=== PATIENT | female | born 1950 | race Caucasian/White ===

== ENCOUNTER 2016-11-03 18:53 | Emergency (ER) | payer BC ==
[2016-11-03 18:59] VITALS: BMI 35.2
--- NOTE | 2016-11-03 19:49 | PDOC ---
History of Present Illness - General History Source: Patient Exam Limitations: No Limitations - History of Present Illness Initial Comments: 11/03/16 19:58 The patient is a 66 year old female with significant past medical history of hypertension, hyperlipidemia, diabetes and kidney stones who presents to the ED for 3 days of worsening SOB and dry cough. Patient reports her SOB is worsen when walking and alleviated upon rest. Denies h/o of chf. Denies lightheadedness , diaphoresis, chest pain, jaw pain, shoulder pain, arm pain, leg swelling, nausea, or vomiting. States she was seen by her PMD yesterday where she was diagnosed with bronchitis and placed on z-pack, which she started yesterday. Patient reports her symptoms did not improve and decided to come into the ER. The patient denies fever, chills, abdominal pain, and diarrhea. The patient denies dysuria, hematuria, urgency, and frequency. Allergies: NKDA Social History: Former smoker (ppd for 50 years, quit 2 years ago). No alcohol or drug use reported. Past Surgical History: cholecystectomy, s/p lithotripsy and stent placement () PCP: Dr. Rivas Lund Urologist: Dr. Manning <Promise Barker - Last Filed: 11/03/16 19:59> - General History Source: Patient, Family <Rj Pascal - Last Filed: 11/03/16 22:31> - General Chief Complaint: Shortness of Breath Stated Complaint: PCP SENT/SHORTNESS OF BREATH Time Seen by Provider: 11/03/16 19:48 Past History <Promise Barker - Last Filed: 11/03/16 19:59> - Past Medical History Anemia: No Asthma: No COPD: No Diabetes: Yes (NIDDM) HTN: Yes Kidney Stones: Yes - Surgical History Cholecystectomy: Yes - Psycho/Social/Smoking Cessation Hx Anxiety: No Suicidal Ideation: No Smoking History: Former smoker Have you smoked in the past 12 months: No If you are a former smoker, when did you quit?: 2 years ago Information on smoking cessation initiated: No 'Breaking Loose' booklet given: 12/28/15 Hx Alcohol Use: No Drug/Substance Use Hx: No Substance Use Type: None Hx Substance Use Treatment: No <Rj Pascal - Last Filed: 11/03/16 22:31> - Past Medical History Allergies/Adverse Reactions: Allergies Allergy/AdvReac Type Severity Reaction Status Date / Time No Known Drug Allergies Allergy Verified 11/03/16 18:56 Home Medications: Ambulatory Orders Glimepiride [Amaryl -] 4 mg PO DAILY 11/25/15 Metformin HCl [Glucophage] 1,000 mg PO BID 11/25/15 Quinapril HCl [Accupril -] 10 mg PO DAILY 11/25/15 Simvastatin [Zocor -] 20 mg PO HS 11/25/15 Metoprolol Succinate [Toprol XL -] 50 mg PO BID 11/03/16 Review of Systems - Review of Systems Able to Perform ROS?: Yes Comments:: 11/03/16 19:58 CONSTITUTIONAL: Absent: fever, chills, diaphoresis, generalized weakness, malaise, loss of appetite HEENT: Absent: rhinorrhea, nasal congestion, throat pain, throat swelling, difficulty swallowing, ear pain, eye pain, visual Changes CARDIOVASCULAR: Absent: chest pain, syncope, palpitations, irregular heart rate, lightheadedness , peripheral edema RESPIRATORY: +cough, shortness of breath Absent: orthopnea, wheezing, stridor, hemoptysis GASTROINTESTINAL: Absent: abdominal pain, abdominal distension, nausea, vomiting, diarrhea, constipation, melena, hematochezia GENITOURINARY: Absent: dysuria, frequency, urgency, hesitancy, hematuria, flank pain, genital pain MUSCULOSKELETAL: Absent: myalgia, arthralgia, joint swelling SKIN: Absent: rash, itching, pallor NEUROLOGIC: Absent: headache, focal weakness or paresthesias, dizziness, unsteady gait, seizure, mental status changes, bladder or bowel incontinence <Promise Barker - Last Filed: 11/03/16 19:59> *Physical Exam - Vital Signs Last Vital Signs Temp Pulse Resp BP Pulse Ox 97.6 F 101 H 18 164/87 100 11/03/16 18:56 11/03/16 18:56 11/03/16 18:56 11/03/16 18:56 11/03/16 18:56 - Physical Exam Comments: 11/03/16 19:58 GENERAL: Well developed, well nourished. Awake and alert. No acute distress. HEENT: Normocephalic, atraumatic. PERRLA, EOMI. No conjunctival pallor. Sclera are non- icteric. Moist mucous membranes. Oropharynx is clear. NECK: Supple. Full ROM. No JVD. Carotid pulses 2+ and symmetric, without bruits. No thyromegaly. No lymphadenopathy. CARDIOVASCULAR: Regular rate and rhythm. No murmurs, rubs, or gallops. Distal pulses are 2+ and symmetric. PULMONARY: No evidence of respiratory distress. Decreased breath sounds bilaterally. No conversational dyspnea. No retractions. No wheezing, rales or rhonchi. ABDOMINAL: Soft. Non-tender. Non-distended. No rebound or guarding. No organomegaly. Normoactive bowel sounds. MUSCULOSKELETAL Normal range of motion at all joints. No bony deformities or tenderness. No CVA tenderness. EXTREMITIES: No cyanosis. No clubbing. No edema. No calf tenderness. SKIN: Warm and dry. Normal capillary refill. No rashes. No jaundice. NEUROLOGICAL: Alert, awake, appropriate. Cranial nerves 2-12 intact. Moving all extremities. No gross focal neurological deficits. <Promise Barker - Last Filed: 11/03/16 19:59> - Vital Signs Last Vital Signs Temp Pulse Resp BP Pulse Ox 97.6 F 101 H 18 164/87 100 11/03/16 18:56 11/03/16 18:56 11/03/16 18:56 11/03/16 18:56 11/03/16 18:56 <Rj Pascal - Last Filed: 11/03/16 22:31> Medical Decision Making - Medical Decision Making 11/03/16 22:29 Dr. Pascal: The scribe's documentation has been prepared under my direction and personally reviewed by me in its entirery. I confirm that the note above accurately reflects all work, treatment, procedures, and medical decision making performed by me. Pt chest xray is negative for infiltrate as read by radiology. Pt will be discharged and advised to complete the antibiotic she has been started on. <Rj Pascal - Last Filed: 11/03/16 22:31> *DC/Admit/Observation/Transfer - Attestations Scribe Attestion: 11/03/16 19:58 Documentation prepared by Promise Barker, acting as medical office clerk for Rj Pascal MD <Promise Barker - Last Filed: 11/03/16 19:59> - Discharge Dispostion Admit: No <Rj Pascal - Last Filed: 11/03/16 22:31> Diagnosis at time of Disposition: Cough - Discharge Dispostion Disposition: HOME Condition at time of disposition: Stable - Referrals Referrals: Rivas Lund MD [Primary Care Provider] - - Patient Instructions Printed Discharge Instructions: DI for Cough -- Adult Additional Instructions: coninue with all your medications. Follow up with your primary care doctor after completion of antibiotic. Return if any problems.
[2016-11-03] MEDS ORDERED: ALBUTEROL SO4 2.5/IPRATROPIUM 0.5 INH SOL 3 ML VIAL.NEB. NEB STA ×3 (19:54→22:22)
[2016-11-03] MEDS ORDERED: ALBUTEROL SO4 2.5/IPRATROPIUM 0.5 INH SOL 3 ML VIAL.NEB. NEB ONE (20:04)
[2016-11-03 22:35] VITALS: BP 147/68; PULSE 92; TEMP 98.1
== END 2016-11-03 22:42 | disposition home or self-care (01) ==
LOC: JERFT 18:53 → JER 18:53
PROC: 3E0F7GC Introduction of Other Therapeutic Substance into Respiratory Tract, Via Natural or Artificial Opening (ICD-10-PCS; principal; 2016-11-03)
PROC: 3E0F7GC Introduction of Other Therapeutic Substance into Respiratory Tract, Via Natural or Artificial Opening (ICD-10-PCS; 2016-11-03)
DX: R05 Cough (principal); I10 Essential (primary) hypertension; E78.00 Pure hypercholesterolemia, unspecified; E11.9 Type 2 diabetes mellitus without complications; Z79.84 Long term (current) use of oral hypoglycemic drugs; Z87.442 Personal history of urinary calculi; Z87.891 Personal history of nicotine dependence
CPT/HCPCS: 71020-TC; 99282-25

== ENCOUNTER 2016-11-07 06:46 | Inpatient (IN) | payer BC, OTHER ==
[2016-11-07] MEDS ORDERED: morphine CARPU-JECT 4 MG/1 ML DISP.SYRIN IVPUSH ONE (07:21)
--- NOTE | 2016-11-07 07:26 | PDOC ---
History of Present Illness - General Chief Complaint: Pain, Acute Stated Complaint: SHORTNESS OF BREATH Time Seen by Provider: 11/07/16 07:05 History Source: Patient Exam Limitations: No Limitations - History of Present Illness Travel History: No Initial Comments: 66 yo F with h/o HTN, HLD, kidney stone s/p lithotripsy and stent, septic shock 2/2 UTI presented to the ED with LLQ pain since 1am. The pain is located in LLQ , non-radiating, 10/10 at worst, sharp quality, constant, no aggravating or alleviating factors. She was admitted to the ICU a year ago due to septic shock 2/2 UTI, kidney stone and respiratory failure 2/2 fluid overload. Denies fever, chills, chest pain, sob, n/v, diarrhea. Past History - Past Medical History Allergies/Adverse Reactions: Allergies Allergy/AdvReac Type Severity Reaction Status Date / Time No Known Drug Allergies Allergy Verified 11/07/16 07:08 Home Medications: Ambulatory Orders Glimepiride [Amaryl -] 4 mg PO DAILY 11/25/15 Metformin HCl [Glucophage] 1,000 mg PO BID 11/25/15 Quinapril HCl [Accupril -] 10 mg PO DAILY 11/25/15 Simvastatin [Zocor -] 20 mg PO HS 11/25/15 Metoprolol Succinate [Toprol XL -] 50 mg PO BID 11/03/16 Sitagliptin Phosphate [Januvia] 100 mg PO DAILY 11/07/16 Anemia: No Asthma: No COPD: No Diabetes: Yes (NIDDM) HTN: Yes Kidney Stones: Yes - Surgical History Cholecystectomy: Yes - Psycho/Social/Smoking Cessation Hx Anxiety: No Suicidal Ideation: No Smoking History: Unknown if ever smoked Have you smoked in the past 12 months: No If you are a former smoker, when did you quit?: 2 years ago 'Breaking Loose' booklet given: 12/28/15 Hx Alcohol Use: No Drug/Substance Use Hx: No Substance Use Type: None Hx Substance Use Treatment: No Review of Systems - Review of Systems Able to Perform ROS?: Yes Is the patient limited Khmer proficient: No Constitutional: No: Chills, Fever Respiratory: Yes: Cough, Shortness of Breath Cardiac (ROS): No: Chest Pain ABD/GI: No: Nausea, Vomiting : No: Burning, Discharge, Frequency, Hematuria Musculoskeletal: No: Back Pain Neurological: No: Headache *Physical Exam - Vital Signs Last Vital Signs Temp Pulse Resp BP Pulse Ox 98.1 F 90 22 169/82 93 L 11/07/16 07:09 11/07/16 07:09 11/07/16 07:09 11/07/16 07:09 11/07/16 07:09 - Physical Exam General Appearance: No: Apparent Distress Neck: positive: Trachea midline, Supple Respiratory/Chest: positive: Wheezing Cardiovascular: positive: Regular Rhythm, Regular Rate, S1, S2. negative: Murmur Gastrointestinal/Abdominal: positive: Normal Bowel Sounds, Tenderness (LLQ) Musculoskeletal: negative: CVA Tenderness Extremity: negative: Swelling, Calf Tenderness Neurologic: positive: Fully Oriented, Alert ED Treatment Course - LABORATORY CBC & Chemistry Diagram: 11/07/16 07:15 11/07/16 07:15 - RADIOLOGY Radiology Studies Ordered: Category Date Time Status SPIRAL- RENAL-STONE CT [CT] Stat CT Scan 11/07/16 07:22 Ordered Medical Decision Making - Medical Decision Making 11/07/16 07:41 66 yo F in the ED for LLQ pain. DDx: kidney stone vs. UTI vs. diverticulitis. Will obtain spiral CT, full sets of labs. 11/07/16 10:27 CT is positive for 4mm L UVJ stone. Labs is remarkable for chronically elevated BNP. Dr. Egan discussed the case with Dr. Denson. Stent placement planned for this afternoon. Dr. Egan also discussed the case with Dr. Neal, will admit the patient under him. 11/07/16 10:42 Dr. Egan discussed the case with Dr. Cast. *DC/Admit/Observation/Transfer Diagnosis at time of Disposition: Nephrolithiasis UTI (urinary tract infection) Qualifiers: Urinary tract infection type: acute cystitis Hematuria presence: without hematuria Qualified Code(s): N30.00 - Acute cystitis without hematuria Hydronephrosis Qualifiers: Hydronephrosis type: with renal calculous obstruction Qualified Code(s): N13.2 - Hydronephrosis with renal and ureteral calculous obstruction CHF (congestive heart failure) Qualifiers: Congestive heart failure type: systolic Congestive heart failure chronicity: chronic Qualified Code(s): I50.22 - Chronic systolic (congestive) heart failure - Discharge Dispostion Condition at time of disposition: Stable Admit: Yes - Referrals Referrals: Clarke Lund MD [Primary Care Provider] -
[2016-11-07] MEDS ORDERED: morphine CARPU-JECT 4 MG/1 ML DISP.SYRIN ONE (07:27)
[2016-11-07] MEDS ORDERED: ONDANSETRON 4 MG/2 ML VIAL ONE (07:33)
[2016-11-07] MEDS ORDERED: ONDANSETRON *ODT* 4 MG TABLET SL ONE (07:33)
--- NOTE | 2016-11-07 07:48 | PDOC ---
Attending Attestation - Resident Resident Name: Jcarlos Zimmerman - ED Attending Attestation I have performed the following: I have examined & evaluated the patient, The case was reviewed & discussed with the resident, I agree w/resident's findings & plan, Exceptions are as noted - HPI HPI: 11/07/16 07:44 66 yo F c/ hx of DM, COPD, HTN, CHF, renal colic s/p ureteral stents (now removed), UTI, prior hx of sepsis/intubation/ICU admission last year p/w LLQ pain since this morning. Woke up this morning with pain with what she thinks is her kidney stones. denies fevers, chills, hematuria, dysuria. Denies diarrhea but does report nausea. As of note, pt was here several days ago for what may possibly be bronchitis. She completed her azithromycin yesterday. Not coughing anymore but feels slightly short of breath. Denies chest pain or radiation. Noted to have a strong smoking history and mild expiratory wheezing bilaterally. - Physicial Exam PE: 11/07/16 08:06 GENERAL: Awake, alert, and fully oriented, in no acute distress. HEAD: No signs of trauma EYES: PERRLA, EOMI, sclera anicteric, conjunctiva clear ENT: Auricles normal inspection, hearing grossly normal, nares patent, oropharynx clear without exudates. NECK: Normal ROM, supple, no lymphadenopathy, JVD, or masses LUNGS: Slight expiratory wheezing bilaterally. HEART: Regular rate and rhythm, normal S1 and S2, no murmurs, rubs or gallops ABDOMEN: TTQ LLQ. Soft, No guarding, no rebound. No masses EXTREMITIES: Normal range of motion, no edema. No clubbing or cyanosis. No cords, erythema, or tenderness NEUROLOGICAL: Cranial nerves II through XII grossly intact. Normal speech, normal gait SKIN: Warm, Dry, normal turgor, no rashes or lesions noted. - Medical Decision Making 11/07/16 08:06 Patient reports that this feels like her kidney stone. We'll need to rule out renal colic. However, we'll need to rule out obstructed kidney stone as well as pyelonephritis, colitis, diverticulitis. We'll obtain labs and a CAT scan. Treat symptoms and reassess. 11/07/16 10:17 4 mm left UVJ with resultant hydronephrosis. CBC, BMP 11/07/16 07:15 11/07/16 07:15 CMP Sodium 139 mmol/L (136-145) 11/07/16 07:15 Potassium 4.8 mmol/L (3.5-5.1) 11/07/16 07:15 Chloride 100 mmol/L (98-107) 11/07/16 07:15 Carbon Dioxide 27 mmol/L (21-32) 11/07/16 07:15 Anion Gap 12 (8-16) 11/07/16 07:15 BUN 16 mg/dL (7-18) 11/07/16 07:15 Creatinine 0.9 mg/dL (0.55-1.02) D 11/07/16 07:15 Creat Clearance w eGFR > 60 (>60) 11/07/16 07:15 Random Glucose 385 mg/dL (74-106) H* D 11/07/16 07:15 Calcium 9.3 mg/dL (8.5-10.1) 11/07/16 07:15 Total Bilirubin 0.4 mg/dL (0.2-1.0) D 11/07/16 07:15 AST 49 U/L (15-37) H 11/07/16 07:15 ALT 65 U/L (12-78) 11/07/16 07:15 Alkaline Phosphatase 81 U/L (45-117) 11/07/16 07:15 Creatine Kinase 51 IU/L (26-192) 11/07/16 07:15 Troponin I < 0.02 ng/ml (0.00-0.05) 11/07/16 07:15 B-Natriuretic Peptide 2123.67 pg/ml (5-125) H 11/07/16 07:15 Total Protein 7.1 g/dl (6.4-8.2) 11/07/16 07:15 Albumin 3.2 g/dl (3.4-5.0) L 11/07/16 07:15 Lipase 134 U/L (73-393) 11/07/16 07:15 Urine Test Results Urine Color Ltyellow 11/07/16 08:48 Urine Appearance Slcloudy 11/07/16 08:48 Urine pH 5.0 (5.0-8.0) 11/07/16 08:48 Ur Specific [place] 1.023 (1.001-1.035) 11/07/16 08:48 Urine Protein 2+ (NEGATIVE) H 11/07/16 08:48 Urine Glucose (UA) 3+ (NEGATIVE) H D 11/07/16 08:48 Urine Ketones Trace (NEGATIVE) H 11/07/16 08:48 Urine Blood 3+ (NEGATIVE) H 11/07/16 08:48 Urine Nitrite Negative (NEGATIVE) 11/07/16 08:48 Urine Bilirubin Negative (NEGATIVE) 11/07/16 08:48 Ur Leukocyte Esterase 1+ (NEGATIVE) H 11/07/16 08:48 Urine RBC 73 /hpf (0-3) 11/07/16 08:48 Urine WBC 23 /hpf (3-5) 11/07/16 08:48 Ur Epithelial Cells Rare /hpf (FEW) 11/07/16 08:48 Urine Bacteria Rare /hpf (NONE SEEN) 11/07/16 08:48 Urine Mucus Few 11/07/16 08:48 11/07/16 10:34 Will need to treat as obstructed infected kidney stone. Blood cultures ordered. Zosyn to be ordered. Given these circumstances, case discussed with Dr. joel Denson. Will likely need ureteral stent today. Pt made NPO. Also with chest xray clear, though BNP elevated to 2000. Dr. Rosen paged and awaiting call back for management. Case discussed with Dr. Neal. He accpets the patient to his service. <Jesus Egan - Last Filed: 11/07/16 10:34> - Medical Decision Making 11/07/16 10:42 The case was discussed with Dr. Cast at 10:40am and he agrees to see the patient. <Rj Mendes - Last Filed: 11/07/16 10:42> Heart Score/ECG Review - History History: Slightly suspicious - Electrocardiogram EKG: Non specific repolarization disturbance - Age Age: >/= 65 - Risk Factors Risk Factors Heart Score: Yes Hx Hypertension, Yes Hx Diabetes, Yes Smoking History Based on the list above the patient has:: >/=3 risk factors or Hx atherosclerotic disease #1 ECG reviewed & interpreted by me at: 07:35 11/07/16 07:49 NSR 100, Q wave V1-V2, no std/dav, QTC 441 msec <Jesus Egan - Last Filed: 11/07/16 10:34>
[2016-11-07 08:18] VITALS: BMI 37.0
[2016-11-07 08:21] LABS: BASOPHIL 0.8 % (0-2.0); EOSINOPHIL 0.2 % (0-4.5); MCH 24.1 pg (25.7-33.7); MCHC 31.2 g/dl (32.0-36.0); MEAN CELL VOLUME 77.2 fl (80-96); MEAN PLT VOLUME 9.2 fl (7.5-11.1); NEUTROPHILS 82.4 % (42.8-82.8); PLATELET COUNT 257 K/MM3 (134-434); WHITE BLOOD COUNT 10.3 K/mm3 (4.0-10.0)
[2016-11-07 08:47] LABS: ALBUMIN 3.2 g/dl (3.4-5.0); ANION GAP 12 (8-16); BILIRUBIN,TOTAL 0.4 mg/dL (0.2-1.0); CALCIUM 9.3 mg/dL (8.5-10.1); CO2 27 mmol/L (21-32); COCKROFT - GAULT 83.6485; CREATININE 0.9 mg/dL (0.55-1.02); SGOT/AST 49 U/L (15-37); SGPT/ALT 65 U/L (12-78); TOT PROT 7.1 g/dl (6.4-8.2)
[2016-11-07 08:48] LABS: ALK PHOS 81 U/L (45-117); TROPONIN I < 0.02 ng/ml (0.00-0.05)
[2016-11-07 08:59] LABS: GLUCOSE,RANDOM 385 mg/dL (74-106)
[2016-11-07 09:11] LABS: URINE APPEARANCE SLCLOUDY; URINE BILIRUBIN NEGATIVE (NEGATIVE); URINE COLOR LTYELLOW; URINE GLUCOSE (UA) 3+ (NEGATIVE); URINE KETONE TRACE (NEGATIVE); URINE NITRITE NEGATIVE (NEGATIVE); URINE UROBILINOGEN NEGATIVE E.U./dl (0.2-1.0)
[2016-11-07 09:36] LABS: URINE BLOOD 3+ (NEGATIVE); URINE LEUK ESTERASE 1+ (NEGATIVE); URINE PROTEIN 2+ (NEGATIVE)
[2016-11-07] MEDS ORDERED: KETOROLAC TROMETHAMINE 30 MG/1 ML VIAL IVPUSH ONE (09:42)
[2016-11-07] MEDS ORDERED: INSULIN REGULAR HUMAN 100 UNITS/ML *VIAL SQ ONE (09:44)
[2016-11-07 09:50] LABS: URINE BACTERIA RARE /hpf (NONE SEEN); URINE MUCUS FEW; URINE RBC 73 /hpf (0-3); URINE WBC 23 /hpf (3-5)
[2016-11-07] MEDS ORDERED: PIPERACILLIN/TAZOB 3.375 GM 3.375 GM in DEXTROSE 5%-WATER - 50 ML IVPB ONE (10:09)
[2016-11-07] MEDS ORDERED: KETOROLAC TROMETHAMINE 30 MG/1 ML VIAL ONE (10:15)
--- NOTE | 2016-11-07 10:15 | EKG ---
Test Reason : Blood Pressure : / mmHG Vent. Rate : 100 BPM Atrial Rate : 100 BPM P-R Int : 190 ms QRS Dur : 082 ms QT Int : 342 ms P-R-T Axes : 067 011 018 degrees QTc Int : 441 ms NORMAL SINUS RHYTHM SEPTAL INFARCT , AGE UNDETERMINED ABNORMAL ECG WHEN COMPARED WITH ECG OF 15-JAN-2016 15:34, NON-SPECIFIC CHANGE IN ST SEGMENT IN ANTERIOR LEADS NONSPECIFIC T WAVE ABNORMALITY NO LONGER EVIDENT IN LATERAL LEADS Confirmed by JULIO ZAYAS MD ([id number]) on 11/07/2016 10:14:46 AM Referred By: Confirmed By:JULIO ZAYAS MD
[2016-11-07] MEDS ORDERED: PIPERACILLIN/TAZOB 3.375 GM 50 ML IVPB ONE (10:16)
[2016-11-07] MEDS ORDERED: INSULIN REGULAR HUMAN 100 UNITS/ML *VIAL ONE (10:17)
[2016-11-07 11:18] LABS: INR 1.13 (0.82-1.09); PROTHROMBIN TIME (PATIENT) 12.5 SEC (9.98-11.88)
[2016-11-07 11:20] LABS: ACTIVATED PTT 35.6 SECONDS (26.9-34.4)
[2016-11-07] MEDS ORDERED: oxyCODONE HCL 5 MG TABLET PO PRN (11:27)
[2016-11-07] MEDS ORDERED: ONDANSETRON 4 MG/2 ML VIAL IVPB PRN (11:27)
[2016-11-07] MEDS ORDERED: morphine CARPU-JECT 2 MG/1 ML DISP.SYRIN IVPUSH PRN (11:27)
[2016-11-07] MEDS ORDERED: ACETAMINOPHEN 325 MG TABLET (FP) PO PRN (11:27)
--- NOTE | 2016-11-07 11:32 | HP ---
Admitting History and Physical - Primary Care Physician PCP: Rivas Lund - Admission Chief Complaint: Im having back pain History of Present Illness: Ms Acosta is a very pleasant 66 year old female who comes in with left sided back pain. She says she was in her normal state of health and doing well, however early this morning developed L sided back pain. She says it was very severe and 10/10. It did not radiate. She had nausea associated with this but no vomiting. She denies fevers, chills, lightheadedness, dizziness, chest pain or pressure, shortness of breath, constipation, diarrhea, difficulty or pain on urination, or swelling. Currently the pain is controlled. 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's Cardiovascular: Yes: AFIB, HTN, Hyperlipdemia Renal/: Yes: Renal Calculi, UTI, Other (POD#1: s/p Cysto/Litho) Endocrine: Yes: Diabetes Mellitus - Past Surgical History Additional Past Surgical History: Lithotripsy - Smoking History Smoking history: Unknown if ever smoked Have you smoked in the past 12 months: No If you are a former smoker, when did you quit?: 2 years ago - Alcohol/Substance Use Hx Alcohol Use: No History of Substance Use: reports: None - Social History ADL: Independent History of Recent Travel: No Home Medications - Allergies Allergies/Adverse Reactions: Allergies Allergy/AdvReac Type Severity Reaction Status Date / Time No Known Drug Allergies Allergy Verified 11/07/16 07:08 - Home Medications Home Medications: Ambulatory Orders Glimepiride [Amaryl -] 4 mg PO DAILY 11/25/15 Metformin HCl [Glucophage] 1,000 mg PO BID 11/25/15 Quinapril HCl [Accupril -] 10 mg PO DAILY 11/25/15 Simvastatin [Zocor -] 20 mg PO HS 11/25/15 Metoprolol Succinate [Toprol XL -] 50 mg PO BID 11/03/16 Sitagliptin Phosphate [Januvia] 100 mg PO DAILY 11/07/16 Family Disease History - Family Disease History Family Disease History: Diabetes: Sister Review of Systems Findings/Remarks: Full review of systems obtained, as per HPI and otherwise negative. Physical Examination Vital Signs: Vital Signs Temperature 98.1 F 11/07/16 07:09 Pulse Rate 90 11/07/16 07:09 Respiratory Rate 22 11/07/16 07:09 Blood Pressure 169/82 11/07/16 07:09 O2 Sat by Pulse Oximetry (%) 93 L 11/07/16 07:09 Constitutional: Yes: Well Nourished, No Distress, Calm Eyes: Yes: Conjunctiva Clear, EOM Intact, PERRL HENT: Yes: Atraumatic, Normocephalic Cardiovascular: Yes: Regular Rate and Rhythm. No: Gallop, Murmur, Rub Respiratory: Yes: Regular, CTA Bilaterally. No: Rales, Rhonchi, Wheezes Gastrointestinal: Yes: Normal Bowel Sounds, Soft. No: Distention, Tenderness Renal/: Yes: CVA Tenderness - Left Extremities: Yes: WNL Edema: No Labs: Laboratory Results - last 24 hr 11/07/16 11/07/16 11/07/16 07:15 07:15 07:15 WBC 10.3 H RBC 4.84 Hgb 11.6 D Hct 37.4 MCV 77.2 L MCHC 31.2 L RDW 17.0 H Plt Count 257 D MPV 9.2 Neutrophils % 82.4 D Lymphocytes % 10.1 D Monocytes % 6.5 Eosinophils % 0.2 D Basophils % 0.8 INR PTT (Actin FS) Sodium 139 Potassium 4.8 Chloride 100 Carbon Dioxide 27 Anion Gap 12 BUN 16 Creatinine 0.9 D Creat Clearance w eGFR > 60 Random Glucose 385 H* D Calcium 9.3 Total Bilirubin 0.4 D AST 49 H ALT 65 Alkaline Phosphatase 81 Creatine Kinase 51 Troponin I < 0.02 B-Natriuretic Peptide Total Protein 7.1 Albumin 3.2 L Lipase 134 Cancelled Urine Color Urine Appearance Urine pH Ur Specific [place] Urine Protein Urine Glucose (UA) Urine Ketones Urine Blood Urine Nitrite Urine Bilirubin Urine Urobilinogen Ur Leukocyte Esterase Urine RBC Urine WBC Ur Epithelial Cells Urine Bacteria Urine Mucus Blood Type Antibody Screen 11/07/16 11/07/16 11/07/16 07:15 08:48 10:50 WBC RBC Hgb Hct MCV MCHC RDW Plt Count MPV Neutrophils % Lymphocytes % Monocytes % Eosinophils % Basophils % INR 1.13 PTT (Actin FS) 35.6 H Sodium Potassium Chloride Carbon Dioxide Anion Gap BUN Creatinine Creat Clearance w eGFR Random Glucose Calcium Total Bilirubin AST ALT Alkaline Phosphatase Creatine Kinase Troponin I B-Natriuretic Peptide 2123.67 H Total Protein Albumin Lipase Urine Color Ltyellow Urine Appearance Slcloudy Urine pH 5.0 Ur Specific [place] 1.023 Urine Protein 2+ H Urine Glucose (UA) 3+ H D Urine Ketones Trace H Urine Blood 3+ H Urine Nitrite Negative Urine Bilirubin Negative Urine Urobilinogen Negative Ur Leukocyte Esterase 1+ H Urine RBC 73 Urine WBC 23 Ur Epithelial Cells Rare Urine Bacteria Rare Urine Mucus Few Blood Type Antibody Screen 11/07/16 10:50 WBC RBC Hgb Hct MCV MCHC RDW Plt Count MPV Neutrophils % Lymphocytes % Monocytes % Eosinophils % Basophils % INR PTT (Actin FS) Sodium Potassium Chloride Carbon Dioxide Anion Gap BUN Creatinine Creat Clearance w eGFR Random Glucose Calcium Total Bilirubin AST ALT Alkaline Phosphatase Creatine Kinase Troponin I B-Natriuretic Peptide Total Protein Albumin Lipase Urine Color Urine Appearance Urine pH Ur Specific [place] Urine Protein Urine Glucose (UA) Urine Ketones Urine Blood Urine Nitrite Urine Bilirubin Urine Urobilinogen Ur Leukocyte Esterase Urine RBC Urine WBC Ur Epithelial Cells Urine Bacteria Urine Mucus Blood Type B POSITIVE Antibody Screen Negative Imaging - Results Chest X-ray: Report Reviewed, Image Reviewed Cat Scan: Report Reviewed Problem List - Problems (1) 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 Assessment/Plan: -patient found to have obstructing stone -urology consulted and will see -evaluate for intervention Code(s): N20.1 - CALCULUS OF URETER (2) Hydronephrosis Assessment/Plan: -secondary to ureterolithiasis -urology to evaluate Code(s): N13.30 - UNSPECIFIED HYDRONEPHROSIS Qualifiers: Hydronephrosis type: with renal calculous obstruction Qualified Code(s) : N13.2 - Hydronephrosis with renal and ureteral calculous obstruction (3) UTI (urinary tract infection) Assessment/Plan: -has history of ESBL e coli UTI -given zosyn in the ED -consult ID for antibiotics -urine culture sent Code(s): N39.0 - URINARY TRACT INFECTION, SITE NOT SPECIFIED Qualifiers: Urinary tract infection type: acute cystitis Hematuria presence: without hematuria Qualified Code(s): N30.00 - Acute cystitis without hematuria (4) CHF (congestive heart failure) Assessment/Plan: -cardiology consulted -will see in consultation and decide need for ECHO and diuresis Code(s): I50.9 - HEART FAILURE, UNSPECIFIED Qualifiers: Congestive heart failure type: diastolic Congestive heart failure chronicity: acute on chronic Qualified Code(s): I50.33 - Acute on chronic diastolic (congestive) heart failure (5) Hyperlipidemia Assessment/Plan: -continue lipitor Code(s): E78.5 - HYPERLIPIDEMIA, UNSPECIFIED (6) Hypertension Assessment/Plan: -continue toprol xl and quinapril Code(s): I10 - ESSENTIAL (PRIMARY) HYPERTENSION (7) Type 2 diabetes mellitus Assessment/Plan: -continue home regimen -diabetic diet -SSI -endocrinology consult, poorly controlled Code(s): E11.9 - TYPE 2 DIABETES MELLITUS WITHOUT COMPLICATIONS Qualifiers: Diabetes mellitus complication status: with hyperglycemia Diabetes mellitus terminal clerk insulin use: without terminal clerk use Qualified Code(s): E11.65 - Type 2 diabetes mellitus with hyperglycemia (8) Paroxysmal atrial fibrillation Assessment/Plan: -currently in sinus rhythm -not on anticoagulation, patient refused in past -asymptomatic -continue toprol -cardiology to evaluate Code(s): I48.0 - PAROXYSMAL ATRIAL FIBRILLATION
[2016-11-07] MEDS: ALBUTEROL SO4 2.5/IPRATROPIUM 0.5 INH SOL 3 ML VIAL.NEB. NEB SCH ×3 (11:41→12:53)
--- NOTE | 2016-11-07 11:52 | CON.CARD ---
Consult Consult Specialty:: cardio Referred by:: samir Reason for Consultation:: hi bnp, r/o chf - History of Present Illness Chief Complaint: abd pain History of Present Illness: 66 yo female here with acute abdominal pain. lower quadrant pain felt like prior renal colic sx's to her. has h/o stones, renal stents, prior UTI/urosepsis recently in ER with sob, ? bronchitis or postnasal drip at that time. has had orthopnea for about 1 week, though mild sx's only. sob on activity but pt and dtr state stable for long time. feet and ankles swell after stands a lot--also stable long time, no change does not monitor wt at home. has gained a lot of wt since quit smoking. does not think wt has trended up; says at last PMD visit was down 2 lbs recently no cp/heaviness/pressure denies palpitations or recurrent AF since 2016 discharge says she declined AC since--on ASA only (last dose yest) declined cardio f/u as well PMH: paroxysmal afib HTN HPL ? copd + cigs hx - Past Medical History DIRECTOR ELECTRONICS: Yes: Alzheimer's Cardio/Vascular: Yes: AFIB, HTN, Hyperlipdemia Renal/: Yes: Renal Calculi, UTI, Other (POD#1: s/p Cysto/Litho) Endocrine: Yes: Diabetes Mellitus - Alcohol/Substance Use Hx Alcohol Use: No History of Substance Use: reports: None - Smoking History Smoking history: Unknown if ever smoked Have you smoked in the past 12 months: No If you are a former smoker, when did you quit?: 2 years ago - Social History ADL: Independent History of Recent Travel: No Home Medications - Allergies Allergies/Adverse Reactions: Allergies Allergy/AdvReac Type Severity Reaction Status Date / Time No Known Drug Allergies Allergy Verified 11/07/16 07:08 - Home Medications Home Medications: Ambulatory Orders Glimepiride [Amaryl -] 4 mg PO DAILY 11/25/15 Metformin HCl [Glucophage] 1,000 mg PO BID 11/25/15 Quinapril HCl [Accupril -] 10 mg PO DAILY 11/25/15 Simvastatin [Zocor -] 20 mg PO HS 11/25/15 Metoprolol Succinate [Toprol XL -] 50 mg PO BID 11/03/16 Sitagliptin Phosphate [Januvia] 100 mg PO DAILY 11/07/16 Family Disease History - Family Disease History Family Disease History: Diabetes: Sister Review of Systems - Review of Systems Constitutional: denies: Chills, Fever Eyes: denies: Eye Pain HENT: denies: Nasal Congestion Neck: denies: Stiffness Cardiovascular: denies: Palpitations Respiratory: reports: Orthopnea. denies: PND, Wheezing Gastrointestinal: denies: Diarrhea, Rectal Bleeding Genitourinary: denies: Burning, Hematuria Musculoskeletal: denies: Muscle Pain Integumentary: denies: Rash Neurological: denies: Numbness, Seizure, Syncope Endocrine: denies: Excessive Sweating Hematology/Lymphatic: denies: Excessive Bleeding Vital Signs: Vital Signs Temperature 98.1 F 11/07/16 07:09 Pulse Rate 90 11/07/16 07:09 Respiratory Rate 22 11/07/16 07:09 Blood Pressure 169/82 11/07/16 07:09 O2 Sat by Pulse Oximetry (%) 93 L 11/07/16 07:09 Constitutional: Yes: Well Nourished, No Distress Eyes: No: Sclera Icterus HENT: No: Nasal Congestion Neck: No: Decreased ROM Respiratory: Yes: CTA Bilaterally. No: Accessory Muscle Use, Rales, Wheezes Gastrointestinal: Yes: Normal Bowel Sounds. No: Distention, Hepatomegaly, Palpable Mass, Tenderness Cardiovascular: Yes: Regular Rate and Rhythm JVD: No Carotid Bruit: No PMI: Non-Displaced Heart Sounds: Yes: S1, S2. No: Gallop Murmur: No: Systolic Murmur, Diastolic Murmur Musculoskeletal: Yes: Other (No kyphosis) Extremities: No: Cold, Cyanosis Edema: Yes (mild nonpitting ankles) Peripheral Pulses: 2+ Left Carotid, 2+ Right Carotid, 2+ Left Doralis Pedis, 2+ Right Dorsalis Pedis Integumentary: No: Jaundice Neurological: Yes: Alert, Oriented (x3) Psychiatric: No: Agitated - Other Data Labs, Other Data: INR, PTT INR 1.13 (0.82-1.09) 11/07/16 10:50 Laboratory Tests 01/15/16 01/16/16 11/07/16 21:15 16:30 07:15 WBC 10.3 H Hgb 11.6 D Plt Count 257 D Sodium Potassium Carbon Dioxide BUN Creatinine AST ALT Creatine Kinase Troponin I B-Natriuretic Peptide 8793.07 H 3092.38 H 11/07/16 11/07/16 07:15 07:15 WBC Hgb Plt Count Sodium 139 Potassium 4.8 Carbon Dioxide 27 BUN 16 Creatinine 0.9 D AST 49 H ALT 65 Creatine Kinase 51 Troponin I < 0.02 B-Natriuretic Peptide 2123.67 H ekg 11/07: sinus tach; nl axis/intervals; no path q's (PRWP); no ST-T abn Imaging - Results Chest X-ray: Report Reviewed, Image Reviewed Assessment/Plan echo 11/2015: mild dec lvef, global hk, nl rv, mild mr paroxysmal AF -had afib in hosp 2016 in setting of uti/sepsis, rapid HRs--diltiazem gtt-- converted to sinus -episodes of very rapid PAF at times, treated with metoprolol 75 bid -chadsvasc is 5 (no cva/tia)--rx'd xarelto but she declined; on ASA 81 only-- cont same -will f/u with us after discharge -in sinus here, cont bb home dose ? acute diast chf -post cysto 01/2016 had suspected acute HFpEF req intubation--extubated quickly after diuresed -echo with mild decr LVEF, no valve pathology -no cardio f/u since then -currently with stable HOLCOMB and pedal edema, but new (mild) orthopnea x 1 week-- ? copd/bronchospasm sx vs chf -BNP 2K here; was 8K at time of acute chf 2016, down to 3K after treated -CXR clear with no vascular redistribution pattern -no JVD -cannot exclude she is hiding mild volume-up with incr LV filling pressures -given prior h/o acute pulm edema and intubation s/p ureteral stent, will empirically give lasix 40 ivp now, and probably continue x 48 hrs postop -on BB and GERRY (prevent syst chf)--cont same -rpt echo -pt now agrees to f/u with me after hosp stay preop eval: -may need cysto/ureteral stent +/- lithotripsy -RCRI 1; -low risk procedure -she may be in very mild chf -will diurese empirically (lasix as disc'd above) -if she has no signif sob, can proceed with procedure today or tomorrow at intermed risk of periop cv complications -lasix postop with close cv f/u -(note: TOOK ASA YESTERDAY--will hold preop, timing of surgery per ) htn: -bp mildly elevated on presentation--observe trend -cont home meds for now hld: -cont home statin
[2016-11-07] MEDS ORDERED: FUROSEMIDE 40 MG/4 ML INJECTABLE VIAL IVPUSH ONE (12:20)
[2016-11-07] MEDS ORDERED: ALBUTEROL SO4 2.5/IPRATROPIUM 0.5 INH SOL 3 ML VIAL.NEB. NEB ONE (12:49)
[2016-11-07] MEDS ORDERED: METOPROLOL SUCCINATE 50 MG TAB.SR.24H (FP) ONE (16:39)
[2016-11-07] MEDS ORDERED: METOPROLOL SUCCINATE 50 MG TAB.SR.24H (FP) PO ONE (17:00)
[2016-11-07] MEDS: metFORMIN HCL 500 MG TABLET (FP) PO SCH (17:39)
[2016-11-07] MEDS: INSULIN SLIDING SCALE (NOVOLOG) 1 VIAL SQ SCH ×2 (17:39→22:06)
--- NOTE | 2016-11-07 18:00 | CONSULT ---
Consult Consult Specialty:: infectious diseases Reason for Consultation:: pain left flank - History of Present Illness Chief Complaint: pain left flank History of Present Illness: 66 year old female who comes in with left sided back pain. She says she was in her normal state of health and doing well, however early this morning developed L sided back pain. She says it was very severe and 10/10. 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 Cardio/Vascular: Yes: AFIB, HTN, Hyperlipdemia Renal/: Yes: Renal Calculi, UTI, Other (POD#1: s/p Cysto/Litho) Endocrine: Yes: Diabetes Mellitus - Alcohol/Substance Use Hx Alcohol Use: No History of Substance Use: reports: None - Smoking History Smoking history: Unknown if ever smoked Have you smoked in the past 12 months: No If you are a former smoker, when did you quit?: 2 years ago - Social History ADL: Independent History of Recent Travel: No Home Medications - Allergies Allergies/Adverse Reactions: Allergies Allergy/AdvReac Type Severity Reaction Status Date / Time No Known Drug Allergies Allergy Verified 11/07/16 07:08 - Home Medications Home Medications: Ambulatory Orders Glimepiride [Amaryl -] 4 mg PO DAILY 11/25/15 Metformin HCl [Glucophage] 1,000 mg PO BID 11/25/15 Quinapril HCl [Accupril -] 10 mg PO DAILY 11/25/15 Simvastatin [Zocor -] 20 mg PO HS 11/25/15 Metoprolol Succinate [Toprol XL -] 50 mg PO BID 11/03/16 Sitagliptin Phosphate [Januvia] 100 mg PO DAILY 11/07/16 Family Disease History - Family Disease History Family Disease History: Diabetes: Sister Review of Systems - Review of Systems Constitutional: reports: No Symptoms Eyes: reports: No Symptoms HENT: reports: No Symptoms Neck: reports: No Symptoms Cardiovascular: reports: No Symptoms Respiratory: reports: No Symptoms Gastrointestinal: reports: No Symptoms Genitourinary: reports: Burning, Other (left flank pain) Musculoskeletal: reports: No Symptoms Integumentary: reports: No Symptoms Endocrine: reports: No Symptoms Hematology/Lymphatic: reports: No Symptoms Psychiatric: reports: No Symptoms Physical Exam Vital Signs: Vital Signs Temperature 98.2 F 11/07/16 17:09 Pulse Rate 87 11/07/16 17:09 Respiratory Rate 20 11/07/16 17:09 Blood Pressure 114/55 11/07/16 17:09 O2 Sat by Pulse Oximetry (%) 96 11/07/16 17:09 Constitutional: Yes: Well Nourished, Calm, Mild Distress Eyes: Yes: Conjunctiva Clear HENT: Yes: Atraumatic Neck: Yes: Supple, Trachea Midline Cardiovascular: Yes: Regular Rate and Rhythm Respiratory: Yes: Regular, CTA Bilaterally Gastrointestinal: Yes: Normal Bowel Sounds, Soft Musculoskeletal: Yes: WNL Extremities: Yes: WNL Neurological: Yes: Alert, Oriented Psychiatric: Yes: Alert, Oriented Imaging - Results Cat Scan: Report Reviewed, Image Reviewed Assessment/Plan Problem List - Problems (1) 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 Code(s): N20.1 - CALCULUS OF URETER (2) Hydronephrosis Code(s): N13.30 - UNSPECIFIED HYDRONEPHROSIS Qualifiers: Hydronephrosis type: with renal calculous obstruction Qualified Code(s) : N13.2 - Hydronephrosis with renal and ureteral calculous obstruction (3) UTI (urinary tract infection) Code(s): N39.0 - URINARY TRACT INFECTION, SITE NOT SPECIFIED Qualifiers: Urinary tract infection type: acute cystitis Hematuria presence: without hematuria Qualified Code(s): N30.00 - Acute cystitis without hematuria (4) CHF (congestive heart failure) Code(s): I50.9 - HEART FAILURE, UNSPECIFIED Qualifiers: Congestive heart failure type: diastolic Congestive heart failure chronicity: acute on chronic Qualified Code(s): I50.33 - Acute on chronic diastolic (congestive) heart failure (5) Hyperlipidemia Code(s): E78.5 - HYPERLIPIDEMIA, UNSPECIFIED (6) Hypertension Code(s): I10 - ESSENTIAL (PRIMARY) HYPERTENSION (7) Type 2 diabetes mellitus Code(s): E11.9 - TYPE 2 DIABETES MELLITUS WITHOUT COMPLICATIONS Qualifiers: Diabetes mellitus complication status: with hyperglycemia Diabetes mellitus long term acute care registered nurse insulin use: without long term acute care registered nurse use Qualified Code(s): E11.65 - Type 2 diabetes mellitus with hyperglycemia (8) Paroxysmal atrial fibrillation Code(s): I48.0 - PAROXYSMAL ATRIAL FIBRILLATION plan agree with starting of abx urology to evaluate hydration rest as per primary team
[2016-11-07] MEDS ORDERED: TAMSULOSIN HCL 0.4 MG CAP.ER.24H (FP) PO ONE (21:16)
[2016-11-07] MEDS ORDERED: INSULIN (NOVOLOG) ASPART 100 UNITS/ML 10ML VIAL ONE (21:54)
[2016-11-07] MEDS: DOCUSATE SODIUM 100 MG CAPSULE (FP) PO SCH (22:18)
[2016-11-07] MEDS: ATORVASTATIN CA 10 MG TABLET (FP) PO SCH (22:18)
[2016-11-07] MEDS: METOPROLOL SUCCINATE 50 MG TAB.SR.24H (FP) PO SCH (22:18)
--- NOTE | 2016-11-07 23:23 | CONS ---
DATE OF CONSULTATION: DATE OF DICTATION: 11/07/2016 HISTORY OF PRESENT ILLNESS: Patient is a 66-year-old female admitted via the emergency room with acute onset of left flank pain. Patient claims that this morning she developed a left flank pain that has increased in severity. She also had some nausea but no vomiting. She denies any fever or chills. She does have some dysuria. Patient does have history of Alzheimer disease. She also has history of high blood pressure, dyslipidemia, and atrial fibrillation. Has had kidney stones in the past. She also has recurrent history of nephrolithiasis. She is status post a cystoscopy and a laser lithotripsy in the past. Patient is a diabetic. She denies ethanol or tobacco use. She denies any allergies. She is on multiple medications including Glucophage, Amaryl, Accupril, Zocor, Toprol, and Januvia. PHYSICAL EXAMINATION: Vital signs: In the emergency room, her temperature was 98.1, blood pressure 169/82, respirations 22, pulse is 90. General: The patient appears to be well nourished but in mild distress. Chest: Her chest is clear. Abdomen: Her abdomen is soft. There is left CVA tenderness. There is also left lower quadrant tenderness. No hepatosplenomegaly is palpated. Bowel sounds are normoactive. Extremities: Extremities reveal full range of motion with no cyanosis, clubbing, or edema. Pelvic: The pelvic is deferred. LABORATORY: A CBC revealed a white count of 10,300. Her hemoglobin and hematocrit was 10.6/37.4. Her platelet count was 257. Patient's BUN and creatinine were also within normal limits. Her UA is positive for red blood cells. A CAT scan performed in the emergency room revealed left-sided hydroureteronephrosis. There was also hepatic steatorrhea. There also appeared to be mild left-sided colonic diverticulosis without diverticulitis. There was a small sac containing umbilical hernia. There was also a stone seen in the left ureterovesical junction. There was also a nonobstructing left renal stone. The patient's microbiology is pending. Her temperature has been afebrile. IMPRESSION: At present is left hydronephrosis, a history of nephrolithiasis presently with left ureteral stone and left renal colic and microscopic hematuria. Will recommend straining urine, increase the p.o. fluids, repeating renal sonogram in a.m. If no change in the stone position, will recommend a cystourethroscopy with laser lithotripsy. Will monitor for spontaneous passage of stone. Patient will need the stone workup as an outpatient. Laurie [id number]
[2016-11-08] MEDS: metFORMIN HCL 500 MG TABLET (FP) PO SCH (06:24)
[2016-11-08] MEDS: INSULIN SLIDING SCALE (NOVOLOG) 1 VIAL SQ SCH ×4 (06:24→21:28)
[2016-11-08] MEDS: sitaGLIPtin PHOSPHATE 100 MG TABLET (FP) PO SCH (06:24)
[2016-11-08] MEDS ORDERED: GLIMEPIRIDE 4 MG TABLET (FP) PO SCH (07:00)
[2016-11-08 07:27] LABS: BASOPHIL 0.3 % (0-2.0); EOSINOPHIL 3.5 % (0-4.5); MCH 23.8 pg (25.7-33.7); MCHC 30.7 g/dl (32.0-36.0); MEAN CELL VOLUME 77.6 fl (80-96); NEUTROPHILS 58.9 % (42.8-82.8); PLATELET COUNT 206 K/MM3 (134-434); RDW 17.3 % (11.6-15.6); WHITE BLOOD COUNT 6.8 K/mm3 (4.0-10.0)
[2016-11-08 07:51] LABS: CALCIUM 8.2 mg/dL (8.5-10.1); MAGNESIUM 1.7 mg/dL (1.8-2.4)
[2016-11-08 07:54] LABS: COCKROFT - GAULT 59.432; CREATININE 1.2 mg/dL (0.55-1.02); PHOSPHOROUS 5.4 mg/dL (2.5-4.9)
--- NOTE | 2016-11-08 09:13 | CONSULT ---
Consult Consult Specialty:: Endocrinology Referred by:: Dr Neal Reason for Consultation:: Hyperglycemia - History of Present Illness History of Present Illness: This is a 66 yo F with h/o DM for 30 years, COPD, HTN, CHF, renal colic s/p ureteral stents (now removed), UTI, prior hx of sepsis/intubation/ICU admission last year is admitted for LLQ pain. Woke up in the morning with pain with what she thought is her kidney stones. Pt referred for management of DM. Pt says she has not been checking her blood sugar at home and was referred by her PCP to an Division Director which she hasn't done yet. Doesn't know her A1C. Has polyuria, polydipsia and nocturia at home. Last ophthalmology exam >2years ago. Has paresthesia of feet for about a year. 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 Cardio/Vascular: Yes: AFIB, HTN, Hyperlipdemia Renal/: Yes: Renal Calculi, UTI, Other (POD#1: s/p Cysto/Litho) Endocrine: Yes: Diabetes Mellitus - Alcohol/Substance Use Hx Alcohol Use: No History of Substance Use: reports: None - Smoking History Smoking history: Unknown if ever smoked Have you smoked in the past 12 months: No If you are a former smoker, when did you quit?: 2 years ago - Social History ADL: Independent History of Recent Travel: No Home Medications - Allergies Allergies/Adverse Reactions: Allergies Allergy/AdvReac Type Severity Reaction Status Date / Time No Known Drug Allergies Allergy Verified 11/07/16 07:08 - Home Medications Home Medications: Ambulatory Orders Glimepiride [Amaryl -] 4 mg PO DAILY 11/25/15 Metformin HCl [Glucophage] 1,000 mg PO BID 11/25/15 Quinapril HCl [Accupril -] 10 mg PO DAILY 11/25/15 Simvastatin [Zocor -] 20 mg PO HS 11/25/15 Metoprolol Succinate [Toprol XL -] 50 mg PO BID 11/03/16 Sitagliptin Phosphate [Januvia] 100 mg PO DAILY 11/07/16 Family Disease History - Family Disease History Family Disease History: Diabetes: Mother, Sister Review of Systems - Review of Systems Constitutional: reports: Malaise Eyes: reports: No Symptoms HENT: reports: No Symptoms Neck: reports: No Symptoms Cardiovascular: reports: No Symptoms Respiratory: reports: No Symptoms Gastrointestinal: reports: Other (left lower quadrant pain) Musculoskeletal: reports: No Symptoms Endocrine: reports: Other (Polyuria, polydipsia, nocturia) Physical Exam Vital Signs: Vital Signs Temperature 98.3 F 11/08/16 06:00 Pulse Rate 83 11/08/16 06:00 Respiratory Rate 20 11/08/16 06:00 Blood Pressure 132/66 11/08/16 06:00 O2 Sat by Pulse Oximetry (%) 96 11/07/16 20:13 Constitutional: Yes: No Distress, Calm Eyes: Yes: Conjunctiva Clear, EOM Intact HENT: Yes: Atraumatic, Normocephalic Neck: Yes: Supple, Trachea Midline Cardiovascular: Yes: Regular Rate and Rhythm Respiratory: Yes: Rhonchi, Other (Basal creps) Gastrointestinal: Yes: Normal Bowel Sounds, Soft Musculoskeletal: Yes: WNL Extremities: Yes: WNL Edema: No Neurological: Yes: Alert, Oriented Labs: CBC, BMP 11/08/16 05:35 11/08/16 05:35 Imaging - Results Cat Scan: Report Reviewed (left renal/ureteric calculi, hepatic steatosis) Assessment/Plan DM: uncontrolled Check A1c Hold Metformin for now Januvia D/C Glimepiride 4 mg QD. Will need to monitor BGM closely if pt is NPO for any reason. Will d/c for now as pt is NPO starting tomorrow morning Novolog SS coverage Nutrition consult CHF ABd pain/Renal stones
[2016-11-08] MEDS ORDERED: PT OWN MED DRAWER 7, Y5N ONE (09:27)
--- NOTE | 2016-11-08 09:32 | PN ---
Progress Note, Physician History of Present Illness: pain much better in the flank patient doing well - Current Medication List Current Medications: Active Medications Acetaminophen (Tylenol -) 650 mg PO Q4H PRN PRN Reason: FEVER OR PAIN Atorvastatin Calcium (Lipitor -) 10 mg PO HS [facility] Last Admin: 11/07/16 22:18 Dose: 10 mg Docusate Sodium (Colace -) 100 mg PO BID [facility] Last Admin: 11/07/16 22:18 Dose: 100 mg Glimepiride (Amaryl -) 4 mg PO DAILY@0700 [facility] Last Admin: 11/08/16 06:24 Dose: 4 mg Ceftriaxone Sodium 1 gm/ (Dextrose) 50 mls @ 100 mls/hr IVPB DAILY [facility] Insulin Aspart (Novolog Vial Sliding Scale -) 1 vial SQ ACHS [facility] PRN Reason: Protocol Last Admin: 11/08/16 06:24 Dose: 2 units Metformin HCl (Glucophage -) 1,000 mg PO BIDI [facility] Last Admin: 11/08/16 06:24 Dose: 1,000 mg Metoprolol Succinate (Toprol Xl -) 50 mg PO BID [facility] Last Admin: 11/07/16 22:18 Dose: 50 mg Morphine Sulfate (Morphine Injection -) 2 mg IVPUSH Q4H PRN PRN Reason: PAIN Ondansetron HCl (Zofran Injection) 4 mg IVPB Q6H PRN PRN Reason: NAUSEA Oxycodone HCl (Roxicodone -) 5 mg PO Q4H PRN PRN Reason: PAIN Polyethylene Glycol (Miralax (For Daily Use) -) 17 gm PO DAILY [facility] Quinapril HCl (Accupril -) 10 mg PO DAILY [facility] Sitagliptin Phosphate (Januvia -) 100 mg PO DAILY@0700 [facility] Last Admin: 11/08/16 06:24 Dose: 100 mg - Objective Vital Signs: Vital Signs Temperature 98.3 F 11/08/16 06:00 Pulse Rate 83 11/08/16 06:00 Respiratory Rate 20 11/08/16 06:00 Blood Pressure 132/66 11/08/16 06:00 O2 Sat by Pulse Oximetry (%) 96 11/07/16 20:13 Constitutional: Yes: No Distress, Calm Neck: Yes: Supple Cardiovascular: Yes: S1, S2 Respiratory: Yes: Regular, CTA Bilaterally Gastrointestinal: Yes: Normal Bowel Sounds, Soft Musculoskeletal: Yes: WNL Extremities: Yes: WNL Neurological: Yes: Alert, Oriented Psychiatric: Yes: Alert, Oriented Labs: CBC, BMP 11/08/16 05:35 11/08/16 05:35 INR, PTT INR 1.13 (0.82-1.09) 11/07/16 10:50 Assessment/Plan Problem List - Problems (1) 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 Code(s): N20.1 - CALCULUS OF URETER (2) Hydronephrosis Code(s): N13.30 - UNSPECIFIED HYDRONEPHROSIS Qualifiers: Hydronephrosis type: with renal calculous obstruction Qualified Code(s) : N13.2 - Hydronephrosis with renal and ureteral calculous obstruction (3) UTI (urinary tract infection) Code(s): N39.0 - URINARY TRACT INFECTION, SITE NOT SPECIFIED Qualifiers: Urinary tract infection type: acute cystitis Hematuria presence: without hematuria Qualified Code(s): N30.00 - Acute cystitis without hematuria (4) CHF (congestive heart failure) Code(s): I50.9 - HEART FAILURE, UNSPECIFIED Qualifiers: Congestive heart failure type: diastolic Congestive heart failure chronicity: acute on chronic Qualified Code(s): I50.33 - Acute on chronic diastolic (congestive) heart failure (5) Hyperlipidemia Code(s): E78.5 - HYPERLIPIDEMIA, UNSPECIFIED (6) Hypertension Code(s): I10 - ESSENTIAL (PRIMARY) HYPERTENSION (7) Type 2 diabetes mellitus Code(s): E11.9 - TYPE 2 DIABETES MELLITUS WITHOUT COMPLICATIONS Qualifiers: Diabetes mellitus complication status: with hyperglycemia 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
[2016-11-08] MEDS: DOCUSATE SODIUM 100 MG CAPSULE (FP) PO SCH ×2 (09:35→21:28)
[2016-11-08] MEDS: METOPROLOL SUCCINATE 50 MG TAB.SR.24H (FP) PO SCH ×2 (09:35→21:28)
[2016-11-08] MEDS: POLYETHYLENE GLYCOL 3350 119 GM BTL PO SCH (09:37)
[2016-11-08] MEDS: CEFTRIAXONE 50 ML IVPB SCH (10:46)
[2016-11-08] MEDS: QUINAPRIL HCL 10 MG TABLET (FP) PO SCH (10:46)
--- NOTE | 2016-11-08 11:43 | PN ---
Progress Note (short form) - Note Progress Note: CC: hi bnp, r/o chf S: still with mild sob, no cp, palps, dizziness. Current Medications Acetaminophen (Tylenol -) 650 mg PO Q4H PRN PRN Reason: FEVER OR PAIN Atorvastatin Calcium (Lipitor -) 10 mg PO HS [facility] Last Admin: 11/07/16 22:18 Dose: 10 mg Docusate Sodium (Colace -) 100 mg PO BID [facility] Last Admin: 11/08/16 09:35 Dose: 100 mg Glimepiride (Amaryl -) 4 mg PO DAILY@0700 [facility] Last Admin: 11/08/16 06:24 Dose: 4 mg Ceftriaxone Sodium (Rocephin 1gm Ivpb (Pre-Docked)) 50 mls @ 100 mls/hr IVPB DAILY [facility] Last Admin: 11/08/16 10:46 Dose: 100 mls/hr Insulin Aspart (Novolog Vial Sliding Scale -) 1 vial SQ ACHS [facility] PRN Reason: Protocol Last Admin: 11/08/16 06:24 Dose: 2 units Metformin HCl (Glucophage -) 1,000 mg PO BIDI [facility] Last Admin: 11/08/16 06:24 Dose: 1,000 mg Metoprolol Succinate (Toprol Xl -) 50 mg PO BID [facility] Last Admin: 11/08/16 09:35 Dose: 50 mg Morphine Sulfate (Morphine Injection -) 2 mg IVPUSH Q4H PRN PRN Reason: PAIN Ondansetron HCl (Zofran Injection) 4 mg IVPB Q6H PRN PRN Reason: NAUSEA Oxycodone HCl (Roxicodone -) 5 mg PO Q4H PRN PRN Reason: PAIN Polyethylene Glycol (Miralax (For Daily Use) -) 17 gm PO DAILY [facility] Last Admin: 11/08/16 09:37 Dose: 17 grams Quinapril HCl (Accupril -) 10 mg PO DAILY [facility] Last Admin: 11/08/16 10:46 Dose: 10 mg Sitagliptin Phosphate (Januvia -) 100 mg PO DAILY@0700 [facility] Last Admin: 11/08/16 06:24 Dose: 100 mg Vital Signs - 24 hr 11/07/16 11/07/16 11/07/16 15:00 17:09 19:00 Temperature 98.2 F Pulse Rate 87 129 H Pulse Rate [ 108 H Apical] Respiratory 20 20 Rate Blood Pressure 114/55 Blood Pressure 158/88 [Arm] O2 Sat by Pulse 96 96 Oximetry (%) 11/07/16 11/07/16 11/08/16 20:13 23:00 02:36 Temperature 98.2 F 98.1 F Pulse Rate 101 H 82 Pulse Rate [ Apical] Respiratory 20 18 20 Rate Blood Pressure 106/48 121/49 Blood Pressure [Arm] O2 Sat by Pulse 96 Oximetry (%) 11/08/16 06:00 Temperature 98.3 F Pulse Rate 83 Pulse Rate [ Apical] Respiratory 20 Rate Blood Pressure 132/66 Blood Pressure [Arm] O2 Sat by Pulse Oximetry (%) Intake & Output 11/06/16 11/07/16 11/08/16 11/09/16 07:59 07:59 07:59 07:59 Intake Total 240 Balance 240 Weight 190 lb standing 180 lb Selected Entries 01/20/16 06:00 Weight 167 lb 12.8 oz Weight Standing Scale Measurement Method Constitutional: Yes: Well Nourished, No Distress Eyes: No: Sclera Icterus HENT: No: Nasal Congestion Neck: No: Decreased ROM Respiratory: Yes: trace wheezes. No: Accessory Muscle Use, Rales, Wheezes Gastrointestinal: Yes: Normal Bowel Sounds. No: Distention, Hepatomegaly, Palpable Mass, Tenderness Cardiovascular: Yes: Regular Rate and Rhythm JVD: No Carotid Bruit: No PMI: Non-Displaced Heart Sounds: Yes: S1, S2. No: Gallop Murmur: No: Systolic Murmur, Diastolic Murmur Musculoskeletal: Yes: Other (No kyphosis) Extremities: No: Cold, Cyanosis Edema: Yes (mild nonpitting ankles) Peripheral Pulses: 2+ Left Carotid, 2+ Right Carotid, 2+ Left Doralis Pedis, 2+ Right Dorsalis Pedis Integumentary: No: Jaundice Neurological: Yes: Alert, Oriented (x3) Psychiatric: No: Agitated - Other Data Labs, Other Data: CBC, BMP 11/08/16 05:35 11/08/16 05:35 Laboratory Tests 01/15/16 01/16/16 11/07/16 21:15 16:30 07:15 BUN 16 Creatinine 0.9 D Magnesium Total Bilirubin 0.4 D AST 49 H ALT 65 Alkaline Phosphatase 81 Creatine Kinase 51 Troponin I < 0.02 B-Natriuretic Peptide 8793.07 H 3092.38 H Albumin 3.2 L 11/07/16 11/08/16 07:15 05:35 BUN Creatinine Magnesium 1.7 L D Total Bilirubin AST ALT Alkaline Phosphatase Creatine Kinase Troponin I B-Natriuretic Peptide 2123.67 H Albumin ekg 11/07: sinus tach; nl axis/intervals; no path q's (PRWP); no ST-T abn tele: afib --> conversion to sr Imaging - Results Chest X-ray: Report Reviewed, Image Reviewed Assessment/Plan echo 11/2015: mild dec lvef, global hk, nl rv, mild mr echo 11/2016: mild dec lvef, global hk, nl rv, mild- mod mr, mild lae. small effusion < 1cm paroxysmal AF -had afib in hosp 2015 in setting of uti/sepsis, rapid HRs--diltiazem gtt-- converted to sinus -episodes of very rapid PAF at times, treated with metoprolol 75 bid -chadsvasc is 5 (no cva/tia)--rx'd xarelto but she declined; on ASA 81 only-- cont same -will f/u with us after discharge -in sinus here, cont bb home dose ? acute diast chf -post cysto 01/2016 had suspected acute HFpEF req intubation--extubated quickly after diuresed -echo with mild decr LVEF, no valve pathology, no cardio f/u since then -currently with stable HOLCOMB and pedal edema, but new (mild) orthopnea x 1 week-- ? copd/bronchospasm sx vs chf -BNP 2K here; was 8K at time of acute chf 2015, down to 3K after treated. wt has been 181-184 since 04/24 in office. -CXR clear with no vascular redistribution pattern, no JVD -11/07 cannot exclude she is hiding mild volume-up with incr LV filling pressures. given prior h/o acute pulm edema and intubation s/p ureteral stent, will empirically give lasix 40 ivp now, - 11/08: cr bump after IV lasix. standing weight up from 01/2016, but stable recent office weights. Review of lung parenchyma on abdominal Ct without pulmonary edema or effusions. Will not diurese further for now. Will likely need diuresis zenia-operatively in setting of IVF. -on BB and GERRY (prevent syst chf)--cont same -rpt echo unchanged -pt now agrees to f/u with Dr. Cast after hosp stay preop eval: -may need cysto/ureteral stent +/- lithotripsy -RCRI 1; -low risk procedure -she may be in very mild chf will diurese empirically (lasix as disc'd above) - can proceed with procedure today or tomorrow at intermed risk of periop cv complications -lasix postop with close cv f/u -(note: TOOK ASA YESTERDAY--will hold preop, timing of surgery per ) htn: -bp mildly elevated on presentation--observe trend. now running on low end. con't to monitor. no change in meds. hld: -cont home statin
[2016-11-08] MEDS ORDERED: MAGNESIUM SULF 50% (8.12 MEQ/2 ML-1 GM VIAL) IVPB ONE (12:15)
--- NOTE | 2016-11-08 14:12 | PN ---
Progress Note, Physician Chief Complaint: Ms Acosta says she is feeling better. No cp, sob, n/v. Passed a small stone this morning. - Current Medication List Current Medications: Active Medications Acetaminophen (Tylenol -) 650 mg PO Q4H PRN PRN Reason: FEVER OR PAIN Atorvastatin Calcium (Lipitor -) 10 mg PO HS [facility] Last Admin: 11/07/16 22:18 Dose: 10 mg Docusate Sodium (Colace -) 100 mg PO BID [facility] Last Admin: 11/08/16 09:35 Dose: 100 mg Glimepiride (Amaryl -) 4 mg PO DAILY@0700 [facility] Last Admin: 11/08/16 06:24 Dose: 4 mg Ceftriaxone Sodium (Rocephin 1gm Ivpb (Pre-Docked)) 50 mls @ 100 mls/hr IVPB DAILY [facility] Last Admin: 11/08/16 10:46 Dose: 100 mls/hr Insulin Aspart (Novolog Vial Sliding Scale -) 1 vial SQ ACHS [facility] PRN Reason: Protocol Last Admin: 11/08/16 06:24 Dose: 2 units Metformin HCl (Glucophage -) 1,000 mg PO BIDI [facility] Last Admin: 11/08/16 06:24 Dose: 1,000 mg Metoprolol Succinate (Toprol Xl -) 50 mg PO BID [facility] Last Admin: 11/08/16 09:35 Dose: 50 mg Morphine Sulfate (Morphine Injection -) 2 mg IVPUSH Q4H PRN PRN Reason: PAIN Ondansetron HCl (Zofran Injection) 4 mg IVPB Q6H PRN PRN Reason: NAUSEA Oxycodone HCl (Roxicodone -) 5 mg PO Q4H PRN PRN Reason: PAIN Polyethylene Glycol (Miralax (For Daily Use) -) 17 gm PO DAILY [facility] Last Admin: 11/08/16 09:37 Dose: 17 grams Quinapril HCl (Accupril -) 10 mg PO DAILY [facility] Last Admin: 11/08/16 10:46 Dose: 10 mg Sitagliptin Phosphate (Januvia -) 100 mg PO DAILY@0700 [facility] Last Admin: 11/08/16 06:24 Dose: 100 mg - Objective Vital Signs: Vital Signs Temperature 97.4 F L 11/08/16 10:00 Pulse Rate 83 11/08/16 10:00 Respiratory Rate 20 11/08/16 10:00 Blood Pressure 121/62 11/08/16 10:00 O2 Sat by Pulse Oximetry (%) 96 11/08/16 09:00 Constitutional: Yes: Well Nourished, No Distress, Calm Cardiovascular: Yes: Regular Rate and Rhythm. No: Gallop, Murmur Respiratory: Yes: Regular, CTA Bilaterally. No: Rales, Rhonchi, Wheezes Gastrointestinal: Yes: Normal Bowel Sounds, Soft. No: Distention, Tenderness Extremities: Yes: WNL Edema: No Labs: CBC, BMP 11/08/16 05:35 11/08/16 05:35 INR, PTT INR 1.13 (0.82-1.09) 11/07/16 10:50 Problem List - Problems (1) 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 Code(s): N20.1 - CALCULUS OF URETER (2) Hydronephrosis Code(s): N13.30 - UNSPECIFIED HYDRONEPHROSIS Qualifiers: Hydronephrosis type: with renal calculous obstruction Qualified Code(s) : N13.2 - Hydronephrosis with renal and ureteral calculous obstruction (3) UTI (urinary tract infection) Code(s): N39.0 - URINARY TRACT INFECTION, SITE NOT SPECIFIED Qualifiers: Urinary tract infection type: acute cystitis Hematuria presence: without hematuria Qualified Code(s): N30.00 - Acute cystitis without hematuria (4) CHF (congestive heart failure) Code(s): I50.9 - HEART FAILURE, UNSPECIFIED Qualifiers: Congestive heart failure type: diastolic Congestive heart failure chronicity: acute on chronic Qualified Code(s): I50.33 - Acute on chronic diastolic (congestive) heart failure (5) Hyperlipidemia Code(s): E78.5 - HYPERLIPIDEMIA, UNSPECIFIED (6) Hypertension Code(s): I10 - ESSENTIAL (PRIMARY) HYPERTENSION (7) Type 2 diabetes mellitus Code(s): E11.9 - TYPE 2 DIABETES MELLITUS WITHOUT COMPLICATIONS Qualifiers: Diabetes mellitus complication status: with hyperglycemia Diabetes mellitus custodial insulin use: without terminal clerk use Qualified Code(s): E11.65 - Type 2 diabetes mellitus with hyperglycemia; Z79.4 - terminal clerk (current ) use of insulin (8) Paroxysmal atrial fibrillation Code(s): I48.0 - PAROXYSMAL ATRIAL FIBRILLATION Assessment/Plan (1) 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 Assessment/Plan: -patient found to have obstructing stone -passed a small stone, but ultrasound showing an 8mm stone -plan for intervention tomorrow Code(s): N20.1 - CALCULUS OF URETER (2) Hydronephrosis Assessment/Plan: -as above Code(s): N13.30 - UNSPECIFIED HYDRONEPHROSIS Qualifiers: Hydronephrosis type: with renal calculous obstruction Qualified Code(s) : N13.2 - Hydronephrosis with renal and ureteral calculous obstruction (3) UTI (urinary tract infection) Assessment/Plan: -appreciate ID assistance -continue rocephin -urine cultures showing contaminant Code(s): N39.0 - URINARY TRACT INFECTION, SITE NOT SPECIFIED Qualifiers: Urinary tract infection type: acute cystitis Hematuria presence: without hematuria Qualified Code(s): N30.00 - Acute cystitis without hematuria (4) CHF (congestive heart failure) Assessment/Plan: -cardiology following -currently holding lasix Code(s): I50.9 - HEART FAILURE, UNSPECIFIED Qualifiers: Congestive heart failure type: diastolic Congestive heart failure chronicity: acute on chronic Qualified Code(s): I50.33 - Acute on chronic diastolic (congestive) heart failure (5) Hyperlipidemia Assessment/Plan: -continue lipitor Code(s): E78.5 - HYPERLIPIDEMIA, UNSPECIFIED (6) Hypertension Assessment/Plan: -continue toprol xl and quinapril Code(s): I10 - ESSENTIAL (PRIMARY) HYPERTENSION (7) Type 2 diabetes mellitus Assessment/Plan: appreciate endocrinology assistance -holding metformin -continue januvia and SSI Code(s): E11.9 - TYPE 2 DIABETES MELLITUS WITHOUT COMPLICATIONS Qualifiers: Diabetes mellitus complication status: with hyperglycemia Diabetes mellitus terminal clerk insulin use: without terminal clerk use Qualified Code(s): E11.65 - Type 2 diabetes mellitus with hyperglycemia (8) Paroxysmal atrial fibrillation Assessment/Plan: -currently in sinus rhythm -not on anticoagulation, patient refused in past -asymptomatic -continue toprol -cardiology following Code(s): I48.0 - PAROXYSMAL ATRIAL FIBRILLATION
[2016-11-08] MEDS ORDERED: MAGNESIUM OXIDE 400 MG TABLET (FP) PO ONE (16:03)
[2016-11-08] MEDS ORDERED: METOPROLOL SUCCINATE 50 MG TAB.SR.24H (FP) PO ONE (18:15)
[2016-11-08] MEDS: ATORVASTATIN CA 10 MG TABLET (FP) PO SCH ×2 (21:28→21:33)
[2016-11-09] MEDS: INSULIN SLIDING SCALE (NOVOLOG) 1 VIAL SQ SCH ×3 (06:41→18:16)
[2016-11-09] MEDS: sitaGLIPtin PHOSPHATE 100 MG TABLET (FP) PO SCH (06:42)
[2016-11-09 08:33] LABS: CALCIUM 8.5 mg/dL (8.5-10.1); COCKROFT - GAULT 71.3235; MAGNESIUM 2.2 mg/dL (1.8-2.4); PHOSPHOROUS 4.1 mg/dL (2.5-4.9)
[2016-11-09 08:34] LABS: BASOPHIL 0.5 % (0-2.0); EOSINOPHIL 3.6 % (0-4.5); MCH 24.4 pg (25.7-33.7); MCHC 31.5 g/dl (32.0-36.0); MEAN CELL VOLUME 77.6 fl (80-96); NEUTROPHILS 62.2 % (42.8-82.8); PLATELET COUNT 252 K/MM3 (134-434); RDW 16.7 % (11.6-15.6); WHITE BLOOD COUNT 7.8 K/mm3 (4.0-10.0)
--- NOTE | 2016-11-09 09:08 | PN ---
Progress Note (short form) - Note Progress Note: C/O HOLCOMB and cough today Passed stone yesterday Vital Signs Period Temp Pulse Resp BP Sys/Pitts Pulse Ox Last 24 Hr 97.4 F-99.1 F 82-96 18-20 119-137/54-74 96 PE: AOx3 Neck: Supple, No JVD HEENT: PERRL, EOMI Lungs: Basal crackes, No rhonchi CVs: S1S2 Abd: Benign Ext: Trace edema Neuro: No focal deficit CBC,CMP WBC 7.8 K/mm3 (4.0-10.0) 11/09/16 05:50 RBC 4.53 M/mm3 (3.60-5.2) 11/09/16 05:50 Hgb 11.1 GM/dL (10.7-15.3) 11/09/16 05:50 Hct 35.1 % (32.4-45.2) 11/09/16 05:50 MCV 77.6 fl (80-96) L 11/09/16 05:50 MCHC 31.5 g/dl (32.0-36.0) L 11/09/16 05:50 RDW 16.7 % (11.6-15.6) H 11/09/16 05:50 Plt Count 252 K/MM3 (134-434) D 11/09/16 05:50 MPV 9.0 fl (7.5-11.1) 11/09/16 05:50 Neutrophils % 62.2 % (42.8-82.8) 11/09/16 05:50 Lymphocytes % 24.0 % (8-40) 11/09/16 05:50 Monocytes % 9.7 % (3.8-10.2) 11/09/16 05:50 Eosinophils % 3.6 % (0-4.5) 11/09/16 05:50 Basophils % 0.5 % (0-2.0) 11/09/16 05:50 Sodium 139 mmol/L (136-145) 11/09/16 05:50 Potassium 4.8 mmol/L (3.5-5.1) 11/09/16 05:50 Chloride 100 mmol/L (98-107) 11/09/16 05:50 Carbon Dioxide 31 mmol/L (21-32) 11/09/16 05:50 Anion Gap 8 (8-16) 11/09/16 05:50 BUN 30 mg/dL (7-18) H 11/09/16 05:50 Creatinine 1.0 mg/dL (0.55-1.02) 11/09/16 05:50 Creat Clearance w eGFR > 60 (>60) 11/07/16 07:15 POC Glucometer 225 UNITS (()) 11/09/16 05:52 Random Glucose 242 mg/dL (74-106) H D 11/09/16 05:50 Hemoglobin A1c % 10.9 % (4.8-6.0) H 11/09/16 05:50 Calcium 8.5 mg/dL (8.5-10.1) 11/09/16 05:50 Phosphorus 4.1 mg/dL (2.5-4.9) D 11/09/16 05:50 Magnesium 2.2 mg/dL (1.8-2.4) D 11/09/16 05:50 Total Bilirubin 0.4 mg/dL (0.2-1.0) D 11/07/16 07:15 AST 49 U/L (15-37) H 11/07/16 07:15 ALT 65 U/L (12-78) 11/07/16 07:15 Alkaline Phosphatase 81 U/L (45-117) 11/07/16 07:15 Creatine Kinase 51 IU/L (26-192) 11/07/16 07:15 Troponin I < 0.02 ng/ml (0.00-0.05) 11/07/16 07:15 B-Natriuretic Peptide 2123.67 pg/ml (5-125) H 11/07/16 07:15 Total Protein 7.1 g/dl (6.4-8.2) 11/07/16 07:15 Albumin 3.2 g/dl (3.4-5.0) L 11/07/16 07:15 Lipase 134 U/L (73-393) 11/07/16 07:15 Current Medications Generic Name Dose Route Start Last Admin Trade Name Freq PRN Reason Stop Dose Admin Acetaminophen 650 mg 11/07/16 11:27 Tylenol - PO Q4H PRN FEVER OR PAIN Atorvastatin Calcium 10 mg 11/07/16 22:00 11/08/16 21:33 Lipitor - PO Not Given HS LEONEL Docusate Sodium 100 mg 11/07/16 22:00 11/08/16 21:28 Colace - PO 100 mg BID [facility] Administration Ceftriaxone Sodium 50 mls @ 100 mls/hr 11/08/16 10:00 11/08/16 10:46 Rocephin 1gm Ivpb (Pre-Docked) IVPB 100 mls/hr DAILY [facility] Administration Insulin Aspart 1 vial 11/07/16 16:30 11/09/16 06:41 Novolog Vial Sliding Scale - SQ 2 units ACHS [facility] Administration Protocol Metoprolol Succinate 50 mg 11/07/16 22:00 11/08/16 21:28 Toprol Xl - PO 50 mg BID [facility] Administration Morphine Sulfate 2 mg 11/07/16 11:27 Morphine Injection - IVPUSH Q4H PRN PAIN Ondansetron HCl 4 mg 11/07/16 11:27 Zofran Injection IVPB Q6H PRN NAUSEA Oxycodone HCl 5 mg 11/07/16 11:27 Roxicodone - PO Q4H PRN PAIN Polyethylene Glycol 17 gm 11/08/16 10:00 11/08/16 09:37 Miralax (For Daily Use) - PO 17 grams DAILY [facility] Administration Quinapril HCl 10 mg 11/08/16 10:00 11/08/16 10:46 Accupril - PO 10 mg DAILY [facility] Administration Sitagliptin Phosphate 100 mg 11/08/16 07:00 11/09/16 06:42 Januvia - PO 100 mg DAILY@0700 [facility] Administration AP: DM: uncontrolled A1c 10.9 Hold Metformin for now Januvia Off Glimepiride as pt is NPO after breakfast today Will treat with Insulin and Januvia for now Novolog SS coverage Nutrition consult CHF ABd pain/Renal stones: Passed stone yesterday. ? For procedure today.
[2016-11-09] MEDS ORDERED: PT OWN MED DRAWER 7, Y5N ONE ×2 (09:56→21:51)
[2016-11-09] MEDS: DOCUSATE SODIUM 100 MG CAPSULE (FP) PO SCH ×2 (10:02→22:00)
[2016-11-09] MEDS: QUINAPRIL HCL 10 MG TABLET (FP) PO SCH (10:02)
[2016-11-09] MEDS: METOPROLOL SUCCINATE 50 MG TAB.SR.24H (FP) PO SCH ×2 (10:02→22:00)
[2016-11-09] MEDS: CEFTRIAXONE 50 ML IVPB SCH (10:02)
[2016-11-09] MEDS: POLYETHYLENE GLYCOL 3350 119 GM BTL PO SCH (10:11)
--- NOTE | 2016-11-09 11:33 | PN ---
Progress Note (short form) - Note Progress Note: S: still with mild sob, no cp, palps, dizziness. Current Medications Generic Name Dose Route Start Last Admin Trade Name Freq PRN Reason Stop Dose Admin Acetaminophen 650 mg 11/07/16 11:27 Tylenol - PO Q4H PRN FEVER OR PAIN Atorvastatin Calcium 10 mg 11/07/16 22:00 11/08/16 21:33 Lipitor - PO Not Given HS [facility] Docusate Sodium 100 mg 11/07/16 22:00 11/09/16 10:02 Colace - PO 100 mg BID [facility] Administration Ceftriaxone Sodium 50 mls @ 100 mls/hr 11/08/16 10:00 11/09/16 10:02 Rocephin 1gm Ivpb (Pre-Docked) IVPB 100 mls/hr DAILY [facility] Administration Insulin Aspart 0 vial 11/09/16 11:00 Novolog Vial Sliding Scale - SQ TIDAC [facility]ONEL Protocol Insulin Aspart 0 units 11/09/16 22:00 Novolog SQ HS [facility] Protocol Metoprolol Succinate 50 mg 11/07/16 22:00 11/09/16 10:02 Toprol Xl - PO 50 mg BID [facility] Administration Morphine Sulfate 2 mg 11/07/16 11:27 Morphine Injection - IVPUSH Q4H PRN PAIN Ondansetron HCl 4 mg 11/07/16 11:27 Zofran Injection IVPB Q6H PRN NAUSEA Oxycodone HCl 5 mg 11/07/16 11:27 Roxicodone - PO Q4H PRN PAIN Polyethylene Glycol 17 gm 11/08/16 10:00 11/09/16 10:11 Miralax (For Daily Use) - PO Not Given DAILY [facility] Quinapril HCl 10 mg 11/08/16 10:00 11/09/16 10:02 Accupril - PO 10 mg DAILY [facility] Administration Sitagliptin Phosphate 100 mg 11/08/16 07:00 11/09/16 06:42 Januvia - PO 100 mg DAILY@0700 [facility] Administration Vital Signs Period Temp Pulse Resp BP Sys/Pitts Pulse Ox Last 24 Hr 97.8 F-99.1 F 82-96 18-20 119-137/54-74 96 Constitutional: Yes: Well Nourished, No Distress Eyes: No: Sclera Icterus Respiratory: cta bl nl eff Gastrointestinal: Yes: Normal Bowel Sounds. No: Distention, Hepatomegaly, Palpable Mass, Tenderness Cardiovascular: Yes: Regular Rate and Rhythm JVD: No Heart Sounds: Yes: S1, S2. No: Gallop Murmur: No: Systolic Murmur, Diastolic Murmur Extremities: No: Cold, Cyanosis Edema: no le e/c/c Integumentary: No: Jaundice diaphoresis Neurological: Yes: Alert, Oriented (x3) Psychiatric: No: Agitated - Other Data Labs, Other Data: Laboratory Last Values WBC 7.8 K/mm3 (4.0-10.0) 11/09/16 05:50 RBC 4.53 M/mm3 (3.60-5.2) 11/09/16 05:50 Hgb 11.1 GM/dL (10.7-15.3) 11/09/16 05:50 Hct 35.1 % (32.4-45.2) 11/09/16 05:50 MCV 77.6 fl (80-96) L 11/09/16 05:50 MCHC 31.5 g/dl (32.0-36.0) L 11/09/16 05:50 RDW 16.7 % (11.6-15.6) H 11/09/16 05:50 Plt Count 252 K/MM3 (134-434) D 11/09/16 05:50 MPV 9.0 fl (7.5-11.1) 11/09/16 05:50 Neutrophils % 62.2 % (42.8-82.8) 11/09/16 05:50 Lymphocytes % 24.0 % (8-40) 11/09/16 05:50 Monocytes % 9.7 % (3.8-10.2) 11/09/16 05:50 Eosinophils % 3.6 % (0-4.5) 11/09/16 05:50 Basophils % 0.5 % (0-2.0) 11/09/16 05:50 INR 1.13 (0.82-1.09) 11/07/16 10:50 PTT (Actin FS) 35.6 SECONDS (26.9-34.4) H 11/07/16 10:50 Sodium 139 mmol/L (136-145) 11/09/16 05:50 Potassium 4.8 mmol/L (3.5-5.1) 11/09/16 05:50 Chloride 100 mmol/L (98-107) 11/09/16 05:50 Carbon Dioxide 31 mmol/L (21-32) 11/09/16 05:50 Anion Gap 8 (8-16) 11/09/16 05:50 BUN 30 mg/dL (7-18) H 11/09/16 05:50 Creatinine 1.0 mg/dL (0.55-1.02) 11/09/16 05:50 Creat Clearance w eGFR > 60 (>60) 11/07/16 07:15 POC Glucometer 225 UNITS (()) 11/09/16 05:52 Random Glucose 242 mg/dL (74-106) H D 11/09/16 05:50 Hemoglobin A1c % 10.9 % (4.8-6.0) H 11/09/16 05:50 Calcium 8.5 mg/dL (8.5-10.1) 11/09/16 05:50 Phosphorus 4.1 mg/dL (2.5-4.9) D 11/09/16 05:50 Magnesium 2.2 mg/dL (1.8-2.4) D 11/09/16 05:50 Total Bilirubin 0.4 mg/dL (0.2-1.0) D 11/07/16 07:15 AST 49 U/L (15-37) H 11/07/16 07:15 ALT 65 U/L (12-78) 11/07/16 07:15 Alkaline Phosphatase 81 U/L (45-117) 11/07/16 07:15 Creatine Kinase 51 IU/L (26-192) 11/07/16 07:15 Troponin I < 0.02 ng/ml (0.00-0.05) 11/07/16 07:15 B-Natriuretic Peptide 2123.67 pg/ml (5-125) H 11/07/16 07:15 Total Protein 7.1 g/dl (6.4-8.2) 11/07/16 07:15 Albumin 3.2 g/dl (3.4-5.0) L 11/07/16 07:15 Lipase 134 U/L (73-393) 11/07/16 07:15 Urine Color Ltyellow 11/07/16 08:48 Urine Appearance Slcloudy 11/07/16 08:48 Urine pH 5.0 (5.0-8.0) 11/07/16 08:48 Ur Specific [place] 1.023 (1.001-1.035) 11/07/16 08:48 Urine Protein 2+ (NEGATIVE) H 11/07/16 08:48 Urine Glucose (UA) 3+ (NEGATIVE) H D 11/07/16 08:48 Urine Ketones Trace (NEGATIVE) H 11/07/16 08:48 Urine Blood 3+ (NEGATIVE) H 11/07/16 08:48 Urine Nitrite Negative (NEGATIVE) 11/07/16 08:48 Urine Bilirubin Negative (NEGATIVE) 11/07/16 08:48 Urine Urobilinogen Negative E.U./dl (0.2-1.0) 11/07/16 08:48 Ur Leukocyte Esterase 1+ (NEGATIVE) H 11/07/16 08:48 Urine RBC 73 /hpf (0-3) 11/07/16 08:48 Urine WBC 23 /hpf (3-5) 11/07/16 08:48 Ur Epithelial Cells Rare /hpf (FEW) 11/07/16 08:48 Urine Bacteria Rare /hpf (NONE SEEN) 11/07/16 08:48 Urine Mucus Few 11/07/16 08:48 Blood Type B POSITIVE 11/07/16 10:50 Antibody Screen Negative 11/07/16 10:50 ekg 11/07: sinus tach; nl axis/intervals; no path q's (PRWP); no ST-T abn tele: sr cxr: clear lungs echo 11/2015: mild dec lvef, global hk, nl rv, mild mr echo 11/2016: mild dec lvef, global hk, nl rv, mild- mod mr, mild lae. small effusion < 1cm a/p: paroxysmal AF -had afib in hosp 2016 in setting of uti/sepsis, rapid HRs--diltiazem gtt-- converted to sinus -episodes of very rapid PAF at times, treated with metoprolol 75 bid -chadsvasc is 5 (no cva/tia)--rx'd xarelto but she declined; on ASA 81 only-- cont same when procedures done -in sinus here, cont bb home dose possible acute diast chf: -post cysto 01/2016 had suspected acute HFpEF req intubation--extubated quickly after diuresed -echo with mild decr LVEF, no valve pathology, no cardio f/u since then -currently with stable HOLCOMB and pedal edema, but new (mild) orthopnea x 1 week-- ? copd/bronchospasm sx vs chf -BNP 2K here; was 8K at time of acute chf 2016, down to 3K after treated. wt has been 181-184 since 04/24 in office. -CXR clear with no vascular redistribution pattern, no JVD, lungs clear on exam. After getting iv lasix here cr alyssa so stopped. Will not diurese further for now. Will likely need diuresis zenia-operatively in setting of IVF. -on BB and GERRY (prevent syst chf)--cont same -rpt echo w/o sig change preop eval: -may need cysto/ureteral stent +/- lithotripsy -RCRI 1; -low risk procedure -can proceed with procedure at intermed risk of periop cv complications -lasix postop with close cv f/u htn: -cont current meds hld: -cont home statin
--- NOTE | 2016-11-09 14:21 | PN ---
Progress Note (short form) - Note Progress Note: pt. with a 8mm stone in lt. lower pole of lt. kidney, still with lt. colic, hematuria and lt. renal pelvic dilation, will go for cysto lt. retro lt. ureteroscopic laser lithotripsy with placement of a JJ stent. Problem List - Problems (1) CHF (congestive heart failure) Code(s): I50.9 - HEART FAILURE, UNSPECIFIED Qualifiers: Congestive heart failure type: diastolic Congestive heart failure chronicity: acute on chronic Qualified Code(s): I50.33 - Acute on chronic diastolic (congestive) heart failure (2) Gram negative sepsis Code(s): A41.50 - GRAM-NEGATIVE SEPSIS, UNSPECIFIED (3) Gram-negative bacteremia Code(s): R78.81 - BACTEREMIA (4) Hydronephrosis Code(s): N13.30 - UNSPECIFIED HYDRONEPHROSIS Qualifiers: Hydronephrosis type: with renal calculous obstruction Qualified Code(s) : N13.2 - Hydronephrosis with renal and ureteral calculous obstruction (5) Lactic acidosis Code(s): E87.2 - ACIDOSIS (6) Nephrolithiasis Code(s): N20.0 - CALCULUS OF KIDNEY (7) Obesity (BMI 30.0-34.9) Code(s): E66.9 - OBESITY, UNSPECIFIED (8) Paroxysmal atrial fibrillation Code(s): I48.0 - PAROXYSMAL ATRIAL FIBRILLATION (9) UTI (urinary tract infection) Code(s): N39.0 - URINARY TRACT INFECTION, SITE NOT SPECIFIED Qualifiers: Urinary tract infection type: acute cystitis Hematuria presence: without hematuria Qualified Code(s): N30.00 - Acute cystitis without hematuria (10) Hyperlipidemia Code(s): E78.5 - HYPERLIPIDEMIA, UNSPECIFIED (11) Hypertension Code(s): I10 - ESSENTIAL (PRIMARY) HYPERTENSION (12) Obesity (BMI 30-39.9) Code(s): E66.9 - OBESITY, UNSPECIFIED (13) Type 2 diabetes mellitus Code(s): E11.9 - TYPE 2 DIABETES MELLITUS WITHOUT COMPLICATIONS Qualifiers: Diabetes mellitus complication status: with hyperglycemia Diabetes mellitus jail insulin use: without watermaster use Qualified Code(s): E11.65 - Type 2 diabetes mellitus with hyperglycemia; Z79.4 - care home (current ) use of insulin (14) Atrial fibrillation with rapid ventricular response Code(s): I48.91 - UNSPECIFIED ATRIAL FIBRILLATION (15) Cough Code(s): R05 - COUGH (16) 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 Code(s): N20.1 - CALCULUS OF URETER (17) Sepsis Code(s): A41.9 - SEPSIS, UNSPECIFIED ORGANISM Qualifiers: Sepsis type: sepsis due to unspecified organism Qualified Code(s): A41.9 - Sepsis, unspecified organism (18) UTI (urinary tract infection), uncomplicated Code(s): N39.0 - URINARY TRACT INFECTION, SITE NOT SPECIFIED Xital Signs Vital Signs: Vital Signs - 24 hr 11/08/16 11/08/16 11/08/16 15:00 17:00 20:45 Temperature 98.3 F 99.1 F Pulse Rate 82 86 Respiratory 18 20 20 Rate Blood Pressure 119/58 121/54 O2 Sat by Pulse 96 Oximetry (%) 11/09/16 11/09/16 11/09/16 02:43 06:00 10:00 Temperature 98.0 F 97.8 F 98.1 F Pulse Rate 85 96 H 87 Respiratory 18 18 22 Rate Blood Pressure 137/74 137/73 136/73 O2 Sat by Pulse Oximetry (%) Imaging - Results Cat Scan: Image Reviewed (lt hydo w lt renal stone) Ultrasound: Image Reviewed (lt hydo w lt renal stone)
--- NOTE | 2016-11-09 14:25 | SPA.POSTOP ---
- POST-OP NOTE POD #0 s/p No acute events since surgical procedure per RN notes. Patient resting comfortably. Pain management via prn meds. Denies n/v/f/c, CP or SOB. Last Vital Signs Temp Pulse Resp BP Pulse Ox 98.1 F 87 22 136/73 96 11/09/16 10:00 11/09/16 10:00 11/09/16 10:00 11/09/16 10:00 11/08/16 20:45 Physical Exam General: No acute distress. Pulm: Clear to auscultation bilat anteriorly Cor: Regular rhythm Abd: Soft. Non-tender. No distention LE: Soft, non-tender bilat. SCD's bilat. pt. aware of procedure and expects risk.
--- NOTE | 2016-11-09 14:48 | PN ---
Progress Note, Physician Chief Complaint: Ms Acosta says she is feeling better. No cp, sob, n/v. - Current Medication List Current Medications: Active Medications Acetaminophen (Tylenol -) 650 mg PO Q4H PRN PRN Reason: FEVER OR PAIN Atorvastatin Calcium (Lipitor -) 10 mg PO HS [facility] Last Admin: 11/08/16 21:33 Dose: Not Given Docusate Sodium (Colace -) 100 mg PO BID [facility] Last Admin: 11/09/16 10:02 Dose: 100 mg Ceftriaxone Sodium (Rocephin 1gm Ivpb (Pre-Docked)) 50 mls @ 100 mls/hr IVPB DAILY [facility] Last Admin: 11/09/16 10:02 Dose: 100 mls/hr Insulin Aspart (Novolog Vial Sliding Scale -) 0 vial SQ TIDAC [facility] PRN Reason: Protocol Last Admin: 11/09/16 12:56 Dose: Not Given Insulin Aspart (Novolog) 0 units SQ HS [facility] PRN Reason: Protocol Metoprolol Succinate (Toprol Xl -) 50 mg PO BID [facility] Last Admin: 11/09/16 10:02 Dose: 50 mg Morphine Sulfate (Morphine Injection -) 2 mg IVPUSH Q4H PRN PRN Reason: PAIN Ondansetron HCl (Zofran Injection) 4 mg IVPB Q6H PRN PRN Reason: NAUSEA Oxycodone HCl (Roxicodone -) 5 mg PO Q4H PRN PRN Reason: PAIN Polyethylene Glycol (Miralax (For Daily Use) -) 17 gm PO DAILY [facility] Last Admin: 11/09/16 10:11 Dose: Not Given Quinapril HCl (Accupril -) 10 mg PO DAILY [facility] Last Admin: 11/09/16 10:02 Dose: 10 mg Sitagliptin Phosphate (Januvia -) 100 mg PO DAILY@0700 [facility] Last Admin: 11/09/16 06:42 Dose: 100 mg - Objective Vital Signs: Vital Signs Temperature 98.1 F 11/09/16 10:00 Pulse Rate 87 11/09/16 10:00 Respiratory Rate 22 11/09/16 10:00 Blood Pressure 136/73 11/09/16 10:00 O2 Sat by Pulse Oximetry (%) 96 11/08/16 20:45 Constitutional: Yes: Well Nourished, No Distress, Calm Cardiovascular: Yes: Regular Rate and Rhythm. No: Gallop, Murmur, Rub Respiratory: Yes: Regular, CTA Bilaterally. No: Rales, Rhonchi, Wheezes Gastrointestinal: Yes: Normal Bowel Sounds, Soft. No: Distention, Tenderness Extremities: Yes: WNL Edema: No Labs: CBC, BMP 11/09/16 05:50 11/09/16 05:50 INR, PTT INR 1.13 (0.82-1.09) 11/07/16 10:50 Problem List - Problems (1) 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 Code(s): N20.1 - CALCULUS OF URETER (2) Hydronephrosis Code(s): N13.30 - UNSPECIFIED HYDRONEPHROSIS Qualifiers: Qualified Code(s): N13.2 - Hydronephrosis with renal and ureteral calculous obstruction (3) UTI (urinary tract infection) Code(s): N39.0 - URINARY TRACT INFECTION, SITE NOT SPECIFIED Qualifiers: Qualified Code(s): N30.00 - Acute cystitis without hematuria (4) CHF (congestive heart failure) Code(s): I50.9 - HEART FAILURE, UNSPECIFIED Qualifiers: Qualified Code(s): I50.33 - Acute on chronic diastolic (congestive) heart failure (5) Hyperlipidemia Code(s): E78.5 - HYPERLIPIDEMIA, UNSPECIFIED (6) Hypertension Code(s): I10 - ESSENTIAL (PRIMARY) HYPERTENSION (7) Type 2 diabetes mellitus Code(s): E11.9 - TYPE 2 DIABETES MELLITUS WITHOUT COMPLICATIONS Qualifiers: Qualified Code(s): E11.65 - Type 2 diabetes mellitus with hyperglycemia ; Z79.4 - terminal computer operator (current) use of insulin (8) Paroxysmal atrial fibrillation Code(s): I48.0 - PAROXYSMAL ATRIAL FIBRILLATION Assessment/Plan (1) 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 Assessment/Plan: -patient passed small stone yesterday -case d/w Dr Parr, no need for intervention at this time -monitor, plan for discharge tomorrow with outpatient follow up Code(s): N20.1 - CALCULUS OF URETER (2) Hydronephrosis Assessment/Plan: -as above Code(s): N13.30 - UNSPECIFIED HYDRONEPHROSIS Qualifiers: Hydronephrosis type: with renal calculous obstruction Qualified Code(s) : N13.2 - Hydronephrosis with renal and ureteral calculous obstruction (3) UTI (urinary tract infection) Assessment/Plan: -appreciate ID assistance -continue rocephin -urine cultures showing contaminant Code(s): N39.0 - URINARY TRACT INFECTION, SITE NOT SPECIFIED Qualifiers: Urinary tract infection type: acute cystitis Hematuria presence: without hematuria Qualified Code(s): N30.00 - Acute cystitis without hematuria (4) CHF (congestive heart failure) Assessment/Plan: -cardiology following -currently holding lasix Code(s): I50.9 - HEART FAILURE, UNSPECIFIED Qualifiers: Congestive heart failure type: diastolic Congestive heart failure chronicity: acute on chronic Qualified Code(s): I50.33 - Acute on chronic diastolic (congestive) heart failure (5) Hyperlipidemia Assessment/Plan: -continue lipitor Code(s): E78.5 - HYPERLIPIDEMIA, UNSPECIFIED (6) Hypertension Assessment/Plan: -continue toprol xl and quinapril Code(s): I10 - ESSENTIAL (PRIMARY) HYPERTENSION (7) Type 2 diabetes mellitus Assessment/Plan: -appreciate endocrinology assistance -holding metformin -continue januvia and SSI -further treatment per endocrinology Code(s): E11.9 - TYPE 2 DIABETES MELLITUS WITHOUT COMPLICATIONS Qualifiers: Diabetes mellitus complication status: with hyperglycemia Diabetes mellitus superintendent container terminal insulin use: without superintendent container terminal use Qualified Code(s): E11.65 - Type 2 diabetes mellitus with hyperglycemia (8) Paroxysmal atrial fibrillation Assessment/Plan: -currently in sinus rhythm -not on anticoagulation, patient refused in past -asymptomatic -continue toprol -cardiology following Code(s): I48.0 - PAROXYSMAL ATRIAL FIBRILLATION
--- NOTE | 2016-11-09 15:29 | PN ---
Progress Note, Physician History of Present Illness: doing well no complaints pain minimal - Current Medication List Current Medications: Active Medications Acetaminophen (Tylenol -) 650 mg PO Q4H PRN PRN Reason: FEVER OR PAIN Atorvastatin Calcium (Lipitor -) 10 mg PO HS [facility] Last Admin: 11/08/16 21:33 Dose: Not Given Docusate Sodium (Colace -) 100 mg PO BID [facility] Last Admin: 11/09/16 10:02 Dose: 100 mg Ceftriaxone Sodium (Rocephin 1gm Ivpb (Pre-Docked)) 50 mls @ 100 mls/hr IVPB DAILY [facility] Last Admin: 11/09/16 10:02 Dose: 100 mls/hr Insulin Aspart (Novolog Vial Sliding Scale -) 0 vial SQ TIDAC [facility] PRN Reason: Protocol Last Admin: 11/09/16 12:56 Dose: Not Given Insulin Aspart (Novolog) 0 units SQ HS [facility] PRN Reason: Protocol Metoprolol Succinate (Toprol Xl -) 50 mg PO BID [facility] Last Admin: 11/09/16 10:02 Dose: 50 mg Morphine Sulfate (Morphine Injection -) 2 mg IVPUSH Q4H PRN PRN Reason: PAIN Ondansetron HCl (Zofran Injection) 4 mg IVPB Q6H PRN PRN Reason: NAUSEA Oxycodone HCl (Roxicodone -) 5 mg PO Q4H PRN PRN Reason: PAIN Polyethylene Glycol (Miralax (For Daily Use) -) 17 gm PO DAILY [facility] Last Admin: 11/09/16 10:11 Dose: Not Given Quinapril HCl (Accupril -) 10 mg PO DAILY [facility] Last Admin: 11/09/16 10:02 Dose: 10 mg Sitagliptin Phosphate (Januvia -) 100 mg PO DAILY@0700 [facility] Last Admin: 11/09/16 06:42 Dose: 100 mg - Objective Vital Signs: Vital Signs Temperature 97.5 F L 11/09/16 14:00 Pulse Rate 75 11/09/16 14:00 Respiratory Rate 18 11/09/16 14:00 Blood Pressure 119/57 11/09/16 14:00 O2 Sat by Pulse Oximetry (%) 96 11/08/16 20:45 Constitutional: Yes: No Distress, Calm Cardiovascular: Yes: S1, S2. No: Murmur Respiratory: Yes: Regular, CTA Bilaterally Gastrointestinal: Yes: Normal Bowel Sounds, Soft Musculoskeletal: Yes: WNL Extremities: Yes: WNL Neurological: Yes: Alert, Oriented Psychiatric: Yes: Alert, Oriented Labs: CBC, BMP 11/09/16 05:50 11/09/16 05:50 INR, PTT INR 1.13 (0.82-1.09) 11/07/16 10:50 Assessment/Plan Problem List - Problems (1) 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 Code(s): N20.1 - CALCULUS OF URETER (2) Hydronephrosis Code(s): N13.30 - UNSPECIFIED HYDRONEPHROSIS Qualifiers: Hydronephrosis type: with renal calculous obstruction Qualified Code(s) : N13.2 - Hydronephrosis with renal and ureteral calculous obstruction (3) UTI (urinary tract infection) Code(s): N39.0 - URINARY TRACT INFECTION, SITE NOT SPECIFIED Qualifiers: Urinary tract infection type: acute cystitis Hematuria presence: without hematuria Qualified Code(s): N30.00 - Acute cystitis without hematuria (4) CHF (congestive heart failure) Code(s): I50.9 - HEART FAILURE, UNSPECIFIED Qualifiers: Congestive heart failure type: diastolic Congestive heart failure chronicity: acute on chronic Qualified Code(s): I50.33 - Acute on chronic diastolic (congestive) heart failure (5) Hyperlipidemia Code(s): E78.5 - HYPERLIPIDEMIA, UNSPECIFIED (6) Hypertension Code(s): I10 - ESSENTIAL (PRIMARY) HYPERTENSION (7) Type 2 diabetes mellitus Code(s): E11.9 - TYPE 2 DIABETES MELLITUS WITHOUT COMPLICATIONS Qualifiers: Diabetes mellitus complication status: with hyperglycemia Diabetes mellitus m[facility] insulin use: without intermission coordinator use Qualified Code(s): E11.65 - Type 2 diabetes mellitus with hyperglycemia (8) Paroxysmal atrial fibrillation Code(s): I48.0 - PAROXYSMAL ATRIAL FIBRILLATION plan continue current mgmt urology plan noted hydration rest as per primary
--- NOTE | 2016-11-09 16:28 | PN ---
Progress Note (short form) - Note Progress Note: Urology Pt. passed a calculus yesterday and has been asymptomatic since Monday. Ct Scan reviewed. 4mm calc seen in the lowerpole of left kidney. Pt probably will benefit from ESWL. Discussed with Dr. Gonzalez. Will discharge the pt. tomorrow and follow up in the office.
[2016-11-09] MEDS ORDERED: INSULIN (NOVOLOG) ASPART 100 UNITS/ML 10ML VIAL ONE (18:15)
[2016-11-09] MEDS: ATORVASTATIN CA 10 MG TABLET (FP) PO SCH (22:00)
[2016-11-09] MEDS: Insulin (LOG) Aspart 100 UNITS/ML VIAL SQ SCH (22:00)
[2016-11-10] MEDS: INSULIN SLIDING SCALE (NOVOLOG) 1 VIAL SQ SCH ×3 (06:04→18:13)
[2016-11-10] MEDS: sitaGLIPtin PHOSPHATE 100 MG TABLET (FP) PO SCH (06:04)
[2016-11-10 08:06] LABS: BASOPHIL 0.8 % (0-2.0); EOSINOPHIL 2.6 % (0-4.5); MCH 24.5 pg (25.7-33.7); MCHC 31.9 g/dl (32.0-36.0); MEAN CELL VOLUME 76.8 fl (80-96); NEUTROPHILS 63.8 % (42.8-82.8); PLATELET COUNT 277 K/MM3 (134-434); RDW 16.8 % (11.6-15.6); WHITE BLOOD COUNT 7.4 K/mm3 (4.0-10.0)
[2016-11-10 08:30] LABS: COCKROFT - GAULT 77.928; CREATININE 0.9 mg/dL (0.55-1.02); MAGNESIUM 1.9 mg/dL (1.8-2.4); PHOSPHOROUS 3.6 mg/dL (2.5-4.9)
[2016-11-10] MEDS ORDERED: PT OWN MED DRAWER 7, Y5N ONE (09:11)
[2016-11-10] MEDS: METOPROLOL SUCCINATE 50 MG TAB.SR.24H (FP) PO SCH ×2 (09:13→21:22)
[2016-11-10] MEDS: CEFTRIAXONE 50 ML IVPB SCH (09:14)
[2016-11-10] MEDS: QUINAPRIL HCL 10 MG TABLET (FP) PO SCH (09:14)
[2016-11-10] MEDS: DOCUSATE SODIUM 100 MG CAPSULE (FP) PO SCH ×2 (09:14→21:22)
--- NOTE | 2016-11-10 09:20 | PN ---
Progress Note (short form) - Note Progress Note: Events noted No procedure yesterday as she had passed stone Still with HOLCOMB Vital Signs Period Temp Pulse Resp BP Sys/Pitts Pulse Ox Last 24 Hr 97.5 F-98.1 F 60-87 18-22 119-152/57-94 97 PE: AOx3 Neck: Supple, No JVD HEENT: PERRL, EOMI Lungs: Basal crackes, few rhonchi CVs: S1S2 Abd: Benign Ext: Trace edema Neuro: No focal deficit CBC,CMP WBC 7.4 K/mm3 (4.0-10.0) 11/10/16 05:40 RBC 4.78 M/mm3 (3.60-5.2) 11/10/16 05:40 Hgb 11.7 GM/dL (10.7-15.3) 11/10/16 05:40 Hct 36.7 % (32.4-45.2) 11/10/16 05:40 MCV 76.8 fl (80-96) L 11/10/16 05:40 MCHC 31.9 g/dl (32.0-36.0) L 11/10/16 05:40 RDW 16.8 % (11.6-15.6) H 11/10/16 05:40 Plt Count 277 K/MM3 (134-434) 11/10/16 05:40 MPV 9.0 fl (7.5-11.1) 11/10/16 05:40 Neutrophils % 63.8 % (42.8-82.8) 11/10/16 05:40 Lymphocytes % 23.7 % (8-40) 11/10/16 05:40 Monocytes % 9.1 % (3.8-10.2) 11/10/16 05:40 Eosinophils % 2.6 % (0-4.5) 11/10/16 05:40 Basophils % 0.8 % (0-2.0) 11/10/16 05:40 Sodium 141 mmol/L (136-145) 11/10/16 05:40 Potassium 4.6 mmol/L (3.5-5.1) 11/10/16 05:40 Chloride 100 mmol/L (98-107) 11/10/16 05:40 Carbon Dioxide 31 mmol/L (21-32) 11/10/16 05:40 Anion Gap 10 (8-16) 11/10/16 05:40 BUN 25 mg/dL (7-18) H 11/10/16 05:40 Creatinine 0.9 mg/dL (0.55-1.02) 11/10/16 05:40 Creat Clearance w eGFR > 60 (>60) 11/07/16 07:15 POC Glucometer 282 UNITS (()) 11/10/16 06:01 Random Glucose 264 mg/dL (74-106) H 11/10/16 05:40 Hemoglobin A1c % 10.9 % (4.8-6.0) H 11/09/16 05:50 Calcium 9.0 mg/dL (8.5-10.1) 11/10/16 05:40 Phosphorus 3.6 mg/dL (2.5-4.9) 11/10/16 05:40 Magnesium 1.9 mg/dL (1.8-2.4) 11/10/16 05:40 Total Bilirubin 0.4 mg/dL (0.2-1.0) D 11/07/16 07:15 AST 49 U/L (15-37) H 11/07/16 07:15 ALT 65 U/L (12-78) 11/07/16 07:15 Alkaline Phosphatase 81 U/L (45-117) 11/07/16 07:15 Creatine Kinase 51 IU/L (26-192) 11/07/16 07:15 Troponin I < 0.02 ng/ml (0.00-0.05) 11/07/16 07:15 B-Natriuretic Peptide 2123.67 pg/ml (5-125) H 11/07/16 07:15 Total Protein 7.1 g/dl (6.4-8.2) 11/07/16 07:15 Albumin 3.2 g/dl (3.4-5.0) L 11/07/16 07:15 Lipase 134 U/L (73-393) 11/07/16 07:15 Current Medications Generic Name Dose Route Start Last Admin Trade Name Freq PRN Reason Stop Dose Admin Acetaminophen 650 mg 11/07/16 11:27 Tylenol - PO Q4H PRN FEVER OR PAIN Atorvastatin Calcium 10 mg 11/07/16 22:00 11/09/16 22:00 Lipitor - PO 10 mg HS [facility] Administration Docusate Sodium 100 mg 11/07/16 22:00 11/09/16 22:00 Colace - PO 100 mg BID [facility] Administration Ceftriaxone Sodium 50 mls @ 100 mls/hr 11/08/16 10:00 11/09/16 10:02 Rocephin 1gm Ivpb (Pre-Docked) IVPB 100 mls/hr DAILY [facility] Administration Insulin Aspart 0 vial 11/09/16 11:00 11/10/16 06:04 Novolog Vial Sliding Scale - SQ 6 units TIDAC [facility] Administration Protocol Insulin Aspart 0 units 11/09/16 22:00 11/09/16 22:00 Novolog SQ 4 units HS [facility] Administration Protocol Metoprolol Succinate 50 mg 11/07/16 22:00 11/09/16 22:00 Toprol Xl - PO 50 mg BID [facility] Administration Morphine Sulfate 2 mg 11/07/16 11:27 Morphine Injection - IVPUSH Q4H PRN PAIN Ondansetron HCl 4 mg 11/07/16 11:27 Zofran Injection IVPB Q6H PRN NAUSEA Oxycodone HCl 5 mg 11/07/16 11:27 Roxicodone - PO Q4H PRN PAIN Polyethylene Glycol 17 gm 11/08/16 10:00 11/09/16 10:11 Miralax (For Daily Use) - PO Not Given DAILY [facility] Quinapril HCl 10 mg 11/08/16 10:00 11/09/16 10:02 Accupril - PO 10 mg DAILY [facility] Administration Sitagliptin Phosphate 100 mg 11/08/16 07:00 11/10/16 06:04 Januvia - PO 100 mg DAILY@0700 [facility] Administration AP: DM: uncontrolled A1c 10.9 Start Metformin 500mg BID Add Glipizide 5 mg BID premeals instead of glimepiride as shorter acting sulfonylureas has less potential for hypoglycemia. Januvia 100 mg QD Increase Novolog SS coverage Paroxysmal A FIB CHF Renal stones: Passed stone yesterday.
[2016-11-10] MEDS: POLYETHYLENE GLYCOL 3350 119 GM BTL PO SCH (09:21)
[2016-11-10] MEDS ORDERED: FUROSEMIDE 40 MG/4 ML INJECTABLE VIAL IVPUSH ONE (10:30)
--- NOTE | 2016-11-10 13:14 | PN ---
Progress Note (short form) - Note Progress Note: S: still with mild sob with exertion and orthopnea, no cp, palps, dizziness. Current Medications Generic Name Dose Route Start Last Admin Trade Name Freq PRN Reason Stop Dose Admin Acetaminophen 650 mg 11/07/16 11:27 Tylenol - PO Q4H PRN FEVER OR PAIN Atorvastatin Calcium 10 mg 11/07/16 22:00 11/09/16 22:00 Lipitor - PO 10 mg HS [facility] Administration Docusate Sodium 100 mg 11/07/16 22:00 11/10/16 09:14 Colace - PO 100 mg BID [facility] Administration Glipizide 5 mg 11/10/16 16:30 Glucotrol - PO BID@0700,1630 [facility] Ceftriaxone Sodium 50 mls @ 100 mls/hr 11/08/16 10:00 11/10/16 09:14 Rocephin 1gm Ivpb (Pre-Docked) IVPB 100 mls/hr DAILY [facility] Administration Insulin Aspart 0 vial 11/09/16 11:00 11/10/16 11:48 Novolog Vial Sliding Scale - SQ 8 units TIDAC [facility] Administration Protocol Insulin Aspart 0 units 11/09/16 22:00 11/09/16 22:00 Novolog SQ 4 units HS [facility] Administration Protocol Metformin HCl 500 mg 11/10/16 16:30 Glucophage - PO BID@0700,1630 [facility] Metoprolol Succinate 50 mg 11/07/16 22:00 11/10/16 09:13 Toprol Xl - PO 50 mg BID [facility] Administration Morphine Sulfate 2 mg 11/07/16 11:27 Morphine Injection - IVPUSH Q4H PRN PAIN Ondansetron HCl 4 mg 11/07/16 11:27 Zofran Injection IVPB Q6H PRN NAUSEA Oxycodone HCl 5 mg 11/07/16 11:27 Roxicodone - PO Q4H PRN PAIN Polyethylene Glycol 17 gm 11/08/16 10:00 11/10/16 09:21 Miralax (For Daily Use) - PO Not Given DAILY [facility] Quinapril HCl 10 mg 11/08/16 10:00 11/10/16 09:14 Accupril - PO 10 mg DAILY [facility] Administration Sitagliptin Phosphate 100 mg 11/08/16 07:00 11/10/16 06:04 Januvia - PO 100 mg DAILY@0700 [facility] Administration Vital Signs Period Temp Pulse Resp BP Sys/Pitts Pulse Ox Last 24 Hr 97.5 F-98.7 F 60-85 18-22 119-152/57-94 97-97 Constitutional: Yes: Well Nourished, No Distress Eyes: No: Sclera Icterus Respiratory: cta bl nl eff Gastrointestinal: Yes: Normal Bowel Sounds. No: Distention, Hepatomegaly, Palpable Mass, Tenderness Cardiovascular: Yes: Regular Rate and Rhythm JVD: No Heart Sounds: Yes: S1, S2. No: Gallop Murmur: No: Systolic Murmur, Diastolic Murmur Extremities: No: Cold, Cyanosis Edema: no le e/c/c Integumentary: No: Jaundice diaphoresis Neurological: Yes: Alert, Oriented (x3) Psychiatric: No: Agitated - Other Data Labs, Other Data: Laboratory Last Values WBC 7.4 K/mm3 (4.0-10.0) 11/10/16 05:40 RBC 4.78 M/mm3 (3.60-5.2) 11/10/16 05:40 Hgb 11.7 GM/dL (10.7-15.3) 11/10/16 05:40 Hct 36.7 % (32.4-45.2) 11/10/16 05:40 MCV 76.8 fl (80-96) L 11/10/16 05:40 MCHC 31.9 g/dl (32.0-36.0) L 11/10/16 05:40 RDW 16.8 % (11.6-15.6) H 11/10/16 05:40 Plt Count 277 K/MM3 (134-434) 11/10/16 05:40 MPV 9.0 fl (7.5-11.1) 11/10/16 05:40 Neutrophils % 63.8 % (42.8-82.8) 11/10/16 05:40 Lymphocytes % 23.7 % (8-40) 11/10/16 05:40 Monocytes % 9.1 % (3.8-10.2) 11/10/16 05:40 Eosinophils % 2.6 % (0-4.5) 11/10/16 05:40 Basophils % 0.8 % (0-2.0) 11/10/16 05:40 INR 1.13 (0.82-1.09) 11/07/16 10:50 PTT (Actin FS) 35.6 SECONDS (26.9-34.4) H 11/07/16 10:50 Sodium 141 mmol/L (136-145) 11/10/16 05:40 Potassium 4.6 mmol/L (3.5-5.1) 11/10/16 05:40 Chloride 100 mmol/L (98-107) 11/10/16 05:40 Carbon Dioxide 31 mmol/L (21-32) 11/10/16 05:40 Anion Gap 10 (8-16) 11/10/16 05:40 BUN 25 mg/dL (7-18) H 11/10/16 05:40 Creatinine 0.9 mg/dL (0.55-1.02) 11/10/16 05:40 Creat Clearance w eGFR > 60 (>60) 11/07/16 07:15 POC Glucometer 327 UNITS (()) 11/10/16 11:47 Random Glucose 264 mg/dL (74-106) H 11/10/16 05:40 Hemoglobin A1c % 10.9 % (4.8-6.0) H 11/09/16 05:50 Calcium 9.0 mg/dL (8.5-10.1) 11/10/16 05:40 Phosphorus 3.6 mg/dL (2.5-4.9) 11/10/16 05:40 Magnesium 1.9 mg/dL (1.8-2.4) 11/10/16 05:40 Total Bilirubin 0.4 mg/dL (0.2-1.0) D 11/07/16 07:15 AST 49 U/L (15-37) H 11/07/16 07:15 ALT 65 U/L (12-78) 11/07/16 07:15 Alkaline Phosphatase 81 U/L (45-117) 11/07/16 07:15 Creatine Kinase 51 IU/L (26-192) 11/07/16 07:15 Troponin I < 0.02 ng/ml (0.00-0.05) 11/07/16 07:15 B-Natriuretic Peptide 2123.67 pg/ml (5-125) H 11/07/16 07:15 Total Protein 7.1 g/dl (6.4-8.2) 11/07/16 07:15 Albumin 3.2 g/dl (3.4-5.0) L 11/07/16 07:15 Lipase 134 U/L (73-393) 11/07/16 07:15 Urine Color Ltyellow 11/07/16 08:48 Urine Appearance Slcloudy 11/07/16 08:48 Urine pH 5.0 (5.0-8.0) 11/07/16 08:48 Ur Specific Baird 1.023 (1.001-1.035) 11/07/16 08:48 Urine Protein 2+ (NEGATIVE) H 11/07/16 08:48 Urine Glucose (UA) 3+ (NEGATIVE) H D 11/07/16 08:48 Urine Ketones Trace (NEGATIVE) H 11/07/16 08:48 Urine Blood 3+ (NEGATIVE) H 11/07/16 08:48 Urine Nitrite Negative (NEGATIVE) 11/07/16 08:48 Urine Bilirubin Negative (NEGATIVE) 11/07/16 08:48 Urine Urobilinogen Negative E.U./dl (0.2-1.0) 11/07/16 08:48 Ur Leukocyte Esterase 1+ (NEGATIVE) H 11/07/16 08:48 Urine RBC 73 /hpf (0-3) 11/07/16 08:48 Urine WBC 23 /hpf (3-5) 11/07/16 08:48 Ur Epithelial Cells Rare /hpf (FEW) 11/07/16 08:48 Urine Bacteria Rare /hpf (NONE SEEN) 11/07/16 08:48 Urine Mucus Few 11/07/16 08:48 Blood Type B POSITIVE 11/07/16 10:50 Antibody Screen Negative 11/07/16 10:50 ekg 11/07: sinus tach; nl axis/intervals; no path q's (PRWP); no ST-T abn tele: sr cxr: clear lungs echo 11/2015: mild dec lvef, global hk, nl rv, mild mr echo 11/2016: mild dec lvef, global hk, nl rv, mild- mod mr, mild lae. small effusion < 1cm a/p: paroxysmal AF -had afib in hosp 2016 in setting of uti/sepsis, rapid HRs--diltiazem gtt-- converted to sinus -episodes of very rapid PAF at times, treated with metoprolol 75 bid -chadsvasc is 5 (no cva/tia)--rx'd xarelto but she declined; on ASA 81 only-- cont same when procedures done -in sinus here, cont bb home dose possible acute diast chf: -post cysto 01/2016 had suspected acute HFpEF req intubation--extubated quickly after diuresed -echo with mild decr LVEF, no valve pathology, no cardio f/u since then -currently with stable QUIÑONES and pedal edema, but new (mild) orthopnea x 1 week-- ? copd/bronchospasm sx vs chf -BNP 2K here; was 8K at time of acute chf 2015, down to 3K after treated. wt has been 181-184 since 04/24 in office. -CXR clear with no vascular redistribution pattern, no JVD, lungs clear on exam and after getting iv lasix here a few days ago cr alyssa so it was stopped. However she has persistent orthopnea and quiñones so will give another trial of iv lasix with 80 iv today to see if any improvement in symptoms. -on BB and GERRY (prevent syst chf)--cont same -rpt echo w/o sig change preop eval: -may need cysto/ureteral stent +/- lithotripsy -RCRI 1; -low risk procedure -can proceed with procedure at intermed risk of periop cv complications htn: -cont current meds hld: -cont home statin
--- NOTE | 2016-11-10 13:26 | PN ---
Progress Note, Physician Chief Complaint: Ms Acosta says she is feeling better. No cp or n/v. However has some shortness of breath when lying down. - Current Medication List Current Medications: Active Medications Acetaminophen (Tylenol -) 650 mg PO Q4H PRN PRN Reason: FEVER OR PAIN Atorvastatin Calcium (Lipitor -) 10 mg PO HS [facility] Last Admin: 11/09/16 22:00 Dose: 10 mg Docusate Sodium (Colace -) 100 mg PO BID [facility] Last Admin: 11/10/16 09:14 Dose: 100 mg Glipizide (Glucotrol -) 5 mg PO BID@0700,1630 [facility] Ceftriaxone Sodium (Rocephin 1gm Ivpb (Pre-Docked)) 50 mls @ 100 mls/hr IVPB DAILY [facility] Last Admin: 11/10/16 09:14 Dose: 100 mls/hr Insulin Aspart (Novolog Vial Sliding Scale -) 0 vial SQ TIDAC [facility] PRN Reason: Protocol Last Admin: 11/10/16 11:48 Dose: 8 units Insulin Aspart (Novolog) 0 units SQ [facility] PRN Reason: Protocol Last Admin: 11/09/16 22:00 Dose: 4 units Metformin HCl (Glucophage -) 500 mg PO BID@0700,1630 [facility] Metoprolol Succinate (Toprol Xl -) 50 mg PO BID [facility] Last Admin: 11/10/16 09:13 Dose: 50 mg Morphine Sulfate (Morphine Injection -) 2 mg IVPUSH Q4H PRN PRN Reason: PAIN Ondansetron HCl (Zofran Injection) 4 mg IVPB Q6H PRN PRN Reason: NAUSEA Oxycodone HCl (Roxicodone -) 5 mg PO Q4H PRN PRN Reason: PAIN Polyethylene Glycol (Miralax (For Daily Use) -) 17 gm PO DAILY [facility] Last Admin: 11/10/16 09:21 Dose: Not Given Quinapril HCl (Accupril -) 10 mg PO DAILY [facility] Last Admin: 11/10/16 09:14 Dose: 10 mg Sitagliptin Phosphate (Januvia -) 100 mg PO DAILY@0700 [facility] Last Admin: 11/10/16 06:04 Dose: 100 mg - Objective Vital Signs: Vital Signs Temperature 98.7 F 11/10/16 09:00 Pulse Rate 76 11/10/16 09:00 Respiratory Rate 22 05/04/17 09:00 Blood Pressure 139/82 11/10/16 09:00 O2 Sat by Pulse Oximetry (%) 97 11/10/16 09:00 Constitutional: Yes: No Distress, Calm, Obese Cardiovascular: Yes: Regular Rate and Rhythm. No: Gallop, Murmur, Rub Respiratory: Yes: Regular, CTA Bilaterally. No: Rales, Rhonchi, Wheezes Gastrointestinal: Yes: Normal Bowel Sounds, Soft. No: Distention, Tenderness Extremities: Yes: WNL Edema: No Labs: CBC, BMP 11/10/16 05:40 11/10/16 05:40 INR, PTT INR 1.13 (0.82-1.09) 11/07/16 10:50 Problem List - Problems (1) 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 Code(s): N20.1 - CALCULUS OF URETER (2) Hydronephrosis Code(s): N13.30 - UNSPECIFIED HYDRONEPHROSIS Qualifiers: Hydronephrosis type: with renal calculous obstruction Qualified Code(s) : N13.2 - Hydronephrosis with renal and ureteral calculous obstruction (3) UTI (urinary tract infection) Code(s): N39.0 - URINARY TRACT INFECTION, SITE NOT SPECIFIED Qualifiers: Urinary tract infection type: acute cystitis Hematuria presence: without hematuria Qualified Code(s): N30.00 - Acute cystitis without hematuria (4) CHF (congestive heart failure) Code(s): I50.9 - HEART FAILURE, UNSPECIFIED Qualifiers: Congestive heart failure type: diastolic Congestive heart failure chronicity: acute on chronic Qualified Code(s): I50.33 - Acute on chronic diastolic (congestive) heart failure (5) Hyperlipidemia Code(s): E78.5 - HYPERLIPIDEMIA, UNSPECIFIED (6) Hypertension Code(s): I10 - ESSENTIAL (PRIMARY) HYPERTENSION (7) Type 2 diabetes mellitus Code(s): E11.9 - TYPE 2 DIABETES MELLITUS WITHOUT COMPLICATIONS Qualifiers: Diabetes mellitus complication status: with hyperglycemia Diabetes mellitus long term care social worker insulin use: without long term care social worker use Qualified Code(s): E11.65 - Type 2 diabetes mellitus with hyperglycemia; Z79.4 - long term care social worker (current ) use of insulin (8) Paroxysmal atrial fibrillation Code(s): I48.0 - PAROXYSMAL ATRIAL FIBRILLATION Assessment/Plan (1) 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 Assessment/Plan: -patient passed small stone yesterday -case d/w Dr Parr, no need for intervention at this time -stable for discharge and outpatient follow up Code(s): N20.1 - CALCULUS OF URETER (2) Hydronephrosis Assessment/Plan: -as above Code(s): N13.30 - UNSPECIFIED HYDRONEPHROSIS Qualifiers: Hydronephrosis type: with renal calculous obstruction Qualified Code(s) : N13.2 - Hydronephrosis with renal and ureteral calculous obstruction (3) UTI (urinary tract infection) Assessment/Plan: -appreciate ID assistance -continue rocephin -urine cultures showing contaminant Code(s): N39.0 - URINARY TRACT INFECTION, SITE NOT SPECIFIED Qualifiers: Urinary tract infection type: acute cystitis Hematuria presence: without hematuria Qualified Code(s): N30.00 - Acute cystitis without hematuria (4) CHF (congestive heart failure) Assessment/Plan: -cardiology following -symptomatic with orthopnea -received IV lasix today Code(s): I50.9 - HEART FAILURE, UNSPECIFIED Qualifiers: Congestive heart failure type: diastolic Congestive heart failure chronicity: acute on chronic Qualified Code(s): I50.33 - Acute on chronic diastolic (congestive) heart failure (5) Hyperlipidemia Assessment/Plan: -continue lipitor Code(s): E78.5 - HYPERLIPIDEMIA, UNSPECIFIED (6) Hypertension Assessment/Plan: -continue toprol xl and quinapril Code(s): I10 - ESSENTIAL (PRIMARY) HYPERTENSION (7) Type 2 diabetes mellitus Assessment/Plan: -appreciate endocrinology assistance -metformin restarted -continue januvia -glipizide added Code(s): E11.9 - TYPE 2 DIABETES MELLITUS WITHOUT COMPLICATIONS Qualifiers: Diabetes mellitus complication status: with hyperglycemia Diabetes mellitus long term care social worker insulin use: without long term care social worker use Qualified Code(s): E11.65 - Type 2 diabetes mellitus with hyperglycemia (8) Paroxysmal atrial fibrillation Assessment/Plan: -currently in sinus rhythm -not on anticoagulation, patient refused in past -asymptomatic -continue toprol -cardiology following Code(s): I48.0 - PAROXYSMAL ATRIAL FIBRILLATION
--- NOTE | 2016-11-10 16:28 | PN ---
Progress Note, Physician History of Present Illness: stable no new issues urology plan noted - Current Medication List Current Medications: Active Medications Acetaminophen (Tylenol -) 650 mg PO Q4H PRN PRN Reason: FEVER OR PAIN Atorvastatin Calcium (Lipitor -) 10 mg PO HS [facility] Last Admin: 11/09/16 22:00 Dose: 10 mg Docusate Sodium (Colace -) 100 mg PO BID [facility] Last Admin: 11/10/16 09:14 Dose: 100 mg Glipizide (Glucotrol -) 5 mg PO BID@0700,1630 [facility] Ceftriaxone Sodium (Rocephin 1gm Ivpb (Pre-Docked)) 50 mls @ 100 mls/hr IVPB DAILY [facility] Last Admin: 11/10/16 09:14 Dose: 100 mls/hr Insulin Aspart (Novolog Vial Sliding Scale -) 0 vial SQ TIDAC [facility] PRN Reason: Protocol Last Admin: 11/10/16 11:48 Dose: 8 units Insulin Aspart (Novolog) 0 units SQ HS [facility] PRN Reason: Protocol Last Admin: 11/09/16 22:00 Dose: 4 units Metformin HCl (Glucophage -) 500 mg PO BID@0700,1630 [facility] Metoprolol Succinate (Toprol Xl -) 50 mg PO BID [facility] Last Admin: 11/10/16 09:13 Dose: 50 mg Morphine Sulfate (Morphine Injection -) 2 mg IVPUSH Q4H PRN PRN Reason: PAIN Ondansetron HCl (Zofran Injection) 4 mg IVPB Q6H PRN PRN Reason: NAUSEA Oxycodone HCl (Roxicodone -) 5 mg PO Q4H PRN PRN Reason: PAIN Polyethylene Glycol (Miralax (For Daily Use) -) 17 gm PO DAILY [facility] Last Admin: 11/10/16 09:21 Dose: Not Given Quinapril HCl (Accupril -) 10 mg PO DAILY [facility] Last Admin: 11/10/16 09:14 Dose: 10 mg Sitagliptin Phosphate (Januvia -) 100 mg PO DAILY@0700 [facility] Last Admin: 11/10/16 06:04 Dose: 100 mg - Objective Vital Signs: Vital Signs Temperature 98.5 F 11/10/16 15:51 Pulse Rate 72 11/10/16 15:51 Respiratory Rate 18 11/10/16 15:51 Blood Pressure 135/76 11/10/16 15:51 O2 Sat by Pulse Oximetry (%) 97 11/10/16 09:00 Constitutional: Yes: No Distress, Calm Cardiovascular: Yes: S1, S2 Respiratory: Yes: Regular, CTA Bilaterally Gastrointestinal: Yes: Normal Bowel Sounds, Soft Musculoskeletal: Yes: WNL Extremities: Yes: WNL Neurological: Yes: Alert, Oriented Psychiatric: Yes: Alert, Oriented Labs: CBC, BMP 11/10/16 05:40 11/10/16 05:40 INR, PTT INR 1.13 (0.82-1.09) 11/07/16 10:50 Assessment/Plan Problem List - Problems (1) 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 Code(s): N20.1 - CALCULUS OF URETER (2) Hydronephrosis Code(s): N13.30 - UNSPECIFIED HYDRONEPHROSIS Qualifiers: Hydronephrosis type: with renal calculous obstruction Qualified Code(s) : N13.2 - Hydronephrosis with renal and ureteral calculous obstruction (3) UTI (urinary tract infection) Code(s): N39.0 - URINARY TRACT INFECTION, SITE NOT SPECIFIED Qualifiers: Urinary tract infection type: acute cystitis Hematuria presence: without hematuria Qualified Code(s): N30.00 - Acute cystitis without hematuria (4) CHF (congestive heart failure) Code(s): I50.9 - HEART FAILURE, UNSPECIFIED Qualifiers: Congestive heart failure type: diastolic Congestive heart failure chronicity: acute on chronic Qualified Code(s): I50.33 - Acute on chronic diastolic (congestive) heart failure (5) Hyperlipidemia Code(s): E78.5 - HYPERLIPIDEMIA, UNSPECIFIED (6) Hypertension Code(s): I10 - ESSENTIAL (PRIMARY) HYPERTENSION (7) Type 2 diabetes mellitus Code(s): E11.9 - TYPE 2 DIABETES MELLITUS WITHOUT COMPLICATIONS Qualifiers: Diabetes mellitus complication status: with hyperglycemia Diabetes mellitus retirement insulin use: without retirement use Qualified Code(s): E11.65 - Type 2 diabetes mellitus with hyperglycemia (8) Paroxysmal atrial fibrillation Code(s): I48.0 - PAROXYSMAL ATRIAL FIBRILLATION plan continue current mgmt will needs definitive treatment from urology hydration rest as per primary
[2016-11-10] MEDS: glipiZIDE 5 MG TABLET (FP) PO SCH (18:12)
[2016-11-10] MEDS: metFORMIN HCL 500 MG TABLET (FP) PO SCH (18:12)
[2016-11-10] MEDS: Insulin (LOG) Aspart 100 UNITS/ML VIAL SQ SCH (21:21)
[2016-11-10] MEDS: ATORVASTATIN CA 10 MG TABLET (FP) PO SCH ×2 (21:22→21:34)
[2016-11-11] MEDS: INSULIN SLIDING SCALE (NOVOLOG) 1 VIAL SQ SCH ×3 (06:30→12:47)
[2016-11-11] MEDS: sitaGLIPtin PHOSPHATE 100 MG TABLET (FP) PO SCH (06:30)
[2016-11-11] MEDS: metFORMIN HCL 500 MG TABLET (FP) PO SCH (06:31)
[2016-11-11] MEDS: glipiZIDE 5 MG TABLET (FP) PO SCH (06:31)
[2016-11-11 07:49] LABS: BASOPHIL 0.6 % (0-2.0); EOSINOPHIL 2.8 % (0-4.5); MCH 24.5 pg (25.7-33.7); MCHC 31.6 g/dl (32.0-36.0); MEAN CELL VOLUME 77.4 fl (80-96); MEAN PLT VOLUME 9.2 fl (7.5-11.1); NEUTROPHILS 60.2 % (42.8-82.8); PLATELET COUNT 259 K/MM3 (134-434)
[2016-11-11 08:01] LABS: CALCIUM 8.6 mg/dL (8.5-10.1); MAGNESIUM 1.7 mg/dL (1.8-2.4)
[2016-11-11 08:02] LABS: COCKROFT - GAULT 77.5455; CREATININE 0.9 mg/dL (0.55-1.02); PHOSPHOROUS 4.7 mg/dL (2.5-4.9)
--- NOTE | 2016-11-11 09:07 | PN ---
Progress Note (short form) - Note Progress Note: Feels good NO SOB Blood sugar 200s Vital Signs Period Temp Pulse Resp BP Sys/Pitts Pulse Ox Last 24 Hr 97.6 F-98.5 F 72-125 18-20 113-141/59-76 97 PE: AOx3 Neck: Supple, No JVD HEENT: PERRL, EOMI Lungs: CTA CVs: S1S2 Abd: Benign Ext: No edema Neuro: No focal deficit CBC,CMP WBC 8.0 K/mm3 (4.0-10.0) 11/11/16 05:35 RBC 4.77 M/mm3 (3.60-5.2) 11/11/16 05:35 Hgb 11.7 GM/dL (10.7-15.3) 11/11/16 05:35 Hct 36.9 % (32.4-45.2) 11/11/16 05:35 MCV 77.4 fl (80-96) L 11/11/16 05:35 MCHC 31.6 g/dl (32.0-36.0) L 11/11/16 05:35 RDW 17.0 % (11.6-15.6) H 11/11/16 05:35 Plt Count 259 K/MM3 (134-434) 11/11/16 05:35 MPV 9.2 fl (7.5-11.1) 11/11/16 05:35 Neutrophils % 60.2 % (42.8-82.8) 11/11/16 05:35 Lymphocytes % 25.5 % (8-40) 11/11/16 05:35 Monocytes % 10.9 % (3.8-10.2) H 11/11/16 05:35 Eosinophils % 2.8 % (0-4.5) 11/11/16 05:35 Basophils % 0.6 % (0-2.0) 11/11/16 05:35 Sodium 141 mmol/L (136-145) 11/11/16 05:35 Potassium 3.9 mmol/L (3.5-5.1) 11/11/16 05:35 Chloride 98 mmol/L (98-107) 11/11/16 05:35 Carbon Dioxide 31 mmol/L (21-32) 11/11/16 05:35 Anion Gap 12 (8-16) 11/11/16 05:35 BUN 30 mg/dL (7-18) H 11/11/16 05:35 Creatinine 0.9 mg/dL (0.55-1.02) 11/11/16 05:35 Creat Clearance w eGFR > 60 (>60) 11/07/16 07:15 POC Glucometer 242 UNITS (()) 11/11/16 06:25 Random Glucose 203 mg/dL (74-106) H D 11/11/16 05:35 Hemoglobin A1c % 10.9 % (4.8-6.0) H 11/09/16 05:50 Calcium 8.6 mg/dL (8.5-10.1) 11/11/16 05:35 Phosphorus 4.7 mg/dL (2.5-4.9) D 11/11/16 05:35 Magnesium 1.7 mg/dL (1.8-2.4) L 11/11/16 05:35 Total Bilirubin 0.4 mg/dL (0.2-1.0) D 11/07/16 07:15 AST 49 U/L (15-37) H 11/07/16 07:15 ALT 65 U/L (12-78) 11/07/16 07:15 Alkaline Phosphatase 81 U/L (45-117) 11/07/16 07:15 Creatine Kinase 51 IU/L (26-192) 11/07/16 07:15 Troponin I < 0.02 ng/ml (0.00-0.05) 11/07/16 07:15 B-Natriuretic Peptide 2123.67 pg/ml (5-125) H 11/07/16 07:15 Total Protein 7.1 g/dl (6.4-8.2) 11/07/16 07:15 Albumin 3.2 g/dl (3.4-5.0) L 11/07/16 07:15 Lipase 134 U/L (73-393) 11/07/16 07:15 Current Medications Generic Name Dose Route Start Last Admin Trade Name Freq PRN Reason Stop Dose Admin Acetaminophen 650 mg 11/07/16 11:27 Tylenol - PO Q4H PRN FEVER OR PAIN Atorvastatin Calcium 10 mg 11/07/16 22:00 11/10/16 21:34 Lipitor - PO Not Given HS [facility] Docusate Sodium 100 mg 11/07/16 22:00 11/10/16 21:22 Colace - PO 100 mg BID [facility] Administration Glipizide 5 mg 11/10/16 16:30 11/11/16 06:31 Glucotrol - PO 5 mg BID@0700,1630 [facility] Administration Ceftriaxone Sodium 50 mls @ 100 mls/hr 11/08/16 10:00 11/10/16 09:14 Rocephin 1gm Ivpb (Pre-Docked) IVPB 100 mls/hr DAILY [facility] Administration Insulin Aspart 0 units 11/09/16 22:00 11/10/16 21:21 Novolog SQ 8 units HS [facility] Administration Protocol Insulin Aspart 1 vial 11/10/16 17:14 11/11/16 06:30 Novolog Vial Sliding Scale - SQ 6 units TIDAC [facility] Administration Protocol Metformin HCl 500 mg 11/10/16 16:30 11/11/16 06:31 Glucophage - PO 500 mg BID@0700,1630 [facility] Administration Metoprolol Succinate 50 mg 11/07/16 22:00 11/10/16 21:22 Toprol Xl - PO 50 mg BID [facility] Administration Morphine Sulfate 2 mg 11/07/16 11:27 Morphine Injection - IVPUSH Q4H PRN PAIN Ondansetron HCl 4 mg 11/07/16 11:27 Zofran Injection IVPB Q6H PRN NAUSEA Oxycodone HCl 5 mg 11/07/16 11:27 Roxicodone - PO Q4H PRN PAIN Polyethylene Glycol 17 gm 11/08/16 10:00 11/10/16 09:21 Miralax (For Daily Use) - PO Not Given DAILY [facility] Quinapril HCl 10 mg 11/08/16 10:00 11/10/16 09:14 Accupril - PO 10 mg DAILY [facility] Administration Sitagliptin Phosphate 100 mg 11/08/16 07:00 11/11/16 06:30 Januvia - PO 100 mg DAILY@0700 [facility] Administration AP: DM: uncontrolled A1c 10.9 Metformin 500mg BID Glipizide 5 mg BID premeals instead of glimepiride as shorter acting sulfonylureas has less potential for hypoglycemia. Januvia 100 mg QD Novolog SS coverage Option of adding SGLT, GLP1 or Insulin discussed with pt. Pt to f/u in office next week. Will discuss the options further then. Encouraged pt to do BGM at home. Paroxysmal A FIB CHF Renal stones: Passed stone
[2016-11-11] MEDS: QUINAPRIL HCL 10 MG TABLET (FP) PO SCH (10:35)
[2016-11-11] MEDS: METOPROLOL SUCCINATE 50 MG TAB.SR.24H (FP) PO SCH (10:35)
[2016-11-11] MEDS: POLYETHYLENE GLYCOL 3350 119 GM BTL PO SCH (10:35)
[2016-11-11] MEDS: DOCUSATE SODIUM 100 MG CAPSULE (FP) PO SCH (10:35)
[2016-11-11] MEDS: CEFTRIAXONE 50 ML IVPB SCH (10:36)
--- NOTE | 2016-11-11 11:34 | DS ---
Physical Examination Vital Signs: Vital Signs Temperature 97.6 F 11/11/16 05:51 Pulse Rate 76 11/11/16 05:51 Respiratory Rate 20 11/11/16 05:51 Blood Pressure 141/67 11/11/16 05:51 O2 Sat by Pulse Oximetry (%) 97 11/10/16 21:00 Constitutional: Yes: Well Nourished, No Distress, Calm Cardiovascular: Yes: Regular Rate and Rhythm. No: Gallop, Murmur, Rub Respiratory: Yes: Regular, CTA Bilaterally. No: Rales, Rhonchi, Wheezes Gastrointestinal: Yes: Normal Bowel Sounds, Soft. No: Distention, Tenderness Extremities: Yes: WNL Edema: No Labs: CBC, BMP 11/11/16 05:35 11/11/16 05:35 Discharge Summary Reason For Visit: UTI,HYDRONEPHROSIS,CHF Current Active Problems CHF (congestive heart failure) (Acute) Gram negative sepsis (Acute) Gram-negative bacteremia (Acute) Hydronephrosis (Acute) Lactic acidosis (Acute) Nephrolithiasis (Acute) Obesity (BMI 30.0-34.9) (Acute) Paroxysmal atrial fibrillation (Acute) UTI (urinary tract infection) (Acute) Hyperlipidemia (Chronic) Hypertension (Chronic) Obesity (BMI 30-39.9) (Chronic) Type 2 diabetes mellitus (Chronic) Hospital Course: (1) 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 Code(s): N20.1 - CALCULUS OF URETER (2) Hydronephrosis Code(s): N13.30 - UNSPECIFIED HYDRONEPHROSIS Qualifiers: Hydronephrosis type: with renal calculous obstruction Qualified Code(s) : N13.2 - Hydronephrosis with renal and ureteral calculous obstruction (3) UTI (urinary tract infection) Code(s): N39.0 - URINARY TRACT INFECTION, SITE NOT SPECIFIED Qualifiers: Urinary tract infection type: acute cystitis Hematuria presence: without hematuria Qualified Code(s): N30.00 - Acute cystitis without hematuria (4) CHF (congestive heart failure) Code(s): I50.9 - HEART FAILURE, UNSPECIFIED Qualifiers: Congestive heart failure type: diastolic Congestive heart failure chronicity: acute on chronic Qualified Code(s): I50.33 - Acute on chronic diastolic (congestive) heart failure (5) Hyperlipidemia Code(s): E78.5 - HYPERLIPIDEMIA, UNSPECIFIED (6) Hypertension Code(s): I10 - ESSENTIAL (PRIMARY) HYPERTENSION (7) Type 2 diabetes mellitus Code(s): E11.9 - TYPE 2 DIABETES MELLITUS WITHOUT COMPLICATIONS Qualifiers: Diabetes mellitus complication status: with hyperglycemia Diabetes mellitus retirement insulin use: without retirement use Qualified Code(s): E11.65 - Type 2 diabetes mellitus with hyperglycemia; Z79.4 - longterm (current ) use of insulin (8) Paroxysmal atrial fibrillation Code(s): I48.0 - PAROXYSMAL ATRIAL FIBRILLATION Ms Acosta is a very pleasant 66 year old female who came in with UTI and nephrolithiasis with hydronephrosis. She was admitted to the hospital and started on IV antibiotics. She was seen by ID since she has a history of ESBL UTI. She was seen by urology and planned for cystoscopy. However she passed the stone without problem. Urology felt no procedure was indicated after this. She finished a full course of antibiotics. She was seen by cardiology and diuresed. Currently she is safe for discharge home. 32 minutes spent in preparation of this discharge Condition: Good - Instructions Diet, Activity, Other Instructions: low salt, diabetic diet. Continue previous activity Referrals: Rivas Lund MD [Staff Physician] - Pete Denson MD [Staff Physician] - Matt Cast MD [Staff Physician] - Alfredo Miller MD [Staff Physician] - Disposition: HOME - Home Medications Comprehensive Discharge Medication List: Ambulatory Orders Quinapril HCl [Accupril -] 10 mg PO DAILY 11/25/15 Simvastatin [Zocor -] 20 mg PO HS 11/25/15 Metoprolol Succinate [Toprol XL -] 50 mg PO BID 11/03/16 Sitagliptin Phosphate [Januvia] 100 mg PO DAILY 11/07/16 Furosemide [Lasix] 40 mg PO DAILY #30 tablet 11/11/16 Glipizide [Glucotrol -] 5 mg PO BID@0700,1630 #60 tablet 11/11/16 Metformin HCl [Glucophage -] 500 mg PO BID@0700,1630 #60 tablet 11/11/16
--- NOTE | 2016-11-11 11:45 | PN ---
Progress Note (short form) - Note Progress Note: S: feels better after iv lasix yesterday, back to normal, wants to go home, no sob cp, palps, dizziness. Current Medications Generic Name Dose Route Start Last Admin Trade Name Freq PRN Reason Stop Dose Admin Acetaminophen 650 mg 11/07/16 11:27 Tylenol - PO Q4H PRN FEVER OR PAIN Atorvastatin Calcium 10 mg 11/07/16 22:00 11/10/16 21:34 Lipitor - PO Not Given HS [facility] Docusate Sodium 100 mg 11/07/16 22:00 11/11/16 10:35 Colace - PO 100 mg BID [facility] Administration Glipizide 5 mg 11/10/16 16:30 11/11/16 06:31 Glucotrol - PO 5 mg BID@0700,1630 [facility] Administration Ceftriaxone Sodium 50 mls @ 100 mls/hr 11/08/16 10:00 11/11/16 10:36 Rocephin 1gm Ivpb (Pre-Docked) IVPB 100 mls/hr DAILY [facility] Administration Insulin Aspart 0 units 11/09/16 22:00 11/10/16 21:21 Novolog SQ 8 units HS [facility] Administration Protocol Insulin Aspart 1 vial 11/10/16 17:14 11/11/16 06:30 Novolog Vial Sliding Scale - SQ 6 units TIDAC [facility] Administration Protocol Metformin HCl 500 mg 11/10/16 16:30 11/11/16 06:31 Glucophage - PO 500 mg BID@0700,1630 [facility] Administration Metoprolol Succinate 50 mg 11/07/16 22:00 11/11/16 10:35 Toprol Xl - PO 50 mg BID [facility] Administration Morphine Sulfate 2 mg 11/07/16 11:27 Morphine Injection - IVPUSH Q4H PRN PAIN Ondansetron HCl 4 mg 11/07/16 11:27 Zofran Injection IVPB Q6H PRN NAUSEA Oxycodone HCl 5 mg 11/07/16 11:27 Roxicodone - PO Q4H PRN PAIN Polyethylene Glycol 17 gm 11/08/16 10:00 11/11/16 10:35 Miralax (For Daily Use) - PO Not Given DAILY [facility] Quinapril HCl 10 mg 11/08/16 10:00 11/11/16 10:35 Accupril - PO 10 mg DAILY [facility] Administration Sitagliptin Phosphate 100 mg 11/08/16 07:00 11/11/16 06:30 Januvia - PO 100 mg DAILY@0700 [facility] Administration Vital Signs Period Temp Pulse Resp BP Sys/Pitts Pulse Ox Last 24 Hr 97.6 F-98.5 F 72-125 18-20 113-141/59-76 97 Constitutional: Yes: Well Nourished, No Distress Eyes: No: Sclera Icterus Respiratory: cta bl nl eff Gastrointestinal: Yes: Normal Bowel Sounds. No: Distention, Hepatomegaly, Palpable Mass, Tenderness Cardiovascular: Yes: Regular Rate and Rhythm JVD: No Heart Sounds: Yes: S1, S2. No: Gallop Murmur: No: Systolic Murmur, Diastolic Murmur Extremities: No: Cold, Cyanosis Edema: no le e/c/c Integumentary: No: Jaundice diaphoresis Neurological: Yes: Alert, Oriented (x3) Psychiatric: No: Agitated - Other Data Labs, Other Data: CBC, BMP 11/11/16 05:35 11/11/16 05:35 ekg 11/07: sinus tach; nl axis/intervals; no path q's (PRWP); no ST-T abn tele: pafib, rate controlled, now in SR cxr: clear lungs echo 11/2015: mild dec lvef, global hk, nl rv, mild mr echo 11/2016: mild dec lvef, global hk, nl rv, mild- mod mr, mild lae. small effusion < 1cm a/p: paroxysmal AF -had afib in hosp 2015 in setting of uti/sepsis, rapid HRs--diltiazem gtt-- converted to sinus -episodes of very rapid PAF at times, treated with metoprolol 75 bid -chadsvasc is 5 (no cva/tia)--rx'd xarelto but she declined; on ASA 81 only-- cont same when procedures done -in sinus now, cont bb home dose acute diast chf: -post cysto 01/2016 had suspected acute HFpEF req intubation--extubated quickly after diuresed -echo with mild decr LVEF, no valve pathology, no cardio f/u since then -currently with stable QUIÑONES and pedal edema, but new (mild) orthopnea x 1 week-- ? copd/bronchospasm sx vs chf -BNP 2K here; was 8K at time of acute chf 2016, down to 3K after treated. wt has been 181-184 since 04/24 in office. -CXR clear with no vascular redistribution pattern, no JVD, lungs clear on exam and after getting iv lasix here a few days ago cr alyssa so it was stopped. However she had persistent orthopnea and quiñones so was given another trial of iv lasix with 80 iv 5/ and today reports feeling better, no sob/orthopnea. -she was not on diuretic at home and reports she had similar sob/orthopnea at home so will start lasix 40 qd -on BB and GERRY (prevent syst chf)--cont same -rpt echo w/o sig change htn: -cont current meds hld: -cont home statin cardiac valladares stable for dc, lasix 40 qd added, should have cardio f/u 1-2 weeks
[2016-11-11 12:12] VITALS: BP 125/69; PULSE 74; TEMP 98
--- NOTE | 2016-11-11 16:51 | PN ---
Progress Note, Physician History of Present Illness: doing well no complaints patient to see urology for further mgmt - Objective Vital Signs: Vital Signs Temperature 98 F 11/11/16 09:00 Pulse Rate 74 11/11/16 09:00 Respiratory Rate 20 11/11/16 09:00 Blood Pressure 125/69 11/11/16 09:00 O2 Sat by Pulse Oximetry (%) 97 11/11/16 09:00 Constitutional: Yes: No Distress, Calm Neck: Yes: Supple Cardiovascular: Yes: Regular Rate and Rhythm Respiratory: Yes: Regular, CTA Bilaterally Gastrointestinal: Yes: Normal Bowel Sounds, Soft Musculoskeletal: Yes: WNL Extremities: Yes: WNL Neurological: Yes: Alert, Oriented Psychiatric: Yes: Alert, Oriented Labs: CBC, BMP 11/11/16 05:35 11/11/16 05:35 INR, PTT INR 1.13 (0.82-1.09) 11/07/16 10:50 Assessment/Plan Problem List - Problems (1) 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 Code(s): N20.1 - CALCULUS OF URETER (2) Hydronephrosis Code(s): N13.30 - UNSPECIFIED HYDRONEPHROSIS Qualifiers: Hydronephrosis type: with renal calculous obstruction Qualified Code(s) : N13.2 - Hydronephrosis with renal and ureteral calculous obstruction (3) UTI (urinary tract infection) Code(s): N39.0 - URINARY TRACT INFECTION, SITE NOT SPECIFIED Qualifiers: Urinary tract infection type: acute cystitis Hematuria presence: without hematuria Qualified Code(s): N30.00 - Acute cystitis without hematuria (4) CHF (congestive heart failure) Code(s): I50.9 - HEART FAILURE, UNSPECIFIED Qualifiers: Congestive heart failure type: diastolic Congestive heart failure chronicity: acute on chronic Qualified Code(s): I50.33 - Acute on chronic diastolic (congestive) heart failure (5) Hyperlipidemia Code(s): E78.5 - HYPERLIPIDEMIA, UNSPECIFIED (6) Hypertension Code(s): I10 - ESSENTIAL (PRIMARY) HYPERTENSION (7) Type 2 diabetes mellitus Code(s): E11.9 - TYPE 2 DIABETES MELLITUS WITHOUT COMPLICATIONS Qualifiers: Diabetes mellitus complication status: with hyperglycemia Diabetes mellitus adjunct faculty for medical terminology insulin use: without senior care use Qualified Code(s): E11.65 - Type 2 diabetes mellitus with hyperglycemia (8) Paroxysmal atrial fibrillation Code(s): I48.0 - PAROXYSMAL ATRIAL FIBRILLATION plan no more abx urology for further mgmt of th stone rest as per primary rest as per primary team
--- NOTE | 2016-11-12 09:50 | PN ---
Progress Note (short form) - Note Progress Note: 66 y/0 female with h/o lt. uvj stone wich passed sponuesly, pt. feels better no cva pain or tenderness..ct. stone in lt. lower pole with no hydro. she will need a stne w/u and poss. [facility] as an outpt. Problem List - Problems (1) CHF (congestive heart failure) Code(s): I50.9 - HEART FAILURE, UNSPECIFIED Qualifiers: Congestive heart failure type: diastolic Congestive heart failure chronicity: acute on chronic Qualified Code(s): I50.33 - Acute on chronic diastolic (congestive) heart failure (2) Gram negative sepsis Code(s): A41.50 - GRAM-NEGATIVE SEPSIS, UNSPECIFIED (3) Gram-negative bacteremia Code(s): R78.81 - BACTEREMIA (4) Hydronephrosis Code(s): N13.30 - UNSPECIFIED HYDRONEPHROSIS Qualifiers: Hydronephrosis type: with renal calculous obstruction Qualified Code(s) : N13.2 - Hydronephrosis with renal and ureteral calculous obstruction (5) Lactic acidosis Code(s): E87.2 - ACIDOSIS (6) Nephrolithiasis Code(s): N20.0 - CALCULUS OF KIDNEY (7) Obesity (BMI 30.0-34.9) Code(s): E66.9 - OBESITY, UNSPECIFIED (8) Paroxysmal atrial fibrillation Code(s): I48.0 - PAROXYSMAL ATRIAL FIBRILLATION (9) UTI (urinary tract infection) Code(s): N39.0 - URINARY TRACT INFECTION, SITE NOT SPECIFIED Qualifiers: Urinary tract infection type: acute cystitis Hematuria presence: without hematuria Qualified Code(s): N30.00 - Acute cystitis without hematuria (10) Hyperlipidemia Code(s): E78.5 - HYPERLIPIDEMIA, UNSPECIFIED (11) Hypertension Code(s): I10 - ESSENTIAL (PRIMARY) HYPERTENSION (12) Obesity (BMI 30-39.9) Code(s): E66.9 - OBESITY, UNSPECIFIED (13) Type 2 diabetes mellitus Code(s): E11.9 - TYPE 2 DIABETES MELLITUS WITHOUT COMPLICATIONS Qualifiers: Diabetes mellitus complication status: with hyperglycemia Diabetes mellitus nursing home insulin use: without nursing home use Qualified Code(s): E11.65 - Type 2 diabetes mellitus with hyperglycemia; 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
== END 2016-11-11 13:06 | disposition home or self-care (01) | DRG 693 ==
LOC: JER 06:46 → JERBED 10:37 → J4W 16:21
PROVIDERS: ADMIT Internal Medicine; ATTEND Internal Medicine
DX: N13.2 Hydronephrosis with renal and ureteral calculous obstruction (principal); I50.33 Acute on chronic diastolic (congestive) heart failure; E87.2 Acidosis; G30.9 Alzheimer's disease, unspecified; F02.80 Dementia in other diseases classified elsewhere, unspecified severity, without behavioral disturbance, psychotic disturbance, mood disturbance, and anxiety; I48.91 Unspecified atrial fibrillation; E78.5 Hyperlipidemia, unspecified; N39.0 Urinary tract infection, site not specified; I48.0 Paroxysmal atrial fibrillation; E11.65 Type 2 diabetes mellitus with hyperglycemia; I11.0 Hypertensive heart disease with heart failure; E66.9 Obesity, unspecified; Z68.34 Body mass index [BMI] 34.0-34.9, adult; Z71.3 Dietary counseling and surveillance; Z87.891 Personal history of nicotine dependence
CPT/HCPCS: 36415; 71010-TC; 74000-TC; 74176; 76775-TC; 76856-TC; 80048; 80053; 81003; 81015; 82550; 83036; 83690; 83735; 83880; 84100; 84484; 85025; 85610; 85730; 86850; 86900; 86901; 87040; 87086; 93005; 93010; 93306-TC; 99283-25

== ENCOUNTER 2016-12-16 20:58 | Inpatient (IN) | payer BC, OTHER ==
[2016-12-16 21:20] VITALS: BMI 35.2
[2016-12-16] MEDS ORDERED: morphine CARPU-JECT 2 MG/1 ML DISP.SYRIN IVPUSH ONE (22:28)
[2016-12-16] MEDS ORDERED: KETOROLAC TROMETHAMINE 30 MG/1 ML VIAL IVPUSH ONE (22:28)
[2016-12-16] MEDS ORDERED: SODIUM CHLORIDE 0.9% 500 ML INFUS.BAG IV ONE (22:28)
--- NOTE | 2016-12-16 22:29 | PDOC ---
History of Present Illness - General History Source: Patient Exam Limitations: No Limitations - History of Present Illness Initial Comments: 12/16/16 22:30 The patient is a 66 year old female with a significant past medical history of DM, COPD, HTN, CHF, renal colic s/p ureteral stents (no removed), UTI, prior hx of sepsis/intubation/ICU admission last year who presents to the ED with complaints of kidney stone pain since earlier today. The patient reports she has a kidney stone. Patient reports sharp left kidney stone pain radiating downward. She also reports slight lower extremity edema. Patient states she took a water pill at 5 pm earlier today and reports frequency since. Patient reports she admitted to the hospital last month for similar symptoms. Denies fevers or chills. Denies dysuria. Denies nausea, vomiting, or diarrhea. Denies chest pain or shortness of breath. Denies any other symptoms. <Abbi Dupree - Last Filed: 12/16/16 22:30> <Valentine Garner - Last Filed: 12/17/16 20:57> - General Chief Complaint: Pain Stated Complaint: PAIN Time Seen by Provider: 12/16/16 22:07 Past History <Abbi Dupree - Last Filed: 12/16/16 22:30> - Past Medical History Anemia: No Asthma: No Cancer: Yes (skin cancer) Cardiac Disorders: (paf, sob,) COPD: No CHF: Yes Diabetes: Yes (NIDDM) HTN: Yes Kidney Stones: Yes - Surgical History Abdominal Surgery: No Appendectomy: No Cardiac Surgery: No Cholecystectomy: Yes Lung Surgery: No Neurologic Surgery: No - Psycho/Social/Smoking Cessation Hx Anxiety: No Suicidal Ideation: No Smoking History: Former smoker Have you smoked in the past 12 months: No If you are a former smoker, when did you quit?: 2013 Information on smoking cessation initiated: No 'Breaking Loose' booklet given: 12/28/15 Hx Alcohol Use: No Drug/Substance Use Hx: No Substance Use Type: None Hx Substance Use Treatment: No <Valentine Garner - Last Filed: 12/17/16 20:57> - Past Medical History Allergies/Adverse Reactions: Allergies Allergy/AdvReac Type Severity Reaction Status Date / Time No Known Drug Allergies Allergy Verified 11/07/16 07:08 Home Medications: Ambulatory Orders Quinapril HCl [Accupril -] 10 mg PO DAILY 11/25/15 Simvastatin [Zocor -] 20 mg PO HS 11/25/15 Sitagliptin Phosphate [Januvia] 100 mg PO DAILY 11/07/16 Furosemide [Lasix] 40 mg PO DAILY 12/17/16 Glimepiride [Amaryl] 4 mg PO BIDAC 12/17/16 Metformin HCl [Glucophage -] 1,000 mg PO BIDAC 12/17/16 Metoprolol Succinate [Toprol Xl] 50 mg PO DAILY 12/17/16 Review of Systems - Review of Systems Able to Perform ROS?: Yes Comments:: 12/16/16 22:30 CONSTITUTIONAL: Absent: fever, chills, diaphoresis, generalized weakness, malaise, loss of appetite HEENT: Absent: rhinorrhea, nasal congestion, throat pain, throat swelling, difficulty swallowing, mouth swelling, ear pain, eye pain, visual Changes CARDIOVASCULAR: Absent: chest pain, syncope, palpitations, irregular heart rate, lightheadedness , peripheral edema RESPIRATORY: Absent: cough, shortness of breath, dyspnea with exertion, orthopnea, wheezing, stridor, hemoptysis GASTROINTESTINAL: Absent: abdominal pain, abdominal distension, nausea, vomiting, diarrhea, constipation, melena, hematochezia GENITOURINARY: + kidney pain, frequency Absent: dysuria,urgency, hesitancy, hematuria, genital pain MUSCULOSKELETAL: + lower extremity edema Absent: myalgia, arthralgia SKIN: Absent: rash, itching, pallor HEMATOLOGIC/IMMUNOLOGIC: Absent: easy bleeding, easy bruising, lymphadenopathy, frequent infections ENDOCRINE: Absent: unexplained weight gain, unexplained weight loss, heat intolerance, cold intolerance NEUROLOGIC: Absent: headache, focal weakness or paresthesias, dizziness, unsteady gait, seizure, mental status changes, bladder or bowel incontinence PSYCHIATRIC: Absent: anxiety, depression, suicidal or homicidal ideation, hallucinations. All Other Systems: Reviewed and Negative <Abbi Dupree - Last Filed: 12/16/16 22:30> *Physical Exam - Vital Signs Last Vital Signs Temp Pulse Resp BP Pulse Ox 98.1 F 93 H 21 169/74 95 12/16/16 21:15 12/16/16 21:15 12/16/16 21:15 12/16/16 21:15 12/16/16 21:15 - Physical Exam Comments: 12/16/16 22:30 GENERAL: Well developed, well nourished. Awake and alert. No acute distress. HEENT: Normocephalic, atraumatic. PERRLA, EOMI. No conjunctival pallor. Sclera are non- icteric. Moist mucous membranes. Oropharynx is clear. NECK: Supple. Full ROM. No JVD. Carotid pulses 2+ and symmetric, without bruits. No thyromegaly. NCo lymphadenopathy. CARDIOVASCULAR: Regular rate and rhythm. No murmurs, rubs, or gallops. Distal pulses are 2+ and symmetric. PULMONARY: No evidence of respiratory distress. Lungs clear to auscultation bilaterally. No wheezing, rales or rhonchi. ABDOMINAL: Soft. Non-tender. Non-distended. No rebound or guarding. No organomegaly. Normoactive bowel sounds. MUSCULOSKELETAL Normal range of motion at all joints. No bony deformities or tenderness. No CVA tenderness. EXTREMITIES: + 1+ pitting edema on lower extremities bilaterally. No cyanosis. No clubbing.. No calf tenderness. SKIN: Warm and dry. Normal capillary refill. No rashes. No jaundice. NEUROLOGICAL: Alert, awake, appropriate. Cranial nerves 2-12 intact. No deficits to light touch and temperature in face, upper extremities and lower extremities. No motor deficits in the in face, upper extremities and lower extremities. Normoreflexic in the upper and lower extremities. Normal speech. Toes are down- going bilaterally. Gait is normal without ataxia. PSYCHIATRIC: Cooperative. Good eye contact. Appropriate mood and affect. <Abbi Dupree - Last Filed: 12/16/16 22:30> - Vital Signs Last Vital Signs Temp Pulse Resp BP Pulse Ox 98.1 F 93 H 21 169/74 95 12/16/16 21:15 12/16/16 21:15 12/16/16 21:15 12/16/16 21:15 12/16/16 21:15 <Valentine Garner - Last Filed: 12/17/16 20:57> ED Treatment Course - LABORATORY CBC & Chemistry Diagram: 12/16/16 22:39 12/17/16 01:00 <Valentine Garner - Last Filed: 12/17/16 20:57> Medical Decision Making - Medical Decision Making 12/17/16 00:32 Patient Name: Aurora Acosta THIS IS A PRELIMINARYREPORT FROM [facility] EXAM: CT abdomen and pelvis without contrast IMAGES: [id number] INDICATION: Flank pain DATE OF SERVICE: 2016-12-16 23:57:59.0 COMPARISON: none FINDINGS: Lung bases are clear other than mild lingular atelectasis. The visualized cardiac chambers are normal size and configuration. The liver is cirrhotic and enlarged. Spleen is of normal size. There is mild to moderate left hydronephrosis and perinephric inflammation secondary to a 5 mm distal left ureteral stone. Multiple additional left renal stones are noted. Status post cholecystectomy without biliary duct dilation.. Normal unenhanced pancreas, spleen, adrenal glands and right kidney. The stomach and abdominal small and large bowel are normal. There is no aortic aneurysm. There is mild to moderate portacaval and periportal adenopathy and mild para-aortic adenopathy, possibly related to the patient's liver disease. The pelvic small and large bowel are normal. There is no evidence of appendicitis, although the appendix is not clearly visualized. Multiple calcified fibroids are noted. No suspicious adnexal masses. Urinary bladder is unremarkable. There is no pelvic free fluid. No discrete pelvic lymphadenopathy is identified. IMPRESSION: Mild to moderate left hydronephrosis and perinephric inflammation secondary to a 5 mm distal left ureteral stone. Multiple additional left renal stones. Cirrhosis. Periportal and portacaval adenopathy may be related to the patient's liver disease. Fibroid uterus. THIS DOCUMENT HAS BEEN ELECTRONICALLY SIGNED 12/17/16 20:55 Pt has a hx of kidney stones and comes with repeat LLQ pain. She has an obstructing stone in the distal left ureter seen on CT scan. Pt will be admitted for IV fluids and nephrology consult. SHe has hydronephrosis and perinephric inflammation. <Valentine Garner - Last Filed: 12/17/16 20:57> *DC/Admit/Observation/Transfer - Attestations Scribe Attestion: 12/16/16 22:30 Documentation prepared by Abbi Dupree, acting as biomedical electronics technician for Valentine Garner MD <Abbi Dupree - Last Filed: 12/16/16 22:30> - Discharge Dispostion Admit: Yes <Valentine Garner - Last Filed: 12/17/16 20:57> Diagnosis at time of Disposition: 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, Hydronephrosis - Discharge Dispostion Condition at time of disposition: Guarded - Referrals
[2016-12-16] MEDS ORDERED: morphine CARPU-JECT 2 MG/1 ML DISP.SYRIN ONE (22:48)
[2016-12-16] MEDS ORDERED: KETOROLAC TROMETHAMINE 30 MG/1 ML VIAL ONE (22:48)
[2016-12-16 22:56] LABS: URINE APPEARANCE CLEAR; URINE BILIRUBIN NEGATIVE (NEGATIVE); URINE COLOR COLORLESS; URINE GLUCOSE (UA) 3+ (NEGATIVE); URINE KETONE NEGATIVE (NEGATIVE); URINE NITRITE NEGATIVE (NEGATIVE); URINE UROBILINOGEN NEGATIVE E.U./dl (0.2-1.0)
[2016-12-16 23:08] LABS: BASOPHIL 0.7 % (0-2.0); EOSINOPHIL 2.5 % (0-4.5); MCH 23.9 pg (25.7-33.7); MCHC 31.2 g/dl (32.0-36.0); MEAN CELL VOLUME 76.5 fl (80-96); MEAN PLT VOLUME 8.9 fl (7.5-11.1); NEUTROPHILS 69.3 % (42.8-82.8); PLATELET COUNT 290 K/MM3 (134-434); RDW 16.4 % (11.6-15.6); WHITE BLOOD COUNT 10.4 K/mm3 (4.0-10.0)
[2016-12-16 23:09] LABS: URINE BLOOD 2+ (NEGATIVE); URINE LEUK ESTERASE TRACE (NEGATIVE); URINE PROTEIN 1+ (NEGATIVE)
[2016-12-16 23:12] LABS: URINE RBC 43 /hpf (0-3); URINE WBC 10 /hpf (3-5)
[2016-12-17 01:27] LABS: CALCIUM 8.7 mg/dL (8.5-10.1); COCKROFT - GAULT 71.3235
[2016-12-17] MEDS ORDERED: INSULIN REGULAR HUMAN 100 UNITS/ML *VIAL SQ ONE (01:31)
[2016-12-17] MEDS ORDERED: INSULIN REGULAR HUMAN 100 UNITS/ML *VIAL ONE (02:00)
[2016-12-17] MEDS ORDERED: morphine CARPU-JECT 2 MG/1 ML DISP.SYRIN IVPUSH PRN (03:42)
[2016-12-17] MEDS ORDERED: SODIUM CHLORIDE 0.45% 1,000 ML IV SCH (03:45)
[2016-12-17] MEDS: GLIMEPIRIDE 4 MG TABLET (FP) PO SCH ×2 (06:35→17:13)
[2016-12-17] MEDS: metFORMIN HCL 500 MG TABLET (FP) PO SCH ×2 (06:35→17:13)
[2016-12-17] MEDS: sitaGLIPtin PHOSPHATE 100 MG TABLET (FP) PO SCH (06:35)
[2016-12-17] MEDS: INSULIN SLIDING SCALE (NOVOLOG) 1 VIAL SQ SCH ×4 (06:37→21:22)
[2016-12-17] MEDS: METOPROLOL SUCCINATE 50 MG TAB.SR.24H (FP) PO SCH (09:21)
[2016-12-17] MEDS: FUROSEMIDE 40 MG TABLET (FP) PO SCH (09:21)
[2016-12-17] MEDS: QUINAPRIL HCL 10 MG TABLET (FP) PO SCH (09:22)
--- NOTE | 2016-12-17 10:14 | HP ---
Admitting History and Physical - Admission Chief Complaint: Left back/ flank pain History of Present Illness: 66 yo female, h/o renal stones, hospitalized last month related to kidney stones , presneted last night to ED with increased left flank pain. She had seen urologist a few weeks ago with some pain that stopped, but found to have some left sided kidney stones at that time. Urologist had discussed that she may need procedure done, so was planning to follow-up with him again next month (Dr Rosy Denson's office). Last night, however, the pain started again and was severe , so came to hospital. given Morphin ein ED and pain subsided and has not returned, currently pain free. CT in ED did show left hydronephrosis with a 5mm left ureteral stone. History Source: Patient, Medical Record Limitations to Obtaining History: No Limitations - Past Medical History WEIGHT CALLER: Yes: Alzheimer's Cardiovascular: Yes: AFIB, HTN, Hyperlipdemia Renal/: Yes: Renal Calculi, UTI, Other (POD#1: s/p Cysto/Litho) ...: No Endocrine: Yes: Diabetes Mellitus - Smoking History Smoking history: Former smoker Have you smoked in the past 12 months: No Aproximately how many cigarettes per day: 20 If you are a former smoker, when did you quit?: 2013 - Alcohol/Substance Use Hx Alcohol Use: No History of Substance Use: reports: None - Social History ADL: Independent 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 History of Recent Travel: No Home Medications - Allergies Allergies/Adverse Reactions: Allergies Allergy/AdvReac Type Severity Reaction Status Date / Time No Known Drug Allergies Allergy Verified 11/07/16 07:08 - Home Medications Home Medications: Ambulatory Orders Quinapril HCl [Accupril -] 10 mg PO DAILY 11/25/15 Simvastatin [Zocor -] 20 mg PO HS 11/25/15 Sitagliptin Phosphate [Januvia] 100 mg PO DAILY 11/07/16 Furosemide [Lasix] 40 mg PO DAILY 12/17/16 Glimepiride [Amaryl] 4 mg PO BIDAC 12/17/16 Metformin HCl [Glucophage -] 1,000 mg PO BIDAC 12/17/16 Metoprolol Succinate [Toprol Xl] 50 mg PO DAILY 12/17/16 Family Disease History - Family Disease History Family Disease History: Diabetes: Mother, Sister Review of Systems - Review of Systems Constitutional: denies: Chills, Loss of Appetite Eyes: reports: No Symptoms HENT: denies: Difficult Swallowing, Epistaxis Neck: denies: Decreased ROM, Stiffness Cardiovascular: denies: Chest Pain, Palpitations Respiratory: denies: Cough, SOB, Wheezing Gastrointestinal: denies: Diarrhea, Vomiting Genitourinary: reports: Burning (this morning) Musculoskeletal: reports: Back Pain (left side) Neurological: denies: Change in LOC, Dizziness, Headache Physical Examination Vital Signs: Vital Signs Temperature 98.6 F 12/17/16 09:58 Pulse Rate 80 12/17/16 09:58 Respiratory Rate 20 12/17/16 09:58 Blood Pressure 139/74 12/17/16 09:58 O2 Sat by Pulse Oximetry (%) 94 L 12/17/16 02:30 Constitutional: Yes: Well Nourished, No Distress, Calm HENT: Yes: Atraumatic, Normocephalic Neck: Yes: Supple, Trachea Midline Cardiovascular: Yes: Regular Rate and Rhythm, S1, S2. No: Murmur Respiratory: Yes: Regular, CTA Bilaterally. No: Rales, Rhonchi, Wheezes Gastrointestinal: Yes: Normal Bowel Sounds, Soft. No: Distention, Tenderness Edema: Yes Edema: LLE: Trace, RLE: Trace Neurological: Yes: Alert, Oriented Labs: CBC, BMP 12/17/16 01:00 Imaging - Results Cat Scan: Other (prelim CT reading in ED = 5mm Left ureteral stone with left hydronephrosis) Problem List - Problems (1) 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 Assessment/Plan: -was on IVF, but now pain free and history of CHF, so will stop IVF (passed stone? -no longer having pain) -urology to consult Code(s): N20.1 - CALCULUS OF URETER (2) Nephrolithiasis Assessment/Plan: -had multiple stones on CT scan, so may still require urological procedure Code(s): N20.0 - CALCULUS OF KIDNEY (3) Type 2 diabetes mellitus Assessment/Plan: -cont anti-diabetic meds for now, sliding scale while in hospital Code(s): E11.9 - TYPE 2 DIABETES MELLITUS WITHOUT COMPLICATIONS Qualifiers: Diabetes mellitus complication status: with hyperglycemia Diabetes mellitus terminal operations supervisor insulin use: without terminal operations supervisor use Qualified Code(s): E11.65 - Type 2 diabetes mellitus with hyperglycemia; Z79.4 - long-term (current ) use of insulin (4) CHF (congestive heart failure) Assessment/Plan: -will stop IVF -asymptomatic currently -cont Bblocker, Acde-inh, lasix (refused lasix this morning) Code(s): I50.9 - HEART FAILURE, UNSPECIFIED Qualifiers: Congestive heart failure type: diastolic Congestive heart failure chronicity: acute on chronic Qualified Code(s): I50.33 - Acute on chronic diastolic (congestive) heart failure (5) UTI (urinary tract infection) Assessment/Plan: -start levaquin Code(s): N39.0 - URINARY TRACT INFECTION, SITE NOT SPECIFIED Qualifiers: Urinary tract infection type: acute cystitis Hematuria presence: without hematuria Qualified Code(s): N30.00 - Acute cystitis without hematuria
[2016-12-17] MEDS: LEVOFLOXACIN 500 MG IVPB 100 ML IVPB SCH (11:44)
[2016-12-17] MEDS: ACETAMINOPHEN 325 MG TABLET (FP) PO PRN (14:05)
[2016-12-17] MEDS ORDERED: ACETAMINOPHEN 325 MG TABLET (FP) ONE (14:07)
--- NOTE | 2016-12-17 15:29 | EKG ---
Test Reason : Blood Pressure : / mmHG Vent. Rate : 086 BPM Atrial Rate : 086 BPM P-R Int : 186 ms QRS Dur : 082 ms QT Int : 408 ms P-R-T Axes : 062 001 016 degrees QTc Int : 488 ms NORMAL SINUS RHYTHM SEPTAL INFARCT (CITED ON OR BEFORE 07-NOV-2016) ABNORMAL ECG WHEN COMPARED WITH ECG OF 07-NOV-2016 07:33, NO SIGNIFICANT CHANGE WAS FOUND Confirmed by [place], ALEXSANDER ([id number]) on 12/17/2016 3:29:48 PM Referred By: Confirmed By:ALEXSANDER SHAFFER MD
[2016-12-17] MEDS: ATORVASTATIN CA 10 MG TABLET (FP) PO SCH (21:22)
[2016-12-18] MEDS: INSULIN SLIDING SCALE (NOVOLOG) 1 VIAL SQ SCH ×4 (06:19→21:46)
[2016-12-18 07:30] LABS: BASOPHIL 0.5 % (0-2.0); EOSINOPHIL 1.2 % (0-4.5); MCH 24.5 pg (25.7-33.7); MCHC 32.2 g/dl (32.0-36.0); MEAN CELL VOLUME 76.1 fl (80-96); MEAN PLT VOLUME 8.3 fl (7.5-11.1); NEUTROPHILS 70.9 % (42.8-82.8); PLATELET COUNT 227 K/MM3 (134-434); RDW 16.5 % (11.6-15.6); WHITE BLOOD COUNT 9.3 K/mm3 (4.0-10.0)
[2016-12-18 08:43] LABS: ALBUMIN 2.7 g/dl (3.4-5.0); ALK PHOS 67 U/L (45-117); ANION GAP 9 (8-16); BILIRUBIN,TOTAL 0.4 mg/dL (0.2-1.0); CALCIUM 8.6 mg/dL (8.5-10.1); CO2 28 mmol/L (21-32); COCKROFT - GAULT 101.8895; CREATININE 0.7 mg/dL (0.55-1.02); GLUCOSE,RANDOM 175 mg/dL (74-106); SGOT/AST 25 U/L (15-37); SGPT/ALT 36 U/L (12-78); TOT PROT 6.4 g/dl (6.4-8.2)
[2016-12-18] MEDS: metFORMIN HCL 500 MG TABLET (FP) PO SCH ×2 (09:04→17:37)
[2016-12-18] MEDS: METOPROLOL SUCCINATE 50 MG TAB.SR.24H (FP) PO SCH (09:04)
[2016-12-18] MEDS: sitaGLIPtin PHOSPHATE 100 MG TABLET (FP) PO SCH (09:04)
[2016-12-18] MEDS: QUINAPRIL HCL 10 MG TABLET (FP) PO SCH (09:04)
[2016-12-18] MEDS: GLIMEPIRIDE 4 MG TABLET (FP) PO SCH ×2 (09:04→17:37)
--- NOTE | 2016-12-18 10:11 | PN ---
Progress Note, Physician History of Present Illness: No further flank or back pain. Was straining urine yesterday and passed 2 parts of a kidney stone. No further fevers since yesterday. - Current Medication List Current Medications: Active Medications Acetaminophen (Tylenol -) 650 mg PO Q4H PRN PRN Reason: FEVER OR PAIN Last Admin: 12/17/16 14:05 Dose: 650 mg Atorvastatin Calcium (Lipitor -) 10 mg PO HS [facility] Last Admin: 12/17/16 21:22 Dose: 10 mg Furosemide (Lasix -) 40 mg PO DAILY [facility] Last Admin: 12/17/16 09:21 Dose: Not Given Glimepiride (Amaryl -) 4 mg PO BIDAC [facility] Last Admin: 12/18/16 09:04 Dose: 4 mg Levofloxacin (Levaquin 500 Mg Premixed Ivpb -) 100 mls @ 100 mls/hr IVPB DAILY [facility] Last Admin: 12/17/16 11:44 Dose: 100 mls/hr Insulin Aspart (Novolog Vial Sliding Scale -) 1 vial SQ ACHS [facility] PRN Reason: Protocol Last Admin: 12/18/16 06:19 Dose: Not Given Metformin HCl (Glucophage -) 1,000 mg PO BIDAC [facility] Last Admin: 12/18/16 09:04 Dose: 1,000 mg Metoprolol Succinate (Toprol Xl -) 50 mg PO DAILY [facility] Last Admin: 12/18/16 09:04 Dose: 50 mg Morphine Sulfate (Morphine Injection -) 2 mg IVPUSH Q4H PRN PRN Reason: PAIN Quinapril HCl (Accupril -) 10 mg PO DAILY [facility] Last Admin: 12/18/16 09:04 Dose: 10 mg Sitagliptin Phosphate (Januvia -) 100 mg PO AM [facility] Last Admin: 12/18/16 09:04 Dose: 100 mg - Objective Vital Signs: Vital Signs Temperature 99 F 12/18/16 09:00 Pulse Rate 86 12/18/16 09:00 Respiratory Rate 18 12/18/16 09:00 Blood Pressure 150/68 12/18/16 09:00 O2 Sat by Pulse Oximetry (%) 92 L 12/17/16 20:08 Constitutional: Yes: No Distress, Calm HENT: Yes: Atraumatic, Normocephalic Neck: Yes: Supple, Trachea Midline Cardiovascular: Yes: Regular Rate and Rhythm, S1, S2. No: Murmur Respiratory: Yes: Regular, CTA Bilaterally. No: Rales, Rhonchi, Wheezes Gastrointestinal: Yes: Normal Bowel Sounds, Soft. 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 use: without local intermodal truck driver use Qualified Code(s): E11.65 - Type 2 diabetes mellitus with hyperglycemia; Z79.4 - jail (current ) use of insulin (4) CHF (congestive heart failure) Code(s): I50.9 - HEART FAILURE, UNSPECIFIED Qualifiers: Congestive heart failure type: diastolic Congestive heart failure chronicity: acute on chronic Qualified Code(s): I50.33 - Acute on chronic diastolic (congestive) heart failure (5) UTI (urinary tract infection) Code(s): N39.0 - URINARY TRACT INFECTION, SITE NOT SPECIFIED Qualifiers: Urinary tract infection type: acute cystitis Hematuria presence: without hematuria Qualified Code(s): N30.00 - Acute cystitis without hematuria Assessment/Plan Current Active Problems Renal colic/ nephrolithiasis Hydronephrosis (Acute) 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 (Acute) Hyperlipidemia (Chronic) Hypertension (Chronic) Type 2 diabetes mellitus (Chronic) -urology to consult for further input on renal stones/ colic -on Levaquin currently for UTI
[2016-12-18] MEDS: LEVOFLOXACIN 500 MG IVPB 100 ML IVPB SCH (10:14)
[2016-12-18] MEDS: FUROSEMIDE 40 MG TABLET (FP) PO SCH ×2 (11:36)
[2016-12-18] MEDS ORDERED: PT OWN MED DRAWER 7, Y5N ONE (19:38)
[2016-12-18] MEDS: ATORVASTATIN CA 10 MG TABLET (FP) PO SCH ×2 (21:45→21:47)
[2016-12-19] MEDS: INSULIN SLIDING SCALE (NOVOLOG) 1 VIAL SQ SCH ×4 (06:26→21:18)
[2016-12-19] MEDS: sitaGLIPtin PHOSPHATE 100 MG TABLET (FP) PO SCH ×2 (06:26→08:18)
[2016-12-19 07:27] LABS: ALBUMIN 2.7 g/dl (3.4-5.0); ANION GAP 12 (8-16); BASOPHIL 0.3 % (0-2.0); CALCIUM 8.7 mg/dL (8.5-10.1); CO2 29 mmol/L (21-32); EOSINOPHIL 1.1 % (0-4.5); GLUCOSE,RANDOM 140 mg/dL (74-106); MCH 24.6 pg (25.7-33.7); MCHC 32.2 g/dl (32.0-36.0); MEAN CELL VOLUME 76.4 fl (80-96); MEAN PLT VOLUME 8.4 fl (7.5-11.1); NEUTROPHILS 74.3 % (42.8-82.8); PLATELET COUNT 209 K/MM3 (134-434); RDW 16.5 % (11.6-15.6); WHITE BLOOD COUNT 5.8 K/mm3 (4.0-10.0)
[2016-12-19 07:30] LABS: ALK PHOS 68 U/L (45-117); BILIRUBIN,TOTAL 0.5 mg/dL (0.2-1.0); COCKROFT - GAULT 118.8725; CREATININE 0.6 mg/dL (0.55-1.02); SGOT/AST 34 U/L (15-37); SGPT/ALT 35 U/L (12-78); TOT PROT 6.4 g/dl (6.4-8.2)
[2016-12-19] MEDS: GLIMEPIRIDE 4 MG TABLET (FP) PO SCH ×2 (08:18→17:53)
[2016-12-19] MEDS: ACETAMINOPHEN 325 MG TABLET (FP) PO PRN ×2 (08:18→20:31)
[2016-12-19] MEDS: metFORMIN HCL 500 MG TABLET (FP) PO SCH ×2 (08:18→17:53)
[2016-12-19] MEDS: QUINAPRIL HCL 10 MG TABLET (FP) PO SCH (09:22)
[2016-12-19] MEDS: LEVOFLOXACIN 500 MG IVPB 100 ML IVPB SCH (09:22)
[2016-12-19] MEDS: METOPROLOL SUCCINATE 50 MG TAB.SR.24H (FP) PO SCH (09:22)
--- NOTE | 2016-12-19 15:08 | CON.GU ---
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 Cardio/Vascular: Yes: AFIB, HTN, Hyperlipdemia Renal/: Yes: Renal Calculi, UTI, Other (POD#1: s/p Cysto/Litho) ...: No Endocrine: Yes: Diabetes Mellitus - Alcohol/Substance Use Hx Alcohol Use: No History of Substance Use: reports: None - Smoking History Smoking history: Former smoker Have you smoked in the past 12 months: No Aproximately how many cigarettes per day: 20 If you are a former smoker, when did you quit?: 2013 - Social History ADL: Independent 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 [employer] History of Recent Travel: No Home Medications - Allergies Allergies/Adverse Reactions: Allergies Allergy/AdvReac Type Severity Reaction Status Date / Time No Known Drug Allergies Allergy Verified 11/07/16 07:08 - Home Medications Home Medications: Ambulatory Orders Quinapril HCl [Accupril -] 10 mg PO DAILY 11/25/15 Simvastatin [Zocor -] 20 mg PO HS 11/25/15 Sitagliptin Phosphate [Januvia] 100 mg PO DAILY 11/07/16 Furosemide [Lasix] 40 mg PO DAILY 12/17/16 Glimepiride [Amaryl] 4 mg PO BIDAC 12/17/16 Metformin HCl [Glucophage -] 1,000 mg PO BIDAC 12/17/16 Metoprolol Succinate [Toprol Xl] 50 mg PO DAILY 12/17/16 Family Disease History - Family Disease History Family Disease History: Diabetes: Mother, Sister Physical Exam- Vital Signs: Vital Signs Temperature 100 F H 12/19/16 09:27 Pulse Rate 98 H 12/19/16 09:27 Respiratory Rate 17 12/19/16 09:27 Blood Pressure 125/46 12/19/16 09:27 O2 Sat by Pulse Oximetry (%) 94 L 12/19/16 09:25 Labs: CBC, BMP 12/19/16 06:20 12/19/16 06:20 Assessment/Plan Pt is well known to me, seen last week with renal colic. She was admitted with pain. Ct Scan showed 4 mm calc left UV jn. Subsequently she passed multiple calculi. She was feeling fine. Suddenly she felt severe pain again last evening. UV jn. calc most likely had passed. She seems to be comfortable today. Just as a precaution will do repeat ct scan. If it is negative she can be discharged. If it shows left hydro again, will do cysto and ureteroscopy. Thank you
--- NOTE | 2016-12-19 15:22 | PN ---
Progress Note, Physician Chief Complaint: Ms Acosta says she passed two stones. Having some abdominal pain today but much improved. No cp, sob, n/v. - Current Medication List Current Medications: Active Medications Acetaminophen (Tylenol -) 650 mg PO Q4H PRN PRN Reason: FEVER OR PAIN Last Admin: 12/19/16 08:18 Dose: 650 mg Atorvastatin Calcium (Lipitor -) 10 mg PO HS [facility] Last Admin: 12/18/16 21:47 Dose: Not Given Furosemide (Lasix -) 40 mg PO Q2D@1000 [facility] Last Admin: 12/18/16 11:36 Dose: 40 mg Glimepiride (Amaryl -) 4 mg PO BIDAC [facility] Last Admin: 12/19/16 08:18 Dose: 4 mg Levofloxacin (Levaquin 500 Mg Premixed Ivpb -) 100 mls @ 100 mls/hr IVPB DAILY [facility] Last Admin: 12/19/16 09:22 Dose: 100 mls/hr Insulin Aspart (Novolog Vial Sliding Scale -) 1 vial SQ ACHS [facility] PRN Reason: Protocol Last Admin: 12/19/16 12:12 Dose: Not Given Metformin HCl (Glucophage -) 1,000 mg PO BIDAC [facility] Last Admin: 12/19/16 08:18 Dose: 1,000 mg Metoprolol Succinate (Toprol Xl -) 50 mg PO DAILY [facility] Last Admin: 12/19/16 09:22 Dose: 50 mg Morphine Sulfate (Morphine Injection -) 2 mg IVPUSH Q4H PRN PRN Reason: PAIN Quinapril HCl (Accupril -) 10 mg PO DAILY [facility] Last Admin: 12/19/16 09:22 Dose: 10 mg Sitagliptin Phosphate (Januvia -) 100 mg PO AM [facility] Last Admin: 12/19/16 08:18 Dose: 100 mg - Objective Vital Signs: Vital Signs Temperature 100 F H 12/19/16 09:27 Pulse Rate 98 H 12/19/16 09:27 Respiratory Rate 17 12/19/16 09:27 Blood Pressure 125/46 12/19/16 09:27 O2 Sat by Pulse Oximetry (%) 94 L 12/19/16 09:25 Constitutional: Yes: No Distress, Calm, Obese Cardiovascular: Yes: Regular Rate and Rhythm. No: Gallop, Murmur, Rub Respiratory: Yes: Regular, CTA Bilaterally. No: Rales, Rhonchi, Wheezes Gastrointestinal: Yes: Normal Bowel Sounds, Soft. No: Distention, Tenderness Extremities: Yes: WNL Edema: No Labs: CBC, BMP 12/19/16 06:20 12/19/16 06:20 Problem List - Problems (1) UTI (urinary tract infection) Assessment/Plan: -growing gram negative rods -continue levaquin -follow up urine cultures Code(s): N39.0 - URINARY TRACT INFECTION, SITE NOT SPECIFIED Qualifiers: Urinary tract infection type: acute cystitis Hematuria presence: without hematuria Qualified Code(s): N30.00 - Acute cystitis without hematuria (2) Hydronephrosis Assessment/Plan: -case d/w urology -stones spontaneously passed -repeat CT scan Code(s): N13.30 - UNSPECIFIED HYDRONEPHROSIS (3) 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 Assessment/Plan: -stones spontaneously passed -repeat CT scan as above Code(s): N20.1 - CALCULUS OF URETER (4) Hyperlipidemia Assessment/Plan: -continue lipitor Code(s): E78.5 - HYPERLIPIDEMIA, UNSPECIFIED (5) Hypertension Assessment/Plan: -controlled -continue current regimen Code(s): I10 - ESSENTIAL (PRIMARY) HYPERTENSION (6) Obesity (BMI 30-39.9) Assessment/Plan: -per outpatient PCP Code(s): E66.9 - OBESITY, UNSPECIFIED (7) Type 2 diabetes mellitus Assessment/Plan: -continue metformin, januvia, and amaryl Code(s): E11.9 - TYPE 2 DIABETES MELLITUS WITHOUT COMPLICATIONS Qualifiers: Diabetes mellitus complication status: with hyperglycemia Diabetes mellitus shelter insulin use: without petroleum terminal plant operator use Qualified Code(s): E11.65 - Type 2 diabetes mellitus with hyperglycemia; Z79.4 - intermediate school teacher (current ) use of insulin (8) CHF (congestive heart failure) Assessment/Plan: -continue lasix Code(s): I50.9 - HEART FAILURE, UNSPECIFIED Qualifiers: Congestive heart failure type: diastolic Congestive heart failure chronicity: acute on chronic Qualified Code(s): I50.33 - Acute on chronic diastolic (congestive) heart failure (9) Paroxysmal atrial fibrillation Assessment/Plan: -continue toprol xl Code(s): I48.0 - PAROXYSMAL ATRIAL FIBRILLATION
[2016-12-19] MEDS ORDERED: PT OWN MED DRAWER 7, Y5N ONE (19:59)
[2016-12-19] MEDS: ATORVASTATIN CA 10 MG TABLET (FP) PO SCH (21:18)
[2016-12-20] MEDS: INSULIN SLIDING SCALE (NOVOLOG) 1 VIAL SQ SCH ×4 (06:03→21:00)
[2016-12-20 06:51] LABS: MCHC 32.8 g/dl (32.0-36.0); MEAN CELL VOLUME 76.4 fl (80-96); MEAN PLT VOLUME 8.3 fl (7.5-11.1); PLATELET COUNT 209 K/MM3 (134-434); RDW 16.7 % (11.6-15.6); WHITE BLOOD COUNT 5.2 K/mm3 (4.0-10.0)
[2016-12-20 07:23] LABS: CALCIUM 8.8 mg/dL (8.5-10.1); COCKROFT - GAULT 142.647; CREATININE 0.5 mg/dL (0.55-1.02); MAGNESIUM 1.5 mg/dL (1.8-2.4); PHOSPHOROUS 4.4 mg/dL (2.5-4.9)
--- NOTE | 2016-12-20 08:29 | PATH ---
Surgical Pathology Report Patient Name: CELSA OJEDA [facility]. Rec. #: [id number] /Age/Gender: 1950 (Age: 66) / F Account: [id number] Location: [facility] Taken: 12/19/2016 Received: 12/19/2016 Reported: 12/20/2016 Physicians: Froilan Bai Specimen(s) Received CALCULI Clinical History None given Final Diagnosis CALCULI, SITE NOT SPECIFIED, EXTRACTION: CALCULI SUBMITTED FOR CHEMICAL ANALYSIS (gross only). Electronically Signed Jesus Jade M.D. Gross Description Received fresh labeled "stone for analysis," are 3 villareal, irregular calculi ranging from 0.3-0.7 cm in greatest dimension. The specimens are sent for chemical analysis. DL/12/19/2016 saudi/12/19/2016
[2016-12-20 09:32] LABS: PLATELET ESTIMATE ADEQUATE (NORMAL)
[2016-12-20] MEDS: LEVOFLOXACIN 500 MG IVPB 100 ML IVPB SCH (09:43)
[2016-12-20] MEDS: metFORMIN HCL 500 MG TABLET (FP) PO SCH ×2 (09:44→17:25)
[2016-12-20] MEDS: QUINAPRIL HCL 10 MG TABLET (FP) PO SCH (09:44)
[2016-12-20] MEDS: GLIMEPIRIDE 4 MG TABLET (FP) PO SCH ×2 (09:44→17:25)
[2016-12-20] MEDS: sitaGLIPtin PHOSPHATE 100 MG TABLET (FP) PO SCH (09:44)
[2016-12-20] MEDS: FUROSEMIDE 40 MG TABLET (FP) PO SCH (09:44)
[2016-12-20] MEDS: METOPROLOL SUCCINATE 50 MG TAB.SR.24H (FP) PO SCH (09:44)
[2016-12-20] MEDS ORDERED: INSULIN (NOVOLOG) ASPART 100 UNITS/ML 10ML VIAL ONE (12:02)
--- NOTE | 2016-12-20 13:40 | PN ---
Progress Note, Physician Chief Complaint: Ms Acosta says she is feeling feverish and fatigued. No cp, sob, n/v. - Current Medication List Current Medications: Active Medications Acetaminophen (Tylenol -) 650 mg PO Q4H PRN PRN Reason: FEVER OR PAIN Last Admin: 12/19/16 20:31 Dose: 650 mg Atorvastatin Calcium (Lipitor -) 10 mg PO HS [facility] Last Admin: 12/19/16 21:18 Dose: Not Given Furosemide (Lasix -) 40 mg PO Q2D@1000 [facility] Last Admin: 12/20/16 09:44 Dose: 40 mg Glimepiride (Amaryl -) 4 mg PO BIDAC [facility] Last Admin: 12/20/16 09:44 Dose: 4 mg Levofloxacin (Levaquin 500 Mg Premixed Ivpb -) 100 mls @ 100 mls/hr IVPB DAILY [facility] Last Admin: 12/20/16 09:43 Dose: 100 mls/hr Insulin Aspart (Novolog Vial Sliding Scale -) 1 vial SQ ACHS [facility] PRN Reason: Protocol Last Admin: 12/20/16 11:55 Dose: 2 units Metformin HCl (Glucophage -) 1,000 mg PO BIDAC [facility] Last Admin: 12/20/16 09:44 Dose: 1,000 mg Metoprolol Succinate (Toprol Xl -) 50 mg PO DAILY [facility] Last Admin: 12/20/16 09:44 Dose: 50 mg Morphine Sulfate (Morphine Injection -) 2 mg IVPUSH Q4H PRN PRN Reason: PAIN Quinapril HCl (Accupril -) 10 mg PO DAILY [facility] Last Admin: 12/20/16 09:44 Dose: 10 mg Sitagliptin Phosphate (Januvia -) 100 mg PO AM [facility] Last Admin: 12/20/16 09:44 Dose: 100 mg - Objective Vital Signs: Vital Signs Temperature 99.0 F 12/20/16 10:00 Pulse Rate 102 H 12/20/16 10:00 Respiratory Rate 18 12/20/16 10:00 Blood Pressure 143/76 12/20/16 10:00 O2 Sat by Pulse Oximetry (%) 95 12/20/16 10:00 Constitutional: Yes: No Distress, Calm, Obese Cardiovascular: Yes: Regular Rate and Rhythm. No: Gallop, Murmur, Rub Respiratory: Yes: Regular, CTA Bilaterally. No: Rales, Rhonchi, Wheezes Gastrointestinal: Yes: Normal Bowel Sounds, Soft. No: Distention, Tenderness Extremities: Yes: WNL Edema: No Labs: CBC, BMP 12/20/16 05:35 12/20/16 05:35 Problem List - Problems (1) UTI (urinary tract infection) Code(s): N39.0 - URINARY TRACT INFECTION, SITE NOT SPECIFIED Qualifiers: Urinary tract infection type: acute cystitis Hematuria presence: without hematuria Qualified Code(s): N30.00 - Acute cystitis without hematuria (2) Hydronephrosis Code(s): N13.30 - UNSPECIFIED HYDRONEPHROSIS (3) 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 Code(s): N20.1 - CALCULUS OF URETER (4) Hyperlipidemia Code(s): E78.5 - HYPERLIPIDEMIA, UNSPECIFIED (5) Hypertension Code(s): I10 - ESSENTIAL (PRIMARY) HYPERTENSION (6) Obesity (BMI 30-39.9) Code(s): E66.9 - OBESITY, UNSPECIFIED (7) Type 2 diabetes mellitus Code(s): E11.9 - TYPE 2 DIABETES MELLITUS WITHOUT COMPLICATIONS Qualifiers: Diabetes mellitus complication status: with hyperglycemia Diabetes mellitus training and development project leader insulin use: without training and development project leader use Qualified Code(s): E11.65 - Type 2 diabetes mellitus with hyperglycemia; Z79.4 - care home (current ) use of insulin (8) CHF (congestive heart failure) Code(s): I50.9 - HEART FAILURE, UNSPECIFIED Qualifiers: Congestive heart failure type: diastolic Congestive heart failure chronicity: acute on chronic Qualified Code(s): I50.33 - Acute on chronic diastolic (congestive) heart failure (9) Paroxysmal atrial fibrillation Code(s): I48.0 - PAROXYSMAL ATRIAL FIBRILLATION Assessment/Plan (1) UTI (urinary tract infection) Assessment/Plan: -growing gram negative rods -continue levaquin -awaiting sensitivities of cultures before discharge Code(s): N39.0 - URINARY TRACT INFECTION, SITE NOT SPECIFIED Qualifiers: Urinary tract infection type: acute cystitis Hematuria presence: without hematuria Qualified Code(s): N30.00 - Acute cystitis without hematuria (2) Hydronephrosis Assessment/Plan: -stones spontaneously passed -repeat CT scan reviewed Code(s): N13.30 - UNSPECIFIED HYDRONEPHROSIS (3) 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 Assessment/Plan: -resolved Code(s): N20.1 - CALCULUS OF URETER (4) Hyperlipidemia Assessment/Plan: -continue lipitor Code(s): E78.5 - HYPERLIPIDEMIA, UNSPECIFIED (5) Hypertension Assessment/Plan: -controlled -continue current regimen Code(s): I10 - ESSENTIAL (PRIMARY) HYPERTENSION (6) Obesity (BMI 30-39.9) Assessment/Plan: -per outpatient PCP Code(s): E66.9 - OBESITY, UNSPECIFIED (7) Type 2 diabetes mellitus Assessment/Plan: -continue metformin, januvia, and amaryl Code(s): E11.9 - TYPE 2 DIABETES MELLITUS WITHOUT COMPLICATIONS Qualifiers: Diabetes mellitus complication status: with hyperglycemia Diabetes mellitus prison insulin use: without training and development project leader use Qualified Code(s): E11.65 - Type 2 diabetes mellitus with hyperglycemia; Z79.4 - care home (current ) use of insulin (8) CHF (congestive heart failure) Assessment/Plan: -continue lasix Code(s): I50.9 - HEART FAILURE, UNSPECIFIED Qualifiers: Congestive heart failure type: diastolic Congestive heart failure chronicity: acute on chronic Qualified Code(s): I50.33 - Acute on chronic diastolic (congestive) heart failure (9) Paroxysmal atrial fibrillation Assessment/Plan: -continue toprol xl Code(s): I48.0 - PAROXYSMAL ATRIAL FIBRILLATION
[2016-12-20] MEDS: ACETAMINOPHEN 325 MG TABLET (FP) PO PRN (17:24)
[2016-12-20] MEDS: ATORVASTATIN CA 10 MG TABLET (FP) PO SCH ×2 (20:59→21:13)
[2016-12-20] MEDS: MAGNESIUM OXIDE 400 MG TABLET (FP) PO SCH (21:00)
[2016-12-21] MEDS: INSULIN SLIDING SCALE (NOVOLOG) 1 VIAL SQ SCH ×4 (06:20→21:45)
[2016-12-21 06:42] LABS: BASOPHIL 0.6 % (0-2.0); EOSINOPHIL 1.9 % (0-4.5); MCH 24.5 pg (25.7-33.7); MCHC 32.2 g/dl (32.0-36.0); MEAN CELL VOLUME 76.3 fl (80-96); MEAN PLT VOLUME 8.3 fl (7.5-11.1); NEUTROPHILS 55.8 % (42.8-82.8); PLATELET COUNT 264 K/MM3 (134-434); RDW 16.9 % (11.6-15.6); WHITE BLOOD COUNT 5.6 K/mm3 (4.0-10.0)
[2016-12-21 07:07] LABS: CALCIUM 8.8 mg/dL (8.5-10.1); COCKROFT - GAULT 89.1565; CREATININE 0.8 mg/dL (0.55-1.02); MAGNESIUM 1.7 mg/dL (1.8-2.4); PHOSPHOROUS 4.1 mg/dL (2.5-4.9)
[2016-12-21] MEDS: QUINAPRIL HCL 10 MG TABLET (FP) PO SCH (10:02)
[2016-12-21] MEDS: metFORMIN HCL 500 MG TABLET (FP) PO SCH ×2 (10:07→17:22)
[2016-12-21] MEDS: GLIMEPIRIDE 4 MG TABLET (FP) PO SCH ×2 (10:07→17:22)
[2016-12-21] MEDS: METOPROLOL SUCCINATE 50 MG TAB.SR.24H (FP) PO SCH (10:07)
[2016-12-21] MEDS: MAGNESIUM OXIDE 400 MG TABLET (FP) PO SCH ×2 (10:07→21:45)
[2016-12-21] MEDS: sitaGLIPtin PHOSPHATE 100 MG TABLET (FP) PO SCH (10:08)
--- NOTE | 2016-12-21 14:14 | PN ---
Progress Note, Physician Chief Complaint: Ms Acosta says she is feeling well. No cp, sob, n/v. Says she is ready to go home. - Current Medication List Current Medications: Active Medications Acetaminophen (Tylenol -) 650 mg PO Q4H PRN PRN Reason: FEVER OR PAIN Last Admin: 12/20/16 17:24 Dose: 650 mg Atorvastatin Calcium (Lipitor -) 10 mg PO HS [facility] Last Admin: 12/20/16 21:13 Dose: Not Given Furosemide (Lasix -) 40 mg PO Q2D@1000 [facility] Last Admin: 12/20/16 09:44 Dose: 40 mg Glimepiride (Amaryl -) 4 mg PO BIDAC [facility] Last Admin: 12/21/16 10:07 Dose: 4 mg Insulin Aspart (Novolog Vial Sliding Scale -) 1 vial SQ ACHS [facility] PRN Reason: Protocol Last Admin: 12/21/16 12:20 Dose: 2 units Magnesium Oxide (Mag-Ox -) 400 mg PO BID [facility] Last Admin: 12/21/16 10:07 Dose: 400 mg Metformin HCl (Glucophage -) 1,000 mg PO BIDAC [facility] Last Admin: 12/21/16 10:07 Dose: 1,000 mg Metoprolol Succinate (Toprol Xl -) 50 mg PO DAILY [facility] Last Admin: 12/21/16 10:07 Dose: 50 mg Quinapril HCl (Accupril -) 10 mg PO DAILY [facility] Last Admin: 12/21/16 10:02 Dose: 10 mg Sitagliptin Phosphate (Januvia -) 100 mg PO AM [facility] Last Admin: 12/21/16 10:08 Dose: 100 mg - Objective Vital Signs: Vital Signs Temperature 98.4 F 12/21/16 12:00 Pulse Rate 95 H 12/21/16 12:00 Respiratory Rate 20 12/21/16 12:00 Blood Pressure 132/67 12/21/16 12:00 O2 Sat by Pulse Oximetry (%) 96 12/20/16 21:00 Constitutional: Yes: No Distress, Calm, Obese Cardiovascular: Yes: Regular Rate and Rhythm. No: Gallop, Murmur, Rub Respiratory: Yes: Regular, CTA Bilaterally. No: Rales, Rhonchi, Wheezes Gastrointestinal: Yes: Normal Bowel Sounds, Soft. 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 Code(s): N20.1 - CALCULUS OF URETER (4) Hyperlipidemia Code(s): E78.5 - HYPERLIPIDEMIA, UNSPECIFIED (5) Hypertension Code(s): I10 - ESSENTIAL (PRIMARY) HYPERTENSION (6) Obesity (BMI 30-39.9) Code(s): E66.9 - OBESITY, UNSPECIFIED (7) Type 2 diabetes mellitus Code(s): E11.9 - TYPE 2 DIABETES MELLITUS WITHOUT COMPLICATIONS Qualifiers: Diabetes mellitus complication status: with hyperglycemia Diabetes mellitus rat exterminator insulin use: without shelter use Qualified Code(s): E11.65 - Type 2 diabetes mellitus with hyperglycemia; Z79.4 - longterm (current ) use of insulin (8) CHF (congestive heart failure) Code(s): I50.9 - HEART FAILURE, UNSPECIFIED Qualifiers: Congestive heart failure type: diastolic Congestive heart failure chronicity: acute on chronic Qualified Code(s): I50.33 - Acute on chronic diastolic (congestive) heart failure (9) Paroxysmal atrial fibrillation Code(s): I48.0 - PAROXYSMAL ATRIAL FIBRILLATION Assessment/Plan (1) UTI (urinary tract infection) Assessment/Plan -cultures positive for ESBL e. coli -concerning as kidney stones are still present -ID consulted, will follow up recommendations Code(s): N39.0 - URINARY TRACT INFECTION, SITE NOT SPECIFIED Qualifiers: Urinary tract infection type: acute cystitis Hematuria presence: without hematuria Qualified Code(s): N30.00 - Acute cystitis without hematuria (2) Hydronephrosis Assessment/Plan: -stones spontaneously passed -repeat CT scan reviewed Code(s): N13.30 - UNSPECIFIED HYDRONEPHROSIS (3) 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 Assessment/Plan: -resolved Code(s): N20.1 - CALCULUS OF URETER (4) Hyperlipidemia Assessment/Plan: -continue lipitor Code(s): E78.5 - HYPERLIPIDEMIA, UNSPECIFIED (5) Hypertension Assessment/Plan: -controlled -continue current regimen Code(s): I10 - ESSENTIAL (PRIMARY) HYPERTENSION (6) Obesity (BMI 30-39.9) Assessment/Plan: -per outpatient PCP Code(s): E66.9 - OBESITY, UNSPECIFIED (7) Type 2 diabetes mellitus Assessment/Plan: -continue metformin, januvia, and amaryl Code(s): E11.9 - TYPE 2 DIABETES MELLITUS WITHOUT COMPLICATIONS Qualifiers: Diabetes mellitus complication status: with hyperglycemia Diabetes mellitus rat exterminator insulin use: without shelter use Qualified Code(s): E11.65 - Type 2 diabetes mellitus with hyperglycemia; Z79.4 - adjunct faculty for medical terminology (current ) use of insulin (8) CHF (congestive heart failure) Assessment/Plan: -continue lasix Code(s): I50.9 - HEART FAILURE, UNSPECIFIED Qualifiers: Congestive heart failure type: diastolic Congestive heart failure chronicity: acute on chronic Qualified Code(s): I50.33 - Acute on chronic diastolic (congestive) heart failure (9) Paroxysmal atrial fibrillation Assessment/Plan: -continue toprol xl Code(s): I48.0 - PAROXYSMAL ATRIAL FIBRILLATION
--- NOTE | 2016-12-21 15:35 | CONSULT ---
Consult Consult Specialty:: infectious diseases Reason for Consultation:: uti - History of Present Illness Chief Complaint: left renal colic History of Present Illness: 66 yo female, h/o renal stones, hospitalized last month related to kidney stones , got admitted for flank pain patient had passed according to her 2 stones plan by urology to have procedure done probably after january 10 patient was admitted to the hospital and was started on levaquin patient continued to ave pain and the cx were send currently patient does not have any pain but her cx have come back positive for esbl - History Source History Provided By: Patient Limitations to Obtaining History: No Limitations - Past Medical History ART INSTRUCTOR: Yes: Alzheimer's Cardio/Vascular: Yes: AFIB, HTN, Hyperlipdemia Renal/: Yes: Renal Calculi, UTI, Other (POD#1: s/p Cysto/Litho) ...: No Endocrine: Yes: Diabetes Mellitus - Alcohol/Substance Use Hx Alcohol Use: No History of Substance Use: reports: None - Smoking History Smoking history: Former smoker Have you smoked in the past 12 months: No Aproximately how many cigarettes per day: 20 If you are a former smoker, when did you quit?: 2013 - Social History ADL: Independent 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 History of Recent Travel: No Home Medications - Allergies Allergies/Adverse Reactions: Allergies Allergy/AdvReac Type Severity Reaction Status Date / Time No Known Drug Allergies Allergy Verified 11/07/16 07:08 - Home Medications Home Medications: Ambulatory Orders Quinapril HCl [Accupril -] 10 mg PO DAILY 11/25/15 Simvastatin [Zocor -] 20 mg PO HS 11/25/15 Sitagliptin Phosphate [Januvia] 100 mg PO DAILY 11/07/16 Furosemide [Lasix] 40 mg PO DAILY 12/17/16 Glimepiride [Amaryl] 4 mg PO BIDAC 12/17/16 Metformin HCl [Glucophage -] 1,000 mg PO BIDAC 12/17/16 Metoprolol Succinate [Toprol Xl] 50 mg PO DAILY 12/17/16 Family Disease History - Family Disease History Family Disease History: Diabetes: Mother, Sister Review of Systems - Review of Systems Constitutional: reports: No Symptoms Eyes: reports: No Symptoms HENT: reports: No Symptoms Neck: reports: No Symptoms Cardiovascular: reports: No Symptoms Respiratory: reports: No Symptoms Gastrointestinal: reports: No Symptoms Genitourinary: reports: Flank Pain Neurological: reports: No Symptoms Endocrine: reports: No Symptoms Hematology/Lymphatic: reports: No Symptoms Psychiatric: reports: No Symptoms Physical Exam Vital Signs: Vital Signs Temperature 98.5 F 12/21/16 15:00 Pulse Rate 88 12/21/16 15:00 Respiratory Rate 16 12/21/16 15:00 Blood Pressure 130/62 12/21/16 15:00 O2 Sat by Pulse Oximetry (%) 93 L 12/21/16 09:00 Constitutional: Yes: Well Nourished, No Distress Cardiovascular: Yes: Regular Rate and Rhythm Respiratory: Yes: Regular, CTA Bilaterally Gastrointestinal: Yes: Normal Bowel Sounds, Soft Musculoskeletal: Yes: WNL Extremities: Yes: WNL Neurological: Yes: Alert, Oriented Psychiatric: Yes: Alert, Oriented Labs: CBC, BMP 12/21/16 05:48 12/21/16 05:48 Imaging - Results Cat Scan: Report Reviewed, Image Reviewed Assessment/Plan Problem List - Problems (1) UTI (urinary tract infection) Code(s): N39.0 - URINARY TRACT INFECTION, SITE NOT SPECIFIED Qualifiers: Urinary tract infection type: acute cystitis Hematuria presence: without hematuria Qualified Code(s): N30.00 - Acute cystitis without hematuria (2) Hydronephrosis Code(s): N13.30 - UNSPECIFIED HYDRONEPHROSIS (3) 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 Code(s): N20.1 - CALCULUS OF URETER (4) Hyperlipidemia Code(s): E78.5 - HYPERLIPIDEMIA, UNSPECIFIED (5) Hypertension Code(s): I10 - ESSENTIAL (PRIMARY) HYPERTENSION (6) Obesity (BMI 30-39.9) Code(s): E66.9 - OBESITY, UNSPECIFIED (7) Type 2 diabetes mellitus Code(s): E11.9 - TYPE 2 DIABETES MELLITUS WITHOUT COMPLICATIONS Qualifiers: Diabetes mellitus complication status: with hyperglycemia Diabetes mellitus care home insulin use: without staff field engineer use Qualified Code(s): E11.65 - Type 2 diabetes mellitus with hyperglycemia; Z79.4 - snf (current ) use of insulin (8) CHF (congestive heart failure) Code(s): I50.9 - HEART FAILURE, UNSPECIFIED Qualifiers: Congestive heart failure type: diastolic Congestive heart failure chronicity: acute on chronic Qualified Code(s): I50.33 - Acute on chronic diastolic (congestive) heart failure (9) Paroxysmal atrial fibrillation Code(s): I48.0 - PAROXYSMAL ATRIAL FIBRILLATION i had a long discussion wiht the patient plan patient will need ertapenam for 14 days 1st dose today
[2016-12-21] MEDS: ERTAPENEM SODIUM 1 GM in SODIUM CHLORIDE 50 ML IVPB SCH (19:03)
[2016-12-21] MEDS ORDERED: INSULIN (NOVOLOG) ASPART 100 UNITS/ML 10ML VIAL ONE (21:39)
[2016-12-21] MEDS: ATORVASTATIN CA 10 MG TABLET (FP) PO SCH (21:53)
[2016-12-22] MEDS: GLIMEPIRIDE 4 MG TABLET (FP) PO SCH ×2 (06:40→09:56)
[2016-12-22] MEDS: INSULIN SLIDING SCALE (NOVOLOG) 1 VIAL SQ SCH ×2 (06:40→11:47)
[2016-12-22] MEDS: sitaGLIPtin PHOSPHATE 100 MG TABLET (FP) PO SCH ×2 (06:40→09:58)
[2016-12-22] MEDS: metFORMIN HCL 500 MG TABLET (FP) PO SCH ×2 (06:40→09:58)
[2016-12-22 07:13] LABS: BASOPHIL 0.5 % (0-2.0); EOSINOPHIL 2.8 % (0-4.5); MCH 24.4 pg (25.7-33.7); MCHC 31.9 g/dl (32.0-36.0); MEAN CELL VOLUME 76.6 fl (80-96); MEAN PLT VOLUME 8.2 fl (7.5-11.1); PLATELET COUNT 227 K/MM3 (134-434); RDW 16.4 % (11.6-15.6); WHITE BLOOD COUNT 6.4 K/mm3 (4.0-10.0)
[2016-12-22 07:44] LABS: CALCIUM 8.5 mg/dL (8.5-10.1); COCKROFT - GAULT 96.9425; CREATININE 0.7 mg/dL (0.55-1.02); MAGNESIUM 2.1 mg/dL (1.8-2.4); PHOSPHOROUS 2.9 mg/dL (2.5-4.9)
[2016-12-22 09:03] VITALS: BP 144/64; PULSE 96; TEMP 98.8
[2016-12-22] MEDS ORDERED: PT OWN MED DRAWER 7, Y5N ONE ×2 (09:44→09:51)
[2016-12-22] MEDS: ERTAPENEM SODIUM 1 GM in SODIUM CHLORIDE 50 ML IVPB SCH (09:54)
[2016-12-22] MEDS: QUINAPRIL HCL 10 MG TABLET (FP) PO SCH (09:54)
[2016-12-22] MEDS: FUROSEMIDE 40 MG TABLET (FP) PO SCH (09:55)
[2016-12-22] MEDS: METOPROLOL SUCCINATE 50 MG TAB.SR.24H (FP) PO SCH (09:56)
[2016-12-22] MEDS: MAGNESIUM OXIDE 400 MG TABLET (FP) PO SCH (09:56)
[2016-12-22] MEDS ORDERED: INSULIN (NOVOLOG) ASPART 100 UNITS/ML 10ML VIAL ONE (11:53)
--- NOTE | 2016-12-22 12:20 | DS ---
Physical Examination Vital Signs: Vital Signs Temperature 98.8 F 12/22/16 09:02 Pulse Rate 96 H 12/22/16 09:02 Respiratory Rate 18 12/22/16 09:02 Blood Pressure 144/64 12/22/16 09:02 O2 Sat by Pulse Oximetry (%) 94 L 12/21/16 22:00 Constitutional: Yes: No Distress, Calm, Obese Cardiovascular: Yes: Regular Rate and Rhythm. No: Gallop, Murmur, Rub Respiratory: Yes: Regular, CTA Bilaterally. No: Rales, Rhonchi, Wheezes Gastrointestinal: Yes: Normal Bowel Sounds, Soft. No: Distention, Tenderness Extremities: Yes: WNL Edema: No Labs: CBC, BMP 12/22/16 05:35 12/22/16 05:35 Discharge Summary Reason For Visit: OBSTRUCTION OF LEFT URETEROPELVIC JUNCTION (UPJ) Current Active Problems Gram negative sepsis (Acute) Gram-negative bacteremia (Acute) Hydronephrosis (Acute) Lactic acidosis (Acute) Obesity (BMI 30.0-34.9) (Acute) 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 (Acute) Hyperlipidemia (Chronic) Hypertension (Chronic) Obesity (BMI 30-39.9) (Chronic) Type 2 diabetes mellitus (Chronic) Hospital Course: (1) UTI (urinary tract infection) Code(s): N39.0 - URINARY TRACT INFECTION, SITE NOT SPECIFIED Qualifiers: Urinary tract infection type: acute cystitis Hematuria presence: without hematuria Qualified Code(s): N30.00 - Acute cystitis without hematuria (2) Hydronephrosis Code(s): N13.30 - UNSPECIFIED HYDRONEPHROSIS (3) 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 Code(s): N20.1 - CALCULUS OF URETER (4) Hyperlipidemia Code(s): E78.5 - HYPERLIPIDEMIA, UNSPECIFIED (5) Hypertension Code(s): I10 - ESSENTIAL (PRIMARY) HYPERTENSION (6) Obesity (BMI 30-39.9) Code(s): E66.9 - OBESITY, UNSPECIFIED (7) Type 2 diabetes mellitus Code(s): E11.9 - TYPE 2 DIABETES MELLITUS WITHOUT COMPLICATIONS Qualifiers: Diabetes mellitus complication status: with hyperglycemia Diabetes mellitus terminal worker insulin use: without long-term use Qualified Code(s): E11.65 - Type 2 diabetes mellitus with hyperglycemia; Z79.4 - assisted (current ) use of insulin (8) CHF (congestive heart failure) Code(s): I50.9 - HEART FAILURE, UNSPECIFIED Qualifiers: Congestive heart failure type: diastolic Congestive heart failure chronicity: acute on chronic Qualified Code(s): I50.33 - Acute on chronic diastolic (congestive) heart failure (9) Paroxysmal atrial fibrillation Code(s): I48.0 - PAROXYSMAL ATRIAL FIBRILLATION Ms Acosta is a very pleasant 66 year old female who comes in with hydronephrosis secondary to nephrolithiasis and UTI. She was admitted to the hospital. She passed the stone spontaneously. She was seen by urology and cleared. She was given levaquin. However she has history of ESBL e. coli and so was maintained to follow up cultures to make sure UTI was treated by levaquin. Urine cultures grew ESBL e. coli, resistant to levaquin. Because of this levaquin was stopped and ID was consulted. She was started on ertapenem and will need a 14 day course. She was set up for outpatient IV antibiotics. She is safe for discharge home. 32 minutes spent in preparation of this discharge Condition: Good - Instructions Diet, Activity, Other Instructions: Follow up with in the office next monday for Lithotripsy. Resume previous diet and activity Referrals: Riavs Lund MD [Primary Care Provider] - Disposition: HOME - Home Medications Comprehensive Discharge Medication List: Ambulatory Orders Quinapril HCl [Accupril -] 10 mg PO DAILY 11/25/15 Simvastatin [Zocor -] 20 mg PO HS 11/25/15 Sitagliptin Phosphate [Januvia] 100 mg PO DAILY 11/07/16 Glimepiride [Amaryl] 4 mg PO BIDAC 12/17/16 Metformin HCl [Glucophage -] 1,000 mg PO BIDAC 12/17/16 Metoprolol Succinate [Toprol Xl] 50 mg PO DAILY 12/17/16 Ertapenem Sodium [Invanz -] 1 gm IVPB DAILY 12 Days 12/22/16 Furosemide [Lasix -] 40 mg PO Q2D@1000 #30 tablet 12/22/16
[2016-12-22] MEDS ORDERED: FLUCONAZOLE 100 MG TABLET (UD) PO ONE ×2 (12:45→15:30)
--- NOTE | 2016-12-22 14:18 | PN ---
Progress Note, Physician History of Present Illness: stable no new issues - Current Medication List Current Medications: Active Medications Acetaminophen (Tylenol -) 650 mg PO Q4H PRN PRN Reason: FEVER OR PAIN Last Admin: 12/20/16 17:24 Dose: 650 mg Atorvastatin Calcium (Lipitor -) 10 mg PO HS [facility] Last Admin: 12/21/16 21:53 Dose: Not Given Furosemide (Lasix -) 40 mg PO Q2D@1000 [facility] Last Admin: 12/22/16 09:55 Dose: 40 mg Glimepiride (Amaryl -) 4 mg PO BIDAC [facility] Last Admin: 12/22/16 09:56 Dose: 4 mg Ertapenem 1 gm/ Sodium (Chloride) 50 mls @ 50 mls/hr IVPB DAILY [facility] PRN Reason: Protocol Last Admin: 12/22/16 09:54 Dose: 50 mls/hr Insulin Aspart (Novolog Vial Sliding Scale -) 1 vial SQ ACHS [facility] PRN Reason: Protocol Last Admin: 12/22/16 11:47 Dose: 2 units Magnesium Oxide (Mag-Ox -) 400 mg PO BID [facility] Last Admin: 12/22/16 09:56 Dose: 400 mg Metformin HCl (Glucophage -) 1,000 mg PO BIDAC [facility] Last Admin: 12/22/16 09:58 Dose: 1,000 mg Metoprolol Succinate (Toprol Xl -) 50 mg PO DAILY [facility] Last Admin: 12/22/16 09:56 Dose: 50 mg Quinapril HCl (Accupril -) 10 mg PO DAILY [facility] Last Admin: 12/22/16 09:54 Dose: 10 mg Sitagliptin Phosphate (Januvia -) 100 mg PO AM [facility] Last Admin: 12/22/16 09:58 Dose: 100 mg - Objective Vital Signs: Vital Signs Temperature 98.8 F 12/22/16 09:02 Pulse Rate 96 H 12/22/16 09:02 Respiratory Rate 18 12/22/16 09:02 Blood Pressure 144/64 12/22/16 09:02 O2 Sat by Pulse Oximetry (%) 96 12/22/16 09:00 Constitutional: Yes: No Distress, Calm Cardiovascular: Yes: Regular Rate and Rhythm Respiratory: Yes: Regular, CTA Bilaterally Gastrointestinal: Yes: Normal Bowel Sounds, Soft Musculoskeletal: Yes: WNL Extremities: Yes: WNL Neurological: Yes: Alert, Oriented Psychiatric: Yes: Alert Labs: CBC, BMP 12/22/16 05:35 12/22/16 05:35 Assessment/Plan Problem List - Problems (1) UTI (urinary tract infection) Code(s): N39.0 - URINARY TRACT INFECTION, SITE NOT SPECIFIED Qualifiers: Urinary tract infection type: acute cystitis Hematuria presence: without hematuria Qualified Code(s): N30.00 - Acute cystitis without hematuria (2) Hydronephrosis Code(s): N13.30 - UNSPECIFIED HYDRONEPHROSIS (3) 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 Code(s): N20.1 - CALCULUS OF URETER (4) Hyperlipidemia Code(s): E78.5 - HYPERLIPIDEMIA, UNSPECIFIED (5) Hypertension Code(s): I10 - ESSENTIAL (PRIMARY) HYPERTENSION (6) Obesity (BMI 30-39.9) Code(s): E66.9 - OBESITY, UNSPECIFIED (7) Type 2 diabetes mellitus Code(s): E11.9 - TYPE 2 DIABETES MELLITUS WITHOUT COMPLICATIONS Qualifiers: Diabetes mellitus complication status: with hyperglycemia Diabetes mellitus terminal makeup operator insulin use: without terminal makeup operator use Qualified Code(s): E11.65 - Type 2 diabetes mellitus with hyperglycemia; 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
== END 2016-12-22 15:44 | disposition home or self-care (01) | DRG 693 ==
LOC: SUPCPDRO 20:58 → JER 20:58 → JERBED 12-17 00:44 → J4S 12-17 02:38
PROVIDERS: ADMIT Specialist; ATTEND Specialist
DX: N13.2 Hydronephrosis with renal and ureteral calculous obstruction (principal); I50.33 Acute on chronic diastolic (congestive) heart failure; N39.0 Urinary tract infection, site not specified; E78.5 Hyperlipidemia, unspecified; E11.9 Type 2 diabetes mellitus without complications; E66.9 Obesity, unspecified; Z68.35 Body mass index [BMI] 35.0-35.9, adult; I48.0 Paroxysmal atrial fibrillation; I11.0 Hypertensive heart disease with heart failure; Z16.19 Resistance to other specified beta lactam antibiotics; Z16.12 Extended spectrum beta lactamase (ESBL) resistance; B96.20 Unspecified Escherichia coli [E. coli] as the cause of diseases classified elsewhere; Z87.891 Personal history of nicotine dependence
CPT/HCPCS: 36415; 74176; 74176-TC; 80048; 80053; 81003; 81015; 82360; 83735; 83880; 84100; 85025; 87040; 87086; 87186; 88300-TC; 93005; 93010; 99282-25

== ENCOUNTER 2016-12-23 09:52 | Day surgery (SDC) | payer BC, OTHER ==
[2016-12-23] MEDS ORDERED: ERTAPENEM SODIUM 1 GM in SODIUM CHLORIDE 50 ML IVPB ONE (10:30)
[2016-12-23 11:16] VITALS: BP 108/68; PULSE 86; TEMP 98
== END 2016-12-23 11:18 | disposition home or self-care (01) ==
LOC: JINFUSION 09:52
PROVIDERS: ATTEND Internal Medicine Infectious Disease
DX: N39.0 Urinary tract infection, site not specified (principal)
CPT/HCPCS: 96365

== ENCOUNTER 2016-12-24 09:25 | Day surgery (SDC) | payer BC, OTHER ==
[2016-12-24 10:10] VITALS: TEMP 98
[2016-12-24] MEDS ORDERED: ERTAPENEM SODIUM 1 GM in SODIUM CHLORIDE 50 ML IVPB ONE (10:45)
[2016-12-24 12:35] VITALS: BP 117/65; PULSE 78
== END 2016-12-24 11:30 | disposition home or self-care (01) ==
LOC: JINFUSION 09:25 → J7W 09:27 → JINFUSION 11:30
PROVIDERS: ATTEND Specialist
DX: N39.0 Urinary tract infection, site not specified (principal)
CPT/HCPCS: 96365

== ENCOUNTER 2016-12-25 09:40 | Day surgery (SDC) | payer BC, OTHER ==
[2016-12-25] MEDS ORDERED: ERTAPENEM SODIUM 1 GM in SODIUM CHLORIDE 50 ML IVPB ONE (10:45)
[2016-12-25 11:20] VITALS: TEMP 99
[2016-12-25 13:56] VITALS: BP 126/66; PULSE 82
== END 2016-12-25 12:05 | disposition home or self-care (01) ==
LOC: JINFUSION 09:40 → J7W 09:41 → JINFUSION 12:05
PROVIDERS: ATTEND Specialist
DX: N39.0 Urinary tract infection, site not specified (principal)
CPT/HCPCS: 96365

== ENCOUNTER 2016-12-26 09:38 | Day surgery (SDC) | payer BC, OTHER ==
[2016-12-26] MEDS ORDERED: ERTAPENEM SODIUM 1 GM in SODIUM CHLORIDE 50 ML IVPB ONE (10:30)
[2016-12-26 11:15] VITALS: BP 125/64; PULSE 82; TEMP 98.7
== END 2016-12-26 11:05 | disposition home or self-care (01) ==
LOC: JASU-ENDO 09:38
PROVIDERS: ATTEND Specialist
DX: N39.0 Urinary tract infection, site not specified (principal)
CPT/HCPCS: 96365

== ENCOUNTER 2016-12-27 09:05 | Day surgery (SDC) | payer BC, OTHER ==
[2016-12-27] MEDS ORDERED: ERTAPENEM SODIUM 1 GM in SODIUM CHLORIDE 50 ML IVPB ONE (10:00)
[2016-12-27 13:51] VITALS: BP 126/68; PULSE 79; TEMP 97.9
== END 2016-12-27 10:25 | disposition home or self-care (01) ==
LOC: JINFUSION 09:05
PROVIDERS: ATTEND Internal Medicine Infectious Disease
DX: N39.0 Urinary tract infection, site not specified (principal)
CPT/HCPCS: 96365

== ENCOUNTER → 2016-12-28 | Day surgery (SDC) | payer BC, OTHER ==
[~2016-12-28] MED LIST: ERTAPENEM SODIUM 1 GM in SODIUM CHLORIDE 50 ML IVPB ONE
[2016-12-28 10:27] VITALS: BP 132/56; PULSE 77; TEMP 98
== END | disposition home or self-care (01) ==
LOC: JINFUSION 08:50 → JASU-ENDO 08:50
PROVIDERS: ATTEND Internal Medicine Infectious Disease
DX: N39.0 Urinary tract infection, site not specified (principal)
CPT/HCPCS: 96365

== ENCOUNTER 2016-12-29 08:56 | Day surgery (SDC) | payer BC, OTHER ==
[2016-12-29 09:21] LABS: MCH 24.4 pg (25.7-33.7); MCHC 31.6 g/dl (32.0-36.0); MEAN CELL VOLUME 77.3 fl (80-96); MEAN PLT VOLUME 7.7 fl (7.5-11.1); PLATELET COUNT 311 K/MM3 (134-434); RDW 16.7 % (11.6-15.6); WHITE BLOOD COUNT 8.6 K/mm3 (4.0-10.0)
[2016-12-29 09:29] VITALS: TEMP 97.9
[2016-12-29 09:48] LABS: ANION GAP 10 (8-16); CALCIUM 9.4 mg/dL (8.5-10.1); CO2 28 mmol/L (21-32); CREATININE 0.8 mg/dL (0.55-1.02); GLUCOSE,RANDOM 195 mg/dL (74-106)
[2016-12-29 10:42] VITALS: BP 125/69; PULSE 75
== END 2016-12-29 10:42 | disposition home or self-care (01) ==
LOC: JINFUSION 08:56
PROVIDERS: ATTEND Internal Medicine Infectious Disease
DX: N39.0 Urinary tract infection, site not specified (principal)
CPT/HCPCS: 36415; 80048; 85027; 96365

== ENCOUNTER 2016-12-30 08:08 | Day surgery (SDC) | payer BC, OTHER ==
[2016-12-30 08:45] VITALS: TEMP 98.6
[2016-12-30] MEDS ORDERED: ERTAPENEM SODIUM 1 GM/50 ML PRE-DOCKED IVPB ONE (09:00)
[2016-12-30 10:09] VITALS: BP 139/70; PULSE 80
== END 2016-12-30 09:20 | disposition home or self-care (01) ==
LOC: JINFUSION 08:08
PROVIDERS: ATTEND Internal Medicine Infectious Disease
DX: N39.0 Urinary tract infection, site not specified (principal)
CPT/HCPCS: 96365

== ENCOUNTER 2016-12-31 08:51 | Day surgery (SDC) | payer BC, OTHER ==
[2016-12-31] MEDS ORDERED: ERTAPENEM SODIUM 1 GM in SODIUM CHLORIDE 50 ML IVPB ONE (10:00)
[2016-12-31 10:05] VITALS: BP 126/59; PULSE 77; TEMP 98.8
== END 2016-12-31 11:00 | disposition home or self-care (01) ==
LOC: JINFUSION 08:51 → J7W 08:52 → JINFUSION 11:00
PROVIDERS: ATTEND Internal Medicine Infectious Disease
DX: N39.0 Urinary tract infection, site not specified (principal)
CPT/HCPCS: 96365

== ENCOUNTER 2017-01-01 08:27 | Day surgery (SDC) | payer BC, OTHER ==
[2017-01-01] MEDS ORDERED: ERTAPENEM SODIUM 1 GM in SODIUM CHLORIDE 50 ML IVPB ONE (09:00)
[2017-01-01 09:05] VITALS: TEMP 98.4
[2017-01-01 10:36] VITALS: BP 129/57; PULSE 70
== END 2017-01-01 10:38 | disposition home or self-care (01) ==
LOC: JINFUSION 08:27 → J7W 08:28 → JINFUSION 10:38
PROVIDERS: ATTEND Internal Medicine Infectious Disease
DX: N39.0 Urinary tract infection, site not specified (principal)
CPT/HCPCS: 96365

== ENCOUNTER 2017-01-02 08:58 | Day surgery (SDC) | payer BC, OTHER ==
[2017-01-02] MEDS ORDERED: ERTAPENEM SODIUM 1 GM VIAL ONE (09:14)
[2017-01-02 09:46] VITALS: TEMP 98.8
[2017-01-02 10:19] VITALS: BP 125/68; PULSE 78
== END 2017-01-02 10:19 | disposition home or self-care (01) ==
LOC: JINFUSION 08:58
PROVIDERS: ATTEND Internal Medicine Infectious Disease
DX: N39.0 Urinary tract infection, site not specified (principal)
CPT/HCPCS: 96365; 96367

== ENCOUNTER 2017-01-03 09:30 | Day surgery (SDC) | payer BC, OTHER ==
[2017-01-03] MEDS ORDERED: ERTAPENEM SODIUM 1 GM VIAL ONE (09:39)
[2017-01-03 11:36] VITALS: BP 136/71; PULSE 81; TEMP 99.2
== END 2017-01-03 11:00 | disposition home or self-care (01) ==
LOC: JINFUSION 09:30
PROVIDERS: ATTEND Internal Medicine Infectious Disease
DX: N39.0 Urinary tract infection, site not specified (principal)
CPT/HCPCS: 96365

== ENCOUNTER 2017-03-09 17:31 | Inpatient (IN) | payer BC, OTHER ==
[2017-03-09 17:42] VITALS: BMI 34.0
[2017-03-09] MEDS ORDERED: methylPREDNISolone NA SUCC 125 MG/2 ML VIAL IVPB ONE (19:38)
[2017-03-09] MEDS ORDERED: ALBUTEROL SO4 2.5/IPRATROPIUM 0.5 INH SOL 3 ML VIAL.NEB. NEB ONE ×2 (19:38→19:44)
[2017-03-09] MEDS ORDERED: FUROSEMIDE 40 MG/4 ML INJECTABLE VIAL IVPUSH ONE (19:38)
[2017-03-09] MEDS ORDERED: methylPREDNISolone NA SUCC 125 MG/2 ML VIAL ONE (19:44)
[2017-03-09] MEDS ORDERED: FUROSEMIDE 40 MG/4 ML INJECTABLE VIAL ONE (19:44)
[2017-03-09 20:04] LABS: BASOPHIL 0.5 % (0-2.0); EOSINOPHIL 1.3 % (0-4.5); MCHC 32.1 g/dl (32.0-36.0); MEAN CELL VOLUME 77.6 fl (80-96); MEAN PLT VOLUME 8.6 fl (7.5-11.1); NEUTROPHILS 64.6 % (42.8-82.8); PLATELET COUNT 246 K/MM3 (134-434); RDW 16.3 % (11.6-15.6)
--- NOTE | 2017-03-09 20:39 | PDOC ---
History of Present Illness - General Chief Complaint: Shortness of Breath Stated Complaint: SHORTNESS OF BREATH Time Seen by Provider: 03/09/17 19:22 History Source: Patient Exam Limitations: No Limitations - History of Present Illness Initial Comments: 03/09/17 20:20 66yo Female patient w/ PmHx: Kidney Stones, CHF, NIDDM, HTN, HLD presents to ED c/o SOB which began last night. Patient states having trouble sleeping and had to sleep in a chair. She reports symptoms continued this morning but she had a meeting to attend. Patient took her dose of Lasix 40mg po, vomited x 1 shortly after, but continued to her appointment. Patient now presents with moderate to severity symptoms. PCP- Dr. Bolaños Timing/Duration: reports: yesterday Severity: reports: moderate Episode Description: See HPI Possible Cause: Yes: occasional episodes Associated Symptoms: denies: denies symptoms, chest pain/soreness, cough, dizziness, earache, facial pain, fever/chills, headache, lightheadedness, muscle aches, nasal congestion, nasal drainage, shortness of breath, sinus infection, sore throat, wheezing, other Aspirin Received prior to arrival: No: no aspirin today, unknown, 81 mg x 1, 81 mg x 2, 81 mg x 3, 81 mg x 4, 325 mg x 1, provided at home, provided by EMS, provided by ED ASA Contraindications(Core Measure): No: Allergy, Other, Active Blding w/i 24 hrs., Plavix, Receiving Warfarin Beta Khadijah Contraindications(Core Measure): No: Not Prescribed, Allergy, Bradycardia (HR <60bpm), Advanced Heart Block, Pacemaker, Other Past History - Travel Traveled outside of the country in the last 30 days: No Close contact w/someone who was outside of country & ill: No - Past Medical History Allergies/Adverse Reactions: Allergies Allergy/AdvReac Type Severity Reaction Status Date / Time No Known Drug Allergies Allergy Verified 03/09/17 17:41 Home Medications: Ambulatory Orders Quinapril HCl [Accupril -] 10 mg PO DAILY 11/25/15 Simvastatin [Zocor -] 20 mg PO HS 11/25/15 Sitagliptin Phosphate [Januvia] 100 mg PO DAILY 11/07/16 Glimepiride [Amaryl] 4 mg PO BIDAC 12/17/16 Metformin HCl [Glucophage -] 1,000 mg PO BIDAC 12/17/16 Metoprolol Succinate [Toprol Xl] 50 mg PO DAILY 12/17/16 Ertapenem Sodium [Invanz -] 1 gm IVPB DAILY 12 Days 12/22/16 Furosemide [Lasix -] 40 mg PO Q2D@1000 #30 tablet 12/22/16 Anemia: No Asthma: No Cancer: Yes (skin cancer) Cardiac Disorders: (paf, sob,) CVA: No COPD: No CHF: Yes Dementia: No Diabetes: Yes (NIDDM) GI Disorders: No Disorders: Yes (uti, kidney stones) HTN: Yes Hypercholesterolemia: Yes Kidney Stones: Yes Liver Disease: Yes (fatty liver) Seizures: No Thyroid Disease: No - Surgical History Abdominal Surgery: No Appendectomy: No Cardiac Surgery: No Cholecystectomy: Yes Lung Surgery: No Neurologic Surgery: No - Psycho/Social/Smoking Cessation Hx Anxiety: No Suicidal Ideation: No Smoking History: Former smoker Have you smoked in the past 12 months: No Number of Cigarettes Smoked Daily: 20 If you are a former smoker, when did you quit?: 2014 Information on smoking cessation initiated: No 'Breaking Loose' booklet given: 12/28/15 Hx Alcohol Use: No Drug/Substance Use Hx: No Substance Use Type: None Hx Substance Use Treatment: No Respiratory Specific PMHX - Complaint Specific PMHX Angina: No Bronchitis: No Pneumonia: No Pulmonary Embolus: No TB (Tuberculosis): No Review of Systems - Review of Systems Able to Perform ROS?: Yes Is the patient limited Yakut proficient: No Constitutional: No: Chills, Fever Respiratory: Yes: Orthopnea, Shortness of Breath, SOB with Exertion, SOB at Rest Cardiac (ROS): No: Chest Pain, Lightheadedness, Palpitations, Syncope, Chest Tightness ABD/GI: No: Constipated, Diarrhea, Nausea, Poor Appetite, Poor Fluid Intake, Vomiting, Abdominal cramping : No: Burning, Dysuria, Flank Pain, Hematuria, Pain Musculoskeletal: No: Back Pain, Muscle Pain All Other Systems: Reviewed and Negative *Physical Exam - Vital Signs Last Vital Signs Temp Pulse Resp BP Pulse Ox 99 F 89 18 158/99 98 03/09/17 17:39 03/09/17 17:39 03/09/17 17:39 03/09/17 17:39 03/09/17 17:39 - Physical Exam General Appearance: Yes: Nourished, Appropriately Dressed, Mild Distress. No: Apparent Distress, Moderate Distress, Severe Distress Neck: positive: Trachea midline, Supple. negative: Decreased range of motion, Stridor, Lymphadenopathy (R), Lymphadenopathy (L), Tender lateral, Tender midline Respiratory/Chest: positive: Crackles Cardiovascular: positive: Regular Rhythm, Regular Rate Gastrointestinal/Abdominal: positive: Normal Bowel Sounds, Soft. negative: Distended, Guarding, Rebound, Tenderness Musculoskeletal: positive: Normal Inspection. negative: CVA Tenderness Extremity: positive: Normal Capillary Refill, Normal Inspection, Normal Range of Motion. negative: Pedal Edema, Swelling, Calf Tenderness, Erythema, Inflammation Integumentary: positive: Normal Color, Dry, Warm Neurologic: positive: keg washer II-XII NML intact, Fully Oriented, Alert, Normal Mood/ Affect, Normal Response, Motor Strength 5/5 Heart Score/ECG Review - History History: Slightly suspicious - Electrocardiogram EKG: Normal - Age Age: >/= 65 - Risk Factors Risk Factors Heart Score: Yes Hx Hypercholesterolemia, Yes Hx Hypertension, Yes Hx Diabetes, Yes Positive family hx of cardiac disease Based on the list above the patient has:: >/=3 risk factors or Hx atherosclerotic disease - Troponin Troponin: </= normal limit - Score Heart Score - Total: 4 - ECG Impressions Normal ECG: Yes Non-specific ST Elevation: No Ischemic Changes: No Bradycardia: No Torsades alberto Pointes: No WPW: No ED Treatment Course - LABORATORY CBC & Chemistry Diagram: 03/09/17 19:45 03/09/17 19:45 - ADDITIONAL ORDERS Additional order review: 03/09/17 19:45 RBC 4.38 MCV 77.6 L MCHC 32.1 RDW 16.3 H MPV 8.6 D Neutrophils % 64.6 Lymphocytes % 25.5 Monocytes % 8.1 Eosinophils % 1.3 Basophils % 0.5 - RADIOLOGY Radiology Studies Ordered: Category Date Time Status CHEST CT WITH CONTRAST [CT] Stat CT Scan 03/09/17 19:38 Ordered - Medications Given in the ED: ED Medications Discontinued Medications Generic Name Dose Route Start Last Admin Trade Name Freq PRN Reason Stop Dose Admin Albuterol/Ipratropium 1 amp 03/09/17 19:38 03/09/17 19:55 Duoneb - NEB 03/09/17 19:39 1 amp ONCE ONE Administration Furosemide 40 mg 03/09/17 19:38 03/09/17 20:02 Lasix Injection - IVPUSH 03/09/17 19:39 40 mg ONCE ONE Administration Methylprednisolone Sodium Succinate 125 mg 03/09/17 19:38 03/09/17 20:02 Solu-Medrol - IVPB 03/09/17 19:39 125 mg ONCE ONE Administration *DC/Admit/Observation/Transfer Diagnosis at time of Disposition: CHF (congestive heart failure) Qualifiers: Congestive heart failure type: unspecified congestive heart failure type Congestive heart failure chronicity: acute on chronic Qualified Code(s): I50.9 - Heart failure, unspecified - Discharge Dispostion Condition at time of disposition: Fair Admit: Yes
[2017-03-09 20:46] LABS: ALBUMIN 3.4 g/dl (3.4-5.0); ANION GAP 7 (8-16); BILIRUBIN,TOTAL 0.5 mg/dL (0.2-1.0); CALCIUM 8.6 mg/dL (8.5-10.1); CO2 34 mmol/L (21-32); CREATININE 0.7 mg/dL (0.55-1.02); GLUCOSE,RANDOM 196 mg/dL (74-106); SGOT/AST 48 U/L (15-37); SGPT/ALT 55 U/L (12-78); TOT PROT 7.6 g/dl (6.4-8.2)
[2017-03-09 20:49] LABS: ALK PHOS 65 U/L (45-117); CPK 60 IU/L (26-192); TROPONIN I 0.02 ng/ml (0.00-0.05)
--- NOTE | 2017-03-09 21:02 | PDOC ---
*Physical Exam - Vital Signs Last Vital Signs Temp Pulse Resp BP Pulse Ox 99 F 89 18 158/99 98 03/09/17 17:39 03/09/17 17:39 03/09/17 17:39 03/09/17 17:39 03/09/17 17:39 ED Treatment Course - LABORATORY CBC & Chemistry Diagram: 03/14/17 05:35 03/14/17 05:35 - ADDITIONAL ORDERS Additional order review: Laboratory Results 03/09/17 03/09/17 19:45 19:45 Sodium 140 Potassium 4.1 Chloride 99 Carbon Dioxide 34 H D Anion Gap 7 L BUN 13 D Creatinine 0.7 Creat Clearance w eGFR > 60 Random Glucose 196 H Calcium 8.6 Total Bilirubin 0.5 AST 48 H D ALT 55 D Alkaline Phosphatase 65 Creatine Kinase 60 Troponin I 0.02 B-Natriuretic Peptide 2658.00 H Total Protein 7.6 Albumin 3.4 D 03/09/17 19:45 RBC 4.38 MCV 77.6 L MCHC 32.1 RDW 16.3 H MPV 8.6 D Neutrophils % 64.6 Lymphocytes % 25.5 Monocytes % 8.1 Eosinophils % 1.3 Basophils % 0.5 - Medications Given in the ED: ED Medications Discontinued Medications Generic Name Dose Route Start Last Admin Trade Name Freq PRN Reason Stop Dose Admin Albuterol/Ipratropium 1 amp 03/09/17 19:38 03/09/17 19:55 Duoneb - NEB 03/09/17 19:39 1 amp ONCE ONE Administration Furosemide 40 mg 03/09/17 19:38 03/09/17 20:02 Lasix Injection - IVPUSH 03/09/17 19:39 40 mg ONCE ONE Administration Methylprednisolone Sodium Succinate 125 mg 03/09/17 19:38 03/09/17 20:02 Solu-Medrol - IVPB 03/09/17 19:39 125 mg ONCE ONE Administration Medical Decision Making - Medical Decision Making 03/09/17 21:02 agree with care from KRISTINA Malik *DC/Admit/Observation/Transfer Diagnosis at time of Disposition: CHF (congestive heart failure) - Discharge Dispostion Condition at time of disposition: Fair
[2017-03-09 21:42] LABS: URINE APPEARANCE CLEAR; URINE BILIRUBIN NEGATIVE (NEGATIVE); URINE BLOOD 2+ (NEGATIVE); URINE COLOR STRAW; URINE GLUCOSE (UA) NEGATIVE (NEGATIVE); URINE KETONE NEGATIVE (NEGATIVE); URINE LEUK ESTERASE NEGATIVE (NEGATIVE); URINE NITRITE NEGATIVE (NEGATIVE); URINE UROBILINOGEN NEGATIVE mg/dL (0.2-1.0)
[2017-03-09 21:59] LABS: URINE PROTEIN 2+ (NEGATIVE)
[2017-03-09 22:04] LABS: URINE MUCUS RARE; URINE RBC 28 /hpf (0-3); URINE WBC 3 /hpf (3-5)
[2017-03-09] MEDS ORDERED: LEVOFLOXACIN 500 MG IVPB 100 ML IVPB ONE (22:39)
[2017-03-10] MEDS ORDERED: dilTIAZem HCL 50 MG/10 ML - 10 ML VIAL IVPUSH ONE ×2 (00:59→01:43)
[2017-03-10] MEDS ORDERED: LEVOFLOXACIN 500 MG IVPB 100 ML IVPB ONE ×2 (01:02→10:37)
[2017-03-10] MEDS ORDERED: dilTIAZem HCL 125 MG/25 ML - 25 ML VIAL ONE (01:03)
[2017-03-10] MEDS ORDERED: ENOXAPARIN NA (PORCINE) 80 MG/0.8 ML DISP.SYRIN SQ ONE ×2 (01:23→01:47)
[2017-03-10] MEDS ORDERED: dilTIAZem HCL 30 MG TABLET (FP) PO ONE (01:43)
[2017-03-10] MEDS ORDERED: dilTIAZem HCL 30 MG TABLET (FP) ONE ×2 (01:47→06:32)
--- NOTE | 2017-03-10 01:48 | HP ---
CHIEF COMPLAINT: SOBE, orthopnea PCP: Kevon HISTORY OF PRESENT ILLNESS: This is a 66 year old female with a past medical history significant for CHF, HTN, NIDDM who presented to the ED with SOB since Monday night. She was having difficulty sleeping in bed and had to sleep sitting up in her recliner. She was still SOB this morning but carried out her usual activities. She took her lasix this morning. She had one episode of vomiting today. She denies chest pain, palpitations. She does report feeling sluggish. ER course was notable for: (1) CTA neg for PE, possible lingular infiltrate (2) WBC 8.0 (3) BNP 2658 Recent Travel: pt denies PAST MEDICAL HISTORY: DM2 nephrolithiasis CHF HTN HLD PAST SURGICAL HISTORY: x 3 cholecystectomy skin cancer removed upper lip Social History: Smoking: pt denies Alcohol:pt denies Drugs: pt denies Family History: mother age 91, old age father age62, heart problems sister alive with irreg heart beat and heart problems 3 children alive and well Allergies No Known Drug Allergies Allergy (Verified 03/09/17 17:41) HOME MEDICATIONS: 3 Medication Instructions Recorded Quinapril HCl [Accupril -] 10 mg PO DAILY 11/25/15 Simvastatin [Zocor -] 20 mg PO HS 11/25/15 Sitagliptin Phosphate [Januvia] 100 mg PO DAILY 11/07/16 Glimepiride [Amaryl] 4 mg PO BIDAC 12/17/16 Metformin HCl [Glucophage -] 1,000 mg PO BIDAC 12/17/16 Metoprolol Succinate [Toprol Xl] 50 mg PO DAILY 12/17/16 Furosemide [Lasix -] 40 mg PO Q2D@1000 #30 tablet 12/22/16 REVIEW OF SYSTEMS CONSTITUTIONAL: Absent: fever, chills, diaphoresis, generalized weakness, malaise, loss of appetite, weight change HEENT: Absent: rhinorrhea, nasal congestion, throat pain, throat swelling, difficulty swallowing, mouth swelling, ear pain, eye pain, visual changes CARDIOVASCULAR: Absent: chest pain, syncope, palpitations, irregular heart rate, lightheadedness , peripheral edema RESPIRATORY: Present: shortness of breath, dyspnea with exertion, orthopnea Absent: cough, wheezing, stridor, hemoptysis GASTROINTESTINAL: Absent: abdominal pain, abdominal distension, nausea, vomiting, diarrhea, constipation, melena, hematochezia GENITOURINARY: Absent: dysuria, frequency, urgency, hesitancy, hematuria, flank pain, genital pain MUSCULOSKELETAL: Absent: myalgia, arthralgia, joint swelling, back pain, neck pain SKIN: Absent: rash, itching, pallor HEMATOLOGIC/IMMUNOLOGIC: Absent: easy bleeding, easy bruising, lymphadenopathy, frequent infections ENDOCRINE: Absent: unexplained weight gain, unexplained weight loss, heat intolerance, cold intolerance NEUROLOGIC: Absent: headache, focal weakness or paresthesias, dizziness, unsteady gait, seizure, mental status changes, bladder or bowel incontinence PSYCHIATRIC: Absent: anxiety, depression, suicidal or homicidal ideation, hallucinations. PHYSICAL EXAMINATION Vital Signs - 24 hr 3 03/09/17 03/10/17 17:39 01:44 Temperature 99 F 97.7 F Pulse Rate 89 Pulse Rate [ 124 H Right Apical] Respiratory 18 19 Rate Blood Pressure 158/99 Blood Pressure 145/62 [Left Arm] O2 Sat by Pulse 98 98 Oximetry (%) GENERAL: Awake, alert, and fully oriented, in no acute distress. HEAD: Normal with no signs of trauma. EYES: Pupils equal, round and reactive to light, extraocular movements intact, sclera anicteric, conjunctiva clear. No lid lag. EARS, NOSE, THROAT: Ears normal, nares patent, oropharynx clear without exudates. Moist mucous membranes. NECK: Normal range of motion, supple without lymphadenopathy, JVD, or masses. LUNGS: Breath sounds equal, clear to auscultation bilaterally. No wheezes, and no crackles. No accessory muscle use. Diminished bilat bases HEART: Irregular rate and rhythm, normal S1 and S2 without murmur, rub or gallop. ABDOMEN: Soft, nontender, not distended, normoactive bowel sounds, no guarding, no rebound, no masses. No hepatomegaly or splenomegaly. MUSCULOSKELETAL: Normal range of motion at all joints. No bony deformities or tenderness. No CVA tenderness. UPPER EXTREMITIES: 2+ pulses, warm, well-perfused. No cyanosis. No clubbing. No peripheral edema. LOWER EXTREMITIES: 2+ pulses, warm, well-perfused. No calf tenderness. 1+ peripheral edema B/L. NEUROLOGICAL: Cranial nerves II-XII intact. Normal speech. Normal gait. PSYCHIATRIC: Cooperative. Good eye contact. Appropriate mood and affect. SKIN: Warm, dry, normal turgor, no rashes or lesions noted, normal capillary refill. Laboratory Results - last 24 hr 3 03/09/17 03/09/17 03/09/17 19:45 19:45 19:45 WBC 8.0 RBC 4.38 Hgb 10.9 Hct 34.0 MCV 77.6 L MCH 25.0 L MCHC 32.1 RDW 16.3 H Plt Count 246 D MPV 8.6 D Neutrophils % 64.6 Lymphocytes % 25.5 Monocytes % 8.1 Eosinophils % 1.3 Basophils % 0.5 Sodium 140 Potassium 4.1 Chloride 99 Carbon Dioxide 34 H D Anion Gap 7 L BUN 13 D Creatinine 0.7 Creat Clearance w eGFR > 60 Random Glucose 196 H Calcium 8.6 Total Bilirubin 0.5 AST 48 H D ALT 55 D Alkaline Phosphatase 65 Creatine Kinase 60 Troponin I 0.02 B-Natriuretic Peptide 2658.00 H Total Protein 7.6 Albumin 3.4 D Urine Color Straw Urine Appearance Clear Urine pH 6.0 Urine Protein 2+ H Urine Glucose (UA) Negative Urine Ketones Negative Urine Blood 2+ H Urine Nitrite Negative Urine Bilirubin Negative Urine Urobilinogen Negative Ur Leukocyte Esterase Negative Urine RBC 28 Urine WBC 3 Ur Epithelial Cells Rare Urine Mucus Rare ECG 03/09/17 20:57 Normal sinus rhythm vent rate 100, QTC 500 septal infarct, age undetermined No acute ST/T wave changes 03/10/17 00:41 Atrial flutter vent rate 133 QTC [address]/T changes Radiology Reports CT chest with contrast Impression: Dilation of the pulmonary trunk is noted strongly suggestive of pulmonary hypertension. A small wedge-shped opacity is seen withing the lingula inferiorly probably representing atelectasis, less likely a combination of atelectasis and infiltrate. Correlate clinically. Probable mild cardiomegaly. Findings are seen within the partially imaged upper abdomen as discussed above. ASSESSMENT/PLAN: 66yF with PMH DM2, Nephrolithiasis, CHF, HTN, HLD presented to the ED with SOB x 24 hours. She was found to have possible infiltrate on CT. Upon exam HR noted irreg, ECG repeated revealing afib/flutter. Pt is being admitted for further evaluation and treatment. Pneumonia - will treat for CAP given SOB - cont levaquin 500mg QD New onset atrial fibrillation - given 5mg cardizem IVP in ED with minimal HR reduction to 120s - additional 5mg IVP given and 30mg po with HR reduction to 100s. - cont cardizem 30mg po Q6h - cardiology consult - lovenox 80mg given x 1. will need half-way anticoagulation given [id number]- VASc score of 5, will defer type to cardiology - trend trop x 3, neg x1 CHF - start lasix 40mg IV daily given edema and elevated BNP - echo done 11/2016 revealed mildly reduce LV systolic function and mild hypokinesis - cont GERRY, betablocker HLD - home simvastatin converted to formulary lipitor DM - metformin held due to IV contrast - BGM AC/HS with Novolog SS DVT PPX - given full dose lovenox FEN - defer IVF given CHF - BMP in am - diabetic/low sodium diet Dispo: Pt currently requires inpatient monitoring for management of her emergent condition. Visit type - Emergency Visit Emergency Visit: Yes ED Registration Date: 03/09/17 Care time: The patient presented to the Emergency Department on the above date and was hospitalized for further evaluation of their emergent condition. - New Patient This patient is new to me today: Yes Date on this admission: 03/10/17 - Critical Care Critical Care patient: No
[2017-03-10 05:21] LABS: TROPONIN I 0.02 ng/ml (0.00-0.05)
[2017-03-10] MEDS ORDERED: dilTIAZem HCL 30 MG TABLET (FP) PO SCH (06:00)
[2017-03-10] MEDS: sitaGLIPtin PHOSPHATE 100 MG TABLET (FP) PO SCH (07:59)
[2017-03-10] MEDS ORDERED: sitaGLIPtin PHOSPHATE 50 MG TABLET ONE (08:03)
[2017-03-10] MEDS ORDERED: INSULIN (NOVOLOG) ASPART 100 UNITS/ML 10ML VIAL ONE ×2 (08:04→11:42)
[2017-03-10] MEDS: INSULIN SLIDING SCALE (NOVOLOG) 1 VIAL SQ SCH ×4 (08:08→22:12)
[2017-03-10] MEDS ORDERED: LEVOFLOXACIN 500 MG IVPB 100 ML IVPB SCH (10:00)
--- NOTE | 2017-03-10 10:27 | PN ---
Progress Note, Physician Chief Complaint: Ms Acosta says she is feeling better today. Says she is no longer short of breath and is able to lie flat comfortably. No cp or n/v. - Current Medication List Current Medications: Active Medications Apixaban (Eliquis -) 5 mg PO BID [facility] Atorvastatin Calcium (Lipitor -) 10 mg PO HS [facility] Diltiazem HCl (Cardizem -) 30 mg PO Q6HPO [facility] Last Admin: 03/10/17 06:36 Dose: 30 mg Levofloxacin (Levaquin 500 Mg Premixed Ivpb -) 100 mls @ 100 mls/hr IVPB DAILY [facility] Insulin Aspart (Novolog Vial Sliding Scale -) 1 vial SQ TIDAC [facility] PRN Reason: Protocol Last Admin: 03/10/17 08:08 Dose: 5 units Insulin Aspart (Novolog Vial Sliding Scale -) 1 vial SQ HS [facility] PRN Reason: Protocol Metoprolol Succinate (Toprol Xl -) 50 mg PO DAILY [facility] [place] Quinapril HCl (Accupril -) 10 mg PO DAILY [facility] Sitagliptin Phosphate (Januvia -) 100 mg PO AM [facility] Last Admin: 03/10/17 07:59 Dose: 100 mg - Objective Vital Signs: Vital Signs Temperature 36.5 C 03/10/17 01:44 Pulse Rate 116 H 03/10/17 06:37 Respiratory Rate 18 03/10/17 06:37 Blood Pressure 131/64 03/10/17 06:37 O2 Sat by Pulse Oximetry (%) 98 03/10/17 06:37 Constitutional: Yes: Well Nourished, No Distress, Calm Cardiovascular: Yes: Regular Rate and Rhythm. No: Gallop, Murmur, Rub Respiratory: Yes: Regular, CTA Bilaterally. No: Rales, Rhonchi, Wheezes Gastrointestinal: Yes: Normal Bowel Sounds, Soft. No: Distention, Tenderness Extremities: Yes: WNL Edema: No Problem List - Problems (1) CHF (congestive heart failure) Assessment/Plan: -patient comes in with shortness of breath and orthopnea -suspect patient was having rvr which caused exacerbation -s/p IV lasix, patient feeling much improved -will restart oral lasix today, make 40mg daily instead of q48h -cardiology consulted and will see Code(s): I50.9 - HEART FAILURE, UNSPECIFIED Qualifiers: Congestive heart failure type: systolic Congestive heart failure chronicity: acute on chronic Qualified Code(s): I50.23 - Acute on chronic systolic (congestive) heart failure (2) Paroxysmal atrial fibrillation Assessment/Plan: -with rvr on admission -? if pneumonia caused afib -now in sinus rhythm -will continue toprol xl, stop diltiazem -will order eliquis considering CHADS-Vasc 2 score, however patient has refused anticoagulation in the past -cardiology to see Code(s): I48.0 - PAROXYSMAL ATRIAL FIBRILLATION (3) Pneumonia Assessment/Plan: -patient says she was having fevers, malaise, and cough as an outpatient -afebrile here with normal WBC count -CT scan showing atelectasis vs infiltrate -since symptoms are consistent with infection, will continue levaquin -can change to oral -monitor -lactobacillus Code(s): J18.9 - PNEUMONIA, UNSPECIFIED ORGANISM (4) Hyperlipidemia Assessment/Plan: -continue statin Code(s): E78.5 - HYPERLIPIDEMIA, UNSPECIFIED (5) Hypertension Assessment/Plan: -continue quinapril and toprol -also on lasix Code(s): I10 - ESSENTIAL (PRIMARY) HYPERTENSION (6) Type 2 diabetes mellitus Assessment/Plan: -holding metformin secondary to contrast -continue januvia -diabetic diet and SSI Code(s): E11.9 - TYPE 2 DIABETES MELLITUS WITHOUT COMPLICATIONS Qualifiers: Diabetes mellitus complication status: with hyperglycemia Diabetes mellitus rat exterminator insulin use: without rat exterminator use Qualified Code(s): E11.65 - Type 2 diabetes mellitus with hyperglycemia; Z79.4 - 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
[2017-03-10] MEDS ORDERED: FUROSEMIDE 40 MG TABLET (FP) PO SCH (10:30)
[2017-03-10] MEDS: METOPROLOL SUCCINATE 50 MG TAB.SR.24H (FP) PO SCH (10:40)
[2017-03-10] MEDS: QUINAPRIL HCL 10 MG TABLET (FP) PO SCH (10:40)
[2017-03-10] MEDS: LEVOFLOXACIN 500 MG TABLET (FP) PO SCH (10:52)
--- NOTE | 2017-03-10 11:34 | CON.CARD ---
Cardiology Consult (text) - Consultation Consultation Note: Chief Complaint: sob History of Present Illness: 66 yo female hx pafib, htn, hld here with sob. Feeling well until 2 days ago when began to feel tired, fever, chills, sob. Sxs worsened so came to ER. No cp, palps, dizzy, loc, pnd, le edema. In ER found to be in afib with rvr and also with pna and some pulm congestion. Given abx, lasix, and rate controlled and afterwards feeling better. Currently in SR. PMH: paroxysmal afib HTN HPL ? copd + cigs hx - Past Medical History Cardio/Vascular: Yes: AFIB, HTN, Hyperlipdemia Renal/: Yes: Renal Calculi, UTI, Other (POD#1: s/p Cysto/Litho) Endocrine: Yes: Diabetes Mellitus - Alcohol/Substance Use Hx Alcohol Use: No History of Substance Use: reports: None - Smoking History Smoking history: Unknown if ever smoked Have you smoked in the past 12 months: No If you are a former smoker, when did you quit?: 2 years ago - Social History ADL: Independent History of Recent Travel: No Home Medications - Allergies Allergies/Adverse Reactions: Allergies Allergy/AdvReac Type Severity Reaction Status Date / Time No Known Drug Allergies Allergy Verified 03/09/17 17:41 - Home Medications Home Medications Medication Instructions Recorded Quinapril HCl [Accupril -] 10 mg PO DAILY 11/25/15 Simvastatin [Zocor -] 20 mg PO HS 11/25/15 Sitagliptin Phosphate [Januvia] 100 mg PO DAILY 11/07/16 Glimepiride [Amaryl] 4 mg PO BIDAC 12/17/16 Metformin HCl [Glucophage -] 1,000 mg PO BIDAC 12/17/16 Metoprolol Succinate [Toprol Xl] 50 mg PO DAILY 12/17/16 Ertapenem Sodium [Invanz -] 1 gm IVPB DAILY 12 Days 12/22/16 Furosemide [Lasix -] 40 mg PO Q2D@1000 #30 tablet 12/22/16 Family Disease History - Family Disease History Family Disease History: Diabetes: Sister Review of Systems - Review of Systems Eyes: denies: Eye Pain HENT: denies: Nasal Congestion Neck: denies: Stiffness Cardiovascular: denies: Palpitations Respiratory: reports: Orthopnea. denies: PND, Wheezing Gastrointestinal: denies: Diarrhea, Rectal Bleeding Genitourinary: denies: Burning, Hematuria Musculoskeletal: denies: Muscle Pain Integumentary: denies: Rash Neurological: denies: Numbness, Seizure, Syncope Endocrine: denies: Excessive Sweating Hematology/Lymphatic: denies: Excessive Bleeding Vital Signs: Vital Signs Period Temp Pulse Resp BP Sys/Pitts Pulse Ox Last 24 Hr 97.7 F-99 F 84-124 18-19 123-158/56-99 98-98 Constitutional: Yes: Well Nourished, No Distress Eyes: No: Sclera Icterus HENT: No: Nasal Congestion Neck: No: Decreased ROM Respiratory: Yes: CTA Bilaterally. No: Accessory Muscle Use, Rales, Wheezes Gastrointestinal: Yes: Normal Bowel Sounds. No: Distention, Hepatomegaly, Palpable Mass, Tenderness Cardiovascular: Yes: Regular Rate and Rhythm JVD: No Carotid Bruit: No Heart Sounds: Yes: S1, S2. No: Gallop Murmur: No: Systolic Murmur, Diastolic Murmur Extremities: No: Cold, Cyanosis Edema: Yes (mild nonpitting ankles) Peripheral Pulses: 2+ Left Carotid, 2+ Right Carotid, 2+ Left Doralis Pedis, 2+ Right Dorsalis Pedis Integumentary: No: Jaundice diaphoresis Neurological: Yes: Alert, Oriented (x3) Psychiatric: No: Agitated - Other Data Labs, Other Data: Laboratory Last Values WBC 8.0 K/mm3 (4.0-10.0) 03/09/17 19:45 RBC 4.38 M/mm3 (3.60-5.2) 03/09/17 19:45 Hgb 10.9 GM/dL (10.7-15.3) 03/09/17 19:45 Hct 34.0 % (32.4-45.2) 03/09/17 19:45 MCV 77.6 fl (80-96) L 03/09/17 19:45 MCH 25.0 pg (25.7-33.7) L 03/09/17 19:45 MCHC 32.1 g/dl (32.0-36.0) 03/09/17 19:45 RDW 16.3 % (11.6-15.6) H 03/09/17 19:45 Plt Count 246 K/MM3 (134-434) D 03/09/17 19:45 MPV 8.6 fl (7.5-11.1) D 03/09/17 19:45 Neutrophils % 64.6 % (42.8-82.8) 03/09/17 19:45 Lymphocytes % 25.5 % (8-40) 03/09/17 19:45 Monocytes % 8.1 % (3.8-10.2) 03/09/17 19:45 Eosinophils % 1.3 % (0-4.5) 03/09/17 19:45 Basophils % 0.5 % (0-2.0) 03/09/17 19:45 Sodium 140 mmol/L (136-145) 03/09/17 19:45 Potassium 4.1 mmol/L (3.5-5.1) 03/09/17 19:45 Chloride 99 mmol/L (98-107) 03/09/17 19:45 Carbon Dioxide 34 mmol/L (21-32) H D 03/09/17 19:45 Anion Gap 7 (8-16) L 03/09/17 19:45 BUN 13 mg/dL (7-18) D 03/09/17 19:45 Creatinine 0.7 mg/dL (0.55-1.02) 03/09/17 19:45 Creat Clearance w eGFR > 60 (>60) 03/09/17 19:45 POC Glucometer 349.27851 UNITS (()) 03/10/17 08:00 Random Glucose 196 mg/dL (74-106) H 03/09/17 19:45 Calcium 8.6 mg/dL (8.5-10.1) 03/09/17 19:45 Total Bilirubin 0.5 mg/dL (0.2-1.0) 03/09/17 19:45 AST 48 U/L (15-37) H D 03/09/17 19:45 ALT 55 U/L (12-78) D 03/09/17 19:45 Alkaline Phosphatase 65 U/L (45-117) 03/09/17 19:45 Creatine Kinase 54 IU/L (26-192) 03/10/17 04:45 Troponin I 0.02 ng/ml (0.00-0.05) 03/10/17 04:45 B-Natriuretic Peptide 2658.00 pg/ml (5-125) H 03/09/17 19:45 Total Protein 7.6 g/dl (6.4-8.2) 03/09/17 19:45 Albumin 3.4 g/dl (3.4-5.0) D 03/09/17 19:45 Urine Color Straw 03/09/17 19:45 Urine Appearance Clear 03/09/17 19:45 Urine pH 6.0 (5.0-8.0) 03/09/17 19:45 Ur Specific [place] 1.015 (1.005-1.025) 03/09/17 19:45 Urine Protein 2+ (NEGATIVE) H 03/09/17 19:45 Urine Glucose (UA) Negative (NEGATIVE) 03/09/17 19:45 Urine Ketones Negative (NEGATIVE) 03/09/17 19:45 Urine Blood 2+ (NEGATIVE) H 03/09/17 19:45 Urine Nitrite Negative (NEGATIVE) 03/09/17 19:45 Urine Bilirubin Negative (NEGATIVE) 03/09/17 19:45 Urine Urobilinogen Negative mg/dL (0.2-1.0) 03/09/17 19:45 Ur Leukocyte Esterase Negative (NEGATIVE) 03/09/17 19:45 Urine RBC 28 /hpf (0-3) 03/09/17 19:45 Urine WBC 3 /hpf (3-5) 03/09/17 19:45 Ur Epithelial Cells Rare /hpf (FEW) 03/09/17 19:45 Urine Mucus Rare 03/09/17 19:45 ecgs 03/10/17: afib with rvr 133, no ischemic changes, repeat ecg this AM shows sr, nl intervals, no ischemic changes ct chest: no chf echo 11/2015: mild dec lvef, global hk, nl rv, mild mr echo 11/2016: mild dec lvef, global hk, nl rv, mild- mod mr, mild lae. small effusion < 1cm a/p: 66 yo female hx pafib, htn, hld here with sob. paroxysmal AFib -had afib in hosp 2016 in setting of uti/sepsis, rapid HRs--diltiazem gtt-- converted to sinus -episodes of very rapid PAF at times in past treated with metoprolol 75 bid -current rvr possibly triggered by pna. Now back in sr. Cont toprol 50 qd and monitor on tele for now. -chadsvasc is 5 (no cva/tia) so has indication for ac but in past has declined. Today she says she is willing to use AC so asa stopped and now on eliquis. acute diast chf: -post cysto 01/2016 had suspected acute HFpEF req intubation--extubated quickly after diuresed -echo with mild decr LVEF, no sig valve pathology -current presentation c/w mild vol overload likely from pna/afib with rvr. After lasix iv she is feeling better and does not appear vol up so agree with continuing on lasix 40 po qd -on BB and GERRY (prevent syst chf)--cont same -no signs acs, ce's neg x2, no ischemic ecg changes htn: -cont current meds hld: -cont home statin pna: -on abx
[2017-03-10] MEDS: LACTOBACILLUS ACIDOPHILUS 1 EACH TAB (FP) PO SCH (11:35)
[2017-03-10] MEDS: APIXABAN 5 MG TABLET PO SCH ×2 (11:35→22:11)
[2017-03-10 11:55] LABS: BASOPHIL 0.2 % (0-2.0); MCH 24.5 pg (25.7-33.7); MCHC 31.6 g/dl (32.0-36.0); MEAN CELL VOLUME 77.6 fl (80-96); MEAN PLT VOLUME 9.2 fl (7.5-11.1); PLATELET COUNT 248 K/MM3 (134-434); RDW 16.3 % (11.6-15.6); WHITE BLOOD COUNT 5.7 K/mm3 (4.0-10.0)
[2017-03-10 12:18] LABS: ANION GAP 9 (8-16); CALCIUM 8.1 mg/dL (8.5-10.1); CO2 34 mmol/L (21-32); MAGNESIUM 1.5 mg/dL (1.8-2.4)
[2017-03-10 12:19] LABS: TROPONIN I 0.02 ng/ml (0.00-0.05)
[2017-03-10 12:21] LABS: CREATININE 0.9 mg/dL (0.55-1.02); PHOSPHOROUS 3.2 mg/dL (2.5-4.9)
[2017-03-10 12:32] LABS: GLUCOSE,RANDOM 364 mg/dL (74-106)
[2017-03-10] MEDS ORDERED: ALBUTEROL SO4 0.083% IH SOL 2.5 MG/3 ML VIAL.NEB. NEB ONE (22:01)
[2017-03-10] MEDS ORDERED: FUROSEMIDE 40 MG/4 ML INJECTABLE VIAL ONE (22:08)
[2017-03-10] MEDS: ATORVASTATIN CA 10 MG TABLET (FP) PO SCH (22:11)
[2017-03-10] MEDS ORDERED: FUROSEMIDE 40 MG/4 ML INJECTABLE VIAL IVPUSH ONE (22:30)
[2017-03-10] MEDS: ALBUTEROL SO4 0.083% IH SOL 2.5 MG/3 ML VIAL.NEB. NEB PRN (22:55)
[2017-03-11] MEDS: sitaGLIPtin PHOSPHATE 100 MG TABLET (FP) PO SCH (06:55)
[2017-03-11] MEDS: INSULIN SLIDING SCALE (NOVOLOG) 1 VIAL SQ SCH ×4 (06:55→21:06)
[2017-03-11 08:28] LABS: BASOPHIL 0.6 % (0-2.0); EOSINOPHIL 0.3 % (0-4.5); MCH 24.7 pg (25.7-33.7); MCHC 31.4 g/dl (32.0-36.0); MEAN CELL VOLUME 78.8 fl (80-96); MEAN PLT VOLUME 9.2 fl (7.5-11.1); NEUTROPHILS 73.3 % (42.8-82.8); PLATELET COUNT 265 K/MM3 (134-434); RDW 16.3 % (11.6-15.6)
--- NOTE | 2017-03-11 09:16 | PN ---
Progress Note (short form) - Note Progress Note: s: no cp palps dizzy; overnight had more sob/orthopnea and got iv lasix, feeling a little better now o: Vital Signs Period Temp Pulse Resp BP Sys/Pitts Pulse Ox Last 24 Hr 98.2 F-99.9 F 60-96 18-20 117-152/55-70 95-100 Constitutional: Yes: Well Nourished, No Distress Eyes: No: Sclera Icterus HENT: No: Nasal Congestion Respiratory: Yes: bibasilar crackles. No: Accessory Muscle Use, Rales, Wheezes Gastrointestinal: Yes: Normal Bowel Sounds. No: Distention, Hepatomegaly, Palpable Mass, Tenderness Cardiovascular: Yes: Regular Rate and Rhythm JVD: No Heart Sounds: Yes: S1, S2. No: Gallop Murmur: No: Systolic Murmur, Diastolic Murmur Extremities: No: Cold, Cyanosis Edema: Yes (mild nonpitting ankles) Integumentary: No: Jaundice diaphoresis Neurological: Yes: Alert, Oriented (x3) Psychiatric: No: Agitated Current Medications Generic Name Dose Route Start Last Admin Trade Name Freq PRN Reason Stop Dose Admin Albuterol Sulfate 1 amp 03/10/17 22:22 03/10/17 22:55 Ventolin 0.083% Nebulizer Soln - NEB 1 amp Q4H PRN Administration SHORT OF BREATH/WHEEZING Apixaban 5 mg 03/10/17 10:30 03/10/17 22:11 Eliquis - PO 5 mg BID [facility] Administration Atorvastatin Calcium 10 mg 03/10/17 22:00 03/10/17 22:11 Lipitor - PO 10 mg HS [facility] Administration Furosemide 40 mg 03/11/17 10:00 Lasix Injection - IVPUSH DAILY [facility] Insulin Aspart 1 vial 03/10/17 07:00 03/11/17 06:55 Novolog Vial Sliding Scale - SQ 5 units TIDAC [facility] Administration Protocol Insulin Aspart 1 vial 03/10/17 22:00 03/10/17 22:12 Novolog Vial Sliding Scale - SQ 2 units HS [facility] Administration Protocol Lactobacillus Acidophilus 1 tab 03/10/17 10:45 03/10/17 11:35 Bacid - PO 1 tab DAILY [facility] Administration Levofloxacin 500 mg 03/10/17 10:45 03/10/17 10:52 Levaquin - PO Not Given DAILY [facility] Metoprolol Succinate 50 mg 03/10/17 10:00 03/10/17 10:40 Toprol Xl - PO 50 mg DAILY [facility] Administration Quinapril HCl 10 mg 03/10/17 10:00 03/10/17 10:40 Accupril - PO 10 mg DAILY [facility] Administration Sitagliptin Phosphate 100 mg 03/10/17 07:00 03/11/17 06:55 Januvia - PO 100 mg AM [facility] Administration - Other Data Labs, Other Data: CBC, BMP 03/11/17 06:00 ecgs 03/10/17: afib with rvr 133, no ischemic changes, repeat ecg this AM shows sr, nl intervals, no ischemic changes ct chest: no chf echo 11/2015: mild dec lvef, global hk, nl rv, mild mr echo 11/2016: mild dec lvef, global hk, nl rv, mild- mod mr, mild lae. small effusion < 1cm tele: sr a/p: 66 yo female hx pafib, htn, hld here with sob. paroxysmal AFib -had afib in hosp 2015 in setting of uti/sepsis, rapid HRs--diltiazem gtt-- converted to sinus -episodes of very rapid PAF at times in past treated with metoprolol 75 bid -current rvr possibly triggered by pna. Now back in sr. Cont toprol 50 qd and monitor on tele for now. -chadsvasc is 5 (no cva/tia) so has indication for ac but in past has declined. This admit she says she is willing to use AC so asa stopped and now on eliquis. acute diast chf: -post cysto 01/2016 had suspected acute HFpEF req intubation--extubated quickly after diuresed -echo with mild decr LVEF, no sig valve pathology -current presentation c/w mild vol overload likely from pna/afib with rvr. Still with some sob/orthopnea so will give lasix 40 mg iv qd for now. -on BB and GERRY (prevent syst chf)--cont same -no signs acs, ce's neg x2, no ischemic ecg changes htn: -cont current meds hld: -cont home statin pna: -on abx
[2017-03-11 09:18] LABS: ANION GAP 11 (8-16); CO2 34 mmol/L (21-32); GLUCOSE,RANDOM 292 mg/dL (74-106)
[2017-03-11 09:19] LABS: CALCIUM 8.7 mg/dL (8.5-10.1); CREATININE 0.8 mg/dL (0.55-1.02); MAGNESIUM 1.7 mg/dL (1.8-2.4); PHOSPHOROUS 3.7 mg/dL (2.5-4.9)
[2017-03-11] MEDS: LACTOBACILLUS ACIDOPHILUS 1 EACH TAB (FP) PO SCH (09:36)
[2017-03-11] MEDS: QUINAPRIL HCL 10 MG TABLET (FP) PO SCH (09:36)
[2017-03-11] MEDS: APIXABAN 5 MG TABLET PO SCH ×2 (09:36→21:06)
[2017-03-11] MEDS: METOPROLOL SUCCINATE 50 MG TAB.SR.24H (FP) PO SCH (09:37)
[2017-03-11] MEDS: LEVOFLOXACIN 500 MG TABLET (FP) PO SCH (09:37)
[2017-03-11] MEDS: FUROSEMIDE 40 MG/4 ML INJECTABLE VIAL IVPUSH SCH (09:37)
--- NOTE | 2017-03-11 11:18 | PN ---
Progress Note, Physician History of Present Illness: Last night was short of breath, feeling better after lasix and neb treatment, given IV lasix again this morning. - Current Medication List Current Medications: Active Medications Albuterol Sulfate (Ventolin 0.083% Nebulizer Soln -) 1 amp NEB Q4H PRN PRN Reason: SHORT OF BREATH/WHEEZING Last Admin: 03/10/17 22:55 Dose: 1 amp Apixaban (Eliquis -) 5 mg PO BID [facility] Last Admin: 03/11/17 09:36 Dose: 5 mg Atorvastatin Calcium (Lipitor -) 10 mg PO HS [facility] Last Admin: 03/10/17 22:11 Dose: 10 mg Furosemide (Lasix Injection -) 40 mg IVPUSH DAILY [facility] Last Admin: 03/11/17 09:37 Dose: 40 mg Insulin Aspart (Novolog Vial Sliding Scale -) 1 vial SQ TIDAC [facility] PRN Reason: Protocol Last Admin: 03/11/17 06:55 Dose: 5 units Insulin Aspart (Novolog Vial Sliding Scale -) 1 vial SQ [facility] PRN Reason: Protocol Last Admin: 03/10/17 22:12 Dose: 2 units Lactobacillus Acidophilus (Bacid -) 1 tab PO DAILY [facility] Last Admin: 03/11/17 09:36 Dose: 1 tab Levofloxacin (Levaquin -) 500 mg PO DAILY [facility] Last Admin: 03/11/17 09:37 Dose: 500 mg Metoprolol Succinate (Toprol Xl -) 50 mg PO DAILY [facility] Last Admin: 03/11/17 09:37 Dose: 50 mg Quinapril HCl (Accupril -) 10 mg PO DAILY [facility] Last Admin: 03/11/17 09:36 Dose: 10 mg Sitagliptin Phosphate (Januvia -) 100 mg PO AM [facility] Last Admin: 03/11/17 06:55 Dose: 100 mg - Objective Vital Signs: Vital Signs Temperature 98.4 F 03/11/17 10:27 Pulse Rate 150 H 03/11/17 10:27 Respiratory Rate 20 03/11/17 10:27 Blood Pressure 123/55 03/11/17 10:27 O2 Sat by Pulse Oximetry (%) 95 03/10/17 21:00 Constitutional: Yes: No Distress, Calm HENT: Yes: Atraumatic, Normocephalic Cardiovascular: Yes: Pulse Irregular, S1, S2. No: Murmur Respiratory: Yes: Regular, Rales (bilateral bases) Gastrointestinal: Yes: Normal Bowel Sounds, Soft. No: Distention, Tenderness Edema: No Labs: CBC, BMP 03/11/17 06:00 03/11/17 06:00 Assessment/Plan Current Active Problems CHF (congestive heart failure) (Acute) Gram negative sepsis (Acute) Gram-negative bacteremia (Acute) Lactic acidosis (Acute) Obesity (BMI 30.0-34.9) (Acute) Pneumonia (Acute) Hyperlipidemia (Chronic) Hypertension (Chronic) Obesity (BMI 30-39.9) (Chronic) Type 2 diabetes mellitus (Chronic) -main symptoms appear to be CHF related -back on IV lasix, cardio following
[2017-03-11] MEDS: ALBUTEROL SO4 0.083% IH SOL 2.5 MG/3 ML VIAL.NEB. NEB PRN (11:20)
[2017-03-11] MEDS ORDERED: METOPROLOL SUCCINATE 50 MG TAB.SR.24H (FP) PO ONE (11:45)
--- NOTE | 2017-03-11 13:48 | EKG ---
Test Reason : Blood Pressure : / mmHG Vent. Rate : 089 BPM Atrial Rate : 089 BPM P-R Int : 198 ms QRS Dur : 090 ms QT Int : 380 ms P-R-T Axes : 043 -11 050 degrees QTc Int : 462 ms NORMAL SINUS RHYTHM LEFT ATRIAL ABNORMALITY POOR R WAVE PROGRESSION IN V1-V4 NONSPECIFIC T WAVE ABNORMALITY ABNORMAL ECG WHEN COMPARED WITH ECG OF 10-MAR-2017 00:41, SINUS RHYTHM HAS REPLACED ATRIAL FIBRILLATION VENT. RATE HAS DECREASED BY [address] NO LONGER DEPRESSED IN ANTERIOR LEADS REPEAT EKG IF CLINICALLY INDICATED Confirmed by FABIO BILLINGSLEY MD ([id number] on 03/11/2017 1:48:20 PM Referred By: AMY ALTAMIRANO DR Confirmed By:FABIO BILLINGSLEY MD
--- NOTE | 2017-03-11 14:04 | EKG ---
Test Reason : Blood Pressure : / mmHG Vent. Rate : 133 BPM Atrial Rate : 306 BPM P-R Int : 000 ms QRS Dur : 074 ms QT Int : 338 ms P-R-T Axes : 000 015 -20 degrees QTc Int : 503 ms POOR DATA QUALITY, INTERPRETATION MAY BE ADVERSELY AFFECTED SUBOPTIMAL EKG ATRIAL RHYTHM IS MOST LIKELY SLOW ATRIAL FIBRILLATION/ATRIAL FLUTTER WITH RAPID VENTRICULAR RESPONSE. NONSPECIFIC ST AND T WAVE ABNORMALITY ABNORMAL ECG WHEN COMPARED WITH ECG OF 09-MAR-2017 20:57, ATRIAL FIBRILLATION/ATRIAL FLUTTER HAS REPLACED SINUS RHYTHM WOULD RECOMMEND FOLLOW UP TRACING Confirmed by FABIO BILLINGSLEY MD ([id number]) on 03/11/2017 2:03:51 PM Referred By: Confirmed By:FABIO BILLINGSLEY MD
--- NOTE | 2017-03-11 14:16 | EKG ---
Test Reason : Blood Pressure : / mmHG Vent. Rate : 100 BPM Atrial Rate : 100 BPM P-R Int : 180 ms QRS Dur : 080 ms QT Int : 388 ms P-R-T Axes : 057 001 039 degrees QTc Int : 500 ms NORMAL SINUS RHYTHM POSSIBLE LEFT ATRIAL ENLARGEMENT SEPTAL INFARCT (CITED ON OR BEFORE 07-NOV-2016) ABNORMAL ECG WHEN COMPARED WITH ECG OF 17-DEC-2016 01:17, NO SIGNIFICANT CHANGE WAS FOUND REPEAT EKG IF CLINICALLY INDICATED Confirmed by FABIO BILLINGSLEY MD ([id number]) on 03/11/2017 2:16:40 PM Referred By: Confirmed By:FABIO BILLINGSLEY MD
[2017-03-11] MEDS ORDERED: INSULIN (NOVOLOG) ASPART 100 UNITS/ML 10ML VIAL ONE (20:57)
[2017-03-11] MEDS: ATORVASTATIN CA 10 MG TABLET (FP) PO SCH (21:06)
[2017-03-12] MEDS: INSULIN SLIDING SCALE (NOVOLOG) 1 VIAL SQ SCH ×4 (06:35→21:58)
[2017-03-12] MEDS: sitaGLIPtin PHOSPHATE 100 MG TABLET (FP) PO SCH (06:35)
[2017-03-12 08:23] LABS: BASOPHIL 0.7 % (0-2.0); EOSINOPHIL 1.8 % (0-4.5); MCH 24.7 pg (25.7-33.7); MCHC 31.2 g/dl (32.0-36.0); MEAN CELL VOLUME 79.3 fl (80-96); NEUTROPHILS 56.5 % (42.8-82.8); PLATELET COUNT 251 K/MM3 (134-434); RDW 16.4 % (11.6-15.6)
--- NOTE | 2017-03-12 08:44 | PN ---
Progress Note, Physician History of Present Illness: This morning breathing getting a little labored again, due to get IV lasix this morning. - Current Medication List Current Medications: Active Medications Albuterol Sulfate (Ventolin 0.083% Nebulizer Soln -) 1 amp NEB Q4H PRN PRN Reason: SHORT OF BREATH/WHEEZING Last Admin: 03/11/17 11:20 Dose: 1 amp Apixaban (Eliquis -) 5 mg PO BID [facility] Last Admin: 03/11/17 21:06 Dose: 5 mg Atorvastatin Calcium (Lipitor -) 10 mg PO HS [facility] Last Admin: 03/11/17 21:06 Dose: 10 mg Furosemide (Lasix Injection -) 40 mg IVPUSH DAILY [facility] Last Admin: 03/11/17 09:37 Dose: 40 mg Insulin Aspart (Novolog Vial Sliding Scale -) 1 vial SQ TIDAC [facility] PRN Reason: Protocol Last Admin: 03/12/17 06:35 Dose: 5 units Insulin Aspart (Novolog Vial Sliding Scale -) 1 vial SQ HS [facility] PRN Reason: Protocol Last Admin: 03/11/17 21:06 Dose: 2 units Lactobacillus Acidophilus (Bacid -) 1 tab PO DAILY [facility] Last Admin: 03/11/17 09:36 Dose: 1 tab Levofloxacin (Levaquin -) 500 mg PO DAILY [facility] Last Admin: 03/11/17 09:37 Dose: 500 mg Metoprolol Succinate (Toprol Xl -) 100 mg PO DAILY [facility] Quinapril HCl (Accupril -) 10 mg PO DAILY [facility] Last Admin: 03/11/17 09:36 Dose: 10 mg Sitagliptin Phosphate (Januvia -) 100 mg PO AM [facility] Last Admin: 03/12/17 06:35 Dose: 100 mg - Objective Vital Signs: Vital Signs Temperature 98.4 F 03/12/17 08:12 Pulse Rate 96 H 03/12/17 08:12 Respiratory Rate 20 03/12/17 08:12 Blood Pressure 129/59 03/12/17 08:12 O2 Sat by Pulse Oximetry (%) 97 03/11/17 21:00 Constitutional: Yes: No Distress, Calm Neck: Yes: Supple, Trachea Midline Cardiovascular: Yes: Regular Rate and Rhythm, S1, S2. No: Murmur Respiratory: Yes: Regular, Rales (bilateral bases). No: Rhonchi, Wheezes Gastrointestinal: Yes: Normal Bowel Sounds, Soft. No: Distention, Tenderness Edema: No Labs: CBC, BMP 03/12/17 05:40 Assessment/Plan Current Active Problems CHF (congestive heart failure) (Acute) Gram negative sepsis (Acute) Gram-negative bacteremia (Acute) Lactic acidosis (Acute) Obesity (BMI 30.0-34.9) (Acute) Pneumonia (Acute) Hyperlipidemia (Chronic) Hypertension (Chronic) Obesity (BMI 30-39.9) (Chronic) Type 2 diabetes mellitus (Chronic) -cont lasix, cardio following -tolerating AC
[2017-03-12 09:00] LABS: ALBUMIN 3.1 g/dl (3.4-5.0); ALK PHOS 57 U/L (45-117); ANION GAP 11 (8-16); BILIRUBIN,TOTAL 0.7 mg/dL (0.2-1.0); CALCIUM 8.4 mg/dL (8.5-10.1); CO2 34 mmol/L (21-32); CREATININE 0.7 mg/dL (0.55-1.02); GLUCOSE,RANDOM 276 mg/dL (74-106); SGOT/AST 102 U/L (15-37); SGPT/ALT 90 U/L (12-78); TOT PROT 6.8 g/dl (6.4-8.2)
--- NOTE | 2017-03-12 09:23 | PN ---
Progress Note (short form) - Note Progress Note: s: no cp palps dizzy; sob improving. o: Vital Signs Period Temp Pulse Resp BP Sys/Pitts Pulse Ox Last 24 Hr 98.1 F-98.4 F 79-150 16-20 123-146/55-96 97 Constitutional: Yes: Well Nourished, No Distress Eyes: No: Sclera Icterus HENT: No: Nasal Congestion Respiratory: Yes: cta bl No: Accessory Muscle Use, Rales, Wheezes Gastrointestinal: Yes: Normal Bowel Sounds. No: Distention, Hepatomegaly, Palpable Mass, Tenderness Cardiovascular: Yes: Regular Rate and Rhythm JVD: No Heart Sounds: Yes: S1, S2. No: Gallop Murmur: No: Systolic Murmur, Diastolic Murmur Extremities: No: Cold, Cyanosis Edema: Yes (mild nonpitting ankles) Integumentary: No: Jaundice diaphoresis Neurological: Yes: Alert, Oriented (x3) Psychiatric: No: Agitated Current Medications Generic Name Dose Route Start Last Admin Trade Name Freq PRN Reason Stop Dose Admin Albuterol Sulfate 1 amp 03/10/17 22:22 03/11/17 11:20 Ventolin 0.083% Nebulizer Soln - NEB 1 amp Q4H PRN Administration SHORT OF BREATH/WHEEZING Apixaban 5 mg 03/10/17 10:30 03/11/17 21:06 Eliquis - PO 5 mg BID LEONEL Administration Atorvastatin Calcium 10 mg 03/10/17 22:00 03/11/17 21:06 Lipitor - PO 10 mg HS LEONEL Administration Furosemide 40 mg 03/11/17 10:00 03/11/17 09:37 Lasix Injection - IVPUSH 40 mg DAILY LEONEL Administration Insulin Aspart 1 vial 03/10/17 07:00 03/12/17 06:35 Novolog Vial Sliding Scale - SQ 5 units TIDAC LEONLE Administration Protocol Insulin Aspart 1 vial 03/10/17 22:00 03/11/17 21:06 Novolog Vial Sliding Scale - SQ 2 units HS LEONEL Administration Protocol Lactobacillus Acidophilus 1 tab 03/10/17 10:45 03/11/17 09:36 Bacid - PO 1 tab DAILY LEONEL Administration Levofloxacin 500 mg 03/10/17 10:45 03/11/17 09:37 Levaquin - PO 500 mg DAILY LEONEL Administration Metoprolol Succinate 100 mg 03/12/17 10:00 Toprol Xl - PO DAILY LEONEL Quinapril HCl 10 mg 03/10/17 10:00 03/11/17 09:36 Accupril - PO 10 mg DAILY LEONEL Administration Sitagliptin Phosphate 100 mg 03/10/17 07:00 03/12/17 06:35 Januvia - PO 100 mg AM LEONEL Administration - Other Data Labs, Other Data: 03/12/17 05:40 03/12/17 05:40 ecgs 03/10/17: afib with rvr 133, no ischemic changes, repeat ecg this AM shows sr, nl intervals, no ischemic changes ct chest: no chf echo 11/2015: mild dec lvef, global hk, nl rv, mild mr echo 11/2016: mild dec lvef, global hk, nl rv, mild- mod mr, mild lae. small effusion < 1cm tele: afib with rvr yesterday, now back in sr a/p: 66 yo female hx pafib, htn, hld here with sob. paroxysmal AFib -had afib in hosp 2016 in setting of uti/sepsis, rapid HRs--diltiazem gtt-- converted to sinus -episodes of very rapid PAF at times in past treated with metoprolol 75 bid -current rvr possibly triggered by pna. Intermittently in sr/afib with rvr here. Toprol increased to 100 qd for better rate control when in afib. -chadsvasc is 5 (no cva/tia) so has indication for ac but in past has declined. This admit she says she is willing to use AC so asa stopped and now on eliquis. acute diast chf: -post cysto 01/2016 had suspected acute HFpEF req intubation--extubated quickly after diuresed -echo with mild decr LVEF, no sig valve pathology -current presentation c/w mild vol overload likely from pna/afib with rvr. Still with some sob so will cont with lasix 40 mg iv qd for now. -on BB and GERRY (prevent syst chf)--cont same -no signs acs, ce's neg x2, no ischemic ecg changes htn: -cont current meds hld: -cont home statin pna: -on abx
[2017-03-12] MEDS: FUROSEMIDE 40 MG/4 ML INJECTABLE VIAL IVPUSH SCH (10:08)
[2017-03-12] MEDS: METOPROLOL SUCCINATE 100 MG TAB.SR.24H (FP) PO SCH (10:08)
[2017-03-12] MEDS: LACTOBACILLUS ACIDOPHILUS 1 EACH TAB (FP) PO SCH (10:08)
[2017-03-12] MEDS: APIXABAN 5 MG TABLET PO SCH ×2 (10:08→21:57)
[2017-03-12] MEDS: QUINAPRIL HCL 10 MG TABLET (FP) PO SCH (10:08)
[2017-03-12] MEDS: LEVOFLOXACIN 500 MG TABLET (FP) PO SCH (10:08)
[2017-03-12] MEDS: ATORVASTATIN CA 10 MG TABLET (FP) PO SCH (21:57)
[2017-03-13] MEDS: sitaGLIPtin PHOSPHATE 100 MG TABLET (FP) PO SCH (06:38)
[2017-03-13] MEDS: INSULIN SLIDING SCALE (NOVOLOG) 1 VIAL SQ SCH ×4 (06:39→21:48)
[2017-03-13 08:07] LABS: BASOPHIL 0.6 % (0-2.0); EOSINOPHIL 2.9 % (0-4.5); MCH 24.9 pg (25.7-33.7); MCHC 31.4 g/dl (32.0-36.0); MEAN CELL VOLUME 79.4 fl (80-96); MEAN PLT VOLUME 9.2 fl (7.5-11.1); NEUTROPHILS 58.2 % (42.8-82.8); PLATELET COUNT 204 K/MM3 (134-434); RDW 16.2 % (11.6-15.6); WHITE BLOOD COUNT 5.6 K/mm3 (4.0-10.0)
[2017-03-13 08:38] LABS: CALCIUM 8.3 mg/dL (8.5-10.1)
[2017-03-13 08:46] LABS: ALK PHOS 61 U/L (45-117); ANION GAP 8 (8-16); BILIRUBIN,TOTAL 0.7 mg/dL (0.2-1.0); CO2 36 mmol/L (21-32); CREATININE 0.7 mg/dL (0.55-1.02); GLUCOSE,RANDOM 277 mg/dL (74-106); SGOT/AST 74 U/L (15-37); SGPT/ALT 82 U/L (12-78); TOT PROT 6.6 g/dl (6.4-8.2)
--- NOTE | 2017-03-13 09:25 | PN ---
Progress Note (short form) - Note Progress Note: s: no cp palps dizzy; sob improving, almost resolved o: Vital Signs Period Temp Pulse Resp BP Sys/Pitts Pulse Ox Last 24 Hr 97.9 F-98.7 F 70-81 18-20 122-144/50-60 96 Constitutional: Yes: Well Nourished, No Distress Eyes: No: Sclera Icterus HENT: No: Nasal Congestion Respiratory: Yes: cta bl No: Accessory Muscle Use, Rales, Wheezes Gastrointestinal: Yes: Normal Bowel Sounds. No: Distention, Hepatomegaly, Palpable Mass, Tenderness Cardiovascular: Yes: Regular Rate and Rhythm JVD: No Heart Sounds: Yes: S1, S2. No: Gallop Murmur: No: Systolic Murmur, Diastolic Murmur Extremities: No: Cold, Cyanosis Edema: no Integumentary: No: Jaundice diaphoresis Neurological: Yes: Alert, Oriented (x3) Psychiatric: No: Agitated Current Medications Generic Name Dose Route Start Last Admin Trade Name Freq PRN Reason Stop Dose Admin Albuterol Sulfate 1 amp 03/10/17 22:22 03/11/17 11:20 Ventolin 0.083% Nebulizer Soln - NEB 1 amp Q4H PRN Administration SHORT OF BREATH/WHEEZING Apixaban 5 mg 03/10/17 10:30 03/12/17 21:57 Eliquis - PO 5 mg BID LEONEL Administration Atorvastatin Calcium 10 mg 03/10/17 22:00 03/12/17 21:57 Lipitor - PO 10 mg HS LEONEL Administration Furosemide 40 mg 03/11/17 10:00 03/12/17 10:08 Lasix Injection - IVPUSH 40 mg DAILY LEONEL Administration Insulin Aspart 1 vial 03/10/17 07:00 03/13/17 06:39 Novolog Vial Sliding Scale - SQ 5 units TIDAC LEONEL Administration Protocol Insulin Aspart 1 vial 03/10/17 22:00 03/12/17 21:58 Novolog Vial Sliding Scale - SQ 4 units HS LEONEL Administration Protocol Lactobacillus Acidophilus 1 tab 03/10/17 10:45 03/12/17 10:08 Bacid - PO 1 tab DAILY LEONEL Administration Levofloxacin 500 mg 03/10/17 10:45 03/12/17 10:08 Levaquin - PO 500 mg DAILY LEONEL Administration Metoprolol Succinate 100 mg 03/12/17 10:00 03/12/17 10:08 Toprol Xl - PO 100 mg DAILY LEONEL Administration Quinapril HCl 10 mg 03/10/17 10:00 03/12/17 10:08 Accupril - PO 10 mg DAILY LEONEL Administration Sitagliptin Phosphate 100 mg 03/10/17 07:00 03/13/17 06:38 Januvia - PO 100 mg AM LEONEL Administration CBC, BMP 03/13/17 07:00 03/13/17 07:00 ecgs 03/10/17: afib with rvr 133, no ischemic changes, repeat ecg this AM shows sr, nl intervals, no ischemic changes ct chest: no chf echo 11/2015: mild dec lvef, global hk, nl rv, mild mr echo 11/2016: mild dec lvef, global hk, nl rv, mild- mod mr, mild lae. small effusion < 1cm tele: sr a/p: 66 yo female hx pafib, htn, hld here with sob. paroxysmal AFib -had afib in hosp 2015 in setting of uti/sepsis, rapid HRs--diltiazem gtt-- converted to sinus -episodes of very rapid PAF at times in past treated with metoprolol 75 bid -current rvr possibly triggered by pna. Intermittently in sr/afib with rvr here. Toprol increased to 100 qd for better rate control when in afib. -chadsvasc is 5 (no cva/tia) so has indication for ac but in past has declined. This admit she says she is willing to use AC so asa stopped and now on eliquis. acute diast chf: -post cysto 01/2016 had suspected acute HFpEF req intubation--extubated quickly after diuresed -echo with mild decr LVEF, no sig valve pathology -current presentation c/w mild vol overload likely from pna/afib with rvr. Symptoms/vol status improving, will cont with lasix 40 mg iv qd for now, with plans for PO lasix tomorrow. -on BB and GERRY (prevent syst chf)--cont same -no signs acs, ce's neg x2, no ischemic ecg changes htn: -cont current meds hld: -cont home statin pna: -on abx
[2017-03-13 09:33] LABS: THYROID STIMULATING HORMONE 1.84 uIU/ml (0.358-3.74)
[2017-03-13] MEDS: QUINAPRIL HCL 10 MG TABLET (FP) PO SCH (09:34)
[2017-03-13] MEDS: LACTOBACILLUS ACIDOPHILUS 1 EACH TAB (FP) PO SCH (09:34)
[2017-03-13] MEDS: LEVOFLOXACIN 500 MG TABLET (FP) PO SCH (09:35)
[2017-03-13] MEDS: FUROSEMIDE 40 MG/4 ML INJECTABLE VIAL IVPUSH SCH (09:35)
[2017-03-13] MEDS: METOPROLOL SUCCINATE 100 MG TAB.SR.24H (FP) PO SCH (09:35)
[2017-03-13] MEDS: APIXABAN 5 MG TABLET PO SCH ×2 (09:35→21:48)
--- NOTE | 2017-03-13 11:54 | PN ---
Progress Note, Physician History of Present Illness: Breathing feeling better today, HR improved as well. LFT's have been increasing (no abd pain or symptoms) - Current Medication List Current Medications: Active Medications Albuterol Sulfate (Ventolin 0.083% Nebulizer Soln -) 1 amp NEB Q4H PRN PRN Reason: SHORT OF BREATH/WHEEZING Last Admin: 03/11/17 11:20 Dose: 1 amp Apixaban (Eliquis -) 5 mg PO BID [facility] Last Admin: 03/13/17 09:35 Dose: 5 mg Atorvastatin Calcium (Lipitor -) 10 mg PO HS [facility] Last Admin: 03/12/17 21:57 Dose: 10 mg Furosemide (Lasix Injection -) 40 mg IVPUSH DAILY [facility] Stop: 03/13/17 12:00 Last Admin: 03/13/17 09:35 Dose: 40 mg Furosemide (Lasix -) 40 mg PO DAILY [facility] Insulin Aspart (Novolog Vial Sliding Scale -) 1 vial SQ TIDAC LEONEL PRN Reason: Protocol Last Admin: 03/13/17 06:39 Dose: 5 units Insulin Aspart (Novolog Vial Sliding Scale -) 1 vial SQ HS LEONEL PRN Reason: Protocol Last Admin: 03/12/17 21:58 Dose: 4 units Lactobacillus Acidophilus (Bacid -) 1 tab PO DAILY [facility] Last Admin: 03/13/17 09:34 Dose: 1 tab Levofloxacin (Levaquin -) 500 mg PO DAILY [facility] Last Admin: 03/13/17 09:35 Dose: 500 mg Metoprolol Succinate (Toprol Xl -) 100 mg PO DAILY [facility] Last Admin: 03/13/17 09:35 Dose: 100 mg Quinapril HCl (Accupril -) 10 mg PO DAILY [facility] Last Admin: 03/13/17 09:34 Dose: 10 mg Sitagliptin Phosphate (Januvia -) 100 mg PO AM [facility] Last Admin: 03/13/17 06:38 Dose: 100 mg - Objective Vital Signs: Vital Signs Temperature 98 F 03/13/17 10:00 Pulse Rate 70 03/13/17 10:00 Respiratory Rate 18 03/13/17 10:00 Blood Pressure 145/64 03/13/17 10:00 O2 Sat by Pulse Oximetry (%) 99 03/13/17 09:00 Constitutional: Yes: No Distress, Calm Cardiovascular: Yes: Pulse Irregular, S1, S2. No: Murmur Respiratory: Yes: Regular, Rales (bilateral bases) Gastrointestinal: Yes: Normal Bowel Sounds, Soft. No: Distention, Tenderness Edema: No Labs: CBC, BMP 03/13/17 07:00 03/13/17 07:00 Assessment/Plan Current Active Problems CHF (congestive heart failure) (Acute) Gram negative sepsis (Acute) Gram-negative bacteremia (Acute) Lactic acidosis (Acute) Obesity (BMI 30.0-34.9) (Acute) Pneumonia (Acute) Hyperlipidemia (Chronic) Hypertension (Chronic) Obesity (BMI 30-39.9) (Chronic) Type 2 diabetes mellitus (Chronic) Elevated LFT's -cont lasix, cardio following -likelelevated LFT's due to congestive hepatopathy, did also have hepatic steatosis on prior CT abd (2016) -tolerating AC
[2017-03-13] MEDS: ATORVASTATIN CA 10 MG TABLET (FP) PO SCH (21:49)
[2017-03-14] MEDS: sitaGLIPtin PHOSPHATE 100 MG TABLET (FP) PO SCH (06:14)
[2017-03-14] MEDS: INSULIN SLIDING SCALE (NOVOLOG) 1 VIAL SQ SCH ×4 (06:14→22:07)
[2017-03-14 07:36] LABS: BASOPHIL 0.5 % (0-2.0); EOSINOPHIL 3.3 % (0-4.5); MCH 24.9 pg (25.7-33.7); MCHC 31.3 g/dl (32.0-36.0); MEAN CELL VOLUME 79.4 fl (80-96); MEAN PLT VOLUME 9.3 fl (7.5-11.1); NEUTROPHILS 63.9 % (42.8-82.8); PLATELET COUNT 198 K/MM3 (134-434); RDW 16.4 % (11.6-15.6); WHITE BLOOD COUNT 5.7 K/mm3 (4.0-10.0)
[2017-03-14 07:59] LABS: ALBUMIN 2.9 g/dl (3.4-5.0); ALK PHOS 58 U/L (45-117); ANION GAP 9 (8-16); BILIRUBIN,TOTAL 0.6 mg/dL (0.2-1.0); CALCIUM 8.3 mg/dL (8.5-10.1); CO2 35 mmol/L (21-32); CREATININE 0.6 mg/dL (0.55-1.02); SGOT/AST 60 U/L (15-37); SGPT/ALT 74 U/L (12-78); TOT PROT 6.3 g/dl (6.4-8.2)
[2017-03-14 08:04] LABS: GLUCOSE,RANDOM 307 mg/dL (74-106)
[2017-03-14] MEDS ORDERED: PT OWN MED DRAWER 7, Y5N ONE ×2 (09:14→11:57)
[2017-03-14] MEDS: METOPROLOL SUCCINATE 100 MG TAB.SR.24H (FP) PO SCH (09:29)
[2017-03-14] MEDS: FUROSEMIDE 40 MG TABLET (FP) PO SCH (09:29)
[2017-03-14] MEDS: LACTOBACILLUS ACIDOPHILUS 1 EACH TAB (FP) PO SCH (09:29)
[2017-03-14] MEDS: LEVOFLOXACIN 500 MG TABLET (FP) PO SCH (09:29)
[2017-03-14] MEDS: APIXABAN 5 MG TABLET PO SCH ×2 (09:29→22:05)
[2017-03-14] MEDS: QUINAPRIL HCL 10 MG TABLET (FP) PO SCH (12:06)
[2017-03-14] MEDS ORDERED: INSULIN (NOVOLOG) ASPART 100 UNITS/ML 10ML VIAL ONE (12:08)
--- NOTE | 2017-03-14 12:27 | PN ---
Progress Note (short form) - Note Progress Note: CC: CHF. s: no cp palps dizzy; transitioned to po lasix today. o: Current Medications Albuterol Sulfate (Ventolin 0.083% Nebulizer Soln -) 1 amp NEB Q4H PRN PRN Reason: SHORT OF BREATH/WHEEZING Last Admin: 03/11/17 11:20 Dose: 1 amp Apixaban (Eliquis -) 5 mg PO BID [facility] Last Admin: 03/14/17 09:29 Dose: 5 mg Atorvastatin Calcium (Lipitor -) 10 mg PO HS [facility] Last Admin: 03/13/17 21:49 Dose: 10 mg Furosemide (Lasix -) 40 mg PO DAILY [facility] Last Admin: 03/14/17 09:29 Dose: 40 mg Insulin Aspart (Novolog Vial Sliding Scale -) 1 vial SQ TIDAC LEONEL PRN Reason: Protocol Last Admin: 03/14/17 12:08 Dose: 5 units Insulin Aspart (Novolog Vial Sliding Scale -) 1 vial SQ HS [facility] PRN Reason: Protocol Last Admin: 03/13/17 21:48 Dose: 5 units Lactobacillus Acidophilus (Bacid -) 1 tab PO DAILY [facility] Last Admin: 03/14/17 09:29 Dose: 1 tab Levofloxacin (Levaquin -) 500 mg PO DAILY [facility] Last Admin: 03/14/17 09:29 Dose: 500 mg Metoprolol Succinate (Toprol Xl -) 100 mg PO DAILY [facility] Last Admin: 03/14/17 09:29 Dose: 100 mg Quinapril HCl (Accupril -) 10 mg PO DAILY [facility] Last Admin: 03/14/17 12:06 Dose: 10 mg Sitagliptin Phosphate (Januvia -) 100 mg PO AM [facility] Last Admin: 03/14/17 06:14 Dose: 100 mg Vital Signs - 24 hr 03/13/17 03/13/17 03/13/17 14:00 18:00 21:00 Temperature 98.3 F 98.6 F Pulse Rate 83 73 Respiratory 18 18 Rate Blood Pressure 127/61 131/64 O2 Sat by Pulse 97 Oximetry (%) 03/13/17 03/14/17 03/14/17 22:00 06:00 09:00 Temperature 98.6 F 98.1 F Pulse Rate 75 78 87 Respiratory 18 18 18 Rate Blood Pressure 134/70 147/80 128/68 O2 Sat by Pulse 97 Oximetry (%) Intake & Output 03/12/17 03/13/17 03/14/17 03/15/17 07:59 07:59 07:59 07:59 Intake Total 620 1070 500 Output Total 500 800 Balance 120 270 500 Weight 171 lb 6 oz 171 lb 6 oz 171 lb 12.8 oz Constitutional: Yes: Well Nourished, No Distress Eyes: No: Sclera Icterus HENT: No: Nasal Congestion Respiratory: Yes: cta bl No: Accessory Muscle Use, Rales, Wheezes Gastrointestinal: Yes: Normal Bowel Sounds. No: Distention, Hepatomegaly, Palpable Mass, Tenderness Cardiovascular: Yes: Regular Rate and Rhythm JVD: No Heart Sounds: Yes: S1, S2. No: Gallop Murmur: No: Systolic Murmur, Diastolic Murmur Extremities: No: Cold, Cyanosis Edema: no Integumentary: No: Jaundice diaphoresis Neurological: Yes: Alert, Oriented (x3) Psychiatric: No: Agitated CBC, BMP 03/14/17 05:35 03/14/17 05:35 ecgs 03/10/17: afib with rvr 133, no ischemic changes, repeat ecg this AM shows sr, nl intervals, no ischemic changes ct chest: no chf echo 11/2015: mild dec lvef, global hk, nl rv, mild mr echo 11/2016: mild dec lvef, global hk, nl rv, mild- mod mr, mild lae. small effusion < 1cm tele: sr a/p: 66 yo female hx pafib, htn, hld here with sob. paroxysmal AFib -had afib in hosp 2015 in setting of uti/sepsis, rapid HRs--diltiazem gtt-- converted to sinus -episodes of very rapid PAF at times in past treated with metoprolol 75 bid -current rvr possibly triggered by pna. Intermittently in sr/afib with rvr here. Toprol increased to 100 qd for better rate control when in afib. -chadsvasc is 5 (no cva/tia) so has indication for ac but in past has declined. This admit she says she is willing to use AC so asa stopped and now on eliquis. acute diast chf: -post cysto 01/2016 had suspected acute HFpEF req intubation--extubated quickly after diuresed -echo with mild decr LVEF, no sig valve pathology -current presentation c/w mild vol overload likely from pna/afib with rvr. Symptoms/vol status improving, diuresed with lasix 40 mg iv qd - 03/14 transitioned to PO lasix. lyte repletion. -on BB and GERRY (prevent syst chf)--cont same -no signs acs, ce's neg x2, no ischemic ecg changes htn: -cont current meds hld: -cont home statin pna: -on abx
[2017-03-14] MEDS ORDERED: POTASSIUM CHLORIDE TABS 20 MEQ TABLET.ER (FP) PO ONE (13:00)
--- NOTE | 2017-03-14 15:17 | PN ---
Progress Note, Physician Chief Complaint: Ms Acosta says she feels tired but otherwise is doing well. Denies cp, sob, n/ v. - Current Medication List Current Medications: Active Medications Albuterol Sulfate (Ventolin 0.083% Nebulizer Soln -) 1 amp NEB Q4H PRN PRN Reason: SHORT OF BREATH/WHEEZING Last Admin: 03/11/17 11:20 Dose: 1 amp Apixaban (Eliquis -) 5 mg PO BID [facility] Last Admin: 03/14/17 09:29 Dose: 5 mg Atorvastatin Calcium (Lipitor -) 10 mg PO HS [facility] Last Admin: 03/13/17 21:49 Dose: 10 mg Furosemide (Lasix -) 40 mg PO DAILY [facility] Last Admin: 03/14/17 09:29 Dose: 40 mg Glimepiride (Amaryl -) 4 mg PO BIDAC [facility] Insulin Aspart (Novolog Vial Sliding Scale -) 1 vial SQ TIDAC [facility] PRN Reason: Protocol Last Admin: 03/14/17 12:08 Dose: 5 units Insulin Aspart (Novolog Vial Sliding Scale -) 1 vial SQ HS [facility] PRN Reason: Protocol Last Admin: 03/13/17 21:48 Dose: 5 units Lactobacillus Acidophilus (Bacid -) 1 tab PO DAILY [facility] Last Admin: 03/14/17 09:29 Dose: 1 tab Levofloxacin (Levaquin -) 500 mg PO DAILY [facility] Last Admin: 03/14/17 09:29 Dose: 500 mg Metformin HCl (Glucophage -) 1,000 mg PO BIDAC [facility] Metoprolol Succinate (Toprol Xl -) 100 mg PO DAILY [facility] Last Admin: 03/14/17 09:29 Dose: 100 mg Quinapril HCl (Accupril -) 10 mg PO DAILY [facility] Last Admin: 03/14/17 12:06 Dose: 10 mg Sitagliptin Phosphate (Januvia -) 100 mg PO AM [facility] Last Admin: 03/14/17 06:14 Dose: 100 mg - Objective Vital Signs: Vital Signs Temperature 36.7 C 03/14/17 09:00 Pulse Rate 87 03/14/17 09:00 Respiratory Rate 18 03/14/17 09:00 Blood Pressure 128/68 03/14/17 09:00 O2 Sat by Pulse Oximetry (%) 97 03/14/17 09:00 Constitutional: Yes: No Distress, Calm, Obese Cardiovascular: Yes: Regular Rate and Rhythm. No: Gallop, Murmur, Rub Respiratory: Yes: Regular, CTA Bilaterally. No: Rales, Rhonchi, Wheezes Gastrointestinal: Yes: Normal Bowel Sounds, Soft. No: Distention, Tenderness Extremities: Yes: WNL Edema: No Labs: CBC, BMP 03/14/17 05:35 03/14/17 05:35 Problem List - Problems (1) CHF (congestive heart failure) Code(s): I50.9 - HEART FAILURE, UNSPECIFIED Qualifiers: Congestive heart failure type: systolic Congestive heart failure chronicity: acute on chronic Qualified Code(s): I50.23 - Acute on chronic systolic (congestive) heart failure (2) Paroxysmal atrial fibrillation Code(s): I48.0 - PAROXYSMAL ATRIAL FIBRILLATION (3) Pneumonia Code(s): J18.9 - PNEUMONIA, UNSPECIFIED ORGANISM (4) Hyperlipidemia Code(s): E78.5 - HYPERLIPIDEMIA, UNSPECIFIED (5) Hypertension Code(s): I10 - ESSENTIAL (PRIMARY) HYPERTENSION (6) Type 2 diabetes mellitus Code(s): E11.9 - TYPE 2 DIABETES MELLITUS WITHOUT COMPLICATIONS Qualifiers: Diabetes mellitus complication status: with hyperglycemia Diabetes mellitus intermediate insulin use: without electrician's assistant use Qualified Code(s): E11.65 - Type 2 diabetes mellitus with hyperglycemia; Z79.4 - half-way (current ) use of insulin Assessment/Plan (1) CHF (congestive heart failure) Assessment/Plan: -patient was placed back on IV lasix over the weekend -however now has diuresed well -started on oral lasix today -monitor, cardiology following Code(s): I50.9 - HEART FAILURE, UNSPECIFIED Qualifiers: Congestive heart failure type: systolic Congestive heart failure chronicity: acute on chronic Qualified Code(s): I50.23 - Acute on chronic systolic (congestive) heart failure (2) Paroxysmal atrial fibrillation Assessment/Plan: -now in sinus rhythm -continue metoprolol and eliquis Code(s): I48.0 - PAROXYSMAL ATRIAL FIBRILLATION (3) Pneumonia Assessment/Plan: -much improved -continue levaquin 500mg day 5/ Code(s): J18.9 - PNEUMONIA, UNSPECIFIED ORGANISM (4) Hyperlipidemia Assessment/Plan: -continue statin Code(s): E78.5 - HYPERLIPIDEMIA, UNSPECIFIED (5) Hypertension Assessment/Plan: -continue quinapril and toprol -also on lasix Code(s): I10 - ESSENTIAL (PRIMARY) HYPERTENSION (6) Type 2 diabetes mellitus Assessment/Plan: -uncontrolled -restart metformin and amaryl -continue januvia -FSBS and SSI Code(s): E11.9 - TYPE 2 DIABETES MELLITUS WITHOUT COMPLICATIONS Qualifiers: Diabetes mellitus complication status: with hyperglycemia Diabetes mellitus intermediate insulin use: without electrician's assistant use Qualified Code(s): E11.65 - Type 2 diabetes mellitus with hyperglycemia; Z79.4 - half-way (current ) use of insulin
[2017-03-14] MEDS: GLIMEPIRIDE 4 MG TABLET (FP) PO SCH (16:57)
[2017-03-14] MEDS: metFORMIN HCL 500 MG TABLET (FP) PO SCH (16:57)
[2017-03-14] MEDS: ATORVASTATIN CA 10 MG TABLET (FP) PO SCH (22:05)
[2017-03-15] MEDS: sitaGLIPtin PHOSPHATE 100 MG TABLET (FP) PO SCH (06:31)
[2017-03-15] MEDS: GLIMEPIRIDE 4 MG TABLET (FP) PO SCH ×2 (06:31→17:10)
[2017-03-15] MEDS: metFORMIN HCL 500 MG TABLET (FP) PO SCH ×2 (06:31→17:10)
[2017-03-15] MEDS: INSULIN SLIDING SCALE (NOVOLOG) 1 VIAL SQ SCH ×4 (06:32→22:36)
[2017-03-15 07:24] LABS: BASOPHIL 0.5 % (0-2.0); EOSINOPHIL 2.6 % (0-4.5); MCHC 31.6 g/dl (32.0-36.0); NEUTROPHILS 59.7 % (42.8-82.8); PLATELET COUNT 179 K/MM3 (134-434); RDW 16.5 % (11.6-15.6); WHITE BLOOD COUNT 5.6 K/mm3 (4.0-10.0)
[2017-03-15] MEDS ORDERED: PT OWN MED DRAWER 7, Y5N ONE (09:37)
[2017-03-15] MEDS: METOPROLOL SUCCINATE 100 MG TAB.SR.24H (FP) PO SCH (09:57)
[2017-03-15] MEDS: LEVOFLOXACIN 500 MG TABLET (FP) PO SCH (09:57)
[2017-03-15] MEDS: LACTOBACILLUS ACIDOPHILUS 1 EACH TAB (FP) PO SCH (09:57)
[2017-03-15] MEDS: FUROSEMIDE 40 MG TABLET (FP) PO SCH (09:57)
[2017-03-15] MEDS: APIXABAN 5 MG TABLET PO SCH ×2 (09:57→22:36)
[2017-03-15] MEDS: QUINAPRIL HCL 10 MG TABLET (FP) PO SCH (09:57)
--- NOTE | 2017-03-15 10:49 | PN ---
Progress Note, Physician Chief Complaint: Ms Acosta says she is feeling fine, but was short of breath on exertion. No cp or n/v - Current Medication List Current Medications: Active Medications Albuterol Sulfate (Ventolin 0.083% Nebulizer Soln -) 1 amp NEB Q4H PRN PRN Reason: SHORT OF BREATH/WHEEZING Last Admin: 03/11/17 11:20 Dose: 1 amp Apixaban (Eliquis -) 5 mg PO BID [facility] Last Admin: 03/15/17 09:57 Dose: 5 mg Atorvastatin Calcium (Lipitor -) 10 mg PO HS [facility] Last Admin: 03/14/17 22:05 Dose: 10 mg Furosemide (Lasix -) 40 mg PO DAILY [facility] Last Admin: 03/15/17 09:57 Dose: 40 mg Glimepiride (Amaryl -) 4 mg PO BIDAC [facility] Last Admin: 03/15/17 06:31 Dose: 4 mg Insulin Aspart (Novolog Vial Sliding Scale -) 1 vial SQ TIDAC [facility] PRN Reason: Protocol Last Admin: 03/15/17 06:32 Dose: 3 units Insulin Aspart (Novolog Vial Sliding Scale -) 1 vial SQ [facility] PRN Reason: Protocol Last Admin: 03/14/17 22:07 Dose: Not Given Lactobacillus Acidophilus (Bacid -) 1 tab PO DAILY [facility] Last Admin: 03/15/17 09:57 Dose: 1 tab Levofloxacin (Levaquin -) 500 mg PO DAILY [facility] Last Admin: 03/15/17 09:57 Dose: 500 mg Metformin HCl (Glucophage -) 1,000 mg PO BIDAC [facility] Last Admin: 03/15/17 06:31 Dose: 1,000 mg Metoprolol Succinate (Toprol Xl -) 100 mg PO DAILY [facility] Last Admin: 03/15/17 09:57 Dose: 100 mg Quinapril HCl (Accupril -) 10 mg PO DAILY [facility] Last Admin: 03/15/17 09:57 Dose: 10 mg Sitagliptin Phosphate (Januvia -) 100 mg PO AM [facility] Last Admin: 03/15/17 06:31 Dose: 100 mg - Objective Vital Signs: Vital Signs Temperature 37.0 C 03/15/17 10:00 Pulse Rate 80 03/15/17 10:00 Respiratory Rate 20 03/15/17 10:00 Blood Pressure 152/70 03/15/17 10:00 O2 Sat by Pulse Oximetry (%) 97 03/14/17 09:00 Constitutional: Yes: No Distress, Calm, Obese Cardiovascular: Yes: Regular Rate and Rhythm. No: Gallop, Murmur, Rub Respiratory: Yes: Regular, CTA Bilaterally. No: Rales, Rhonchi, Wheezes Gastrointestinal: Yes: Normal Bowel Sounds, Soft. No: Distention, Tenderness Extremities: Yes: WNL Edema: No Labs: CBC, BMP 03/15/17 06:00 Problem List - Problems (1) CHF (congestive heart failure) Code(s): I50.9 - HEART FAILURE, UNSPECIFIED Qualifiers: Congestive heart failure type: systolic Congestive heart failure chronicity: acute on chronic Qualified Code(s): I50.23 - Acute on chronic systolic (congestive) heart failure (2) Paroxysmal atrial fibrillation Code(s): I48.0 - PAROXYSMAL ATRIAL FIBRILLATION (3) Pneumonia Code(s): J18.9 - PNEUMONIA, UNSPECIFIED ORGANISM (4) Hyperlipidemia Code(s): E78.5 - HYPERLIPIDEMIA, UNSPECIFIED (5) Hypertension Code(s): I10 - ESSENTIAL (PRIMARY) HYPERTENSION (6) Type 2 diabetes mellitus Code(s): E11.9 - TYPE 2 DIABETES MELLITUS WITHOUT COMPLICATIONS Qualifiers: Diabetes mellitus complication status: with hyperglycemia Diabetes mellitus shelter insulin use: without shelter use Qualified Code(s): E11.65 - Type 2 diabetes mellitus with hyperglycemia; Z79.4 - retirement (current ) use of insulin Assessment/Plan (1) CHF (congestive heart failure) Assessment/Plan: -patient on oral lasix started yesterday -however noted to have her oxygen sats drop to 87% on exertion -also gained ~500g over past two days -cardiology following -will d/w cardiology if would benefit from increase in lasix or change to torsemide or if needs further IV lasix Code(s): I50.9 - HEART FAILURE, UNSPECIFIED Qualifiers: Congestive heart failure type: systolic Congestive heart failure chronicity: acute on chronic Qualified Code(s): I50.23 - Acute on chronic systolic (congestive) heart failure (2) Paroxysmal atrial fibrillation Assessment/Plan: -now in sinus rhythm -continue metoprolol and eliquis Code(s): I48.0 - PAROXYSMAL ATRIAL FIBRILLATION (3) Pneumonia Assessment/Plan: -much improved -continue levaquin 500mg day 6/7 Code(s): J18.9 - PNEUMONIA, UNSPECIFIED ORGANISM (4) Hyperlipidemia Assessment/Plan: -continue statin Code(s): E78.5 - HYPERLIPIDEMIA, UNSPECIFIED (5) Hypertension Assessment/Plan: -continue quinapril and toprol -also on lasix Code(s): I10 - ESSENTIAL (PRIMARY) HYPERTENSION (6) Type 2 diabetes mellitus Assessment/Plan: -restarted metformin and amaryl -continue januvia -FSBS and SSI Code(s): E11.9 - TYPE 2 DIABETES MELLITUS WITHOUT COMPLICATIONS Qualifiers: Diabetes mellitus complication status: with hyperglycemia Diabetes mellitus exterminator helper insulin use: without exterminator helper use Qualified Code(s): E11.65 - Type 2 diabetes mellitus with hyperglycemia; Z79.4 - manager long term care (current ) use of insulin
--- NOTE | 2017-03-15 11:31 | PN ---
Progress Note (short form) - Note Progress Note: s: no cp palps dizzy; sob much improved since admit o: Vital Signs Period Temp Pulse Resp BP Sys/Pitts Pulse Ox Last 24 Hr 97.5 F-98.6 F 76-80 16-20 131-152/47-70 87 Constitutional: Yes: Well Nourished, No Distress Eyes: No: Sclera Icterus HENT: No: Nasal Congestion Respiratory: Yes: cta bl No: Accessory Muscle Use, Rales, Wheezes Gastrointestinal: Yes: Normal Bowel Sounds. No: Distention, Hepatomegaly, Palpable Mass, Tenderness Cardiovascular: Yes: Regular Rate and Rhythm JVD: No Heart Sounds: Yes: S1, S2. No: Gallop Murmur: No: Systolic Murmur, Diastolic Murmur Extremities: No: Cold, Cyanosis Edema: no Integumentary: No: Jaundice diaphoresis Neurological: Yes: Alert, Oriented (x3) Psychiatric: No: Agitated Current Medications Generic Name Dose Route Start Last Admin Trade Name Freq PRN Reason Stop Dose Admin Albuterol Sulfate 1 amp 03/10/17 22:22 03/11/17 11:20 Ventolin 0.083% Nebulizer Soln - NEB 1 amp Q4H PRN Administration SHORT OF BREATH/WHEEZING Apixaban 5 mg 03/10/17 10:30 03/15/17 09:57 Eliquis - PO 5 mg BID LEONEL Administration Atorvastatin Calcium 10 mg 03/10/17 22:00 03/14/17 22:05 Lipitor - PO 10 mg HS LEONEL Administration Furosemide 40 mg 03/14/17 10:00 03/15/17 09:57 Lasix - PO 40 mg DAILY LEONEL Administration Glimepiride 4 mg 03/14/17 16:30 03/15/17 06:31 Amaryl - PO 4 mg BIDAC LEONEL Administration Insulin Aspart 1 vial 03/10/17 07:00 03/15/17 06:32 Novolog Vial Sliding Scale - SQ 3 units TIDAC LEONEL Administration Protocol Insulin Aspart 1 vial 03/10/17 22:00 03/14/17 22:07 Novolog Vial Sliding Scale - SQ Not Given HS LEONEL Protocol Lactobacillus Acidophilus 1 tab 03/10/17 10:45 03/15/17 09:57 Bacid - PO 1 tab DAILY LEONEL Administration Levofloxacin 500 mg 03/10/17 10:45 09/06/17 09:57 Levaquin - PO 500 mg DAILY LEONEL Administration Metformin HCl 1,000 mg 03/14/17 16:30 03/15/17 06:31 Glucophage - PO 1,000 mg BIDAC LEONEL Administration Metoprolol Succinate 100 mg 03/12/17 10:00 03/15/17 09:57 Toprol Xl - PO 100 mg DAILY LEONEL Administration Quinapril HCl 10 mg 03/10/17 10:00 03/15/17 09:57 Accupril - PO 10 mg DAILY LEONEL Administration Sitagliptin Phosphate 100 mg 03/10/17 07:00 03/15/17 06:31 Januvia - PO 100 mg AM LEONEL Administration CBC, BMP 03/15/17 06:00 ecgs 03/10/17: afib with rvr 133, no ischemic changes, repeat ecg this AM shows sr, nl intervals, no ischemic changes ct chest: no chf echo 11/2015: mild dec lvef, global hk, nl rv, mild mr echo 11/2016: mild dec lvef, global hk, nl rv, mild- mod mr, mild lae. small effusion < 1cm tele: sr, brief nsvt (8 beats) a/p: 66 yo female hx pafib, htn, hld here with sob. paroxysmal AFib -had afib in hosp 2016 in setting of uti/sepsis, rapid HRs--diltiazem gtt-- converted to sinus -episodes of very rapid PAF at times in past treated with metoprolol 75 bid -current rvr possibly triggered by pna. Intermittently in sr/afib with rvr here. Toprol increased to 100 qd for better rate control when in afib. -chadsvasc is 5 (no cva/tia) so has indication for ac but in past has declined. This admit she says she is willing to use AC so asa stopped and now on eliquis. acute diast chf: -post cysto 01/2016 had suspected acute HFpEF req intubation--extubated quickly after diuresed -echo with mild decr LVEF, no sig valve pathology -current presentation c/w mild vol overload likely from pna/afib with rvr. Symptoms/vol status improving, diuresed with lasix 40 mg iv qd - 03/14-6: transitioned to PO lasix. Monitor pt symptoms, if feeling back to baseline later today after walking around then ok for dc form cardiac pov. -on BB and GERRY (prevent syst chf)--cont same -no signs acs, ce's neg x2, no ischemic ecg changes htn: -cont current meds hld: -cont home statin pna: -on abx
[2017-03-15 13:08] LABS: ANION GAP 11 (8-16); CALCIUM 8.1 mg/dL (8.5-10.1); CO2 33 mmol/L (21-32); CREATININE 0.5 mg/dL (0.55-1.02); GLUCOSE,RANDOM 201 mg/dL (74-106); MAGNESIUM 1.7 mg/dL (1.8-2.4); PHOSPHOROUS 3.4 mg/dL (2.5-4.9)
[2017-03-15] MEDS ORDERED: POTASSIUM CHLORIDE TABS 20 MEQ TABLET.ER (FP) PO ONE (14:15)
[2017-03-15] MEDS: ALBUTEROL SO4 0.083% IH SOL 2.5 MG/3 ML VIAL.NEB. NEB PRN (17:30)
[2017-03-15] MEDS: ATORVASTATIN CA 10 MG TABLET (FP) PO SCH (22:36)
[2017-03-16] MEDS: sitaGLIPtin PHOSPHATE 100 MG TABLET (FP) PO SCH (06:37)
[2017-03-16] MEDS: GLIMEPIRIDE 4 MG TABLET (FP) PO SCH (06:37)
[2017-03-16] MEDS: metFORMIN HCL 500 MG TABLET (FP) PO SCH (06:37)
[2017-03-16] MEDS: INSULIN SLIDING SCALE (NOVOLOG) 1 VIAL SQ SCH (06:38)
[2017-03-16 08:18] LABS: BASOPHIL 0.7 % (0-2.0); EOSINOPHIL 2.2 % (0-4.5); MCHC 31.9 g/dl (32.0-36.0); MEAN CELL VOLUME 78.6 fl (80-96); MEAN PLT VOLUME 9.2 fl (7.5-11.1); PLATELET COUNT 177 K/MM3 (134-434); RDW 16.4 % (11.6-15.6); WHITE BLOOD COUNT 5.6 K/mm3 (4.0-10.0)
[2017-03-16 09:01] LABS: ANION GAP 10 (8-16); CALCIUM 8.3 mg/dL (8.5-10.1); CO2 32 mmol/L (21-32); CREATININE 0.6 mg/dL (0.55-1.02); GLUCOSE,RANDOM 189 mg/dL (74-106); MAGNESIUM 1.6 mg/dL (1.8-2.4); PHOSPHOROUS 3.2 mg/dL (2.5-4.9)
[2017-03-16] MEDS ORDERED: PT OWN MED DRAWER 7, Y5N ONE (10:10)
[2017-03-16] MEDS: METOPROLOL SUCCINATE 100 MG TAB.SR.24H (FP) PO SCH (10:12)
[2017-03-16] MEDS: FUROSEMIDE 40 MG TABLET (FP) PO SCH (10:12)
[2017-03-16] MEDS: QUINAPRIL HCL 10 MG TABLET (FP) PO SCH (10:12)
[2017-03-16] MEDS: LEVOFLOXACIN 500 MG TABLET (FP) PO SCH (10:12)
[2017-03-16] MEDS: APIXABAN 5 MG TABLET PO SCH (10:12)
[2017-03-16] MEDS: LACTOBACILLUS ACIDOPHILUS 1 EACH TAB (FP) PO SCH (10:12)
--- NOTE | 2017-03-16 10:35 | PN ---
Progress Note (short form) - Note Progress Note: s: no cp palps dizzy; sob resolved, feels ready to go home o: Vital Signs Period Temp Pulse Resp BP Sys/Pitts Pulse Ox Last 24 Hr 97.4 F-98.6 F 73-88 20-20 135-149/60-77 89 Constitutional: Yes: Well Nourished, No Distress Eyes: No: Sclera Icterus HENT: No: Nasal Congestion Respiratory: Yes: cta bl No: Accessory Muscle Use, Rales, Wheezes Gastrointestinal: Yes: Normal Bowel Sounds. No: Distention, Hepatomegaly, Palpable Mass, Tenderness Cardiovascular: Yes: Regular Rate and Rhythm JVD: No Heart Sounds: Yes: S1, S2. No: Gallop Murmur: No: Systolic Murmur, Diastolic Murmur Extremities: No: Cold, Cyanosis Edema: no Integumentary: No: Jaundice diaphoresis Neurological: Yes: Alert, Oriented (x3) Psychiatric: No: Agitated Current Medications Generic Name Dose Route Start Last Admin Trade Name Freq PRN Reason Stop Dose Admin Albuterol Sulfate 1 amp 03/10/17 22:22 03/15/17 17:30 Ventolin 0.083% Nebulizer Soln - NEB 1 amp Q4H PRN Administration SHORT OF BREATH/WHEEZING Apixaban 5 mg 03/10/17 10:30 03/16/17 10:12 Eliquis - PO 5 mg BID LEONEL Administration Atorvastatin Calcium 10 mg 03/10/17 22:00 03/15/17 22:36 Lipitor - PO 10 mg HS LEONEL Administration Furosemide 40 mg 03/14/17 10:00 03/16/17 10:12 Lasix - PO 40 mg DAILY LEONEL Administration Glimepiride 4 mg 03/14/17 16:30 03/16/17 06:37 Amaryl - PO 4 mg BIDAC LEONEL Administration Insulin Aspart 1 vial 03/10/17 07:00 03/16/17 06:38 Novolog Vial Sliding Scale - SQ Not Given TIDAC LEONEL Protocol Insulin Aspart 1 vial 03/10/17 22:00 03/15/17 22:36 Novolog Vial Sliding Scale - SQ Not Given HS LEONEL Protocol Lactobacillus Acidophilus 1 tab 03/10/17 10:45 03/16/17 10:12 Bacid - PO 1 tab DAILY LEONEL Administration Levofloxacin 500 mg 03/10/17 10:45 03/16/17 10:12 Levaquin - PO 500 mg DAILY LEONEL Administration Metformin HCl 1,000 mg 03/14/17 16:30 03/16/17 06:37 Glucophage - PO 1,000 mg BIDAC LEONEL Administration Metoprolol Succinate 100 mg 03/12/17 10:00 03/16/17 10:12 Toprol Xl - PO 100 mg DAILY LEONEL Administration Quinapril HCl 10 mg 03/10/17 10:00 03/16/17 10:12 Accupril - PO 10 mg DAILY LEONEL Administration Sitagliptin Phosphate 100 mg 03/10/17 07:00 03/16/17 06:37 Januvia - PO 100 mg AM LEONEL Administration CBC, BMP 03/16/17 07:00 03/16/17 07:00 ecgs 03/10/17: afib with rvr 133, no ischemic changes, repeat ecg this AM shows sr, nl intervals, no ischemic changes ct chest: no chf echo 11/2015: mild dec lvef, global hk, nl rv, mild mr echo 11/2016: mild dec lvef, global hk, nl rv, mild- mod mr, mild lae. small effusion < 1cm tele: sr a/p: 66 yo female hx pafib, htn, hld here with sob. paroxysmal AFib -had afib in hosp 2016 in setting of uti/sepsis, rapid HRs--diltiazem gtt-- converted to sinus -episodes of very rapid PAF at times in past treated with metoprolol 75 bid -current rvr possibly triggered by pna. Intermittently in sr/afib with rvr here. Toprol increased to 100 qd for better rate control when in afib. -chadsvasc is 5 (no cva/tia) so has indication for ac but in past has declined. This admit she says she is willing to use AC so asa stopped and now on eliquis. acute diast chf: -post cysto 01/2016 had suspected acute HFpEF req intubation--extubated quickly after diuresed -echo with mild decr LVEF, no sig valve pathology -current presentation c/w mild vol overload likely from pna/afib with rvr. Symptoms/vol status improving, diuresed with lasix 40 mg iv qd, now on lasix 40 po qd for maintenance -on BB and GERRY (prevent syst chf)--cont same -no signs acs, ce's neg x2, no ischemic ecg changes htn: -cont current meds hld: -cont home statin pna: -on abx cardiac valladares stable for dc
--- NOTE | 2017-03-16 11:40 | DS ---
Physical Examination Vital Signs: Vital Signs Temperature 37.0 C 03/15/17 21:00 Pulse Rate 88 03/15/17 21:00 Respiratory Rate 20 03/15/17 21:00 Blood Pressure 146/71 03/15/17 21:00 O2 Sat by Pulse Oximetry (%) 89 L 03/15/17 21:00 Constitutional: Yes: Well Nourished, No Distress, Calm Cardiovascular: Yes: Regular Rate and Rhythm. No: Gallop, Murmur, Rub Respiratory: Yes: Regular, CTA Bilaterally. No: Rales, Rhonchi, Wheezes Gastrointestinal: Yes: Normal Bowel Sounds, Soft. No: Distention, Tenderness Extremities: Yes: WNL Edema: No Labs: CBC, BMP 03/16/17 07:00 03/16/17 07:00 Discharge Summary Reason For Visit: CHF Current Active Problems CHF (congestive heart failure) (Acute) Gram negative sepsis (Acute) Gram-negative bacteremia (Acute) Lactic acidosis (Acute) Obesity (BMI 30.0-34.9) (Acute) Pneumonia (Acute) Hyperlipidemia (Chronic) Hypertension (Chronic) Obesity (BMI 30-39.9) (Chronic) Type 2 diabetes mellitus (Chronic) Hospital Course: (1) CHF (congestive heart failure) Code(s): I50.9 - HEART FAILURE, UNSPECIFIED Qualifiers: Congestive heart failure type: systolic Congestive heart failure chronicity: acute on chronic Qualified Code(s): I50.23 - Acute on chronic systolic (congestive) heart failure (2) Paroxysmal atrial fibrillation Code(s): I48.0 - PAROXYSMAL ATRIAL FIBRILLATION (3) Pneumonia Code(s): J18.9 - PNEUMONIA, UNSPECIFIED ORGANISM (4) Hyperlipidemia Code(s): E78.5 - HYPERLIPIDEMIA, UNSPECIFIED (5) Hypertension Code(s): I10 - ESSENTIAL (PRIMARY) HYPERTENSION (6) Type 2 diabetes mellitus Code(s): E11.9 - TYPE 2 DIABETES MELLITUS WITHOUT COMPLICATIONS Qualifiers: Diabetes mellitus complication status: with hyperglycemia Diabetes mellitus intermediate insulin use: without intermediate use Qualified Code(s): E11.65 - Type 2 diabetes mellitus with hyperglycemia; Z79.4 - skilled nursing (current ) use of insulin Ms Acosta is a very pleasant 66 year old female who comes in with afib with rvr , chf exacerbation, and concern for pneumonia. She was admitted to the hospital. Her metoprolol was increased and she was started on eliquis. She spontaneously converted to sinus rhythm while here. There was concern for pneumonia with her symptoms and chest x-ray, she finished a course of levaquin while here. She had CHF exacerbation and was diuresed. She was diuresed with IV lasix and successfully switched to oral lasix. She is now at her dry weight. She is otherwise stable for discharge with outpatient follow up. 32 minutes spent in preparation of this discharge Condition: Good - Instructions Diet, Activity, Other Instructions: resume previous diet and activity Referrals: Rivas Lund MD [Primary Care Provider] - Matt Cast MD [Staff Physician] - Disposition: HOME - Home Medications Comprehensive Discharge Medication List: Ambulatory Orders Quinapril HCl [Accupril -] 10 mg PO DAILY 11/25/15 Simvastatin [Zocor -] 20 mg PO HS 11/25/15 Sitagliptin Phosphate [Januvia] 100 mg PO DAILY 11/07/16 Glimepiride [Amaryl] 4 mg PO BIDAC 12/17/16 Metformin HCl [Glucophage -] 1,000 mg PO BIDAC 12/17/16 Apixaban [Eliquis -] 5 mg PO BID #60 tablet 03/16/17 Furosemide [Lasix -] 40 mg PO DAILY #30 tablet 03/16/17 Metoprolol Succinate [Toprol XL -] 100 mg PO DAILY #30 tab.sr 03/16/17
[2017-03-16 12:02] VITALS: BP 152/78; PULSE 83; TEMP 99
== END 2017-03-16 12:11 | disposition home or self-care (01) | DRG 291 ==
LOC: JER 17:31 → JERBED 23:39 → UNDOADMIN 03-10 → JERBED 03-10 → J4W 03-10 12:23
PROVIDERS: ADMIT Internal Medicine; ATTEND Internal Medicine
DX: I50.31 Acute diastolic (congestive) heart failure (principal); J18.9 Pneumonia, unspecified organism; I50.33 Acute on chronic diastolic (congestive) heart failure; E11.9 Type 2 diabetes mellitus without complications; I10 Essential (primary) hypertension; Z85.828 Personal history of other malignant neoplasm of skin; I48.0 Paroxysmal atrial fibrillation; E78.00 Pure hypercholesterolemia, unspecified; Z87.891 Personal history of nicotine dependence; Z79.84 Long term (current) use of oral hypoglycemic drugs; E66.9 Obesity, unspecified; Z68.33 Body mass index [BMI] 33.0-33.9, adult; K76.0 Fatty (change of) liver, not elsewhere classified
CPT/HCPCS: 36415; 71010-TC; 71260-TC; 80048; 80053; 81003; 81015; 83735; 83880; 84100; 84443; 84484; 85025; 87040; 87086; 93005; 93010; 94640; 99284-25

== ENCOUNTER 2019-02-21 09:58 | Day surgery (SDC) | payer BC ==
[2019-02-20 11:31] VITALS: BMI 33.2
[2019-02-21] MEDS ORDERED: HEPARIN NA (PORCINE) 5,000 UNITS/ML 1ML VIAL ONE ×2 (10:29→12:40)
[2019-02-21] MEDS ORDERED: LIDOCAINE HCL 1%, 10 MG/ML (20ML VIAL) ONE (10:29)
--- NOTE | 2019-02-21 11:50 | HP ---
Admitting History and Physical - Admission Chief Complaint: RLE claudication less than one block. 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 History of Recent Travel: No Home Medications - Allergies Allergies/Adverse Reactions: Allergies Allergy/AdvReac Type Severity Reaction Status Date / Time No Known Drug Allergies Allergy Verified 03/09/17 17:41 - Home Medications Home Medications: Ambulatory Orders Quinapril HCl [Accupril -] 10 mg PO HS 11/25/15 Simvastatin [Zocor -] 20 mg PO HS 11/25/15 Glimepiride [Amaryl] 4 mg PO BIDAC 12/17/16 metFORMIN HCL [Glucophage -] 1,000 mg PO BIDAC 12/17/16 Apixaban [Eliquis -] 5 mg PO BID #60 tablet 03/16/17 Dulaglutide [Trulicity] 0.75 mg SQ Q7D 01/07/19 Furosemide [Lasix -] 40 mg PO BID 01/07/19 Metoprolol Succinate [Toprol XL -] 50 mg PO DAILY 01/07/19 Gabapentin [Neurontin] 100 mg PO HS 02/20/19 Family Disease History - Family Disease History Family Disease History: Diabetes: Mother, Sister Review of Systems - Review of Systems Constitutional: reports: No Symptoms Eyes: reports: No Symptoms HENT: reports: No Symptoms Neck: reports: No Symptoms Cardiovascular: reports: No Symptoms Respiratory: reports: No Symptoms Gastrointestinal: reports: No Symptoms Genitourinary: reports: No Symptoms Breasts: reports: No Symptoms Reported Musculoskeletal: reports: No Symptoms Integumentary: reports: No Symptoms Neurological: reports: No Symptoms Endocrine: reports: No Symptoms Hematology/Lymphatic: reports: No Symptoms Psychiatric: reports: No Symptoms Physical Examination Vital Signs: Vital Signs Temperature 98.6 F 02/21/19 10:37 Pulse Rate 88 02/21/19 10:37 Respiratory Rate 18 02/21/19 10:37 Blood Pressure 146/66 02/21/19 10:37 O2 Sat by Pulse Oximetry (%) 95 02/21/19 10:36 Constitutional: Yes: Well Nourished, No Distress, Calm Eyes: Yes: WNL, Conjunctiva Clear, EOM Intact HENT: Yes: WNL, Atraumatic, Normocephalic Neck: Yes: WNL, Supple, Trachea Midline Cardiovascular: Yes: WNL, Regular Rate and Rhythm Respiratory: Yes: WNL, Regular, CTA Bilaterally Gastrointestinal: Yes: WNL, Normal Bowel Sounds Musculoskeletal: Yes: WNL Extremities: Yes: WNL Edema: No Peripheral Pulses WNL: No Integumentary: Yes: WNL Neurological: Yes: WNL, Alert, Oriented ...Motor Strength: WNL Psychiatric: Yes: WNL Problem List - Problems (1) Claudication Assessment/Plan: Right sfa occlusion on US. For angiogram today Code(s): I73.9 - PERIPHERAL VASCULAR DISEASE, UNSPECIFIED
[2019-02-21] MEDS ORDERED: MIDAZOLAM HCL 2 MG/2 ML SINGLE DOSE VIAL ONE ×2 (12:09→12:38)
[2019-02-21] MEDS ORDERED: ceFAZolin SODIUM 1 GM VIAL ONE (12:15)
[2019-02-21] MEDS ORDERED: ceFAZolin SODIUM 1 GM VIAL IVPB ONE (12:18)
[2019-02-21] MEDS ORDERED: PROPOFOL 20 ML ONE (12:19)
[2019-02-21] MEDS ORDERED: LIDOCAINE HCL 1%, 10 MG/ML (50 mL VIAL) IJ ONE (12:23)
--- NOTE | 2019-02-21 13:39 | OP ---
Operative Note - Note: Operative Date: 02/21/19 Pre-Operative Diagnosis: RLE claudication Operation: Aortogram, RLE angiogram, SFA angioplasty with stent placement Findings: SFA stent stenosis for 200cm Post-Operative Diagnosis: Same as Pre-op Surgeon: Saw Goodman Anesthesia: Fractional Estimated Blood Loss (mls): 50 Operative Report Dictated: Yes
[2019-02-21] MEDS ORDERED: ONDANSETRON 4 MG/2 ML VIAL IVPUSH PRN (13:59)
[2019-02-21] MEDS ORDERED: ACETAMINOPHEN 1000 MG/100 ML VIAL (NON FORMULARY) IVPB ONE (13:59)
[2019-02-21] MEDS ORDERED: oxyCODONE HCL 5 MG TABLET PO PRN (13:59)
[2019-02-21] MEDS ORDERED: LACTATED RINGERS SOLUTION 1,000 ML IV SCH (14:00)
[2019-02-21 17:22] VITALS: BP 126/53; PULSE 84; TEMP 97.8
--- NOTE | 2019-02-24 20:48 | OP ---
DATE OF OPERATION: 02/21/2019 PREOPERATIVE DIAGNOSIS: Right lower extremity claudication. POSTOPERATIVE DIAGNOSIS: Right lower extremity claudication. PROCEDURE: Aortogram, right lower extremity angiogram, superficial femoral artery atherectomy, superficial femoral artery angioplasty, superficial femoral artery stent placement. SURGEON: Saw Romero DO ANESTHESIA: Fractional. BLOOD LOSS: 50 mL. The patient is a 68-year-old female who complains of right lower extremity claudication less than 1 block. Preoperative ultrasound showed severe SFA disease. Patient came in through ambulatory surgery. Patient was cleared by Medicine and Cardiology prior to the procedure. Patient was then consented for the procedure, understanding all risks, benefits, alternatives. She was taken to the operating room. Once in the operating room, placed on the operating table in supine manner and the area of the right and left groin were prepped and draped in a sterile surgical manner. We then injected 10 mL of lidocaine 1% over the left common femoral artery. We then took our micropuncture needle and punctured the left common femoral artery. Micropuncture wire was inserted, micropuncture sheath was inserted, and a traditional 5-Monegasque sheath was inserted. We then placed a 0.035 floppy guidewire up into the aorta followed by Omni Flush catheter. We then shot an aortogram via hand injection, showing that the aorta and the iliac arteries were without any disease. We then used our 0.035 floppy guidewire, went up and over to the right common femoral artery and our Omni Flush catheter followed. We then shot an angiogram of the right lower extremity via hand injection, showing that the common femoral artery and the profunda were patent but the SFA was severely stenotic to about 90% from the origin all the way to the adductor canal. The patient had 2-vessel runoff into the foot. Popliteal artery was patent and patient had 2-vessel runoff into the foot. At this point, we placed a 0.035 stiff guidewire into the SFA, Omni Flush catheter was removed, 6 x 45 crossover sheath was placed. We then went ahead and placed our 0.035 stiff guidewire down into the SFA, followed by a Quick-Cross catheter, and we then exchanged the wire for a ViperWire. We then used a Rawporter orbital atherectomy device and performed orbital atherectomy, on low and medium, of the proximal SFA. Completion angiogram now showed that the SFA was more widely patent. We then went ahead and used a 5 x 200 balloon and performed angioplasty of the entire SFA all the way to the origin. During this time, the patient had already been administered 5000 units of IV heparin. Completion angiogram now showed the SFA was patent but there was a small dissection in the proximal SFA and a 6 x 4 LifeStent was placed and that was ballooned in place using a 5 x 4 ultra flush balloon. Completion angiogram now showed that the SFA was completely patent with good brisk runoff all the way into the foot with 2-vessel runoff. At this point, no more intervention was needed. We brought our sheath up and over. StarClose device was successfully deployed in the left common femoral artery, pressure held for 5 minutes. After there was no bleeding, the area was wet and dried and Dermabond was placed. The patient tolerated this procedure with no complication. Total blood loss 50 mL. SAW ROMERO DO [id number]
== END 2019-02-21 17:15 | disposition home or self-care (01) ==
LOC: JASU-SURG 09:58
PROVIDERS: ATTEND Surgery Vascular Surgery
PROC: 047K3DZ Dilation of Right Femoral Artery with Intraluminal Device, Percutaneous Approach (ICD-10-PCS; principal; 2019-02-21 16:50)
DX: I73.9 Peripheral vascular disease, unspecified (principal); I10 Essential (primary) hypertension; E11.9 Type 2 diabetes mellitus without complications; Z79.84 Long term (current) use of oral hypoglycemic drugs; I48.91 Unspecified atrial fibrillation
CPT/HCPCS: 37227; C1877; 76000-TC-FY; 82962; 94760; J0131; J1644

== ENCOUNTER 2019-04-19 08:20 | Inpatient (IN) | payer BC, OTHER ==
--- NOTE | 2019-04-19 08:50 | PDOC ---
Attending Attestation - Resident Resident Name: JohnGonzález devineiel - ED Attending Attestation I have performed the following: I have examined & evaluated the patient, The case was reviewed & discussed with the resident, I agree w/resident's findings & plan, Exceptions are as noted - HPI HPI: 04/19/19 08:50 68y F hx of chf, afib, htn, hl, presents with complaint of SOB since monday. Pt had gone to Dr. Rosen on Mon who recommended her go to the ER, but she didnt want to, so was told to take an extra dose of metoprolol wthou significant improvement. Pt endorses orthopnea and slight interimtent cough when lying down but denies any fever/chills, n/v, cp, sob, back pain, increased leg edema, hemoptysis. pt notes dyspnea on exertion. Upon arrival, pt was noted to be tacycardic to 150 in triage and was immediately brought to the main ED and attended to by myself and my team - Physicial Exam PE: 04/19/19 08:52 GENERAL: The patient is awake, alert, and fully oriented HEAD: Normocephalic, atraumatic. EYES: extraocular movements intact, sclera anicteric, conjunctiva clear. ENT: Normal voice, Moist mucous membranes. NECK: Normal range of motion, supple LUNGS: Breath sounds equal, mild tachypneia. HEART: tachyardic ABDOMEN: Soft, nontender, No guarding, no rebound. No CVA tenderness EXTREMITIES: Normal range of motion, + pitting edmea b/l in LE NEUROLOGICAL: No facial assymetry, Normal speech, PSYCH: Normal mood, normal affect. SKIN: Warm, Dry, normal turgor, - Critical Care Time Total Critical Care Time: 35 Critical Care Statement: The care of this patient involved high complexity decision making to prevent further life threatening deterioration of the patient 's condition and/or to evaluate & treat vital organ system(s) failure or risk of failure. - Medical Decision Making 04/19/19 09:00 68y F hx of chf, afib presents with worsneing sob, orthopnea, quiñones for the past week noted to be in rapid afib on her EKG suspect afib wih chf exacerbaion will obtain lab work to r/o anemia, metabolic derangement, cxr to eval for congestion will rate control 04/19/19 10:16 pts HR improved slightly after 5mg will sukhdev another 5mg of metoprolol 04/19/19 13:14 HR improved - variable bewteen 105-130s, averaging around 115. pt admitted for further mangaement Heart Score/ECG Review - ECG Impressions Comment:: 04/19/19 08:53 Twelve-lead EKG was performed and reviewed by me. There is irregularly irregular rhythm Rate of 143 Incomplete right bundle branch block T wave inversion in V1 through V3 Impression A. fib with RVR
[2019-04-19] MEDS ORDERED: METOPROLOL TARTRATE 5 MG/5 ML VIAL IVPUSH ONE ×3 (09:23→10:49)
--- NOTE | 2019-04-19 09:24 | PDOC ---
History of Present Illness - General Chief Complaint: Congestive Heart Failure Stated Complaint: TROUBLE BREATHING Time Seen by Provider: 04/19/19 08:40 History Source: Patient Exam Limitations: No Limitations - History of Present Illness Initial Comments: 04/19/19 09:12 HPI: 68yo F with PMH Afib, CHF, HTN, HLD, DM, Nephrolithiasis (requiring cysto/ litho), RLE stent for leg claudication?, presenting with 1 week of progressive shortness of breath. Pt reports that since monday she has experienced constant, progressive shortness of breath that is worse with exercise - requiring her to stop to catch her breath while walking distances that she normally can traverse without issue. 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 She requires multiple pillows to sleep at night and develops ankle edema in the evening. She is currently experiencing shortness of breath at rest. Denies palpitations, knows she has Afib but does not feel her heart racing. 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 No recent travel or immobilizations, no estrogen containing medications - denies prior DVT or PE. Patient reports her blood sugars have been good, did not check this morning. Former smoker, quit 4 years ago, continued second hand smoke from children. ALL: NKDA Meds: Quinapril 10mg, Statin 20mg, Metoprolol 50mg daily, Metformin 1000mg BID, Glimepiride 4mg, Furosemide 40mg, Eliquis 5mg BID, Trulisty weekly, Gabapentin 100mg PMH: ad above PSH: as above SHx: former smoker (50 years, quit 4 year ago), denies ETOH, denies illicits Past History - Travel Traveled outside of the country in the last 30 days: No Close contact w/someone who was outside of country & ill: No - Past Medical History Allergies/Adverse Reactions: Allergies Allergy/AdvReac Type Severity Reaction Status Date / Time No Known Drug Allergies Allergy Verified 04/19/19 08:38 Home Medications: Ambulatory Orders Quinapril HCl [Accupril -] 10 mg PO HS 11/25/15 Simvastatin [Zocor -] 20 mg PO HS 11/25/15 Glimepiride [Amaryl] 4 mg PO BIDAC 12/17/16 metFORMIN HCL [Glucophage -] 1,000 mg PO BIDAC 12/17/16 Apixaban [Eliquis -] 5 mg PO BID #60 tablet 03/16/17 Dulaglutide [Trulicity] 0.75 mg SQ Q7D 01/07/19 Furosemide [Lasix -] 40 mg PO BID 01/07/19 Metoprolol Succinate [Toprol XL -] 50 mg PO DAILY 01/07/19 Gabapentin [Neurontin] 100 mg PO HS 02/20/19 Anemia: No Asthma: No Cancer: Yes (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) Cardiac Disorders: Yes (paf, sob,) CVA: No COPD: No CHF: Yes (2017) Dementia: No Diabetes: Yes (over 30 yrs) GI Disorders: No Disorders: Yes (uti, kidney stones) HTN: Yes Hypercholesterolemia: Yes Kidney Stones: Yes Liver Disease: Yes (fatty liver?) Seizures: No Thyroid Disease: No - Surgical History Abdominal Surgery: No Appendectomy: No Cardiac Surgery: No Cholecystectomy: Yes Lung Surgery: No Neurologic Surgery: No Orthopedic Surgery: No - Immunization History Immunization Up to Date: Yes - Psycho Social/Smoking Cessation Hx Smoking History: Never smoked Have you smoked in the past 12 months: No Number of Cigarettes Smoked Daily: 20 If you are a former smoker, when did you quit?: 2014 Information on smoking cessation initiated: No 'Breaking Loose' booklet given: 12/28/15 Hx Alcohol Use: No Drug/Substance Use Hx: No Substance Use Type: None Hx Substance Use Treatment: No Review of Systems - Review of Systems Able to Perform ROS?: Yes Is the patient limited Turkmen proficient: Yes Constitutional: No: Chills, Diaphoresis, Fever, Malaise, Weakness, Unexplained wgt Loss HEENTM: No: Eye Pain, Blurred Vision, Nose Congestion, Tinnitus, Throat Swelling Respiratory: Yes: Orthopnea, Shortness of Breath, SOB with Exertion, SOB at Rest. No: Cough, Wheezing, Productive cough, Hemoptysis Cardiac (ROS): Yes: Edema (at night ), Irregular Heart Rate (Afib Hx). No: Chest Pain, Lightheadedness, Palpitations, Syncope, Chest Tightness ABD/GI: No: Abdominal Distended, Constipated, Diarrhea, Nausea, Poor Appetite, Poor Fluid Intake, Rectal Bleeding, Vomiting, Tarry Stools : No: Burning, Dysuria, Hematuria, Pain Musculoskeletal: No: Back Pain, Joint Pain, Muscle Pain, Muscle Weakness Integumentary: No: Erythema, Pruritus, Rash Neurological: No: Headache, Numbness, Tingling, Weakness Psychiatric: No: Stressors, Emotional Problems, Mood Swings, Change in Appetite Endocrine: No: Excessive Sweating, Increased Thirst, Increased Urine, Change in Weight Hematologic/Lymphatic: Yes: Anemia (with , remote). No: Easy Bleeding , Easy Bruising All Other Systems: Reviewed and Negative *Physical Exam - Vital Signs Last Vital Signs Temp Pulse Resp BP Pulse Ox 97.4 F L 150 H 17 115/63 100 04/19/19 08:24 04/19/19 08:24 04/19/19 08:24 04/19/19 08:24 04/19/19 08:24 - Physical Exam Comments: 04/19/19 09:28 Vitals reviewed, notable for tachycardia, otherwise afebrile with stable vitals WDWN woman, appears stated age, no acute distress, sitting up on edge of bed NCAT, MMM, EOMI, normal morphologies Tachycardic, Afib with RVR, nl s1s2, no murmurs appreciated Fine crackles at bilateral lungs bases, good air movement, normal WOB with mild tachypnea intermittently, speaking full sentences Soft, nontender, nondistended No clubbing cyanosis or edema, no pretibial edema noted Pulses 2+ radial and DP bilaterally Alert and oriented, MAEE, CN grossly intact Heart Score/ECG Review - History History: Slightly suspicious - Electrocardiogram EKG: Normal - Age Age: >/= 65 - Risk Factors Risk Factors Heart Score: Yes Hx Hypercholesterolemia, Yes Hx Hypertension, Yes Hx Diabetes, Yes Smoking History Based on the list above the patient has:: >/=3 risk factors or Hx atherosclerotic disease - Troponin Troponin: </= normal limit - Score Heart Score - Total: 4 - ECG Intrepretation Comment:: 04/19/19 09:48 AFib with RVR - [place]: Normal - P and [place] Prominent R with upright T in V1 (true posterior CA): No Delta Wave(s) Present: No WPW: No - QRS Poor R Wave Progression: No Q Wave Present: No - ST and T Early Repolarization: No Non Specific ST-T Wave changes: No Flattened T Waves: No Prolonged Q-T Interval: No - ECG Impressions Normal ECG: No Non-specific ST Elevation: No Ischemic Changes: No Bradycardia: No Tachycardia: Afib w/rapid Vent rate Torsades alberto Pointes: No WPW: No ED Treatment Course - LABORATORY CBC & Chemistry Diagram: 04/19/19 10:00 04/19/19 10:00 - RADIOLOGY Radiology Studies Ordered: Category Date Time Status CHEST PA & LAT [RAD] Stat Radiology 04/19/19 09:08 Ordered Medical Decision Making - Medical Decision Making 04/19/19 09:51 68yo F with PMH Afib, CHF, HTN, HLD, DM, Nephrolithiasis (requiring cysto/litho) , RLE stent for leg claudication?, presenting with subacute, progressive, constant, exertional shortness of breath with orthopnea. History notable for lack of PE risk factors, Hx of Afib (triage EKG with Afib with RVR), no bleeding sources. Exam notable for tachycardia, shortness of breath, difficulty laying semi-recumbent, bilateral lung crackles. DDX: CHF exacerbation, Afib, PE , Anemia, r/o ACS. EKG with Afib with RVR, plan for metoprolol 5 IV, reassess and re-administer as needed with possible step up to diltiazem if necessary. -CBC, CMP, CP, BNP, TSH -PT/INR, PTT -BGM, CXR, EKG -chip applying machine tender -Saline Lock -UA -Metoprolol 5mg IV 04/19/19 10:16 -Pt HR in 120s-130s after first IV metoprolol, giving second dose -Continues to feel SOB but otherwise well appearing 04/19/19 10:50 -Remains tachycardic, pressure 107 SBP, additional metoprolol ordered -CXR with mild blunting of diaphragmatic angles, no infiltrates / bony changes, questionably enlarged heart, film improved from prior 04/19/19 12:08 Spoke with cardiology, plan for 25mg PO Metoprolol, reassess for possible re- dose in 1 hour Consult pt management aide Basic labs unremarkable, BNP elevated - c/w prior, clinically without signs of significant overload Dispo: Admit, Tele Discharge - Discharge Information Problems reviewed: Yes Clinical Impression/Diagnosis: Atrial fibrillation with rapid ventricular response, Dyspnea on exertion Condition: Improved - Admission Yes - Follow up/Referral Referrals: Rivas Lund MD [Primary Care Provider] - - Patient Discharge Instructions - Post Discharge Activity
[2019-04-19] MEDS ORDERED: METOPROLOL TARTRATE 5 MG/5 ML VIAL ONE ×3 (09:52→10:54)
[2019-04-19 11:35] LABS: BASO % 0.5 % (0-2.0); EOS % 1.5 % (0-4.5); HEMATOCRIT 32.9 % (32.4-45.2); HEMOGLOBIN 10.2 GM/dL (10.7-15.3); LYMPH % 16.9 % (8-40); MCH 24.2 pg (25.7-33.7); MCHC 30.9 g/dl (32.0-36.0); MEAN CELL VOLUME 78.1 fl (80-96); MONO % 7.1 % (3.8-10.2); PLATELET COUNT 283 K/MM3 (134-434); RBC 4.22 M/mm3 (3.60-5.2); RDW 16.3 % (11.6-15.6); WHITE BLOOD COUNT 7.9 K/mm3 (4.0-10.0)
[2019-04-19 11:46] LABS: ALBUMIN 3.5 g/dl (3.4-5.0); BILIRUBIN,TOTAL 0.4 mg/dL (0.2-1); BLOOD UREA NITROGEN 31.5 mg/dL (7-18); PHOSPHOROUS 3.9 mg/dL (2.5-4.9); POTASSIUM 4.1 mmol/L (3.5-5.1); TOT PROT 7.5 g/dl (6.4-8.2)
[2019-04-19 11:48] LABS: INR 1.64 (0.83-1.09); PROTHROMBIN TIME (PATIENT) 19.4 SEC (9.7-13.0)
[2019-04-19 11:51] LABS: ACTIVATED PTT 40.4 SECONDS (25.2-36.5)
[2019-04-19 11:53] LABS: N-TERMINAL BNP 2406.9 pg/ml (5-125)
[2019-04-19] MEDS ORDERED: metoPROLOL SUCCINATE 25 MG TAB.SR.24H (FP) PO ONE (12:01)
--- NOTE | 2019-04-19 14:21 | EKG ---
Test Reason : Blood Pressure : / mmHG Vent. Rate : 143 BPM Atrial Rate : 153 BPM P-R Int : 000 ms QRS Dur : 098 ms QT Int : 320 ms P-R-T Axes : 000 056 007 degrees QTc Int : 493 ms ATRIAL FIBRILLATION WITH RAPID VENTRICULAR RESPONSE LOW VOLTAGE QRS INCOMPLETE RIGHT BUNDLE BRANCH BLOCK CANNOT RULE OUT ANTEROSEPTAL INFARCT , AGE UNDETERMINED ABNORMAL ECG WHEN COMPARED WITH ECG OF 10-MAR-2017 08:54, ATRIAL FIBRILLATION HAS REPLACED SINUS RHYTHM VENT. RATE HAS INCREASED BY 54 BPM INCOMPLETE RIGHT BUNDLE BRANCH BLOCK IS NOW PRESENT MINIMAL CRITERIA FOR ANTEROSEPTAL INFARCT ARE NOW PRESENT Confirmed by SHINE VALDOVINOS MD ([id number]) on 04/19/2019 2:21:33 PM Referred By: Confirmed By:SHINE VALDOVINOS MD
--- NOTE | 2019-04-19 14:27 | HP ---
CHIEF COMPLAINT: shortness of breath PCP:Dr. Lund HISTORY OF PRESENT ILLNESS: Patient is a 68 y/o female with a history of afib ( on eliquis), HFpEF, CHF, HTN , HLD, DM, nephrolithiasis, and RLE stent who presents for shortness of breath. Patient has been feeling short of breath since monday and it has been getting worse. She saw her car dispatcher on Monday who told her that her heart was beating fast and she should come to the Emergency room. She did not feel like it at the time. He increased her metoprolol from 50 to 100. Patients came to the ED today and was found to be in afib with RVR. She wasdiagnosed with afib "two farrell ago". Patient reports she is compliant with her medications. She only sometimes skips her pm lasix but has been taking it recently. She denies any dysuria, hematuria, coughing, fever, chills, or palpitations. No recent sick contacts. ER course was notable for: (1) (2) (3) Recent Travel: PAST MEDICAL HISTORY: afib ( on eliquis), HFpEF, CHF, HTN, HLD, DM, nephrolithiasis, and RLE stent PAST SURGICAL HISTORY: C section, cholecystectom, R LE stent Social History: Smoking: quit 4 years ago, used to smoke pack a day Alcohol: occasionally Drugs: denies Allergies No Known Drug Allergies Allergy (Verified 04/19/19 08:38) HOME MEDICATIONS: Home Medications Medication Instructions Recorded Quinapril HCl [Accupril -] 10 mg PO DAILY 11/25/15 Simvastatin [Zocor -] 20 mg PO HS 11/25/15 Glimepiride [Amaryl] 4 mg PO BIDAC 12/17/16 metFORMIN HCL [Glucophage -] 1,000 mg PO BIDAC 12/17/16 Apixaban [Eliquis -] 5 mg PO BID #60 tablet 03/16/17 Dulaglutide [Trulicity] 1.5 mg SQ Q7D 01/07/19 Metoprolol Succinate [Toprol XL -] 100 mg PO DAILY 01/07/19 Gabapentin [Neurontin] 100 mg PO HS 02/20/19 Furosemide [Lasix -] 40 mg PO DAILY 04/19/19 REVIEW OF SYSTEMS CONSTITUTIONAL: Absent: fever, chills, diaphoresis, generalized weakness, malaise, loss of appetite, weight change HEENT: Absent: rhinorrhea, nasal congestion, throat pain, throat swelling, difficulty swallowing, mouth swelling, ear pain, eye pain, visual changes CARDIOVASCULAR: Absent: chest pain, syncope, palpitations, irregular heart rate, lightheadedness , peripheral edema RESPIRATORY: shortness of breath, Absent: cough, dyspnea with exertion, orthopnea, wheezing, stridor, hemoptysis GASTROINTESTINAL: Absent: abdominal pain, abdominal distension, nausea, vomiting, diarrhea, constipation, melena, hematochezia GENITOURINARY: Absent: dysuria, frequency, urgency, hesitancy, hematuria, flank pain, genital pain MUSCULOSKELETAL: Absent: myalgia, arthralgia, joint swelling, back pain, neck pain SKIN: Absent: rash, itching, pallor HEMATOLOGIC/IMMUNOLOGIC: Absent: easy bleeding, easy bruising, lymphadenopathy, frequent infections ENDOCRINE: Absent: unexplained weight gain, unexplained weight loss, heat intolerance, cold intolerance NEUROLOGIC: Absent: headache, focal weakness or paresthesias, dizziness, unsteady gait, seizure, mental status changes, bladder or bowel incontinence PSYCHIATRIC: Absent: anxiety, depression, suicidal or homicidal ideation, hallucinations. PHYSICAL EXAMINATION Vital Signs Temperature 97.8 F 04/19/19 10:32 Pulse Rate 150 H 04/19/19 08:24 Respiratory Rate 14 04/19/19 10:32 Blood Pressure 105/66 04/19/19 11:09 O2 Sat by Pulse Oximetry (%) 98 04/19/19 10:32 GENERAL: Awake, alert, and fully oriented, in no acute distress. HEAD: Normal with no signs of trauma. EYES: Pupils equal, round and reactive to light, extraocular movements intact, EARS, NOSE, THROAT: Moist mucous membranes. LUNGS: Breath sounds equal, clear to auscultation bilaterally. No wheezes, and no crackles. No accessory muscle use. HEART: irregularly irregular, no murmurs heard ABDOMEN: Soft, nontender, not distended, normoactive bowel sounds, no guarding, no rebound, no masses. . MUSCULOSKELETAL: Normal range of motion at all joints. . LOWER EXTREMITIES: 2+ pulses, warm, well-perfused. No calf tenderness.1+ pitting edema SKIN: Warm, dry, normal turgor, no rashes or lesions noted, normal capillary refill. CBC, BMP 10/11/19 10:00 04/19/19 10:00 ASSESSMENT/PLAN: Patient is a 68 y/o female with a history of afib ( on eliquis), HFpEF, CHF, HTN , HLD, DM, nephrolithiasis, and RLE stent who presents for afib with RVR. #afib with RVR - unknown source, patient has no recent illness, compliant with medications - f/u car dispatcher Dr. Rosen - cardizem 120 po daily, diltiazem 5mg q4 prn tachycardia - monitor patient on tele - tsh 2.52 - continue patient on elliquis #HFpEF - 2016 Echo: LV normal, LV systolic fxn mildly reduced, EF 47.1 - f/u repeat echo - lasix 40 po bid #HTN - continue GERRY 10 mg daily #HLD - continue simvastatin daily #DM - BGM ACHs - continue SS - paient would benefit from diabetic education - gabapentin to be given hs #DVT ppx - patient on elliquis FEN - daibetic/sodium diet Dispo: monitor on tele Visit type - Emergency Visit Emergency Visit: Yes ED Registration Date: 04/19/19 Care time: The patient presented to the Emergency Department on the above date and was hospitalized for further evaluation of their emergent condition. - New Patient This patient is new to me today: Yes Date on this admission: 04/22/19 - Critical Care Critical Care patient: No ATTENDING PHYSICIAN STATEMENT I saw and evaluated the patient. I reviewed the resident's note and discussed the case with the resident. I agree with the resident's findings and plan as documented. SUBJECTIVE: OBJECTIVE: ASSESSMENT AND PLAN:
--- NOTE | 2019-04-19 16:05 | ECHO ---
Name: CELSA OJEDA Exam:Adult Echocardiogram Study Date: 04/19/2019 03:25 PM Age: 68 yrs Reason For Study: ATRIAL FIBRILLATION Height: 60 in Weight: 170 lb BSA: 1.7 m2 MMode/2D Measurements & Calculations IVSd: 0.88 cm Ao root diam: 3.2 cm LVIDd: 4.4 cm LA dimension: 4.7 cm LVIDs: 3.2 cm LVPWd: 0.87 cm EDV(Teich): 87.3 ml LVOT diam: 2.0 cm ESV(Teich): 39.8 ml LAV (MOD-bp): 108.0 ml Doppler Measurements & Calculations MV E max wei: 128.8 cm/sec Ao V2 max: 109.4 cm/sec MV A max wei: 36.2 cm/sec Ao max P.8 mmHg MV E/A: 3.6 MV dec time: 0.19 sec HANNAH(V,D): 2.3 cm2 LV V1 max P.7 mmHg MR max wei: 425.6 cm/sec LV V1 max: 81.4 cm/sec MR max P.6 mmHg TR max wei: 208.9 cm/sec Med Peak E' Wei: 6.8 cm/sec TR max P.5 mmHg Med E/e': 18.9 Lat Peak E' Wei: 6.4 cm/sec Lat E/e': 20.0 Left Ventricle Left ventricular systolic function is grossly normal. Ejection Fraction = 50-55%. Right Ventricle The right ventricle is mildly dilated. The right ventricular systolic function is mildly reduced. Atria The left atrium is moderately dilated. Mitral Valve There is mild to moderate mitral annular calcification. There is mild to moderate mitral valve thicke shruthi. There is no mitral valve stenosis. There is mild to moderate mitral regurgitation. Tricuspid Valve The tricuspid valve is not well visualized, but is grossly normal. There is mild tricuspid regurgitat ion. Dilated IVC suggestive of elevated right sided pressures. Aortic Valve There is mild aortic sclerosis.;. No hemodynamically significant valvular aortic stenosis. No aortic regurgitation is present. Pulmonic Valve The pulmonic valve is not well seen, but is grossly normal. There is no pulmonic valvular stenosis. T here is no pulmonic valvular regurgitation. Great Vessels The aortic root is normal size. Pericardium/Pleura There is no pericardial effusion. Interpretation Summary Left ventricular systolic function is grossly normal. Ejection Fraction = 50-55%. The right ventricle is mildly dilated. The right ventricular systolic function is mildly reduced. The left atrium is moderately dilated. There is mild to moderate mitral annular calcification. There is mild to moderate mitral valve thickening. There is mild to moderate mitral regurgitation. There is mild tricuspid regurgitation. Dilated IVC suggestive of elevated right sided pressures. There is mild aortic sclerosis.; There is no pericardial effusion. MD Ribera *Fito 04/19/2019 04:05 PM
[2019-04-19] MEDS ORDERED: dilTIAZem HCL 60 MG TABLET (FP) ONE (16:45)
--- NOTE | 2019-04-19 16:57 | CON.CARD ---
Cardiology Consult (text) - Consultation Consultation Note: Chief Complaint: sob History of Present Illness: 68 yo female hx pafib, htn, hld, dchf, pad s/p r rfa sent 02/2019 here with sob. Past few days with quiñones. No cp, palps, dizzy, loc, pnd, le edema. During office visit this week was in afib with rvr and bb dose increased. Sxs persisted so came to ER today. In ER found to be in afib with rvr still. PMH: paroxysmal afib HTN HPL + cigs hx - Past Medical History Cardio/Vascular: Yes: AFIB, HTN, Hyperlipdemia Renal/: Yes: Renal Calculi, UTI, Endocrine: Yes: Diabetes Mellitus - Alcohol/Substance Use Hx Alcohol Use: No History of Substance Use: reports: None - Smoking History ex tob - Social History ADL: Independent History of Recent Travel: No Home Medications - Allergies Allergies/Adverse Reactions: Allergies Allergy/AdvReac Type Severity Reaction Status Date / Time No Known Drug Allergies Allergy Verified 04/19/19 08:38 - Home Medications Home Medications Medication Instructions Recorded Quinapril HCl [Accupril -] 10 mg PO DAILY 11/25/15 Simvastatin [Zocor -] 20 mg PO HS 11/25/15 Glimepiride [Amaryl] 4 mg PO BIDAC 12/17/16 metFORMIN HCL [Glucophage -] 1,000 mg PO BIDAC 12/17/16 Apixaban [Eliquis -] 5 mg PO BID #60 tablet 03/16/17 Dulaglutide [Trulicity] 1.5 mg SQ Q7D 01/07/19 Metoprolol Succinate [Toprol XL -] 100 mg PO DAILY 01/07/19 Gabapentin [Neurontin] 100 mg PO HS 02/20/19 Furosemide [Lasix -] 40 mg PO DAILY 04/19/19 Family Disease History - Family Disease History Family Disease History: Diabetes: Sister Review of Systems - Review of Systems Eyes: denies: Eye Pain HENT: denies: Nasal Congestion Neck: denies: Stiffness Cardiovascular: denies: Palpitations Gastrointestinal: denies: Diarrhea, Rectal Bleeding Genitourinary: denies: Burning, Hematuria Musculoskeletal: denies: Muscle Pain Integumentary: denies: Rash Neurological: denies: Numbness, Seizure, Syncope Endocrine: denies: Excessive Sweating Hematology/Lymphatic: denies: Excessive Bleeding Vital Signs: Vital Signs Period Temp Pulse Resp BP Sys/Pitts Pulse Ox Last 24 Hr 97.4 F-97.8 F 140-150 14-20 92-115/63-78 93-100 Constitutional: Yes: Well Nourished, No Distress Eyes: No: Sclera Icterus HENT: No: Nasal Congestion Neck: No: Decreased ROM Respiratory: Yes: CTA Bilaterally. No: Accessory Muscle Use, Rales, Wheezes Gastrointestinal: Yes: Normal Bowel Sounds. No: Distention, Hepatomegaly, Palpable Mass, Tenderness Cardiovascular: Yes: irreg, tachy JVD: No Carotid Bruit: No Heart Sounds: Yes: S1, S2. No: Gallop Murmur: No: Systolic Murmur, Diastolic Murmur Extremities: No: Cold, Cyanosis Edema: no Peripheral Pulses: 2+ Left Carotid, 2+ Right Carotid, 2+ Left Doralis Pedis, 2+ Right Dorsalis Pedis Integumentary: No: Jaundice diaphoresis Neurological: Yes: Alert, Oriented (x3) Psychiatric: No: Agitated Laboratory Last Values WBC 7.9 K/mm3 (4.0-10.0) 04/19/19 10:00 RBC 4.22 M/mm3 (3.60-5.2) 04/19/19 10:00 Hgb 10.2 GM/dL (10.7-15.3) L 04/19/19 10:00 Hct 32.9 % (32.4-45.2) 04/19/19 10:00 MCV 78.1 fl (80-96) L 04/19/19 10:00 MCH 24.2 pg (25.7-33.7) L 04/19/19 10:00 MCHC 30.9 g/dl (32.0-36.0) L 04/19/19 10:00 RDW 16.3 % (11.6-15.6) H 04/19/19 10:00 Plt Count 283 K/MM3 (134-434) D 04/19/19 10:00 MPV 9.0 fl (7.5-11.1) 04/19/19 10:00 Absolute Neuts (auto) 5.8 K/mm3 (1.5-8.0) 04/19/19 10:00 Neutrophils % 74.0 % (42.8-82.8) D 04/19/19 10:00 Lymphocytes % 16.9 % (8-40) D 04/19/19 10:00 Monocytes % 7.1 % (3.8-10.2) 04/19/19 10:00 Eosinophils % 1.5 % (0-4.5) 04/19/19 10:00 Basophils % 0.5 % (0-2.0) 04/19/19 10:00 Nucleated RBC % 0 % (0-0) 04/19/19 10:00 PT with INR 19.40 SEC (9.7-13.0) H 04/19/19 10:00 INR 1.64 (0.83-1.09) H 04/19/19 10:00 PTT (Actin FS) 40.4 SECONDS (25.2-36.5) H 04/19/19 10:00 Sodium 142 mmol/L (136-145) 04/19/19 10:00 Potassium 4.1 mmol/L (3.5-5.1) 04/19/19 10:00 Chloride 104 mmol/L (98-107) 04/19/19 10:00 Carbon Dioxide 29 mmol/L (21-32) 04/19/19 10:00 Anion Gap 8 MMOL/L (8-16) 04/19/19 10:00 BUN 31.5 mg/dL (7-18) H 04/19/19 10:00 Creatinine 1.0 mg/dL (0.55-1.3) 04/19/19 10:00 Est GFR (CKD-EPI)AfAm 67.04 04/19/19 10:00 Est GFR (CKD-EPI)NonAf 57.84 04/19/19 10:00 Random Glucose 200 mg/dL (74-106) H 04/19/19 10:00 Calcium 9.0 mg/dL (8.5-10.1) 04/19/19 10:00 Phosphorus 3.9 mg/dL (2.5-4.9) 04/19/19 10:00 Total Bilirubin 0.4 mg/dL (0.2-1) 04/19/19 10:00 AST 25 U/L (15-37) 04/19/19 10:00 ALT 39 U/L (13-61) 04/19/19 10:00 Alkaline Phosphatase 81 U/L (45-117) 04/19/19 10:00 Creatine Kinase 47 U/L (26-192) 04/19/19 10:00 Troponin I < 0.02 ng/ml (0.00-0.05) 04/19/19 10:00 B-Natriuretic Peptide 2406.9 pg/ml (5-125) H 04/19/19 10:00 Total Protein 7.5 g/dl (6.4-8.2) 04/19/19 10:00 Albumin 3.5 g/dl (3.4-5.0) 04/19/19 10:00 TSH 2.52 uIU/ml (0.358-3.74) 04/19/19 10:00 ecg: afib, with rvr, old irbbb, no ischemic changes tele: afib, vr 120s echo 11/2015: mild dec lvef, global hk, nl rv, mild mr echo 11/2016: mild dec lvef, global hk, nl rv, mild- mod mr, mild lae. small effusion < 1cm echo 08/2018: mild lvh, nl lvef, nl rv, mild mr cxr: clear lungs a/p: 68 yo female hx pafib, htn, hld, dchf, pad s/p r rfa sent 02/2019 here with sob. sob, paroxysmal AFib -as outpt have tried toprol 100 bid but still with rvr now. will dc toprol and change to dilt 120 qd, monitor on tele, titrate up as needed. -no signs acs or chf -cont eliquis chronic diast chf: -stable vol status here -cont home lasix htn: -cont current meds hld: -cont home statin pad s/p recent le stenting: -cont statin, bp control, ac
[2019-04-19] MEDS: INSULIN SLIDING SCALE (NOVOLOG) 1 VIAL SQ SCH ×2 (17:13→21:37)
--- NOTE | 2019-04-19 18:19 | PN ---
Teaching Attending Note Name of Resident: Amirah Spring ATTENDING PHYSICIAN STATEMENT I saw and evaluated the patient. I reviewed the resident's note and discussed the case with the resident. I agree with the resident's findings and plan as documented. SUBJECTIVE: Patient is a 68 y/o female with a PMHx of afib ( on eliquis), HFpEF, CHF, HTN, HLD, DM, nephrolithiasis, and RLE stent who presents for shortness of breath, started on Monday . denies any chest pain or palpitations, but c/o having shortness of breath. OBJECTIVE: Vital Signs Temperature 97.8 F 04/19/19 10:32 Pulse Rate 137 H 04/19/19 17:22 Respiratory Rate 18 04/19/19 17:13 Blood Pressure 116/85 04/19/19 17:13 O2 Sat by Pulse Oximetry (%) 95 04/19/19 17:13 GENERAL: The patient is awake, alert, and fully oriented, in no acute distress. HEAD: Normal with no signs of trauma. EYES: PERRL, extraocular movements intact, sclera anicteric, conjunctiva clear. ENT: Ears normal, oropharynx clear without exudates, moist mucous membranes. NECK: Trachea midline, full range of motion, supple. LUNGS: Breath sounds equal, clear to auscultation bilaterally, no wheezes, no crackles, no accessory muscle use. HEART: Irregularly-Irregular rate of 130's, S1, S2 without murmur, rub or gallop. ABDOMEN: Soft, nontender, nondistended, normoactive bowel sounds, no guarding, no rebound, no hepatosplenomegaly, no masses. EXTREMITIES: 2+ pulses, warm, well-perfused, no edema. NEUROLOGICAL: Cranial nerves II through XII grossly intact. Normal speech, gait is stable PSYCH: Normal mood, normal affect. SKIN: Warm, dry, normal turgor, no rashes or lesions noted CBCD WBC 7.9 K/mm3 (4.0-10.0) 04/19/19 10:00 RBC 4.22 M/mm3 (3.60-5.2) 04/19/19 10:00 Hgb 10.2 GM/dL (10.7-15.3) L 04/19/19 10:00 Hct 32.9 % (32.4-45.2) 04/19/19 10:00 MCV 78.1 fl (80-96) L 04/19/19 10:00 MCHC 30.9 g/dl (32.0-36.0) L 04/19/19 10:00 RDW 16.3 % (11.6-15.6) H 04/19/19 10:00 Plt Count 283 K/MM3 (134-434) D 04/19/19 10:00 MPV 9.0 fl (7.5-11.1) 04/19/19 10:00 CMP Sodium 142 mmol/L (136-145) 04/19/19 10:00 Potassium 4.1 mmol/L (3.5-5.1) 04/19/19 10:00 Chloride 104 mmol/L (98-107) 04/19/19 10:00 Carbon Dioxide 29 mmol/L (21-32) 04/19/19 10:00 Anion Gap 8 MMOL/L (8-16) 04/19/19 10:00 BUN 31.5 mg/dL (7-18) H 04/19/19 10:00 Creatinine 1.0 mg/dL (0.55-1.3) 04/19/19 10:00 Random Glucose 200 mg/dL (74-106) H 04/19/19 10:00 Calcium 9.0 mg/dL (8.5-10.1) 04/19/19 10:00 Total Bilirubin 0.4 mg/dL (0.2-1) 04/19/19 10:00 AST 25 U/L (15-37) 04/19/19 10:00 ALT 39 U/L (13-61) 04/19/19 10:00 Alkaline Phosphatase 81 U/L (45-117) 04/19/19 10:00 Total Protein 7.5 g/dl (6.4-8.2) 04/19/19 10:00 Albumin 3.5 g/dl (3.4-5.0) 04/19/19 10:00 CARDIAC ENZYMES Creatine Kinase 47 U/L (26-192) 04/19/19 10:00 Troponin I < 0.02 ng/ml (0.00-0.05) 04/19/19 10:00 Current Medications Generic Name Dose Route Start Last Admin Trade Name Freq PRN Reason Stop Dose Admin Apixaban 5 mg 04/19/19 22:00 Eliquis - PO BID [facility] Atorvastatin Calcium 10 mg 04/19/19 22:00 Lipitor - PO HS [facility] Diltiazem HCl 120 mg 04/19/19 15:00 04/19/19 17:00 Cardizem Cd - PO 120 mg DAILY [facility] Administration Diltiazem HCl 5 mg 04/19/19 14:59 Cardizem Injection - IVPUSH Q4H PRN TACHYCARDIA Furosemide 40 mg 04/20/19 10:00 Lasix - PO DAILY [facility] Gabapentin 100 mg 04/19/19 22:00 Neurontin - PO HS [facility] Insulin Aspart 1 vial 04/19/19 16:30 04/19/19 17:13 Novolog Vial Sliding Scale - SQ Not Given ACHS [facility] Protocol Quinapril HCl 10 mg 04/20/19 10:00 Accupril - PO DAILY [facility] Home Medications Medication Instructions Recorded Quinapril HCl [Accupril -] 10 mg PO DAILY 11/25/15 Simvastatin [Zocor -] 20 mg PO HS 11/25/15 Glimepiride [Amaryl] 4 mg PO BIDAC 12/17/16 metFORMIN HCL [Glucophage -] 1,000 mg PO BIDAC 12/17/16 Apixaban [Eliquis -] 5 mg PO BID #60 tablet 03/16/17 Dulaglutide [Trulicity] 1.5 mg SQ Q7D 01/07/19 Metoprolol Succinate [Toprol XL -] 100 mg PO DAILY 01/07/19 Gabapentin [Neurontin] 100 mg PO HS 02/20/19 Furosemide [Lasix -] 40 mg PO DAILY 04/19/192016 Echo: LV normal, LV systolic fxn mildly reduced, EF 47.1, f/u repeat echo echo 08/2018: mild lvh, nl lvef, nl rv, mild mr CXR: no acute pathology ASSESSMENT AND PLAN: Patient is a 68 y/o female with a history of afib ( on eliquis), HFpEF, CHF, HTN , HLD, DM, nephrolithiasis, and RLE stent who presents for afib with RVR. #Afib with RVR on Elliquis continue , cardizem IV 5mg every 4 hrs for HR above 110 . toprol XL 100mg daily #HFpEF: On Lasix po continue home meds. #HTN : continue GERRY 10 mg daily #HLD: continue simvastatin daily, will substitute with lipitor #DM: SS with coverage , diabetic diet # Hx of RLE stent on Eliquis continue DVT ppx: elliquis
[2019-04-19] MEDS: APIXABAN 5 MG TABLET PO SCH (21:37)
[2019-04-19] MEDS: ATORVASTATIN CA 10 MG TABLET (FP) PO SCH (21:37)
[2019-04-19] MEDS: GABAPENTIN 100 MG CAPSULE (FP) PO SCH (21:39)
[2019-04-19] MEDS ORDERED: PATIENT'S OWN MEDICATION (NON-FORMULARY) (Simvastatin 20 MG) PO SCH (22:00)
[2019-04-20 00:41] VITALS: BMI 34.7
[2019-04-20] MEDS: INSULIN SLIDING SCALE (NOVOLOG) 1 VIAL SQ SCH ×4 (06:13→22:16)
[2019-04-20 06:43] LABS: HEMATOCRIT 29.5 % (32.4-45.2); HEMOGLOBIN 9.3 GM/dL (10.7-15.3); MCH 24.6 pg (25.7-33.7); MCHC 31.6 g/dl (32.0-36.0); MEAN CELL VOLUME 77.9 fl (80-96); MEAN PLT VOLUME 8.4 fl (7.5-11.1); PLATELET COUNT 241 K/MM3 (134-434); RBC 3.79 M/mm3 (3.60-5.2); RDW 16.4 % (11.6-15.6); WHITE BLOOD COUNT 6.5 K/mm3 (4.0-10.0)
[2019-04-20 07:01] LABS: ALBUMIN 3.2 g/dl (3.4-5.0); BILIRUBIN,TOTAL 0.4 mg/dL (0.2-1); BLOOD UREA NITROGEN 36.5 mg/dL (7-18); CALCIUM 8.7 mg/dL (8.5-10.1); CREATININE 0.9 mg/dL (0.55-1.3); PHOSPHOROUS 4.6 mg/dL (2.5-4.9); POTASSIUM 3.8 mmol/L (3.5-5.1); TOT PROT 6.6 g/dl (6.4-8.2)
[2019-04-20] MEDS: APIXABAN 5 MG TABLET PO SCH ×3 (08:24→22:16)
--- NOTE | 2019-04-20 08:24 | PN ---
Progress Note (short form) - Note Progress Note: Patient is feeling better, HR is improving . Vital Signs Temperature 97.2 F L 04/20/19 06:00 Pulse Rate 109 H 04/20/19 06:00 Respiratory Rate 24 H 04/20/19 06:00 Blood Pressure 122/62 04/20/19 06:00 O2 Sat by Pulse Oximetry (%) 98 04/19/19 20:00 GENERAL: The patient is awake, alert, and fully oriented, in no acute distress. HEAD: Normal with no signs of trauma. EYES: PERRL, extraocular movements intact, sclera anicteric, conjunctiva clear. ENT: Ears normal, oropharynx clear without exudates, moist mucous membranes. NECK: Trachea midline, full range of motion, supple. LUNGS: Breath sounds equal, clear to auscultation bilaterally, no wheezes, no crackles, no accessory muscle use. HEART: Irregularly-Irregular rate of 110's, S1, S2 without murmur, rub or gallop. ABDOMEN: Soft, nontender, nondistended, normoactive bowel sounds, no guarding, no rebound, no hepatosplenomegaly, no masses. EXTREMITIES: 2+ pulses, warm, well-perfused, no edema. NEUROLOGICAL: Cranial nerves II through XII grossly intact. Normal speech, gait is stable PSYCH: Normal mood, normal affect. SKIN: Warm, dry, normal turgor, no rashes or lesions notedBCD WBC 6.5 K/mm3 (4.0-10.0) 04/20/19 06:05 RBC 3.79 M/mm3 (3.60-5.2) 04/20/19 06:05 Hgb 9.3 GM/dL (10.7-15.3) L 04/20/19 06:05 Hct 29.5 % (32.4-45.2) L 04/20/19 06:05 MCV 77.9 fl (80-96) L 04/20/19 06:05 MCHC 31.6 g/dl (32.0-36.0) L 04/20/19 06:05 RDW 16.4 % (11.6-15.6) H 04/20/19 06:05 Plt Count 241 K/MM3 (134-434) 04/20/19 06:05 MPV 8.4 fl (7.5-11.1) 04/20/19 06:05 CMP Sodium 144 mmol/L (136-145) 04/20/19 06:00 Potassium 3.8 mmol/L (3.5-5.1) 04/20/19 06:00 Chloride 106 mmol/L (98-107) 04/20/19 06:00 Carbon Dioxide 33 mmol/L (21-32) H 04/20/19 06:00 Anion Gap 5 MMOL/L (8-16) L 04/20/19 06:00 BUN 36.5 mg/dL (7-18) H 04/20/19 06:00 Creatinine 0.9 mg/dL (0.55-1.3) 04/20/19 06:00 Random Glucose 90 mg/dL (74-106) 04/20/19 06:00 Calcium 8.7 mg/dL (8.5-10.1) 04/20/19 06:00 Total Bilirubin 0.4 mg/dL (0.2-1) 04/20/19 06:00 AST 22 U/L (15-37) 04/20/19 06:00 ALT 32 U/L (13-61) 04/20/19 06:00 Alkaline Phosphatase 71 U/L (45-117) 04/20/19 06:00 Total Protein 6.6 g/dl (6.4-8.2) 04/20/19 06:00 Albumin 3.2 g/dl (3.4-5.0) L 04/20/19 06:00 CARDIAC ENZYMES Creatine Kinase 47 U/L (26-192) 04/19/19 10:00 Troponin I < 0.02 ng/ml (0.00-0.05) 04/19/19 10:00 Current Medications Generic Name Dose Route Start Last Admin Trade Name Freq PRN Reason Stop Dose Admin Apixaban 5 mg 04/19/19 22:00 04/19/19 21:37 Eliquis - PO 5 mg BID [facility] Administration Atorvastatin Calcium 10 mg 04/19/19 22:00 04/19/19 21:37 Lipitor - PO 10 mg HS [facility] Administration Diltiazem HCl 120 mg 04/19/19 15:00 04/19/19 17:00 Cardizem Cd - PO 120 mg DAILY [facility] Administration Diltiazem HCl 5 mg 04/19/19 14:59 Cardizem Injection - IVPUSH Q4H PRN TACHYCARDIA Furosemide 40 mg 04/20/19 10:00 Lasix - PO DAILY [facility] Gabapentin 100 mg 04/19/19 22:00 04/19/19 21:39 Neurontin - PO Not Given HS [facility] Insulin Aspart 1 vial 04/19/19 16:30 04/20/19 06:13 Novolog Vial Sliding Scale - SQ Not Given ACHS [facility] Protocol Quinapril HCl 10 mg 04/20/19 10:00 Accupril - PO DAILY [facility] Home Medications Medication Instructions Recorded Quinapril HCl [Accupril -] 10 mg PO DAILY 11/25/15 Simvastatin [Zocor -] 20 mg PO HS 11/25/15 Glimepiride [Amaryl] 4 mg PO BIDAC 12/17/16 metFORMIN HCL [Glucophage -] 1,000 mg PO BIDAC 12/17/16 Apixaban [Eliquis -] 5 mg PO BID #60 tablet 03/16/17 Dulaglutide [Trulicity] 1.5 mg SQ Q7D 01/07/19 Metoprolol Succinate [Toprol XL -] 100 mg PO DAILY 01/07/19 Gabapentin [Neurontin] 100 mg PO HS 02/20/19 Furosemide [Lasix -] 40 mg PO BID 04/19/192016 Echo: LV normal, LV systolic fxn mildly reduced, EF 47.1, f/u repeat echo echo 08/2018: mild lvh, nl lvef, nl rv, mild mr CXR: no acute pathology ASSESSMENT AND PLAN: Patient is a 68 y/o female with a history of afib ( on eliquis), HFpEF, CHF, HTN , HLD, DM, nephrolithiasis, and RLE stent who presents for afib with RVR. #Afib with RVR ,improving the , on Elliquis continue , cardizem IV 5mg every 4 hrs for HR above 110 .added toprol XL 50mg today , will monitor , might increase to 100mg if BP allows. patient is on 100mg at home. #HFpEF: On Lasix po continue home meds. #HTN : continue GERRY 10 mg daily #HLD: continue simvastatin daily, will substitute with lipitor #DM: SS with coverage , diabetic diet # Hx of RLE stent on Eliquis continue DVT ppx: elliquis Visit type - Emergency Visit Emergency Visit: Yes ED Registration Date: 04/19/19 Care time: The patient presented to the Emergency Department on the above date and was hospitalized for further evaluation of their emergent condition. - New Patient This patient is new to me today: No - Critical Care Critical Care patient: No - Discharge Referral Referred to [facility] No
[2019-04-20] MEDS: QUINAPRIL HCL 10 MG TABLET (FP) PO SCH ×2 (08:25→10:34)
[2019-04-20] MEDS: FUROSEMIDE 40 MG TABLET (FP) PO SCH ×2 (08:25→10:35)
--- NOTE | 2019-04-20 13:22 | PN ---
Progress Note (short form) - Note Progress Note: s: short of breath improving. no chest pain, palps, dizziness, edema Current Medications Apixaban (Eliquis -) 5 mg PO BID [facility] Last Admin: 04/20/19 10:34 Dose: Not Given Atorvastatin Calcium (Lipitor -) 10 mg PO HS [facility] Last Admin: 04/19/19 21:37 Dose: 10 mg Diltiazem HCl (Cardizem Cd -) 120 mg PO DAILY [facility] Last Admin: 04/20/19 10:34 Dose: Not Given Diltiazem HCl (Cardizem Injection -) 5 mg IVPUSH Q4H PRN PRN Reason: TACHYCARDIA Furosemide (Lasix -) 40 mg PO DAILY [facility] Last Admin: 04/20/19 10:35 Dose: Not Given Gabapentin (Neurontin -) 100 mg PO HS [facility] Last Admin: 04/19/19 21:39 Dose: Not Given Insulin Aspart (Novolog Vial Sliding Scale -) 1 vial SQ [facility]; Protocol Last Admin: 04/20/19 12:26 Dose: 2 units Metoprolol Succinate (Toprol Xl -) 50 mg PO DAILY [facility] Last Admin: 04/20/19 10:39 Dose: 50 mg Quinapril HCl (Accupril -) 10 mg PO DAILY [facility] Last Admin: 04/20/19 10:34 Dose: Not Given Vital Signs Period Temp Pulse Resp BP Sys/Pitts Pulse Ox Last 24 Hr 96.3 F-98.0 F 80-140 18-24 90-136/50-85 95-100 Constitutional: Yes: Well Nourished, No Distress Eyes: No: Sclera Icterus HENT: No: Nasal Congestion Neck: No: Decreased ROM Respiratory: Yes: CTA Bilaterally. No: Accessory Muscle Use, Rales, Wheezes Gastrointestinal: Yes: Normal Bowel Sounds. No: Distention, Hepatomegaly, Palpable Mass, Tenderness Cardiovascular: Yes: irreg, tachy JVD: No Carotid Bruit: No Heart Sounds: Yes: S1, S2. No: Gallop Murmur: No: Systolic Murmur, Diastolic Murmur Extremities: No: Cold, Cyanosis Edema: no Peripheral Pulses: 2+ Left Carotid, 2+ Right Carotid, 2+ Left Doralis Pedis, 2+ Right Dorsalis Pedis Integumentary: No: Jaundice diaphoresis Neurological: Yes: Alert, Oriented (x3) Psychiatric: No: Agitated ecg: afib, with rvr, old irbbb, no ischemic changes tele: afib 110s-120s, occasional 140s echo 11/2015: mild dec lvef, global hk, nl rv, mild mr echo 11/2016: mild dec lvef, global hk, nl rv, mild- mod mr, mild lae. small effusion < 1cm echo 08/2018: mild lvh, nl lvef, nl rv, mild mr cxr: clear lungs a/p: 68 yo female hx pafib, htn, hld, dchf, pad s/p r rfa sent 02/2019 here with sob. sob, paroxysmal AFib -as outpt have tried toprol 100 bid but still with rvr now. - toprol was dc'ed and diltiazem 120 mg daily was started - early this AM episodes of RVR - metoprolol succinate given - rate remains high on tele, will dc toprol for tomorrow as rate was not controlled and increase diltiazem to 240 mg daily -no signs acs or chf -cont eliquis chronic diast chf: -stable vol status here -cont home lasix htn: -cont current meds hld: -cont home statin pad s/p recent le stenting: -cont statin, bp control, ac
[2019-04-20] MEDS: dilTIAZem HCL 50 MG/10 ML - 10 ML VIAL IVPUSH PRN (18:04)
[2019-04-20] MEDS: GABAPENTIN 100 MG CAPSULE (FP) PO SCH (22:16)
[2019-04-20] MEDS: ATORVASTATIN CA 10 MG TABLET (FP) PO SCH (22:16)
[2019-04-21] MEDS: dilTIAZem HCL 50 MG/10 ML - 10 ML VIAL IVPUSH PRN (05:07)
[2019-04-21] MEDS: INSULIN SLIDING SCALE (NOVOLOG) 1 VIAL SQ SCH ×4 (08:07→21:11)
[2019-04-21] MEDS: FUROSEMIDE 40 MG TABLET (FP) PO SCH (09:27)
[2019-04-21] MEDS: QUINAPRIL HCL 10 MG TABLET (FP) PO SCH (09:27)
[2019-04-21] MEDS: APIXABAN 5 MG TABLET PO SCH ×2 (09:27→21:10)
--- NOTE | 2019-04-21 09:58 | PN ---
Progress Note (short form) - Note Progress Note: Patient is comfortable with no acute distress. COMFORTABLE. Vital Signs - 24 hr 04/20/19 04/20/19 04/20/19 10:00 14:00 17:00 Temperature 98.0 F 97.9 F Pulse Rate 138 H 113 H 120 H Respiratory 24 H 20 20 Rate Blood Pressure 124/77 109/55 L 111/65 O2 Sat by Pulse 95 Oximetry (%) 04/20/19 04/21/19 04/21/19 21:00 02:00 06:00 Temperature 98.2 F 97.6 F 97.6 F Pulse Rate 119 H 119 H 134 H Respiratory 20 18 24 H Rate Blood Pressure 130/82 130/61 122/67 O2 Sat by Pulse 93 L Oximetry (%) GENERAL: The patient is awake, alert, and fully oriented, in no acute distress. HEAD: Normal with no signs of trauma. EYES: PERRL, extraocular movements intact, sclera anicteric, conjunctiva clear. ENT: Ears normal, oropharynx clear without exudates, moist mucous membranes. NECK: Trachea midline, full range of motion, supple. LUNGS: DECREASED Breath sounds bl, clear to auscultation bilaterally, no wheezes, no crackles, no accessory muscle use. HEART: Irregularly-Irregular rate of 130's, S1, S2 without murmur, rub or gallop. ABDOMEN: Soft, nontender, nondistended, normoactive bowel sounds, no guarding, no rebound, no hepatosplenomegaly, no masses. EXTREMITIES: 2+ pulses, warm, well-perfused, no edema. NEUROLOGICAL: Cranial nerves II through XII grossly intact. Normal speech, gait is stable PSYCH: Normal mood, normal affect. SKIN: Warm, dry, normal turgor, no rashes or lesions noted CBCD WBC 6.5 K/mm3 (4.0-10.0) 04/20/19 06:05 RBC 3.79 M/mm3 (3.60-5.2) 04/20/19 06:05 Hgb 9.3 GM/dL (10.7-15.3) L 04/20/19 06:05 Hct 29.5 % (32.4-45.2) L 04/20/19 06:05 MCV 77.9 fl (80-96) L 04/20/19 06:05 MCHC 31.6 g/dl (32.0-36.0) L 04/20/19 06:05 RDW 16.4 % (11.6-15.6) H 04/20/19 06:05 Plt Count 241 K/MM3 (134-434) 04/20/19 06:05 MPV 8.4 fl (7.5-11.1) 04/20/19 06:05 CMP Sodium 144 mmol/L (136-145) 04/20/19 06:00 Potassium 3.8 mmol/L (3.5-5.1) 04/20/19 06:00 Chloride 106 mmol/L (98-107) 04/20/19 06:00 Carbon Dioxide 33 mmol/L (21-32) H 04/20/19 06:00 Anion Gap 5 MMOL/L (8-16) L 04/20/19 06:00 BUN 36.5 mg/dL (7-18) H 04/20/19 06:00 Creatinine 0.9 mg/dL (0.55-1.3) 04/20/19 06:00 Random Glucose 90 mg/dL (74-106) 04/20/19 06:00 Calcium 8.7 mg/dL (8.5-10.1) 04/20/19 06:00 Total Bilirubin 0.4 mg/dL (0.2-1) 04/20/19 06:00 AST 22 U/L (15-37) 04/20/19 06:00 ALT 32 U/L (13-61) 04/20/19 06:00 Alkaline Phosphatase 71 U/L (45-117) 04/20/19 06:00 Total Protein 6.6 g/dl (6.4-8.2) 04/20/19 06:00 Albumin 3.2 g/dl (3.4-5.0) L 04/20/19 06:00 CARDIAC ENZYMES Creatine Kinase 47 U/L (26-192) 04/19/19 10:00 Troponin I < 0.02 ng/ml (0.00-0.05) 04/19/19 10:00 Current Medications Generic Name Dose Route Start Last Admin Trade Name Freq PRN Reason Stop Dose Admin Apixaban 5 mg 04/19/19 22:00 04/21/19 09:27 Eliquis - PO 5 mg BID [facility] Administration Atorvastatin Calcium 10 mg 04/19/19 22:00 04/20/19 22:16 Lipitor - PO 10 mg HS [facility] Administration Diltiazem HCl 5 mg 04/19/19 14:59 04/21/19 05:07 Cardizem Injection - IVPUSH 5 mg Q4H PRN Administration TACHYCARDIA Diltiazem HCl 240 mg 04/20/19 13:21 04/21/19 09:27 Cardizem Cd - PO 240 mg DAILY [facility] Administration Furosemide 40 mg 04/20/19 10:00 04/21/19 09:27 Lasix - PO 40 mg DAILY [facility] Administration Gabapentin 100 mg 04/19/19 22:00 04/20/19 22:16 Neurontin - PO 100 mg HS [facility] Administration Insulin Aspart 1 vial 04/19/19 16:30 04/21/19 08:07 Novolog Vial Sliding Scale - SQ Not Given ACHS [facility] Protocol Quinapril HCl 10 mg 04/20/19 10:00 04/21/19 09:27 Accupril - PO 10 mg DAILY [facility] Administration Home Medications Medication Instructions Recorded Quinapril HCl [Accupril -] 10 mg PO DAILY 11/25/15 Simvastatin [Zocor -] 20 mg PO HS 11/25/15 Glimepiride [Amaryl] 4 mg PO BIDAC 12/17/16 metFORMIN HCL [Glucophage -] 1,000 mg PO BIDAC 12/17/16 Apixaban [Eliquis -] 5 mg PO BID #60 tablet 03/16/17 Dulaglutide [Trulicity] 1.5 mg SQ Q7D 01/07/19 Metoprolol Succinate [Toprol XL -] 100 mg PO DAILY 01/07/19 Gabapentin [Neurontin] 100 mg PO HS 02/20/19 Furosemide [Lasix -] 40 mg PO BID 04/19/192016 Echo: LV normal, LV systolic fxn mildly reduced, EF 47.1, f/u repeat echo echo 08/2018: mild lvh, nl lvef, nl rv, mild mr CXR: no acute pathology ASSESSMENT AND PLAN: Patient is a 68 y/o female with a history of afib ( on eliquis), HFpEF, CHF, HTN , HLD, DM, nephrolithiasis, and RLE stent who presents for afib with RVR. #Afib with RVR: continue cardizem 240mg increased, continue Eliquis , cardizem IV 5mg every 4 hrs for HR above 110 .discontinued Toprol XL 50mg today.will continue to monitor. #HFpEF: On Lasix po 40mg po continue. #HTN : continue GERRY 10 mg daily #HLD: continue simvastatin daily, will substitute with lipitor #DM: SS with coverage , diabetic diet #Hx of RLE stent on Eliquis continue DVT ppx: elliquis Visit type - Emergency Visit Emergency Visit: Yes ED Registration Date: 04/19/19 Care time: The patient presented to the Emergency Department on the above date and was hospitalized for further evaluation of their emergent condition. - New Patient This patient is new to me today: No - Critical Care Critical Care patient: No - Discharge Referral Referred to [facility] Med P.C.: No
--- NOTE | 2019-04-21 13:21 | PN ---
Progress Note (short form) - Note Progress Note: s: dyspnea with walking to bathroom. no chest pain, palps, dizziness, edema Vital Signs Period Temp Pulse Resp BP Sys/Pitts Pulse Ox Last 24 Hr 96.3 F-98.0 F 80-140 18-24 90-136/50-85 95-100 Constitutional: Yes: Well Nourished, No Distress Eyes: No: Sclera Icterus HENT: No: Nasal Congestion Neck: No: Decreased ROM Respiratory: Yes: CTA Bilaterally. No: Accessory Muscle Use, Rales, Wheezes Gastrointestinal: Yes: Normal Bowel Sounds. No: Distention, Hepatomegaly, Palpable Mass, Tenderness Cardiovascular: Yes: irreg, tachy JVD: No Carotid Bruit: No Heart Sounds: Yes: S1, S2. No: Gallop Murmur: No: Systolic Murmur, Diastolic Murmur Extremities: No: Cold, Cyanosis Edema: no Peripheral Pulses: 2+ Left Carotid, 2+ Right Carotid, 2+ Left Doralis Pedis, 2+ Right Dorsalis Pedis Integumentary: No: Jaundice diaphoresis Neurological: Yes: Alert, Oriented (x3) Psychiatric: No: Agitated tele: afib 110s-120s, occasional 140s echo Current Medications Apixaban (Eliquis -) 5 mg PO BID [facility] Last Admin: 04/21/19 09:27 Dose: 5 mg Atorvastatin Calcium (Lipitor -) 10 mg PO HS [facility] Last Admin: 04/20/19 22:16 Dose: 10 mg Digoxin (Lanoxin -) 0.125 mg PO DAILY [facility] Diltiazem HCl (Cardizem Injection -) 5 mg IVPUSH Q4H PRN PRN Reason: TACHYCARDIA Last Admin: 04/21/19 05:07 Dose: 5 mg Diltiazem HCl (Cardizem Cd -) 240 mg PO DAILY [facility] Last Admin: 04/21/19 09:27 Dose: 240 mg Furosemide (Lasix -) 40 mg PO DAILY [facility] Last Admin: 04/21/19 09:27 Dose: 40 mg Gabapentin (Neurontin -) 100 mg PO HS [facility] Last Admin: 04/20/19 22:16 Dose: 100 mg Insulin Aspart (Novolog Vial Sliding Scale -) 1 vial SQ [facility]; Protocol Last Admin: 04/21/19 12:05 Dose: 6 units Quinapril HCl (Accupril -) 10 mg PO DAILY [facility] Last Admin: 04/21/19 09:27 Dose: 10 mg 11/2015: mild dec lvef, global hk, nl rv, mild mr echo 11/2016: mild dec lvef, global hk, nl rv, mild- mod mr, mild lae. small effusion < 1cm echo 08/2018: mild lvh, nl lvef, nl rv, mild mr cxr: clear lungs tele: afib 110s-120s, episodes RVR 140s-160s a/p: 68 yo female hx pafib, htn, hld, dchf, pad s/p r rfa sent 02/2019 here with sob. sob, paroxysmal AFib -as outpt have tried toprol 100 bid but still with rvr now. - toprol was dc'ed and diltiazem 120 mg daily was started, metoprolol 50 mg given here as well without improvement - cont diltiazem CD 240 mg daily - add digoxin -no signs acs or chf -cont eliquis - monitoring on tele chronic diast chf: -stable vol status here -cont home lasix htn: -cont current meds hld: -cont home statin pad s/p recent le stenting: -cont statin, bp control, ac
[2019-04-21] MEDS: DIGOXIN 0.125 MG TABLET (FP) PO SCH (14:21)
[2019-04-21] MEDS: ATORVASTATIN CA 10 MG TABLET (FP) PO SCH (21:10)
[2019-04-21] MEDS: GABAPENTIN 100 MG CAPSULE (FP) PO SCH (21:10)
[2019-04-22] MEDS: INSULIN SLIDING SCALE (NOVOLOG) 1 VIAL SQ SCH ×4 (06:01→22:19)
--- NOTE | 2019-04-22 07:50 | PN ---
Teaching Attending Note Name of Resident: Arlette Prince ATTENDING PHYSICIAN STATEMENT I saw and evaluated the patient. I reviewed the resident's note and discussed the case with the resident. I agree with the resident's findings and plan as documented. SUBJECTIVE: Patient denies having any palpitations, feeling better OBJECTIVE: Vital Signs Temperature 97.7 F 04/22/19 06:00 Pulse Rate 92 H 04/22/19 06:00 Respiratory Rate 18 04/22/19 06:00 Blood Pressure 113/57 L 04/22/19 06:00 O2 Sat by Pulse Oximetry (%) 97 04/21/19 21:00 GENERAL: The patient is awake, alert, and fully oriented, in no acute distress. HEAD: Normal with no signs of trauma. EYES: PERRL, extraocular movements intact, sclera anicteric, conjunctiva clear. ENT: Ears normal, oropharynx clear without exudates, moist mucous membranes. NECK: Trachea midline, full range of motion, supple. LUNGS: DECREASED Breath sounds bl, clear to auscultation bilaterally, no wheezes, no crackles, no accessory muscle use. HEART: Irregularly-Irregular rate controlled , S1, S2 without murmur, rub or gallop. ABDOMEN: Soft, nontender, nondistended, normoactive bowel sounds, no guarding, no rebound, no hepatosplenomegaly, no masses. EXTREMITIES: 2+ pulses, warm, well-perfused, no edema. NEUROLOGICAL: Cranial nerves II through XII grossly intact. Normal speech, gait is stable PSYCH: Normal mood, normal affect. SKIN: Warm, dry, normal turgor, no rashes or lesions notedCBCD WBC 6.5 K/mm3 (4.0-10.0) 04/20/19 06:05 RBC 3.79 M/mm3 (3.60-5.2) 04/20/19 06:05 Hgb 9.3 GM/dL (10.7-15.3) L 04/20/19 06:05 Hct 29.5 % (32.4-45.2) L 04/20/19 06:05 MCV 77.9 fl (80-96) L 04/20/19 06:05 MCHC 31.6 g/dl (32.0-36.0) L 04/20/19 06:05 RDW 16.4 % (11.6-15.6) H 04/20/19 06:05 Plt Count 241 K/MM3 (134-434) 04/20/19 06:05 MPV 8.4 fl (7.5-11.1) 04/20/19 06:05 CMP Sodium 144 mmol/L (136-145) 04/20/19 06:00 Potassium 3.8 mmol/L (3.5-5.1) 04/20/19 06:00 Chloride 106 mmol/L (98-107) 04/20/19 06:00 Carbon Dioxide 33 mmol/L (21-32) H 04/20/19 06:00 Anion Gap 5 MMOL/L (8-16) L 04/20/19 06:00 BUN 36.5 mg/dL (7-18) H 04/20/19 06:00 Creatinine 0.9 mg/dL (0.55-1.3) 04/20/19 06:00 Random Glucose 90 mg/dL (74-106) 04/20/19 06:00 Calcium 8.7 mg/dL (8.5-10.1) 04/20/19 06:00 Total Bilirubin 0.4 mg/dL (0.2-1) 04/20/19 06:00 AST 22 U/L (15-37) 04/20/19 06:00 ALT 32 U/L (13-61) 04/20/19 06:00 Alkaline Phosphatase 71 U/L (45-117) 04/20/19 06:00 Total Protein 6.6 g/dl (6.4-8.2) 04/20/19 06:00 Albumin 3.2 g/dl (3.4-5.0) L 04/20/19 06:00 CARDIAC ENZYMES Creatine Kinase 47 U/L (26-192) 04/19/19 10:00 Troponin I < 0.02 ng/ml (0.00-0.05) 04/19/19 10:00 Current Medications Generic Name Dose Route Start Last Admin Trade Name Freq PRN Reason Stop Dose Admin Apixaban 5 mg 04/19/19 22:00 04/21/19 21:10 Eliquis - PO 5 mg BID LEONEL Administration Atorvastatin Calcium 10 mg 04/19/19 22:00 04/21/19 21:10 Lipitor - PO 10 mg HS LEONEL Administration Digoxin 0.125 mg 04/21/19 13:30 04/21/19 14:21 Lanoxin - PO 0.125 mg DAILY LEONEL Administration Diltiazem HCl 5 mg 04/19/19 14:59 04/21/19 05:07 Cardizem Injection - IVPUSH 5 mg Q4H PRN Administration TACHYCARDIA Diltiazem HCl 240 mg 04/20/19 13:21 04/21/19 09:27 Cardizem Cd - PO 240 mg DAILY LEONEL Administration Furosemide 40 mg 04/20/19 10:00 04/21/19 09:27 Lasix - PO 40 mg DAILY LEONEL Administration Gabapentin 100 mg 04/19/19 22:00 04/21/19 21:10 Neurontin - PO 100 mg HS LEONEL Administration Insulin Aspart 1 vial 04/19/19 16:30 04/22/19 06:01 Novolog Vial Sliding Scale - SQ 2 units ACHS LEONEL Administration Protocol Quinapril HCl 10 mg 04/20/19 10:00 04/21/19 09:27 Accupril - PO 10 mg DAILY LEONEL Administration Home Medications Medication Instructions Recorded Quinapril HCl [Accupril -] 10 mg PO DAILY 11/25/15 Simvastatin [Zocor -] 20 mg PO HS 11/25/15 Glimepiride [Amaryl] 4 mg PO BIDAC 12/17/16 metFORMIN HCL [Glucophage -] 1,000 mg PO BIDAC 12/17/16 Apixaban [Eliquis -] 5 mg PO BID #60 tablet 03/16/17 Dulaglutide [Trulicity] 1.5 mg SQ Q7D 01/07/19 Metoprolol Succinate [Toprol XL -] 100 mg PO DAILY 01/07/19 Gabapentin [Neurontin] 100 mg PO HS 02/20/19 Furosemide [Lasix -] 40 mg PO BID 04/19/192016 Echo: LV normal, LV systolic fxn mildly reduced, EF 47.1, f/u repeat echo echo 08/2018: mild lvh, nl lvef, nl rv, mild mr CXR: no acute pathology ASSESSMENT AND PLAN: Patient is a 68 y/o female with a history of afib ( on eliquis), HFpEF, CHF, HTN , HLD, DM, nephrolithiasis, and RLE stent who presents for afib with RVR. #Afib with rate controlled : On cardizem 240mg increased from 120mg , continue Eliquis , cardizem IV 5mg every 4 hrs for HR above 110, prn.Off TOPROL XL . #HFpEF: On Lasix po 40mg, lisinopril continue. #HTN : continue GERRY 10 mg daily/cardizem #HLD: continue simvastatin daily, will substitute with lipitor #DM: SS with coverage , diabetic diet #Hx of RLE stent on Eliquis continue DVT ppx: elliquis possible discharge in am once rate is controlled
[2019-04-22 09:17] LABS: BASO % 0.5 % (0-2.0); EOS % 2.5 % (0-4.5); HEMATOCRIT 32.2 % (32.4-45.2); HEMOGLOBIN 9.8 GM/dL (10.7-15.3); LYMPH % 22.8 % (8-40); MCH 23.7 pg (25.7-33.7); MCHC 30.5 g/dl (32.0-36.0); MEAN CELL VOLUME 77.7 fl (80-96); MEAN PLT VOLUME 8.6 fl (7.5-11.1); MONO % 8.9 % (3.8-10.2); NEUT % 65.3 % (42.8-82.8); PLATELET COUNT 264 K/MM3 (134-434); RBC 4.14 M/mm3 (3.60-5.2); RDW 16.4 % (11.6-15.6); WHITE BLOOD COUNT 6.8 K/mm3 (4.0-10.0)
[2019-04-22] MEDS: FUROSEMIDE 40 MG TABLET (FP) PO SCH (09:46)
[2019-04-22] MEDS: QUINAPRIL HCL 10 MG TABLET (FP) PO SCH (09:46)
[2019-04-22] MEDS: DIGOXIN 0.125 MG TABLET (FP) PO SCH (09:46)
[2019-04-22] MEDS: APIXABAN 5 MG TABLET PO SCH ×2 (09:47→22:17)
[2019-04-22 09:48] LABS: BLOOD UREA NITROGEN 24.4 mg/dL (7-18); CALCIUM 8.8 mg/dL (8.5-10.1); CREATININE 0.7 mg/dL (0.55-1.3); POTASSIUM 4.4 mmol/L (3.5-5.1)
[2019-04-22] MEDS: dilTIAZem HCL 50 MG/10 ML - 10 ML VIAL IVPUSH PRN (11:20)
--- NOTE | 2019-04-22 11:30 | PN ---
Progress Note (short form) - Note Progress Note: s: orthopnea last night, quiñones still. no chest pain, palps, dizziness Current Medications Generic Name Dose Route Start Last Admin Trade Name Freq PRN Reason Stop Dose Admin Apixaban 5 mg 04/19/19 22:00 04/22/19 09:47 Eliquis - PO 5 mg BID LEONEL Administration Atorvastatin Calcium 10 mg 04/19/19 22:00 04/21/19 21:10 Lipitor - PO 10 mg HS LEONEL Administration Digoxin 0.125 mg 04/21/19 13:30 04/22/19 09:46 Lanoxin - PO 0.125 mg DAILY LEONEL Administration Diltiazem HCl 5 mg 04/19/19 14:59 04/21/19 05:07 Cardizem Injection - IVPUSH 5 mg Q4H PRN Administration TACHYCARDIA Diltiazem HCl 360 mg 04/22/19 11:26 Cardizem Cd - PO DAILY LEONEL Diltiazem HCl 120 mg 04/22/19 11:26 Cardizem Cd - PO 04/22/19 11:27 ONCE ONE Furosemide 40 mg 04/22/19 14:00 Lasix Injection - IVPUSH 04/22/19 14:01 ONCE ONE Furosemide 40 mg 04/23/19 10:00 Lasix Injection - IVPUSH DAILY LEONEL Gabapentin 100 mg 04/19/19 22:00 04/21/19 21:10 Neurontin - PO 100 mg HS LEONEL Administration Insulin Aspart 1 vial 04/19/19 16:30 04/22/19 06:01 Novolog Vial Sliding Scale - SQ 2 units ACHS LEONEL Administration Protocol Quinapril HCl 10 mg 04/20/19 10:00 04/22/19 09:46 Accupril - PO 10 mg DAILY LEONEL Administration Vital Signs Period Temp Pulse Resp BP Sys/Pitts Pulse Ox Last 24 Hr 97.3 F-98.9 F 89-125 17-20 110-135/57-75 97-98 Constitutional: Yes: Well Nourished, No Distress Eyes: No: Sclera Icterus HENT: No: Nasal Congestion Neck: No: Decreased ROM Respiratory: Yes: CTA Bilaterally. No: Accessory Muscle Use, Rales, Wheezes Gastrointestinal: Yes: Normal Bowel Sounds. No: Distention, Hepatomegaly, Palpable Mass, Tenderness Cardiovascular: Yes: irreg, tachy JVD: No Carotid Bruit: No Heart Sounds: Yes: S1, S2. No: Gallop Murmur: No: Systolic Murmur, Diastolic Murmur Extremities: No: Cold, Cyanosis Edema:trace le edema bl Integumentary: No: Jaundice diaphoresis Neurological: Yes: Alert, Oriented (x3) Psychiatric: No: Agitated CBC, BMP 04/22/19 08:33 04/22/19 08:33 11/2015: mild dec lvef, global hk, nl rv, mild mr echo 11/2016: mild dec lvef, global hk, nl rv, mild- mod mr, mild lae. small effusion < 1cm echo 08/2018: mild lvh, nl lvef, nl rv, mild mr tele: afib 110s-120s, episodes RVR 140s a/p: 68 yo female hx pafib, htn, hld, dchf, pad s/p r rfa sent 02/2019 here with sob. sob, paroxysmal AFib -as outpt have tried toprol 100 bid but still with rvr now. - toprol was dc'ed and diltiazem started along with dig. rate still fast at times, will increase dilt to 360 qd, check dig level. - cont eliquis - monitoring on tele chronic diast chf: -with rvr seems to have some chf sxs, will change po lasix to iv for now -daily chem7 htn: -cont current meds hld: -cont home statin pad s/p recent le stenting: -cont statin, bp control, ac
[2019-04-22] MEDS ORDERED: FUROSEMIDE 40 MG/4 ML INJECTABLE VIAL IVPUSH ONE (14:00)
--- NOTE | 2019-04-22 16:15 | PN ---
Physical Exam: SUBJECTIVE: Patient seen and examined. Pt offered no complaints. No SOB unless ambulating to or from the bathroom. OBJECTIVE: Vital Signs Period Temp Pulse Resp BP Sys/Pitts Pulse Ox Last 24 Hr 97.3 F-98.9 F 89-108 16-20 100-135/57-75 97-98 GENERAL: The patient is awake, alert, and fully oriented, in no acute distress. HEAD: Normal with no signs of trauma. EYES: PERRL, extraocular movements intact, sclera anicteric, conjunctiva clear. No ptosis. ENT: oropharynx clear without exudates, moist mucous membranes. LUNGS: Breath sounds equal, clear to auscultation bilaterally, no wheezes, no crackles, no accessory muscle use. HEART: Regular rate and rhythm, S1, S2 without murmur, rub or gallop. ABDOMEN: Soft, nontender, nondistended, normoactive bowel sounds, no guarding, no rebound, no hepatosplenomegaly, no masses. EXTREMITIES: 2+ pulses, warm, well-perfused, no edema. Laboratory Results - last 24 hr 04/21/19 04/21/19 04/22/19 17:17 20:50 05:38 WBC RBC Hgb Hct MCV MCH MCHC RDW Plt Count MPV Absolute Neuts (auto) Neutrophils % Lymphocytes % Monocytes % Eosinophils % Basophils % Nucleated RBC % Sodium Potassium Chloride Carbon Dioxide Anion Gap BUN Creatinine Est GFR (CKD-EPI)AfAm Est GFR (CKD-EPI)NonAf POC Glucometer 252 312 179 Random Glucose Calcium 04/22/19 04/22/19 04/22/19 08:33 08:33 11:55 WBC 6.8 RBC 4.14 Hgb 9.8 L Hct 32.2 L MCV 77.7 L MCH 23.7 L MCHC 30.5 L RDW 16.4 H Plt Count 264 MPV 8.6 Absolute Neuts (auto) 4.5 Neutrophils % 65.3 Lymphocytes % 22.8 D Monocytes % 8.9 Eosinophils % 2.5 Basophils % 0.5 Nucleated RBC % 0 Sodium 143 Potassium 4.4 Chloride 106 Carbon Dioxide 32 Anion Gap 5 L BUN 24.4 H Creatinine 0.7 Est GFR (CKD-EPI)AfAm 103.18 Est GFR (CKD-EPI)NonAf 89.03 POC Glucometer 275 Random Glucose 161 H Calcium 8.8 Active Medications Generic Name Dose Route Start Last Admin Trade Name Freq PRN Reason Stop Dose Admin Apixaban 5 mg 04/19/19 22:00 04/22/19 09:47 Eliquis - PO 5 mg BID LEONEL Administration Atorvastatin Calcium 10 mg 04/19/19 22:00 04/21/19 21:10 Lipitor - PO 10 mg HS LEONEL Administration Digoxin 0.125 mg 04/21/19 13:30 04/22/19 09:46 Lanoxin - PO 0.125 mg DAILY LEONEL Administration Diltiazem HCl 5 mg 04/19/19 14:59 04/22/19 11:20 Cardizem Injection - IVPUSH 5 mg Q4H PRN Administration TACHYCARDIA Diltiazem HCl 360 mg 04/23/19 10:00 Cardizem Cd - PO DAILY LEONEL Furosemide 40 mg 04/23/19 10:00 Lasix Injection - IVPUSH DAILY LEONEL Gabapentin 100 mg 04/19/19 22:00 04/21/19 21:10 Neurontin - PO 100 mg HS LEONEL Administration Insulin Aspart 1 vial 04/19/19 16:30 04/22/19 11:58 Novolog Vial Sliding Scale - SQ 6 units ACHS LEONEL Administration Protocol Quinapril HCl 10 mg 04/20/19 10:00 04/22/19 09:46 Accupril - PO 10 mg DAILY LEONEL Administration ASSESSMENT/PLAN: 68 yo female hx pafib, htn, hld, dchf, pad s/p r rfa sent 02/2019 here with sob. SOB, paroxysmal AFib SOB improved toprol was dc'ed and diltiazem started along with dig Per Cardio, rate still fast at times, diltiazem increased to 360 qd check dig level. cont eliquis monitoring on tele chronic diastlic CHF Per Cardio, due to CHF symptoms PO lasix changed to IV monitor BMP HTN cont current meds HLD cont home statin PAD s/p recent LE stenting cont statin, bp control, ac DVT on elequis Visit type - Emergency Visit Emergency Visit: Yes ED Registration Date: 04/19/19 Care time: The patient presented to the Emergency Department on the above date and was hospitalized for further evaluation of their emergent condition. - New Patient This patient is new to me today: Yes Date on this admission: 04/22/19 - Critical Care Critical Care patient: No - Discharge Referral Referred to [facility] Med P.C.: No ATTENDING PHYSICIAN STATEMENT I saw and evaluated the patient. I reviewed the resident's note and discussed the case with the resident. I agree with the resident's findings and plan as documented. SUBJECTIVE: OBJECTIVE: ASSESSMENT AND PLAN:
[2019-04-22] MEDS: GABAPENTIN 100 MG CAPSULE (FP) PO SCH (22:16)
[2019-04-22] MEDS: ATORVASTATIN CA 10 MG TABLET (FP) PO SCH (22:19)
[2019-04-23] MEDS: INSULIN SLIDING SCALE (NOVOLOG) 1 VIAL SQ SCH ×4 (06:07→21:01)
[2019-04-23] MEDS ORDERED: FUROSEMIDE 40 MG/4 ML INJECTABLE VIAL IVPUSH SCH (10:00)
[2019-04-23] MEDS: DOCUSATE SODIUM 100 MG CAPSULE (FP) PO SCH ×2 (10:33→21:00)
[2019-04-23] MEDS: DIGOXIN 0.125 MG TABLET (FP) PO SCH (10:34)
[2019-04-23] MEDS: QUINAPRIL HCL 10 MG TABLET (FP) PO SCH (10:34)
[2019-04-23] MEDS: APIXABAN 5 MG TABLET PO SCH ×2 (10:34→21:00)
--- NOTE | 2019-04-23 11:25 | PN ---
Physical Exam: SUBJECTIVE: Patient seen and examined. Pt offered no complaints this morning. Shortness of breath improved on ambulation. pt also received diltiazem push overnight for tachycardia above 110 last night OBJECTIVE: Vital Signs Period Temp Pulse Resp BP Sys/Pitts Pulse Ox Last 24 Hr 98 F-98.2 F 84-112 16-18 100-153/53-72 97-98 GENERAL: The patient is awake, alert, and fully oriented, in no acute distress. HEAD: Normal with no signs of trauma. EYES: PERRL, extraocular movements intact, sclera anicteric, conjunctiva clear. No ptosis. ENT: Ears normal, nares patent, oropharynx clear without exudates, moist mucous membranes. NECK: Trachea midline, full range of motion, supple. LUNGS: Breath sounds equal, clear to auscultation bilaterally, no wheezes, no crackles, no accessory muscle use. HEART: Regular rate and rhythm, S1, S2 without murmur, rub or gallop. ABDOMEN: Soft, nontender, nondistended, normoactive bowel sounds, no guarding, no rebound, no hepatosplenomegaly, no masses. EXTREMITIES: 2+ pulses, warm, well-perfused, no edema. NEUROLOGICAL: Cranial nerves II through XII grossly intact. Normal speech, gait not observed. PSYCH: Normal mood, normal affect. Laboratory Results - last 24 hr 04/22/19 04/22/19 04/22/19 11:55 17:32 22:08 POC Glucometer 275 254 247 Digoxin 04/23/19 04/23/19 05:24 06:05 POC Glucometer 245 Digoxin 0.44 L Active Medications Generic Name Dose Route Start Last Admin Trade Name Freq PRN Reason Stop Dose Admin Apixaban 5 mg 04/19/19 22:00 04/23/19 10:34 Eliquis - PO 5 mg BID LEONEL Administration Atorvastatin Calcium 10 mg 04/19/19 22:00 04/22/19 22:19 Lipitor - PO 10 mg HS LEONEL Administration Digoxin 0.125 mg 04/21/19 13:30 04/23/19 10:34 Lanoxin - PO 0.125 mg DAILY LEONEL Administration Diltiazem HCl 5 mg 04/19/19 14:59 04/22/19 11:20 Cardizem Injection - IVPUSH 5 mg Q4H PRN Administration TACHYCARDIA Diltiazem HCl 360 mg 10/15/19 10:00 04/23/19 10:34 Cardizem Cd - PO 360 mg DAILY LEONEL Administration Docusate Sodium 200 mg 04/23/19 10:30 04/23/19 10:33 Colace - PO 200 mg BID LEONEL Administration Furosemide 40 mg 04/23/19 14:00 Lasix Injection - IVPUSH 04/23/19 14:01 ONCE ONE Furosemide 20 mg 04/24/19 14:00 Lasix Injection - IVPUSH 1400 LEONEL Furosemide 40 mg 04/24/19 06:00 Lasix Injection - IVPUSH 0600 LEONEL Gabapentin 100 mg 04/19/19 22:00 04/22/19 22:16 Neurontin - PO 100 mg HS LEONEL Administration Insulin Aspart 1 vial 04/19/19 16:30 04/23/19 06:07 Novolog Vial Sliding Scale - SQ 4 units ACHS LEONEL Administration Protocol Quinapril HCl 10 mg 04/20/19 10:00 04/23/19 10:34 Accupril - PO 10 mg DAILY LEONEL Administration ASSESSMENT/PLAN: 68 yo female hx pafib, htn, hld, dchf, pad s/p r rfa sent 02/2019 here with sob. SOB, paroxysmal AFib SOB improved toprol was dc'ed and diltiazem started along with dig Per Cardio, rate still fast at times, cont diltiazem 360 qd dig level 0.44. increased to 0.25 daily cont eliquis monitoring on tele chronic diastlic CHF Per Cardio, due to CHF symptoms PO lasix changed to IV lasix will decrease lasix to 20mg IV tomorrow mid day monitor BMP Constipation colace 200mg BID HTN cont current meds HLD cont home statin PAD s/p recent LE stenting cont statin, bp control, ac DVT on elequis Visit type - Emergency Visit Emergency Visit: Yes ED Registration Date: 04/19/19 Care time: The patient presented to the Emergency Department on the above date and was hospitalized for further evaluation of their emergent condition. - New Patient This patient is new to me today: No - Critical Care Critical Care patient: No - Discharge Referral Referred to [facility] Med P.C.: No ATTENDING PHYSICIAN STATEMENT I saw and evaluated the patient. I reviewed the resident's note and discussed the case with the resident. I agree with the resident's findings and plan as documented. SUBJECTIVE: OBJECTIVE: ASSESSMENT AND PLAN:
--- NOTE | 2019-04-23 11:55 | PN ---
Progress Note (short form) - Note Progress Note: s: dyspnea on exertion improving. no chest pain, palps, dizziness Current Medications Apixaban (Eliquis -) 5 mg PO BID [facility] Last Admin: 04/23/19 10:34 Dose: 5 mg Atorvastatin Calcium (Lipitor -) 10 mg PO HS [facility] Last Admin: 04/22/19 22:19 Dose: 10 mg Digoxin (Lanoxin -) 0.125 mg PO DAILY [facility] Last Admin: 04/23/19 10:34 Dose: 0.125 mg Diltiazem HCl (Cardizem Injection -) 5 mg IVPUSH Q4H PRN PRN Reason: TACHYCARDIA Last Admin: 04/22/19 11:20 Dose: 5 mg Diltiazem HCl (Cardizem Cd -) 360 mg PO DAILY [facility] Last Admin: 04/23/19 10:34 Dose: 360 mg Docusate Sodium (Colace -) 200 mg PO BID [facility] Last Admin: 04/23/19 10:33 Dose: 200 mg Furosemide (Lasix Injection -) 40 mg IVPUSH ONCE ONE Stop: 04/23/19 14:01 Furosemide (Lasix Injection -) 20 mg IVPUSH 1400 LEONEL Furosemide (Lasix Injection -) 40 mg IVPUSH 0600 [facility] Gabapentin (Neurontin -) 100 mg PO [facility] Last Admin: 04/22/19 22:16 Dose: 100 mg Insulin Aspart (Novolog Vial Sliding Scale -) 1 vial SQ ACHS [facility]; Protocol Last Admin: 04/23/19 06:07 Dose: 4 units Quinapril HCl (Accupril -) 10 mg PO DAILY [facility] Last Admin: 04/23/19 10:34 Dose: 10 mg Vital Signs Period Temp Pulse Resp BP Sys/Pitts Pulse Ox Last 24 Hr 98 F-98.2 F 84-112 16-18 100-153/53-72 97-98 Constitutional: Yes: Well Nourished, No Distress Eyes: No: Sclera Icterus HENT: No: Nasal Congestion Neck: No: Decreased ROM Respiratory: Yes: CTA Bilaterally. No: Accessory Muscle Use, Rales, Wheezes Gastrointestinal: Yes: Normal Bowel Sounds. No: Distention, Hepatomegaly, Palpable Mass, Tenderness Cardiovascular: Yes: irreg, tachy JVD: No Carotid Bruit: No Heart Sounds: Yes: S1, S2. No: Gallop Murmur: No: Systolic Murmur, Diastolic Murmur Extremities: No: Cold, Cyanosis Edema:trace le edema bl Integumentary: No: Jaundice diaphoresis Neurological: Yes: Alert, Oriented (x3) Psychiatric: No: Agitated 11/2015: mild dec lvef, global hk, nl rv, mild mr echo 11/2016: mild dec lvef, global hk, nl rv, mild- mod mr, mild lae. small effusion < 1cm echo 08/2018: mild lvh, nl lvef, nl rv, mild mr tele: afib 100s-110s, episodes RVR 140s a/p: 68 yo female hx pafib, htn, hld, dchf, pad s/p r rfa sent 02/2019 here with sob. sob, paroxysmal AFib -as outpt have tried toprol 100 bid but still with rvr now. - toprol was dc'ed and diltiazem started along with dig. rate still fast at times, dilt increased to 360 mg daily, inc digoxin to 0.25 mg daily - cont eliquis - monitoring on tele chronic diast chf: - cont IV lasix -daily chem7 htn: -cont current meds hld: -cont home statin pad s/p recent le stenting: -cont statin, bp control, ac
[2019-04-23] MEDS ORDERED: DIGOXIN 0.125 MG TABLET (FP) PO ONE (12:00)
[2019-04-23] MEDS ORDERED: FUROSEMIDE 40 MG/4 ML INJECTABLE VIAL IVPUSH ONE (14:00)
--- NOTE | 2019-04-23 20:30 | PN ---
Teaching Attending Note Name of Resident: Arlette Prince ATTENDING PHYSICIAN STATEMENT I saw and evaluated the patient. I reviewed the resident's note and discussed the case with the resident. I agree with the resident's findings and plan as documented. SUBJECTIVE: Patient is stable with no acute distress. feels better. OBJECTIVE: Vital Signs Temperature 97.8 F 04/23/19 13:42 Pulse Rate 90 04/23/19 13:42 Respiratory Rate 16 04/23/19 13:42 Blood Pressure 128/62 04/23/19 13:42 O2 Sat by Pulse Oximetry (%) 97 04/23/19 09:00 GENERAL: The patient is awake, alert, and fully oriented, in no acute distress. HEAD: Normal with no signs of trauma. EYES: PERRL, extraocular movements intact, sclera anicteric, conjunctiva clear. ENT: Ears normal, oropharynx clear without exudates, moist mucous membranes. NECK: Trachea midline, full range of motion, supple. LUNGS: DECREASED Breath sounds bl, clear to auscultation bilaterally, no wheezes, no crackles, no accessory muscle use. HEART: Irregularly-Irregular rate better controlled , S1, S2 without murmur, rub or gallop. ABDOMEN: Soft, nontender, nondistended, normoactive bowel sounds, no guarding, no rebound, no hepatosplenomegaly, no masses. EXTREMITIES: 2+ pulses, warm, well-perfused, no edema. NEUROLOGICAL: Cranial nerves II through XII grossly intact. Normal speech, gait is stable PSYCH: Normal mood, normal affect. SKIN: Warm, dry, normal turgor, no rashes or lesions noted CBCD WBC 6.8 K/mm3 (4.0-10.0) 04/22/19 08:33 RBC 4.14 M/mm3 (3.60-5.2) 04/22/19 08:33 Hgb 9.8 GM/dL (10.7-15.3) L 04/22/19 08:33 Hct 32.2 % (32.4-45.2) L 04/22/19 08:33 MCV 77.7 fl (80-96) L 04/22/19 08:33 MCHC 30.5 g/dl (32.0-36.0) L 04/22/19 08:33 RDW 16.4 % (11.6-15.6) H 04/22/19 08:33 Plt Count 264 K/MM3 (134-434) 04/22/19 08:33 MPV 8.6 fl (7.5-11.1) 04/22/19 08:33 CMP Sodium 143 mmol/L (136-145) 04/22/19 08:33 Potassium 4.4 mmol/L (3.5-5.1) 04/22/19 08:33 Chloride 106 mmol/L (98-107) 04/22/19 08:33 Carbon Dioxide 32 mmol/L (21-32) 04/22/19 08:33 Anion Gap 5 MMOL/L (8-16) L 04/22/19 08:33 BUN 24.4 mg/dL (7-18) H 04/22/19 08:33 Creatinine 0.7 mg/dL (0.55-1.3) 04/22/19 08:33 Random Glucose 161 mg/dL (74-106) H 04/22/19 08:33 Calcium 8.8 mg/dL (8.5-10.1) 04/22/19 08:33 Total Bilirubin 0.4 mg/dL (0.2-1) 04/20/19 06:00 AST 22 U/L (15-37) 04/20/19 06:00 ALT 32 U/L (13-61) 04/20/19 06:00 Alkaline Phosphatase 71 U/L (45-117) 04/20/19 06:00 Total Protein 6.6 g/dl (6.4-8.2) 04/20/19 06:00 Albumin 3.2 g/dl (3.4-5.0) L 04/20/19 06:00 CARDIAC ENZYMES Creatine Kinase 47 U/L (26-192) 04/19/19 10:00 Troponin I < 0.02 ng/ml (0.00-0.05) 04/19/19 10:00 Current Medications Generic Name Dose Route Start Last Admin Trade Name Freq PRN Reason Stop Dose Admin Apixaban 5 mg 04/19/19 22:00 04/23/19 10:34 Eliquis - PO 5 mg BID LEONEL Administration Atorvastatin Calcium 10 mg 04/19/19 22:00 04/22/19 22:19 Lipitor - PO 10 mg HS LEONEL Administration Digoxin 0.25 mg 10/16/19 10:00 Lanoxin - PO DAILY LEONEL Diltiazem HCl 5 mg 04/19/19 14:59 04/22/19 11:20 Cardizem Injection - IVPUSH 5 mg Q4H PRN Administration TACHYCARDIA Diltiazem HCl 360 mg 04/23/19 10:00 04/23/19 10:34 Cardizem Cd - PO 360 mg DAILY LEONEL Administration Docusate Sodium 200 mg 04/23/19 10:30 04/23/19 10:33 Colace - PO 200 mg BID LEONEL Administration Furosemide 20 mg 04/24/19 14:00 Lasix Injection - IVPUSH 1400 LEONEL Furosemide 40 mg 04/24/19 06:00 Lasix Injection - IVPUSH 0600 LEONEL Gabapentin 100 mg 04/19/19 22:00 04/22/19 22:16 Neurontin - PO 100 mg HS LEONEL Administration Insulin Aspart 1 vial 04/19/19 16:30 04/23/19 17:06 Novolog Vial Sliding Scale - SQ 6 units ACHS LEONEL Administration Protocol Quinapril HCl 10 mg 04/20/19 10:00 04/23/19 10:34 Accupril - PO 10 mg DAILY LEONEL Administration Home Medications Medication Instructions Recorded Quinapril HCl [Accupril -] 10 mg PO DAILY 11/25/15 Simvastatin [Zocor -] 20 mg PO HS 11/25/15 Glimepiride [Amaryl] 4 mg PO BIDAC 12/17/16 metFORMIN HCL [Glucophage -] 1,000 mg PO BIDAC 12/17/16 Apixaban [Eliquis -] 5 mg PO BID #60 tablet 03/16/17 Dulaglutide [Trulicity] 1.5 mg SQ Q7D 01/07/19 Metoprolol Succinate [Toprol XL -] 100 mg PO DAILY 01/07/19 Gabapentin [Neurontin] 100 mg PO HS 02/20/19 Furosemide [Lasix -] 40 mg PO BID 04/19/192016 Echo: LV normal, LV systolic fxn mildly reduced, EF 47.1, f/u repeat echo echo 08/2018: mild lvh, nl lvef, nl rv, mild mr CXR: no acute pathology ASSESSMENT AND PLAN: Patient is a 68 y/o female with a history of afib ( on eliquis), HFpEF, CHF, HTN , HLD, DM, nephrolithiasis, and RLE stent who presents for afib with RVR. #Afib with better rate controlled : On cardizem 240mg increased from 120mg , continue Eliquis , cardizem IV 5mg every 4 hrs for HR above 110, prn.Off TOPROL XL .monitor on 240mg cardizem. #HFpEF: On Lasix po 40mg, lisinopril continue. #HTN : continue GERRY 10 mg daily/cardizem #HLD: continue simvastatin daily, will substitute with lipitor #DM: SS with coverage , diabetic diet #Hx of RLE stent on Eliquis continue DVT ppx: elliquis possible discharge in am once rate is controlled if rate is stable can be discharged
[2019-04-23] MEDS: GABAPENTIN 100 MG CAPSULE (FP) PO SCH (21:00)
[2019-04-23] MEDS: ATORVASTATIN CA 10 MG TABLET (FP) PO SCH (21:00)
[2019-04-24] MEDS ORDERED: FUROSEMIDE 40 MG/4 ML INJECTABLE VIAL IVPUSH SCH ×2 (06:00→14:00)
[2019-04-24 06:30] LABS: BASO % 0.3 % (0-2.0); EOS % 2.8 % (0-4.5); HEMATOCRIT 29.7 % (32.4-45.2); HEMOGLOBIN 9.5 GM/dL (10.7-15.3); LYMPH % 24.1 % (8-40); MCH 24.6 pg (25.7-33.7); MCHC 32.1 g/dl (32.0-36.0); MEAN CELL VOLUME 76.5 fl (80-96); MEAN PLT VOLUME 8.4 fl (7.5-11.1); MONO % 9.3 % (3.8-10.2); NEUT % 63.5 % (42.8-82.8); PLATELET COUNT 287 K/MM3 (134-434); RBC 3.88 M/mm3 (3.60-5.2); RDW 16.3 % (11.6-15.6)
[2019-04-24] MEDS: INSULIN SLIDING SCALE (NOVOLOG) 1 VIAL SQ SCH ×4 (06:49→22:24)
[2019-04-24 06:51] LABS: BLOOD UREA NITROGEN 25.4 mg/dL (7-18); CALCIUM 8.6 mg/dL (8.5-10.1); CREATININE 0.8 mg/dL (0.55-1.3); POTASSIUM 4.1 mmol/L (3.5-5.1)
[2019-04-24] MEDS: DIGOXIN 0.125 MG TABLET (FP) PO SCH (09:31)
[2019-04-24] MEDS: APIXABAN 5 MG TABLET PO SCH ×2 (09:31→21:46)
[2019-04-24] MEDS: QUINAPRIL HCL 10 MG TABLET (FP) PO SCH (09:32)
[2019-04-24] MEDS: DOCUSATE SODIUM 100 MG CAPSULE (FP) PO SCH ×2 (09:33→21:46)
--- NOTE | 2019-04-24 11:58 | PN ---
Progress Note (short form) - Note Progress Note: s: dyspnea on exertion stable. no chest pain, palps, dizziness Current Medications Apixaban (Eliquis -) 5 mg PO BID [facility] Last Admin: 04/24/19 09:31 Dose: 5 mg Atorvastatin Calcium (Lipitor -) 10 mg PO HS [facility] Last Admin: 04/23/19 21:00 Dose: 10 mg Digoxin (Lanoxin -) 0.25 mg PO DAILY [facility] Last Admin: 04/24/19 09:31 Dose: 0.25 mg Diltiazem HCl (Cardizem Injection -) 5 mg IVPUSH Q4H PRN PRN Reason: TACHYCARDIA Last Admin: 04/22/19 11:20 Dose: 5 mg Diltiazem HCl (Cardizem Cd -) 360 mg PO DAILY [facility] Last Admin: 04/24/19 09:31 Dose: 360 mg Docusate Sodium (Colace -) 200 mg PO BID [facility] Last Admin: 04/24/19 09:33 Dose: Not Given Furosemide (Lasix Injection -) 20 mg IVPUSH 1400 [facility] Furosemide (Lasix Injection -) 40 mg IVPUSH BID@0600,1400 [facility] Gabapentin (Neurontin -) 100 mg PO [facility] Last Admin: 04/23/19 21:00 Dose: 100 mg Insulin Aspart (Novolog Vial Sliding Scale -) 1 vial SQ [facility]; Protocol Last Admin: 04/24/19 06:49 Dose: 4 units Quinapril HCl (Accupril -) 10 mg PO DAILY [facility] Last Admin: 04/24/19 09:32 Dose: 10 mg Vital Signs Period Temp Pulse Resp BP Sys/Pitts Pulse Ox Last 24 Hr 97.6 F-98.8 F 85-134 16-20 116-128/57-75 94 Constitutional: Yes: Well Nourished, No Distress Eyes: No: Sclera Icterus HENT: No: Nasal Congestion Neck: No: Decreased ROM Respiratory: Yes: CTA Bilaterally. No: Accessory Muscle Use, Rales, Wheezes Gastrointestinal: Yes: Normal Bowel Sounds. No: Distention, Hepatomegaly, Palpable Mass, Tenderness Cardiovascular: Yes: irreg, tachy JVD: No Carotid Bruit: No Heart Sounds: Yes: S1, S2. No: Gallop Murmur: No: Systolic Murmur, Diastolic Murmur Extremities: No: Cold, Cyanosis Edema:trace le edema bl Integumentary: No: Jaundice diaphoresis Neurological: Yes: Alert, Oriented (x3) Psychiatric: No: Agitated 11/2015: mild dec lvef, global hk, nl rv, mild mr echo 11/2016: mild dec lvef, global hk, nl rv, mild- mod mr, mild lae. small effusion < 1cm echo 08/2018: mild lvh, nl lvef, nl rv, mild mr tele: afib 90s-100s, episodes 140s a/p: 68 yo female hx pafib, htn, hld, dchf, pad s/p r rfa sent 02/2019 here with sob. sob, paroxysmal AFib -as outpt have tried toprol 100 bid but still with rvr now. - toprol was dc'ed and diltiazem started along with dig. rate still fast at times, dilt increased to 360 mg daily, digoxin 0.25 mg daily - cont eliquis - monitoring on tele chronic diast chf: - cont IV lasix - inc to lasix 40 mg IV BID -daily chem7, weights, lytes htn: -cont current meds hld: -cont home statin pad s/p recent le stenting: -cont statin, bp control, ac
[2019-04-24] MEDS ORDERED: PATIENT'S OWN MEDICATION (NON-FORMULARY) (Dulaglutide [Trulicity] 1.5 MG) SQ SCH (13:30)
--- NOTE | 2019-04-24 13:57 | PN ---
Physical Exam: SUBJECTIVE: Patient seen and examined. Pt continues to experience HOLCOMB and having episodes of 140-150s of tachy overnight. OBJECTIVE: Vital Signs Period Temp Pulse Resp BP Sys/Pitts Pulse Ox Last 24 Hr 97.6 F-98.8 F 85-134 16-20 116-120/57-75 94 GENERAL: The patient is awake, alert, and fully oriented, in no acute distress and off NC as pt refuses HEAD: Normal with no signs of trauma. EYES: PERRL, extraocular movements intact, sclera anicteric, conjunctiva clear. No ptosis. ENT: oropharynx clear without exudates, moist mucous membranes. LUNGS: Breath sounds equal, clear to auscultation bilaterally,lower lung crackles, no accessory muscle use. HEART: Regular rate and rhythm, S1, S2 without murmur, rub or gallop. ABDOMEN: Soft, nontender, nondistended, normoactive bowel sounds, no guarding, no rebound, no hepatosplenomegaly, no masses. EXTREMITIES: 2+ pulses, warm, well-perfused, trace edema. PSYCH: Normal mood, normal affect. Laboratory Results - last 24 hr 04/23/19 04/23/19 04/24/19 17:04 20:59 05:20 WBC 7.0 RBC 3.88 Hgb 9.5 L Hct 29.7 L MCV 76.5 L MCH 24.6 L MCHC 32.1 RDW 16.3 H Plt Count 287 MPV 8.4 Absolute Neuts (auto) 4.5 Neutrophils % 63.5 Lymphocytes % 24.1 Monocytes % 9.3 Eosinophils % 2.8 Basophils % 0.3 Nucleated RBC % 0 Sodium Potassium Chloride Carbon Dioxide Anion Gap BUN Creatinine Est GFR (CKD-EPI)AfAm Est GFR (CKD-EPI)NonAf POC Glucometer 298 374 Random Glucose Calcium 04/24/19 04/24/19 05:21 06:00 WBC RBC Hgb Hct MCV MCH MCHC RDW Plt Count MPV Absolute Neuts (auto) Neutrophils % Lymphocytes % Monocytes % Eosinophils % Basophils % Nucleated RBC % Sodium 143 Potassium 4.1 Chloride 104 Carbon Dioxide 32 Anion Gap 6 L BUN 25.4 H Creatinine 0.8 Est GFR (CKD-EPI)AfAm 87.80 Est GFR (CKD-EPI)NonAf 75.75 POC Glucometer 227 Random Glucose 231 H Calcium 8.6 Active Medications Generic Name Dose Route Start Last Admin Trade Name Freq PRN Reason Stop Dose Admin Apixaban 5 mg 04/19/19 22:00 04/24/19 09:31 Eliquis - PO 5 mg BID [facility] Administration Atorvastatin Calcium 10 mg 04/19/19 22:00 04/23/19 21:00 Lipitor - PO 10 mg HS [facility] Administration Digoxin 0.25 mg 04/24/19 10:00 04/24/19 09:31 Lanoxin - PO 0.25 mg DAILY [facility] Administration Diltiazem HCl 5 mg 04/19/19 14:59 04/22/19 11:20 Cardizem Injection - IVPUSH 5 mg Q4H PRN Administration TACHYCARDIA Diltiazem HCl 360 mg 04/23/19 10:00 04/24/19 09:31 Cardizem Cd - PO 360 mg DAILY [facility] Administration Docusate Sodium 200 mg 04/23/19 10:30 04/24/19 09:33 Colace - PO Not Given BID [facility]ON[facility] Furosemide 40 mg 04/24/19 14:00 Lasix Injection - IVPUSH BID@0600,1400 [facility] Gabapentin 100 mg 04/19/19 22:00 04/23/19 21:00 Neurontin - PO 100 mg HS [facility] Administration Glimepiride 4 mg 04/24/19 16:30 Amaryl - PO BIDAC [facility]ON[facility] Insulin Aspart 1 vial 04/19/19 16:30 04/24/19 12:23 Novolog Vial Sliding Scale - SQ 10 units ACHS [facility] Administration Protocol Non-Formulary Medication 1.5 mg 04/24/19 13:30 Dulaglutide [Trulicity] SQ Q7D [facility] Quinapril HCl 10 mg 04/20/19 10:00 04/24/19 09:32 Accupril - PO 10 mg DAILY [facility] Administration ASSESSMENT/PLAN: 68 yo female hx pafib, htn,DM, hld, dchf, pad s/p r rfa sent 02/2019 here with sob. SOB, paroxysmal AFib Pt continues to have HOLCOMB and SOB. pt continues to have afib in the 90s-100s with episodic rise to 130-140s toprol was dc'ed and diltiazem started along with dig Per Cardio, rate still fast at times, cont diltiazem 360 qd dig level 0.44. increased to 0.25 daily cont eliquis monitoring on tele chronic diastlic CHF Per Cardio, due to CHF symptoms PO lasix changed to IV lasix. dose increased to 40 mg IV BID monitor BMP, weight daily Constipation colace 200mg BID DM resumed glimepiride and trulicity HTN cont current meds HLD cont home statin PAD s/p recent LE stenting cont statin, bp control, ac DVT on elequis Visit type - Emergency Visit Emergency Visit: Yes ED Registration Date: 04/19/19 Care time: The patient presented to the Emergency Department on the above date and was hospitalized for further evaluation of their emergent condition. - New Patient This patient is new to me today: No - Critical Care Critical Care patient: No - Discharge Referral Referred to [facility] Med P.C.: No ATTENDING PHYSICIAN STATEMENT I saw and evaluated the patient. I reviewed the resident's note and discussed the case with the resident. I agree with the resident's findings and plan as documented. SUBJECTIVE: OBJECTIVE: ASSESSMENT AND PLAN:
[2019-04-24] MEDS: FUROSEMIDE 40 MG/4 ML INJECTABLE VIAL IVPUSH SCH (15:31)
--- NOTE | 2019-04-24 16:31 | PN ---
Teaching Attending Note Name of Resident: Froilan Benjamin ATTENDING PHYSICIAN STATEMENT I saw and evaluated the patient. I reviewed the resident's note and discussed the case with the resident. I agree with the resident's findings and plan as documented. SUBJECTIVE: no fever or chills. no PC or SOB . wants to go home OBJECTIVE: NAd Cv : ireg irreg Lungs : CTAB Ext : 2+ pitting edema ASSESSMENT AND PLAN: Patient is a 68 y/o female with a history of afib ( on eliquis), diastolic heart failure, HTN, HLD, DM, nephrolithiasis, and RLE stent who is being admitted and treated for a fib with RVR 1- A fib with RVR 2- Acute diastolic heart failrue exacerbation 3- h/o HTN 4- h/o HLP 5-DM plan : - cont cardizem and digoxin at new dose - tele with uncontrolled HR this am - cont lasizx IV BID - SSI - cont eliquis - d/w patient the need to stay inpatient
[2019-04-24] MEDS ORDERED: PT OWN MED DRAWER 7, Y5N ONE (16:41)
[2019-04-24] MEDS: GLIMEPIRIDE 4 MG TABLET (FP) PO SCH (17:45)
[2019-04-24] MEDS: ATORVASTATIN CA 10 MG TABLET (FP) PO SCH (21:46)
[2019-04-24] MEDS: GABAPENTIN 100 MG CAPSULE (FP) PO SCH (21:46)
[2019-04-25] MEDS: INSULIN SLIDING SCALE (NOVOLOG) 1 VIAL SQ SCH ×5 (00:10→22:06)
[2019-04-25] MEDS ORDERED: PT OWN MED DRAWER 7, Y5N ONE ×3 (06:05→16:06)
[2019-04-25] MEDS: FUROSEMIDE 40 MG/4 ML INJECTABLE VIAL IVPUSH SCH ×2 (06:13→14:51)
[2019-04-25] MEDS: GLIMEPIRIDE 4 MG TABLET (FP) PO SCH ×2 (06:13→16:35)
[2019-04-25 07:30] LABS: CALCIUM 8.5 mg/dL (8.5-10.1); CREATININE 0.7 mg/dL (0.55-1.3); MAGNESIUM 1.9 mg/dL (1.8-2.4); PHOSPHOROUS 3.5 mg/dL (2.5-4.9); POTASSIUM 3.9 mmol/L (3.5-5.1)
[2019-04-25] MEDS: DOCUSATE SODIUM 100 MG CAPSULE (FP) PO SCH ×2 (09:23→22:06)
[2019-04-25] MEDS: DIGOXIN 0.125 MG TABLET (FP) PO SCH (09:23)
[2019-04-25] MEDS: QUINAPRIL HCL 10 MG TABLET (FP) PO SCH (09:24)
[2019-04-25] MEDS: APIXABAN 5 MG TABLET PO SCH ×2 (09:24→22:06)
[2019-04-25] MEDS: dilTIAZem HCL 50 MG/10 ML - 10 ML VIAL IVPUSH PRN (11:30)
--- NOTE | 2019-04-25 11:47 | PN ---
Progress Note (short form) - Note Progress Note: s: dyspnea on exertion has been improving, walked in halls yesterday. no chest pain, palps, dizziness Current Medications Generic Name Dose Route Start Last Admin Trade Name Freq PRN Reason Stop Dose Admin Apixaban 5 mg 04/19/19 22:00 04/25/19 09:24 Eliquis - PO 5 mg BID [facility] Administration Atorvastatin Calcium 10 mg 04/19/19 22:00 04/24/19 21:46 Lipitor - PO 10 mg HS [facility] Administration Digoxin 0.25 mg 04/24/19 10:00 04/25/19 09:23 Lanoxin - PO 0.25 mg DAILY [facility] Administration Diltiazem HCl 5 mg 04/19/19 14:59 04/25/19 11:30 Cardizem Injection - IVPUSH 5 mg Q4H PRN Administration TACHYCARDIA Diltiazem HCl 360 mg 04/23/19 10:00 04/25/19 09:23 Cardizem Cd - PO 360 mg DAILY [facility] Administration Docusate Sodium 200 mg 04/23/19 10:30 04/25/19 09:23 Colace - PO 200 mg BID [facility] Administration Furosemide 40 mg 04/24/19 14:00 04/25/19 06:13 Lasix Injection - IVPUSH 40 mg BID@0600,1400 [facility] Administration Gabapentin 100 mg 04/19/19 22:00 04/24/19 21:46 Neurontin - PO 100 mg HS [facility] Administration Glimepiride 4 mg 04/24/19 16:30 04/25/19 06:13 Amaryl - PO 4 mg BIDAC [facility] Administration Insulin Aspart 1 vial 04/25/19 07:31 04/25/19 11:37 Novolog Vial Sliding Scale - SQ 8 units ACHS [facility] Administration Protocol Non-Formulary Medication 1.5 mg 04/24/19 13:30 Dulaglutide [Trulicity] SQ Q7D [facility] Quinapril HCl 10 mg 04/20/19 10:00 04/25/19 09:24 Accupril - PO 10 mg DAILY [facility] Administration Sitagliptin Phosphate 100 mg 04/25/19 10:54 Januvia - PO DAILY@0700 [facility] Vital Signs Period Temp Pulse Resp BP Sys/Pitts Pulse Ox Last 24 Hr 98.0 F-98.8 F 80-100 18-20 103-143/46-76 92-95 Constitutional: Yes: Well Nourished, No Distress Eyes: No: Sclera Icterus Respiratory: Yes: CTA Bilaterally. No: Accessory Muscle Use, Rales, Wheezes Gastrointestinal: Yes: Normal Bowel Sounds. No: Distention, Hepatomegaly, Palpable Mass, Tenderness Cardiovascular: Yes: irreg, tachy JVD: No Carotid Bruit: No Heart Sounds: Yes: S1, S2. No: Gallop Murmur: No: Systolic Murmur, Diastolic Murmur Extremities: No: Cold, Cyanosis Edema:trace le edema bl Integumentary: No: Jaundice diaphoresis Neurological: Yes: Alert, Oriented (x3) Psychiatric: No: Agitated CBC, BMP 04/24/19 05:20 04/25/19 06:10 11/2015: mild dec lvef, global hk, nl rv, mild mr echo 11/2016: mild dec lvef, global hk, nl rv, mild- mod mr, mild lae. small effusion < 1cm echo 08/2018: mild lvh, nl lvef, nl rv, mild mr tele: afib mostly 90s at rest a/p: 68 yo female hx pafib, htn, hld, dchf, pad s/p r rfa sent 02/2019 here with sob. sob, paroxysmal AFib -as outpt have tried toprol 100 bid but still with rvr now. - toprol was dc'ed and diltiazem started along with dig, cont same dilt 360 mg daily, digoxin 0.25 mg daily - cont eliquis - monitoring on tele acute on chronic diast chf: -still with vol overload, chf sxs -cont IV lasix - inc to lasix 40 mg IV BID 04/24 -daily chem7, weights, lytes htn: -cont current meds hld: -cont home statin pad s/p recent le stenting: -cont statin, bp control, ac
--- NOTE | 2019-04-25 13:59 | PN ---
Physical Exam: SUBJECTIVE: Patient seen and examined. No new complaints today. Pt. frustrated that she is still in the hospital. Per RN Pt.'s son brought her linda to the hospital overnight. HR better controlled on telemetry monitoring OBJECTIVE: Vital Signs Period Temp Pulse Resp BP Sys/Pitts Pulse Ox Last 24 Hr 98.0 F-98.8 F 80-100 18-20 103-143/46-76 92-95 GENERAL: The patient is awake, alert, and fully oriented, in no acute distress. HEAD: Normal with no signs of trauma. EYES: PERRL, extraocular movements intact, sclera anicteric, conjunctiva clear. ENT: Ears normal, nares patent, oropharynx clear without exudates, moist mucous membranes. NECK: Trachea midline, full range of motion, supple LUNGS: diffuse crackles HEART: Regularly irregular S1, S2 ABDOMEN: Soft, nontender, nondistended, normoactive bowel sounds, no guarding, no rebound EXTREMITIES: 2+ dorsal pedal pulses, warm, well-perfused, 2+ edema NEUROLOGICAL: Cranial nerves II through XII grossly intact. Normal speech, gait not observed. PSYCH: Normal mood, normal affect. SKIN: Warm, dry Laboratory Results - last 24 hr 04/24/19 04/24/19 04/24/19 12:22 16:48 21:44 Sodium Potassium Chloride Carbon Dioxide Anion Gap BUN Creatinine Est GFR (CKD-EPI)AfAm Est GFR (CKD-EPI)NonAf POC Glucometer 369 255 471 Random Glucose Hemoglobin A1c % Calcium Phosphorus Magnesium 04/24/19 04/24/19 04/25/19 21:45 23:51 01:10 Sodium Potassium Chloride Carbon Dioxide Anion Gap BUN Creatinine Est GFR (CKD-EPI)AfAm Est GFR (CKD-EPI)NonAf POC Glucometer 484 419 333 Random Glucose Hemoglobin A1c % Calcium Phosphorus Magnesium 04/25/19 04/25/19 04/25/19 05:45 06:10 06:10 Sodium 143 Potassium 3.9 Chloride 105 Carbon Dioxide 31 Anion Gap 7 L BUN 26.0 H Creatinine 0.7 Est GFR (CKD-EPI)AfAm 103.18 Est GFR (CKD-EPI)NonAf 89.03 POC Glucometer 203 Random Glucose 225 H Hemoglobin A1c % 8.3 H Calcium 8.5 Phosphorus 3.5 Magnesium 1.9 04/25/19 11:35 Sodium Potassium Chloride Carbon Dioxide Anion Gap BUN Creatinine Est GFR (CKD-EPI)AfAm Est GFR (CKD-EPI)NonAf POC Glucometer 277 Random Glucose Hemoglobin A1c % Calcium Phosphorus Magnesium Active Medications Current Medications Apixaban (Eliquis -) 5 mg PO BID [facility] Last Admin: 04/25/19 09:24 Dose: 5 mg Atorvastatin Calcium (Lipitor -) 10 mg PO HS [facility] Last Admin: 04/24/19 21:46 Dose: 10 mg Digoxin (Lanoxin -) 0.25 mg PO DAILY [facility] Last Admin: 04/25/19 09:23 Dose: 0.25 mg Diltiazem HCl (Cardizem Injection -) 5 mg IVPUSH Q4H PRN PRN Reason: TACHYCARDIA Last Admin: 04/25/19 11:30 Dose: 5 mg Diltiazem HCl (Cardizem Cd -) 360 mg PO DAILY [facility] Last Admin: 04/25/19 09:23 Dose: 360 mg Docusate Sodium (Colace -) 200 mg PO BID [facility] Last Admin: 04/25/19 09:23 Dose: 200 mg Furosemide (Lasix Injection -) 40 mg IVPUSH BID@0600,1400 [facility] Last Admin: 04/25/19 14:51 Dose: 40 mg Gabapentin (Neurontin -) 100 mg PO HS [facility] Last Admin: 04/24/19 21:46 Dose: 100 mg Glimepiride (Amaryl -) 4 mg PO BIDAC [facility] Last Admin: 04/25/19 16:35 Dose: 4 mg Insulin Aspart (Novolog Vial Sliding Scale -) 1 vial SQ ACHS [facility]; Protocol Last Admin: 04/25/19 16:35 Dose: 6 units Quinapril HCl (Accupril -) 10 mg PO DAILY [facility] Last Admin: 04/25/19 09:24 Dose: 10 mg Sitagliptin Phosphate (Januvia -) 100 mg PO DAILY@0700 [facility] Last Admin: 04/25/19 12:22 Dose: 100 mg ASSESSMENT/PLAN: 68 yo female hx pafib, htn,DM, hld, dchf, pad s/p r rfa sent 02/2019 here with sob. #SOB, paroxysmal AFib Pt continues to have HOLCOMB and SOB. pt continues to have afib in the 90s-100s with episodic rise to 130-140s toprol was dc'ed and diltiazem started along with dig Per Cardio, rate still fast at times, cont diltiazem 360 qd dig level 0.44. increased to 0.25 daily cont eliquis monitoring on tele #chronic diastlic CHF Per Cardio, due to CHF symptoms PO lasix changed to IV lasix. dose increased to 40 mg IV BID monitor BMP, weight daily #Constipation colace 200mg BID #DM resumed Glimepiride, started on Januvia as Pt. is unable to bring her own Trulicity because she left it in the car( must be refigerated). Pt. also endorsed that she missed last week Monday's dose. c/w BGM ACHS and ISS #HTN cont current meds #HLD cont home statin #PAD s/p recent LE stenting cont statin, bp control, ac #DVT c/w eliquis Visit type - Emergency Visit Emergency Visit: Yes ED Registration Date: 04/19/19 Care time: The patient presented to the Emergency Department on the above date and was hospitalized for further evaluation of their emergent condition. - New Patient This patient is new to me today: No - Critical Care Critical Care patient: No - Discharge Referral Referred to [facility] Med P.C.: No ATTENDING PHYSICIAN STATEMENT I saw and evaluated the patient. I reviewed the resident's note and discussed the case with the resident. I agree with the resident's findings and plan as documented. SUBJECTIVE: OBJECTIVE: ASSESSMENT AND PLAN:
--- NOTE | 2019-04-25 18:58 | PN ---
Teaching Attending Note Name of Resident: Froilan Benjamin ATTENDING PHYSICIAN STATEMENT I saw and evaluated the patient. I reviewed the resident's note and discussed the case with the resident. I agree with the resident's findings and plan as documented. SUBJECTIVE: No fever or chills. No MATA . No SOB . OBJECTIVE: NAd Cv : ireg irreg Lungs : bibasilar crackles Ext : 2+ pitting edema ASSESSMENT AND PLAN: Patient is a 68 y/o female with a history of afib ( on eliquis), diastolic heart failure, HTN, HLD, DM, nephrolithiasis, and RLE stent who is being admitted and treated for a fib with RVR 1- A fib with RVR 2- Acute diastolic heart failrue exacerbation 3- h/o HTN 4- h/o HLP 5-DM plan : - cont cardizem and digoxin at current dose - cont lasizx IV BID - d/w Silas Mariee - uncontrolled sugar. not taking her Trilucity. A1c 8 - increae SSI, add Januvia while here. can resume her home regimen at home - cont eliquis -HLOC
[2019-04-25] MEDS: ATORVASTATIN CA 10 MG TABLET (FP) PO SCH (22:05)
[2019-04-25] MEDS: GABAPENTIN 100 MG CAPSULE (FP) PO SCH (22:06)
[2019-04-26] MEDS ORDERED: PT OWN MED DRAWER 7, Y5N ONE ×4 (06:02→16:43)
[2019-04-26] MEDS: GLIMEPIRIDE 4 MG TABLET (FP) PO SCH ×2 (06:07→16:52)
[2019-04-26] MEDS: FUROSEMIDE 40 MG/4 ML INJECTABLE VIAL IVPUSH SCH ×2 (06:07→13:32)
[2019-04-26] MEDS: INSULIN SLIDING SCALE (NOVOLOG) 1 VIAL SQ SCH ×4 (06:46→21:09)
[2019-04-26 06:50] LABS: BLOOD UREA NITROGEN 25.6 mg/dL (7-18); CALCIUM 8.5 mg/dL (8.5-10.1); CREATININE 0.8 mg/dL (0.55-1.3); POTASSIUM 4.1 mmol/L (3.5-5.1)
[2019-04-26] MEDS: DIGOXIN 0.125 MG TABLET (FP) PO SCH (09:37)
[2019-04-26] MEDS: APIXABAN 5 MG TABLET PO SCH ×2 (09:37→21:08)
[2019-04-26] MEDS: DOCUSATE SODIUM 100 MG CAPSULE (FP) PO SCH ×2 (09:38→21:08)
[2019-04-26] MEDS: QUINAPRIL HCL 10 MG TABLET (FP) PO SCH (09:56)
--- NOTE | 2019-04-26 12:02 | PN ---
Progress Note, Physician Chief Complaint: still SOB w/ exertion TELE: AF 90s, occasional 120s, sometimes up to 140s History of Present Illness: down 1lb - Current Medication List Current Medications: Active Medications Apixaban (Eliquis -) 5 mg PO BID [facility] Last Admin: 04/26/19 09:37 Dose: 5 mg Atorvastatin Calcium (Lipitor -) 10 mg PO HS [facility] Last Admin: 04/25/19 22:05 Dose: 10 mg Digoxin (Lanoxin -) 0.25 mg PO DAILY [facility] Last Admin: 04/26/19 09:37 Dose: 0.25 mg Diltiazem HCl (Cardizem Injection -) 5 mg IVPUSH Q4H PRN PRN Reason: TACHYCARDIA Last Admin: 04/25/19 11:30 Dose: 5 mg Diltiazem HCl (Cardizem Cd -) 360 mg PO DAILY [facility] Last Admin: 04/26/19 09:37 Dose: 360 mg Docusate Sodium (Colace -) 200 mg PO BID [facility] Last Admin: 04/26/19 09:38 Dose: 200 mg Furosemide (Lasix Injection -) 40 mg IVPUSH BID@0600,1400 [facility] Last Admin: 04/26/19 06:07 Dose: 40 mg Gabapentin (Neurontin -) 100 mg PO HS [facility] Last Admin: 04/25/19 22:06 Dose: 100 mg Glimepiride (Amaryl -) 4 mg PO BIDAC [facility] Last Admin: 04/26/19 06:07 Dose: 4 mg Insulin Aspart (Novolog Vial Sliding Scale -) 1 vial SQ [facility]; Protocol Last Admin: 04/26/19 11:39 Dose: 6 units Quinapril HCl (Accupril -) 10 mg PO DAILY [facility] Last Admin: 04/26/19 09:56 Dose: 10 mg Sitagliptin Phosphate (Januvia -) 100 mg PO DAILY@0700 [facility] Last Admin: 04/26/19 06:07 Dose: 100 mg - Objective Vital Signs: Vital Signs Temperature 98.2 F 04/26/19 08:31 Pulse Rate 85 04/26/19 09:37 Respiratory Rate 16 04/26/19 08:31 Blood Pressure 128/51 L 04/26/19 08:31 O2 Sat by Pulse Oximetry (%) 94 L 04/26/19 09:00 Constitutional: Yes: No Distress Cardiovascular: Yes: Pulse Irregular Respiratory: Yes: Other (bilateral rales, 1/3) Gastrointestinal: Yes: Soft Edema: Yes Edema: LLE: 1+, RLE: 1+ Neurological: Yes: Alert, Oriented ...Motor Strength: WNL Psychiatric: Yes: WNL Labs: CBC, BMP 04/24/19 05:20 04/26/19 05:50 INR, PTT INR 1.64 (0.83-1.09) H 04/19/19 10:00 - ....Imaging EKG: Image Reviewed Assessment/Plan 11/2015: mild dec lvef, global hk, nl rv, mild mr echo 11/2016: mild dec lvef, global hk, nl rv, mild- mod mr, mild lae. small effusion < 1cm echo 08/2018: mild lvh, nl lvef, nl rv, mild mr tele: afib mostly 90s at rest a/p: 68 yo female hx pafib, htn, hld, dchf, pad s/p r rfa sent 02/2019 here with sob. sob, paroxysmal AFib: rates uncontrolled. - Cont Cardizem, dig. Will add back low dose Toprol, continue tele - cont eliquis - monitoring on tele acute on chronic diast chf: -still with vol overload, chf sxs in setting ISMAEL -cont IV lasix - inc to lasix 40 mg IV BID 04/24 -daily chem7, weights, lytes htn: -cont current meds hld: -cont home statin pad s/p recent le stenting: -cont statin, bp control, ac
[2019-04-26] MEDS: metoPROLOL SUCCINATE 25 MG TAB.SR.24H (FP) PO SCH (13:32)
--- NOTE | 2019-04-26 15:50 | PN ---
Teaching Attending Note Name of Resident: Froilan Benjamin ATTENDING PHYSICIAN STATEMENT I saw and evaluated the patient. I reviewed the resident's note and discussed the case with the resident. I agree with the resident's findings and plan as documented. SUBJECTIVE: No fever or chills. No OSB . still has LE . palpitations + OBJECTIVE: NAd Cv : ireg irreg , No MRG Lungs: bibasilar crackles Ext: 2+ pitting edema ASSESSMENT AND PLAN: Patient is a 68 y/o female with a history of afib ( on eliquis), diastolic heart failure, HTN, HLD, DM, nephrolithiasis, and RLE stent who is being admitted and treated for a fib with RVR 1- A fib with RVR : rate is still uncontrolled 2- Acute diastolic heart failrue exacerbation 3- h/o HTN 4- h/o HLP 5-DM plan : - cont cardizem and digoxin at current dose - toprol added - cont lasix IV BID. weight is slowly decreasing but still overloaded - sugars are better controlled . cont Januvia and Amaryl and SSI -will resume her home regimen [place] - cont eliquis - tele reviewed -HLOC
--- NOTE | 2019-04-26 16:55 | PN ---
Physical Exam: SUBJECTIVE: Patient seen and examined. Pt continues to experience HOLCOMB and episodic rise in heart rate to 130-140s. OBJECTIVE: Vital Signs Period Temp Pulse Resp BP Sys/Pitts Pulse Ox Last 24 Hr 97.3 F-99.1 F 85-128 16-20 105-148/48-64 92-94 GENERAL: The patient is awake, alert, and fully oriented, in no acute distress HEAD: Normal with no signs of trauma. EYES: PERRL, extraocular movements intact, sclera anicteric, conjunctiva clear. No ptosis. ENT: oropharynx clear without exudates, moist mucous membranes. LUNGS: Breath sounds equal, clear to auscultation bilaterally,lower lung crackles, no accessory muscle use. HEART: Regular rate and rhythm, S1, S2 without murmur, rub or gallop. ABDOMEN: Soft, nontender, nondistended, normoactive bowel sounds, no guarding, no rebound, no hepatosplenomegaly, no masses. EXTREMITIES: 2+ pulses, warm, well-perfused, trace edema. PSYCH: Normal mood, normal affect. Laboratory Results - last 24 hr 04/25/19 04/26/19 04/26/19 22:04 05:50 05:53 Sodium 141 Potassium 4.1 Chloride 103 Carbon Dioxide 32 Anion Gap 6 L BUN 25.6 H Creatinine 0.8 Est GFR (CKD-EPI)AfAm 87.80 Est GFR (CKD-EPI)NonAf 75.75 POC Glucometer 264 209 Random Glucose 219 H Calcium 8.5 Magnesium 2.0 04/26/19 04/26/19 11:34 16:50 Sodium Potassium Chloride Carbon Dioxide Anion Gap BUN Creatinine Est GFR (CKD-EPI)AfAm Est GFR (CKD-EPI)NonAf POC Glucometer 222 341 Random Glucose Calcium Magnesium Active Medications Generic Name Dose Route Start Last Admin Trade Name Freq PRN Reason Stop Dose Admin Apixaban 5 mg 04/19/19 22:00 04/26/19 09:37 Eliquis - PO 5 mg BID LEONEL Administration Atorvastatin Calcium 10 mg 04/19/19 22:00 04/25/19 22:05 Lipitor - PO 10 mg HS LEONEL Administration Digoxin 0.25 mg 04/24/19 10:00 04/26/19 09:37 Lanoxin - PO 0.25 mg DAILY LEONEL Administration Diltiazem HCl 5 mg 04/19/19 14:59 04/25/19 11:30 Cardizem Injection - IVPUSH 5 mg Q4H PRN Administration TACHYCARDIA Diltiazem HCl 360 mg 04/23/19 10:00 04/26/19 09:37 Cardizem Cd - PO 360 mg DAILY LEONEL Administration Docusate Sodium 200 mg 04/23/19 10:30 04/26/19 09:38 Colace - PO 200 mg BID LEONEL Administration Furosemide 60 mg 04/26/19 14:00 04/26/19 13:32 Lasix Injection - IVPUSH 60 mg BID@0600,1400 LEONEL Administration Gabapentin 100 mg 04/19/19 22:00 04/25/19 22:06 Neurontin - PO 100 mg HS LEONEL Administration Glimepiride 4 mg 04/24/19 16:30 04/26/19 16:52 Amaryl - PO 4 mg BIDAC LEONEL Administration Insulin Aspart 1 vial 04/25/19 07:31 04/26/19 16:51 Novolog Vial Sliding Scale - SQ 10 units ACHS LEONEL Administration Protocol Metoprolol Succinate 25 mg 04/26/19 12:15 04/26/19 13:32 Toprol Xl - PO 25 mg DAILY LEONEL Administration Quinapril HCl 10 mg 04/20/19 10:00 04/26/19 09:56 Accupril - PO 10 mg DAILY LEONEL Administration Sitagliptin Phosphate 100 mg 04/25/19 12:00 04/26/19 06:07 Januvia - PO 100 mg DAILY@0700 LEONEL Administration ASSESSMENT/PLAN: 68 yo female hx pafib, htn,DM, hld, dchf, pad s/p r rfa sent 02/2019 here with sob. SOB, paroxysmal AFib Pt continues to have HOLCOMB and SOB. pt continues to have afib in the 90s-100s with episodic rise to 130-140s toprol restarted at low dose 25mg PO daily Per Cardio, rate still fast at times, cont diltiazem 360 qd dig level 0.44. increased to 0.25 daily cont eliquis monitoring on tele chronic diastlic CHF Per Cardio, due to CHF symptoms PO lasix changed to IV lasix. dose increased to 60 mg IV BID monitor BMP, weight daily Constipation colace 200mg BID DM resumed glimepiride and trulicity ISS HTN cont current meds HLD cont home statin PAD s/p recent LE stenting cont statin, bp control, ac DVT on elequis Visit type - Emergency Visit Emergency Visit: Yes ED Registration Date: 04/19/19 Care time: The patient presented to the Emergency Department on the above date and was hospitalized for further evaluation of their emergent condition. - New Patient This patient is new to me today: No - Critical Care Critical Care patient: No - Discharge Referral Referred to [facility] Med P.C.: No ATTENDING PHYSICIAN STATEMENT I saw and evaluated the patient. I reviewed the resident's note and discussed the case with the resident. I agree with the resident's findings and plan as documented. SUBJECTIVE: OBJECTIVE: ASSESSMENT AND PLAN:
[2019-04-26] MEDS: ATORVASTATIN CA 10 MG TABLET (FP) PO SCH (21:08)
[2019-04-26] MEDS: GABAPENTIN 100 MG CAPSULE (FP) PO SCH (21:09)
[2019-04-27] MEDS ORDERED: PT OWN MED DRAWER 7, Y5N ONE (05:18)
[2019-04-27] MEDS: FUROSEMIDE 40 MG/4 ML INJECTABLE VIAL IVPUSH SCH (06:37)
[2019-04-27] MEDS: GLIMEPIRIDE 4 MG TABLET (FP) PO SCH ×2 (06:37→17:08)
[2019-04-27] MEDS: INSULIN SLIDING SCALE (NOVOLOG) 1 VIAL SQ SCH ×4 (06:38→21:11)
[2019-04-27 07:10] LABS: BLOOD UREA NITROGEN 30.1 mg/dL (7-18); CALCIUM 8.8 mg/dL (8.5-10.1); CREATININE 0.8 mg/dL (0.55-1.3); MAGNESIUM 1.9 mg/dL (1.8-2.4); POTASSIUM 4.3 mmol/L (3.5-5.1)
[2019-04-27] MEDS: APIXABAN 5 MG TABLET PO SCH ×2 (09:51→21:11)
[2019-04-27] MEDS: DOCUSATE SODIUM 100 MG CAPSULE (FP) PO SCH ×2 (09:51→21:11)
[2019-04-27] MEDS: DIGOXIN 0.125 MG TABLET (FP) PO SCH (09:51)
[2019-04-27] MEDS: metoPROLOL SUCCINATE 25 MG TAB.SR.24H (FP) PO SCH (09:51)
--- NOTE | 2019-04-27 11:17 | PN ---
Progress Note (short form) - Note Progress Note: s: feeling better this AM, no cp sob palps dizzy Current Medications Generic Name Dose Route Start Last Admin Trade Name Freq PRN Reason Stop Dose Admin Apixaban 5 mg 04/19/19 22:00 04/27/19 09:51 Eliquis - PO 5 mg BID LEONEL Administration Atorvastatin Calcium 10 mg 04/19/19 22:00 04/26/19 21:08 Lipitor - PO 10 mg HS LEONEL Administration Digoxin 0.25 mg 04/24/19 10:00 04/27/19 09:51 Lanoxin - PO 0.25 mg DAILY LEONEL Administration Diltiazem HCl 5 mg 04/19/19 14:59 04/25/19 11:30 Cardizem Injection - IVPUSH 5 mg Q4H PRN Administration TACHYCARDIA Diltiazem HCl 360 mg 04/23/19 10:00 04/27/19 09:51 Cardizem Cd - PO 360 mg DAILY LEONEL Administration Docusate Sodium 200 mg 04/23/19 10:30 04/27/19 09:51 Colace - PO 200 mg BID LEONEL Administration Furosemide 60 mg 04/26/19 14:00 04/27/19 06:37 Lasix Injection - IVPUSH 60 mg BID@0600,1400 LEONEL Administration Gabapentin 100 mg 04/19/19 22:00 04/26/19 21:09 Neurontin - PO 100 mg HS LEONEL Administration Glimepiride 4 mg 04/24/19 16:30 04/27/19 06:37 Amaryl - PO 4 mg BIDAC LEONEL Administration Insulin Aspart 1 vial 04/25/19 07:31 04/27/19 06:38 Novolog Vial Sliding Scale - SQ 2 units ACHS LEONEL Administration Protocol Metoprolol Succinate 25 mg 04/26/19 12:15 04/27/19 09:51 Toprol Xl - PO 25 mg DAILY LEONEL Administration Quinapril HCl 10 mg 04/27/19 09:42 Accupril - PO DAILY LEONEL Sitagliptin Phosphate 100 mg 04/25/19 12:00 04/27/19 06:37 Januvia - PO 100 mg DAILY@0700 LEONEL Administration Vital Signs Period Temp Pulse Resp BP Sys/Pitts Pulse Ox Last 24 Hr 97.7 F-98.8 F 61-120 16-20 101-136/48-73 99 Constitutional: Yes: Well Nourished, No Distress Eyes: No: Sclera Icterus Respiratory: Yes: CTA Bilaterally. No: Accessory Muscle Use, Rales, Wheezes Gastrointestinal: Yes: Normal Bowel Sounds. No: Distention, Hepatomegaly, Palpable Mass, Tenderness Cardiovascular: Yes: irreg JVD: No Carotid Bruit: No Heart Sounds: Yes: S1, S2. No: Gallop Murmur: No: Systolic Murmur, Diastolic Murmur Extremities: No: Cold, Cyanosis Edema:trace le edema bl Integumentary: No: Jaundice diaphoresis Neurological: Yes: Alert, Oriented (x3) Psychiatric: No: Agitated CBC, BMP 04/24/19 05:20 04/27/19 05:58 11/2015: mild dec lvef, global hk, nl rv, mild mr echo 11/2016: mild dec lvef, global hk, nl rv, mild- mod mr, mild lae. small effusion < 1cm echo 08/2018: mild lvh, nl lvef, nl rv, mild mr tele: afib, rate controlled a/p: 68 yo female hx pafib, htn, hld, dchf, pad s/p r rfa sent 02/2019 here with sob. sob, paroxysmal AFib: - Cont Cardizem, dig, toprol, rate controlled - cont eliquis - monitoring on tele acute on chronic diast chf: -cxr clear, le edema improved and sob better -will change to po lasix and monitor sxs. will start lasix 60 po bid. htn: -cont current meds hld: -cont home statin pad s/p recent le stenting: -cont statin, bp control, ac
[2019-04-27] MEDS: QUINAPRIL HCL 5 MG TABLET (FP) PO SCH (11:48)
--- NOTE | 2019-04-27 13:30 | PN ---
Physical Exam: SUBJECTIVE: Patient seen and examined. SOB improved. OBJECTIVE: Vital Signs Period Temp Pulse Resp BP Sys/Pitts Pulse Ox Last 24 Hr 97.7 F-98.8 F 61-120 16-20 101-136/48-73 97-99 GENERAL: The patient is awake, alert, and fully oriented, in no acute distress HEAD: Normal with no signs of trauma. EYES: PERRL, extraocular movements intact, sclera anicteric, conjunctiva clear. No ptosis. ENT: oropharynx clear without exudates, moist mucous membranes. LUNGS: Breath sounds equal, clear to auscultation bilaterally,lower lung crackles improved , no accessory muscle use. HEART: Regular rate and rhythm, S1, S2 without murmur, rub or gallop. ABDOMEN: Soft, nontender, nondistended, normoactive bowel sounds, no guarding, no rebound, no hepatosplenomegaly, no masses. EXTREMITIES: 2+ pulses, warm, well-perfused, edema improved. PSYCH: Normal mood, normal affect. Laboratory Results - last 24 hr 04/26/19 04/26/19 04/27/19 16:50 20:20 05:51 Sodium Potassium Chloride Carbon Dioxide Anion Gap BUN Creatinine Est GFR (CKD-EPI)AfAm Est GFR (CKD-EPI)NonAf POC Glucometer 341 314 166 Random Glucose Calcium Magnesium Digoxin 04/27/19 04/27/19 04/27/19 05:58 11:47 12:17 Sodium 140 Potassium 4.3 Chloride 100 Carbon Dioxide 36 H Anion Gap 4 L BUN 30.1 H Creatinine 0.8 Est GFR (CKD-EPI)AfAm 87.80 Est GFR (CKD-EPI)NonAf 75.75 POC Glucometer 341 Random Glucose 179 H Calcium 8.8 Magnesium 1.9 Digoxin 1.76 Active Medications Generic Name Dose Route Start Last Admin Trade Name Freq PRN Reason Stop Dose Admin Apixaban 5 mg 04/19/19 22:00 04/27/19 09:51 Eliquis - PO 5 mg BID LEONEL Administration Atorvastatin Calcium 10 mg 04/19/19 22:00 04/26/19 21:08 Lipitor - PO 10 mg HS LEONEL Administration Digoxin 0.25 mg 04/24/19 10:00 04/27/19 09:51 Lanoxin - PO 0.25 mg DAILY LEONEL Administration Diltiazem HCl 5 mg 04/19/19 14:59 04/25/19 11:30 Cardizem Injection - IVPUSH 5 mg Q4H PRN Administration TACHYCARDIA Diltiazem HCl 360 mg 04/23/19 10:00 04/27/19 09:51 Cardizem Cd - PO 360 mg DAILY LEONEL Administration Docusate Sodium 200 mg 04/23/19 10:30 04/27/19 09:51 Colace - PO 200 mg BID LEONEL Administration Furosemide 60 mg 04/27/19 14:00 Lasix - PO BID@0600,1400 LEONEL Gabapentin 100 mg 04/19/19 22:00 04/26/19 21:09 Neurontin - PO 100 mg HS LEONEL Administration Glimepiride 4 mg 04/24/19 16:30 04/27/19 06:37 Amaryl - PO 4 mg BIDAC LEONEL Administration Insulin Aspart 1 vial 04/25/19 07:31 04/27/19 11:48 Novolog Vial Sliding Scale - SQ 10 units ACHS LEONEL Administration Protocol Metoprolol Succinate 25 mg 04/26/19 12:15 04/27/19 09:51 Toprol Xl - PO 25 mg DAILY LEONEL Administration Quinapril HCl 10 mg 04/27/19 09:42 04/27/19 11:48 Accupril - PO 10 mg DAILY LEONEL Administration Sitagliptin Phosphate 100 mg 04/25/19 12:00 04/27/19 06:37 Januvia - PO 100 mg DAILY@0700 LEONEL Administration ASSESSMENT/PLAN: 68 yo female hx pafib, htn,DM, hld, dchf, pad s/p r rfa sent 02/2019 here with sob. SOB, paroxysmal AFib HOLCOMB and SOB improved. Pt currently rate controlled. toprol 25mg PO daily diltiazem 360 qd digoxin 0.25 daily cont eliquis monitoring on tele pre&post tomorrow for home oxygen need chronic diastlic CHF Per Cardio, due to CHF symptoms improving lasix changed to PO lasix at 60 mg BID monitor BMP, weight daily Constipation colace 200mg BID DM resumed glimepiride and trulicity ISS HTN cont current meds HLD cont home statin PAD s/p recent LE stenting cont statin, bp control, ac DVT on elequis Visit type - Emergency Visit Emergency Visit: Yes ED Registration Date: 04/19/19 Care time: The patient presented to the Emergency Department on the above date and was hospitalized for further evaluation of their emergent condition. - New Patient This patient is new to me today: No - Critical Care Critical Care patient: No - Discharge Referral Referred to [facility] Med P.C.: No ATTENDING PHYSICIAN STATEMENT I saw and evaluated the patient. I reviewed the resident's note and discussed the case with the resident. I agree with the resident's findings and plan as documented. SUBJECTIVE: OBJECTIVE: ASSESSMENT AND PLAN:
[2019-04-27] MEDS: FUROSEMIDE 40 MG TABLET (FP) PO SCH (13:46)
--- NOTE | 2019-04-27 15:11 | PN ---
Teaching Attending Note Name of Resident: Arlette Prince ATTENDING PHYSICIAN STATEMENT I saw and evaluated the patient. I reviewed the resident's note and discussed the case with the resident. I agree with the resident's findings and plan as documented. SUBJECTIVE: No fever or chills. Has No abd pain. No SOB or CP . last night she felt she could not breath. but was not hypoxic OBJECTIVE: NAd Cv : ireg irreg , No MRG Lungs: bibasilar crackles are much better Ext: 1+ pitting edema ASSESSMENT AND PLAN: Patient is a 68 y/o female with a history of afib ( on eliquis), diastolic heart failure, HTN, HLD, DM, nephrolithiasis, and RLE stent who is being admitted and treated for a fib with RVR 1- A fib with RVR: rate is still uncontrolled 2- Acute diastolic heart failure exacerbation 3- H/o HTN 4- H/o HLP 5- DM Plan: -HR is much better . cont cardizem , toprol and digoxin at current dose - d/w Dr. patterson, yoryd to po and monitor over night - . cont Januvia and Amaryl and SSI - will resume her home Dm regimen at dc - cont eliquis - tele reviewed , no events but A fib -HLOC possible dc tomorrow
[2019-04-27] MEDS ORDERED: DIGOXIN 0.125 MG TABLET (FP) PO SCH (16:39)
[2019-04-27] MEDS: GABAPENTIN 100 MG CAPSULE (FP) PO SCH (21:11)
[2019-04-27] MEDS: ATORVASTATIN CA 10 MG TABLET (FP) PO SCH (21:11)
[2019-04-28] MEDS ORDERED: PT OWN MED DRAWER 7, Y5N ONE ×3 (05:58→10:29)
[2019-04-28 06:21] LABS: BASO % 0.4 % (0-2.0); EOS % 2.9 % (0-4.5); HEMATOCRIT 29.5 % (32.4-45.2); HEMOGLOBIN 9.4 GM/dL (10.7-15.3); LYMPH % 23.6 % (8-40); MCH 24.4 pg (25.7-33.7); MCHC 31.8 g/dl (32.0-36.0); MEAN CELL VOLUME 76.9 fl (80-96); MEAN PLT VOLUME 8.3 fl (7.5-11.1); MONO % 10.9 % (3.8-10.2); NEUT % 62.2 % (42.8-82.8); PLATELET COUNT 253 K/MM3 (134-434); RBC 3.84 M/mm3 (3.60-5.2); RDW 16.4 % (11.6-15.6); WHITE BLOOD COUNT 6.8 K/mm3 (4.0-10.0)
[2019-04-28] MEDS: GLIMEPIRIDE 4 MG TABLET (FP) PO SCH (06:32)
[2019-04-28] MEDS: FUROSEMIDE 40 MG TABLET (FP) PO SCH (06:32)
[2019-04-28] MEDS: INSULIN SLIDING SCALE (NOVOLOG) 1 VIAL SQ SCH ×2 (06:32→12:03)
[2019-04-28 06:47] LABS: BLOOD UREA NITROGEN 37.2 mg/dL (7-18); CALCIUM 8.7 mg/dL (8.5-10.1); POTASSIUM 4.1 mmol/L (3.5-5.1)
[2019-04-28 08:50] VITALS: BP 121/57; TEMP 98.8
[2019-04-28] MEDS: DOCUSATE SODIUM 100 MG CAPSULE (FP) PO SCH (10:35)
--- NOTE | 2019-04-28 10:35 | PN ---
Progress Note (short form) - Note Progress Note: s: no cp sob palps dizzy; feels well walking in halls. Current Medications Generic Name Dose Route Start Last Admin Trade Name [place] PRN Reason Stop Dose Admin Apixaban 5 mg 04/19/19 22:00 04/27/19 21:11 Eliquis - PO 5 mg BID LEONEL Administration Atorvastatin Calcium 10 mg 04/19/19 22:00 04/27/19 21:11 Lipitor - PO 10 mg HS LEONEL Administration Digoxin 0.125 mg 04/27/19 16:39 Lanoxin - PO DAILY LEONEL Diltiazem HCl 5 mg 04/19/19 14:59 04/25/19 11:30 Cardizem Injection - IVPUSH 5 mg Q4H PRN Administration TACHYCARDIA Diltiazem HCl 360 mg 04/23/19 10:00 04/27/19 09:51 Cardizem Cd - PO 360 mg DAILY LEONEL Administration Docusate Sodium 200 mg 04/23/19 10:30 04/27/19 21:11 Colace - PO 200 mg BID LEONEL Administration Furosemide 60 mg 04/27/19 14:00 04/28/19 06:32 Lasix - PO 60 mg BID@0600,1400 LEONEL Administration Gabapentin 100 mg 04/19/19 22:00 04/27/19 21:11 Neurontin - PO 100 mg HS LEONEL Administration Glimepiride 4 mg 04/24/19 16:30 04/28/19 06:32 Amaryl - PO 4 mg BIDAC LEONEL Administration Insulin Aspart 1 vial 04/25/19 07:31 04/28/19 06:32 Novolog Vial Sliding Scale - SQ 2 units ACHS LEONEL Administration Protocol Metoprolol Succinate 25 mg 04/26/19 12:15 04/27/19 09:51 Toprol Xl - PO 25 mg DAILY LEONEL Administration Quinapril HCl 10 mg 04/27/19 09:42 04/27/19 11:48 Accupril - PO 10 mg DAILY LEONEL Administration Sitagliptin Phosphate 100 mg 04/25/19 12:00 04/28/19 06:32 Januvia - PO 100 mg DAILY@0700 LEONEL Administration Vital Signs Period Temp Pulse Resp BP Sys/Pitts Pulse Ox Last 24 Hr 97.3 F-98.8 F 63-86 18-20 118-136/57-79 97-98 Constitutional: Yes: Well Nourished, No Distress Eyes: No: Sclera Icterus Respiratory: Yes: CTA Bilaterally. No: Accessory Muscle Use, Rales, Wheezes Gastrointestinal: Yes: Normal Bowel Sounds. No: Distention, Hepatomegaly, Palpable Mass, Tenderness Cardiovascular: Yes: irreg JVD: No Carotid Bruit: No Heart Sounds: Yes: S1, S2. No: Gallop Murmur: No: Systolic Murmur, Diastolic Murmur Extremities: No: Cold, Cyanosis Edema:trace le edema bl Integumentary: No: Jaundice diaphoresis Neurological: Yes: Alert, Oriented (x3) Psychiatric: No: Agitated CBC, BMP 04/28/19 05:20 04/28/19 06:00 11/2015: mild dec lvef, global hk, nl rv, mild mr echo 11/2016: mild dec lvef, global hk, nl rv, mild- mod mr, mild lae. small effusion < 1cm echo 08/2018: mild lvh, nl lvef, nl rv, mild mr tele: afib, rate controlled a/p: 68 yo female hx pafib, htn, hld, dchf, pad s/p r rfa sent 02/2019 here with sob. sob, paroxysmal AFib: - Cont Cardizem, dig, toprol, rate controlled - cont eliquis acute on chronic diast chf: -cxr clear, le edema improved and sob better -cont lasix 60 po bid. htn: -cont current meds hld: -cont home statin pad s/p recent le stenting: -cont statin, bp control, ac cardiac valladares stable for dc. f/u 1 week at office.
[2019-04-28] MEDS: metoPROLOL SUCCINATE 25 MG TAB.SR.24H (FP) PO SCH (10:36)
[2019-04-28] MEDS: APIXABAN 5 MG TABLET PO SCH (10:36)
[2019-04-28 10:39] VITALS: PULSE 92
[2019-04-28] MEDS: QUINAPRIL HCL 5 MG TABLET (FP) PO SCH (11:28)
--- NOTE | 2019-04-28 15:26 | DS ---
Physical Examination Vital Signs: Vital Signs Temperature 98.8 F 04/28/19 08:49 Pulse Rate 92 H 04/28/19 10:36 Respiratory Rate 18 04/28/19 08:49 Blood Pressure 121/57 L 04/28/19 08:49 O2 Sat by Pulse Oximetry (%) 99 04/28/19 09:00 Findings/Remarks: denies any pain, or CP . no cough \ PE: NAd Cv : ireg irreg , No MRG Lungs: decreased breath sounds at bases with minimal crackles Ext: trace pitting edema Labs: CBC, BMP 04/28/19 05:20 04/28/19 06:00 Discharge Summary Problems reviewed: Yes Reason For Visit: AFIB Hospital Course: Patient is a 68 y/o female with a history of afib ( on eliquis), diastolic heart failure, HTN, HLD, DM, nephrolithiasis, and RLE stent who was admitted due to SOB. She was found to have A fib with RVR and Acute CHF 1- A fib with RVR 2- Acute diastolic heart failure exacerbation 3- H/o HTN 4- H/o HLP 5- DM course: patient had a cxray on admisson, which did not show infiltrate or congesdtions. patient was in A fib with RVR. she was [facility] and treated with AV chucho blockers and continued on her Eliquis. She was diuresed with IV lasix . after few days her rate was finally able to be controlled with 3 agents, toprol 25 mg daily, dig 125mcg daily and cardizem 360 daily. she was asked to stop her toprol 100 at home. her volume status improved with diuresis and will be dc on 60 of lasix BID instead of her home regimen of 40 BID . Echo was done here and showed diastolic dysfunction with some valvular abnormalities. pre-post ambulatory pulse ox was done and showed that she did not need O2. For her Dm , she was placed on JAnuvia and Metromin in addition to SSI while here. at dc she is cont her metformin regimen and Trilucity. usually her sugar is controlled 80s-150s at home. She was asked to d/w her PCp Metformin as she has heart failure. Dc home in a good condition f/u with CArd, adnd PCP time spent 40 min Condition: Improved - Instructions Diet, Activity, Other Instructions: You were hospitaized for A fib with rapid heart rate and acute heart failure exacerbation. -Medications changes : please stop taking your 100mg toprol. for your A fib, take digoxin 0.125 mg daily, Toprol 25 mg daily, an cardizem 360 mg daily. For your heart failure, take lasix 60 mg tiwce a day instead of 40 mg twice a day - the rest of your makenna emeds were not changed. - please follow up with Dr. Rosen within a week - follow up with Dr. Lund in 1 week - weight your self every morning . take log to Dr. Rosen or ondina him if your weight increase > 2 pound s - please report any palpitations, diziness, shortness of breath or any other unusual symptoms to your doctors. - check your sugar before breakfast and dinner. take log to yasmeen Lund. if your sugar is > 300 or < [address] lund right away. if sugar is < 70 and have symptoms of sweating or shaking, drink orange juice and eat crackers and call dr. Lund r come to ER - Low salt diet - Discuss with Dr. Lund your diabetes regimen, specifically Metformin, as you have heart failure. Good luck. Referrals: Rivas Lund MD [Primary Care Provider] - 1 Week Dylan Rosen MD [Staff Physician] - 1 Week Disposition: HOME - Home Medications Comprehensive Discharge Medication List: Ambulatory Orders Quinapril HCl [Accupril -] 10 mg PO DAILY 11/25/15 Simvastatin [Zocor -] 20 mg PO HS 11/25/15 Glimepiride [Amaryl] 4 mg PO BIDAC 12/17/16 metFORMIN HCL [Glucophage -] 1,000 mg PO BIDAC 12/17/16 Apixaban [Eliquis -] 5 mg PO BID #60 tablet 03/16/17 Dulaglutide [Trulicity] 1.5 mg SQ Q7D 01/07/19 Gabapentin [Neurontin] 100 mg PO HS 02/20/19 Digoxin [Lanoxin -] 0.125 mg PO DAILY #30 tablet 04/28/19 Diltiazem HCl [Diltiazem 24Hr ER] 360 mg PO DAILY #30 cap.sa.24h 04/28/19 Furosemide [Lasix] 60 mg PO BID #90 tablet 04/28/19 Metoprolol Succinate [Toprol XL -] 25 mg PO DAILY #30 tab.sr.24h 04/28/19 This patient is new to me today: No Emergency Visit: Yes ED Registration Date: 04/19/19 Care time: The patient presented to the Emergency Department on the above date and was hospitalized for further evaluation of their emergent condition. Critical Care patient: No - Discharge Referral Referred to [facility] Med P.C.: No
== END 2019-04-28 14:37 | disposition home or self-care (01) | DRG 308 ==
LOC: JER 08:20 → JERBED 12:11 → J4S 20:42 → JSAMEDAYSX 04-22 17:20 → J4S 04-22 17:21
PROVIDERS: ADMIT Internal Medicine; ATTEND Internal Medicine
DX: I48.0 Paroxysmal atrial fibrillation (principal); I50.33 Acute on chronic diastolic (congestive) heart failure; I11.0 Hypertensive heart disease with heart failure; E78.5 Hyperlipidemia, unspecified; E11.9 Type 2 diabetes mellitus without complications; K59.00 Constipation, unspecified
CPT/HCPCS: 36415; 71045-TC-FY; 80048; 80053; 80162; 82550; 82962; 83036; 83735; 83880; 84100; 84443; 84484; 85025; 85027; 85610; 85730; 93005; 93010; 93306-TC; 94761; 99284-25

== ENCOUNTER 2019-06-17 07:52 | Inpatient (IN) | payer BC, OTHER ==
--- NOTE | 2019-06-17 08:09 | PDOC ---
History of Present Illness - General Chief Complaint: Shortness of Breath Stated Complaint: SOB Time Seen by Provider: 06/17/19 08:02 History Source: Patient Exam Limitations: No Limitations - History of Present Illness Initial Comments: Aurora Acosta is a 68 yo F w a hx of afib-(on eliquis), HFpEF, CHF, HTN, HLD, NIDDM, nephrolithiasis, and RLE stent who presents to the [facility] er as a walk in for shortness of breath and dizziness for the past 2 days. She states the SOB has been slowly worsening and is now at a point where she needs 4 pillows to sleep at night otherwise she feels like she is choking. She states that her arms and legs have also been uncomfortably swelling up and she feels like she is a water balloon. The patient states that walking one block is extremely tiresome for her and she doesn't understand why she is so short of breath. Additionally, she states she has been becoming lightheaded with any physical activity or exertion and feels like she is going to pass out. She has not passed out, has not hit her head, and has not experienced any trauma. Denies chest pain, nausea, vomiting, headache, blurry vision, neck pain, abdominal pain, back pain, numbness, tingling, chills, fevers, infections, dysuria, frequency, or urgency. PCP: Dr. Lund Cards: Dr. Maldonado PSH: RLE stent, cholecystectomy, Allergies: NKA, NKDA Social Hx: Former pack/day smoker. Drinks recreationally. Denies current smoking or other substance usage Past History - Past Medical History Allergies/Adverse Reactions: Allergies Allergy/AdvReac Type Severity Reaction Status Date / Time No Known Drug Allergies Allergy Verified 06/17/19 07:58 Home Medications: Ambulatory Orders Quinapril HCl [Accupril -] 10 mg PO DAILY 11/25/15 Simvastatin [Zocor -] 20 mg PO HS 11/25/15 Glimepiride [Amaryl] 4 mg PO BIDAC 12/17/16 metFORMIN HCL [Glucophage -] 1,000 mg PO BIDAC 12/17/16 Apixaban [Eliquis -] 5 mg PO BID #60 tablet 03/16/17 Dulaglutide [Trulicity] 1.5 mg SQ Q7D 01/07/19 Gabapentin [Neurontin] 100 mg PO HS 02/20/19 Digoxin [Lanoxin -] 0.125 mg PO DAILY #30 tablet 04/28/19 Diltiazem HCl [Diltiazem 24Hr ER] 360 mg PO DAILY #30 cap.sa.24h 04/28/19 Furosemide [Lasix] 60 mg PO BID #90 tablet 04/28/19 Metoprolol Succinate [Toprol XL -] 25 mg PO DAILY #30 tab.sr.24h 04/28/19 Anemia: No Asthma: No Cancer: Yes (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) Cardiac Disorders: Yes (paf, sob,) CVA: No COPD: No CHF: Yes (2017) Dementia: No Diabetes: Yes GI Disorders: No Disorders: Yes (uti, kidney stones) HTN: Yes Hypercholesterolemia: Yes Kidney Stones: Yes Liver Disease: Yes (fatty liver?) Seizures: No Thyroid Disease: No - Surgical History Abdominal Surgery: No Appendectomy: No Cardiac Surgery: No Cholecystectomy: Yes Lung Surgery: No Neurologic Surgery: No Orthopedic Surgery: No - Immunization History Immunization Up to Date: Yes - Psycho Social/Smoking Cessation Hx Smoking History: Former smoker Have you smoked in the past 12 months: No Number of Cigarettes Smoked Daily: 20 If you are a former smoker, when did you quit?: 2014 Information on smoking cessation initiated: No 'Breaking Loose' booklet given: 12/28/15 Hx Alcohol Use: No Drug/Substance Use Hx: No Substance Use Type: None Hx Substance Use Treatment: No Review of Systems - Review of Systems Able to Perform ROS?: Yes Comments:: CONSTITUTIONAL: Present: generalized weakness, fatigue Absent: fever, chills, diaphoresis, malaise, loss of appetite HEENT: Absent: rhinorrhea, nasal congestion, throat pain, throat swelling, difficulty swallowing, mouth swelling, ear pain, eye pain, visual Changes CARDIOVASCULAR: Present: Lightheadedness, peripheral edema, irregular heart rate Absent: chest pain, syncope, palpitations RESPIRATORY: Present: Cough, shortness of breath, dyspnea with exertion, orthopnea Absent: wheezing, stridor, hemoptysis GASTROINTESTINAL: Absent: abdominal pain, abdominal distension, nausea, vomiting, diarrhea, constipation, melena, hematochezia GENITOURINARY: Absent: dysuria, frequency, urgency, hesitancy, hematuria, flank pain, genital pain MUSCULOSKELETAL: Absent: myalgia, arthralgia, joint swelling SKIN: Absent: rash, itching, pallor HEMATOLOGIC/IMMUNOLOGIC: Present: Easy bleeding Absent: easy bruising, lymphadenopathy, frequent infections ENDOCRINE: Present: unexplained weight gain Absent: unexplained weight loss, heat intolerance, cold intolerance NEUROLOGIC: Absent: headache, focal weakness or paresthesias, dizziness, unsteady gait, seizure, mental status changes, bladder or bowel incontinence PSYCHIATRIC: Absent: anxiety, depression, suicidal or homicidal ideation, hallucinations. *Physical Exam - Vital Signs Last Vital Signs Temp Pulse Resp BP Pulse Ox 98.1 F 115 H 20 134/65 96 06/17/19 07:53 06/17/19 07:53 06/17/19 07:53 06/17/19 07:53 06/17/19 07:53 - Physical Exam GENERAL: Well developed, well nourished. Awake and alert. No acute distress. HEENT: Normocephalic, atraumatic. PERRLA, EOMI. No conjunctival pallor. Sclera are non- icteric. Moist mucous membranes. Oropharynx is clear. NECK: Supple. Full ROM. No JVD. CARDIOVASCULAR: Tachycardic rate and regular rhythm. No murmurs, rubs, or gallops. Distal pulses are 2+ and symmetric. PULMONARY: There are bibasilar crackles. Mild evidence of respiratory distress. No wheezing or rhonchi. ABDOMINAL: Soft. Non-tender. Non-distended. No rebound or guarding. No organomegaly. Normoactive bowel sounds. MUSCULOSKELETAL Normal range of motion at all joints. No bony deformities or tenderness. No CVA tenderness. EXTREMITIES: 2+ edema in both lower extremities. No cyanosis. No clubbing. No calf tenderness. SKIN: Warm and dry. Normal capillary refill. No rashes. No jaundice. NEUROLOGICAL: Alert, awake, appropriate. Cranial nerves 2-12 intact. No deficits to light touch in face, upper extremities and lower extremities. No motor deficits in the in face, upper extremities and lower extremities. Normal speech. Gait is normal without ataxia. PSYCHIATRIC: Cooperative. Good eye contact. Appropriate mood and affect. ED Treatment Course - LABORATORY CBC & Chemistry Diagram: 06/17/19 08:22 06/17/19 08:22 Medical Decision Making - Medical Decision Making Aurora Dave is a 68 yo F w a hx of afib-(on eliquis), HFpEF, CHF, HTN, HLD, NIDDM, nephrolithiasis, and RLE stent who presents to the [facility] er as a walk in for shortness of breath and dizziness for the past 2 days. She states the SOB has been slowly worsening and is now at a point where she needs 4 pillows to sleep at night otherwise she feels like she is choking. She states that her arms and legs have also been uncomfortably swelling up and she feels like she is a water balloon. The patient states that walking one block is extremely tiresome for her and she doesn't understand why she is so short of breath. Additionally, she states she has been becoming lightheaded with any physical activity or exertion and feels like she is going to pass out. She has not passed out, has not hit her head, and has not experienced any trauma. Vital Signs Temp Pulse Resp BP Pulse Ox 98.1 F 115 H 20 134/65 96 06/17/19 07:53 06/17/19 07:53 06/17/19 07:53 06/17/19 07:53 06/17/19 07:53 - Tachycardic DDx IBNLT: Heart failure, ACS/SD, arrhythmia, electrolyte/metabolic disturbance , pleural effusion vs pulmonary edema, pneumonia, pneumothorax Plan: Labs, Urine, EKG, CXR, lasix, re-assess. EKG: A-fib, IRBBB, no acute signs of ACS Labs: Elevated BNP and BUN - Hydrating Urine: Shows patient hasa UTI - Treating with macrobid CXR: Increased congestive changes Re-assessment: Patient resting comfortably in ER, updated that she will be admitted for a heart failure exacerbation Disposition: Telemetry for heart failure given that she is too short of breath and tired, fatigued, despite ED care and treatment. Discharge - Discharge Information Problems reviewed: Yes Clinical Impression/Diagnosis: UTI (urinary tract infection) Qualifiers: Urinary tract infection type: acute cystitis Hematuria presence: without hematuria Qualified Code(s): N30.00 - Acute cystitis without hematuria CHF (congestive heart failure) Qualifiers: Heart failure type: unspecified Heart failure chronicity: unspecified Qualified Code(s): I50.9 - Heart failure, unspecified Condition: Stable - Admission Yes - Follow up/Referral - Patient Discharge Instructions - Post Discharge Activity
[2019-06-17] MEDS ORDERED: FUROSEMIDE 40 MG/4 ML INJECTABLE VIAL IVPUSH ONE (08:20)
--- NOTE | 2019-06-17 08:22 | PDOC ---
Attending Attestation - Resident Resident Name: Minesh Dietz - ED Attending Attestation I have performed the following: I have examined & evaluated the patient, The case was reviewed & discussed with the resident, I agree w/resident's findings & plan, Exceptions are as noted - HPI HPI: 06/17/19 08:19 68y F lady, hx of pAfib on eliquis, CHF, htn, dm, hl, PAD sp RLE stent presents with acute onset of sob, was recent admited fo new onset afib and chf exacerbation a few weeks ago and started on lasix, dig. Pt hsa been having worsening sob/quiñones for 2 days and 4 pillow othopnea, and increased LE edema withou associated pain. Pt denies any fever/chills, cough, chest pain/tightness. Pt doese endorse lightheadd whn going from sitting to standing. PMD: Kevon Card: Silas - Physicial Exam PE: 06/17/19 08:22 GENERAL: The patient is awake, alert, and fully oriented, Nontoxic - in no acute distress. HEAD: Normocephalic, atraumatic. EYES: extraocular movements intact, sclera anicteric, conjunctiva clear. ENT: Normal voice, Moist mucous membranes. NECK: Normal range of motion, supple LUNGS: Bibasilar rales, worse on the right lower lobe HEART: Slightly tachycardic, irregular ABDOMEN: Soft, nontender, No guarding, no rebound. No CVA tenderness EXTREMITIES: Normal range of motion, +3 pittng edema b/l in LE, neg homans, no clf tenderness NEUROLOGICAL: No facial assymetry, Normal speech, PSYCH: Normal mood, normal affect. SKIN: Warm, Dry, normal turgor, - Medical Decision Making 06/17/19 09:52 Likely CHF exacerbation, will obtain chest x-ray to rule out occult acute pulmonary disease, EKG blood work screen for metabolic derangements, ACS 06/17/19 09:53 Chest x-ray does not reveal overt fluid overload or infiltrate The patient's blood work noted for mild anemia but is baseline for the patient, BNP is elevated We will discuss with Dr. Cohn regarding disposition anticipate admission for further management and stabilization of CHF exacerbation Heart Score/ECG Review - ECG Impressions Comment:: 06/17/19 09:54 Twelve-lead EKG was performed and reviewed by me. Heart rate is irregularly irregular Rate of 99 Incomplete right bundle branch block
[2019-06-17] MEDS ORDERED: FUROSEMIDE 40 MG/4 ML INJECTABLE VIAL ONE ×2 (08:43→12:08)
[2019-06-17 08:59] LABS: VENOUS PC02 45.9 mmHg (38-52)
[2019-06-17 09:02] LABS: EOS % 1.4 % (0-4.5); HEMATOCRIT 32.6 % (32.4-45.2); LYMPH % 14.2 % (8-40); MCH 23.5 pg (25.7-33.7); MCHC 30.8 g/dl (32.0-36.0); MEAN CELL VOLUME 76.4 fl (80-96); MEAN PLT VOLUME 8.8 fl (7.5-11.1); MONO % 6.5 % (3.8-10.2); NEUT % 76.9 % (42.8-82.8); PLATELET COUNT 286 K/MM3 (134-434); RBC 4.26 M/mm3 (3.60-5.2); RDW 17.5 % (11.6-15.6); VENOUS PO2 < 49 mmHg (28-48); WHITE BLOOD COUNT 9.3 K/mm3 (4.0-10.0)
[2019-06-17 09:14] LABS: INR 1.69 (0.83-1.09)
[2019-06-17 09:15] LABS: EPI CELLS 1.9 /HPF (0-5/HPF); HYALINE CASTS 8 /lpf (0-8); URINE APPEARANCE CLOUDY; URINE BACTERIA 1982.6 /hpf (NEGATIVE); URINE BILIRUBIN NEGATIVE (NEGATIVE); URINE COLOR YELLOW; URINE GLUCOSE (UA) NEGATIVE (NEGATIVE); URINE KETONE NEGATIVE (NEGATIVE); URINE LEUK ESTERASE 3+ (NEGATIVE); URINE NITRITE POSITIVE (NEGATIVE); URINE PROTEIN 1+ (NEGATIVE); URINE RBC 2 /hpf (0-4); URINE UROBILINOGEN 0.2 mg/dL (0.2-1.0); URINE WBC 117 /hpf (0-5)
[2019-06-17 09:17] LABS: ACTIVATED PTT 40.2 SECONDS (25.2-36.5)
[2019-06-17 09:35] LABS: ALBUMIN 3.3 g/dl (3.4-5.0); ALK PHOS 73 U/L (45-117); ANION GAP 11 MMOL/L (8-16); BILIRUBIN,TOTAL 0.4 mg/dL (0.2-1); BLOOD UREA NITROGEN 25.8 mg/dL (7-18); CHLORIDE 105 mmol/L (98-107); CO2 28 mmol/L (21-32); CREATININE 1.1 mg/dL (0.55-1.3); GLUCOSE,RANDOM 164 mg/dL (74-106); MAGNESIUM 2.1 mg/dL (1.8-2.4); N-TERMINAL BNP 2150.2 pg/ml (5-125); PHOSPHOROUS 3.8 mg/dL (2.5-4.9); SGOT/AST 22 U/L (15-37); SGPT/ALT 32 U/L (13-61); SODIUM 144 mmol/L (136-145); TOT PROT 7.1 g/dl (6.4-8.2)
[2019-06-17] MEDS ORDERED: NITROFURANTOIN MACROCRYSTAL 50 MG CAPSULE (FP) PO SCH (09:45)
[2019-06-17] MEDS ORDERED: NITROFURANTOIN MACROCRYSTAL 50 MG CAPSULE (FP) ONE (09:49)
--- NOTE | 2019-06-17 11:38 | HP ---
<Aide,Shabana - Last Filed: 06/17/19 18:42> Hospitalist Medicine Admission 68 y/o F with PMH afib (eliquis), HFpEF (last ECHO EF 55%), HTN, HLD, NIDDM, new RLE stent, who presents in ED for SOB over last two days. Per pt, during this time, she has needed to sleep on 4 pillows instead of two. Has had trouble catching her breath. Has not had any recent medication changes, but was told she needed to have a cardiac procedure soon. Saw her cardio, Dr. Rosen last week. Has been compliant with her lasix at home. Does endorse that she may be eating more pre-prepared foods at home, since she just moved to a new place and has not had time to cook. Lives alone. In ER, received lasix 40mg IVP x 1 and cardio was consulted. Denies MATA, fever, chills, chest pain or pressure or changes in urinary or bowel function. 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 quit smoking. drinks alc socially, denies drug use HOME MEDICATIONS: Home Medications Medication Instructions Recorded Quinapril HCl [Accupril -] 10 mg PO DAILY 11/25/15 Simvastatin [Zocor -] 20 mg PO HS 11/25/15 Glimepiride [Amaryl] 4 mg PO BIDAC 12/17/16 metFORMIN HCL [Glucophage -] 1,000 mg PO BIDAC 12/17/16 Apixaban [Eliquis -] 5 mg PO BID #60 tablet 03/16/17 Dulaglutide [Trulicity] 1.5 mg SQ Q7D 01/07/19 Gabapentin [Neurontin] 100 mg PO HS 02/20/19 Digoxin [Lanoxin -] 0.125 mg PO DAILY #30 tablet 04/28/19 Diltiazem HCl [Diltiazem 24Hr ER] 360 mg PO DAILY #30 cap.sa.24h 04/28/19 Furosemide [Lasix] 60 mg PO BID #90 tablet 04/28/19 Metoprolol Succinate [Toprol XL -] 25 mg PO DAILY #30 tab.sr.24h 04/28/19 PHYSICAL EXAMINATION Vital Signs - 24 hr 06/17/19 06/17/19 06/17/19 07:53 10:33 11:33 Temperature 98.1 F 98.0 F Pulse Rate 115 H Pulse Rate [ 77 Apical] Respiratory 20 19 Rate Blood Pressure 134/65 Blood Pressure 112/66 [Left Arm] O2 Sat by Pulse 96 97 96 Oximetry (%) Physical Exam General: resting comfortably, in NAD HEENT: NCAT neck: supple cardio: S1, S2, sinus. RRR, no r/m/g pulm: few crackles appreciated at bases, otherwise clear. no accessory m usage abdomen: obese, nontender, nondistended LE: 2+ pitting edema, pulses intact neuro: over short and damage clerk 2-12 grossly intact Laboratory Results - last 24 hr 06/17/19 06/17/19 06/17/19 08:22 08:22 08:22 WBC PT with INR PTT (Actin FS) VBG pH 7.40 POC VBG pCO2 45.9 POC VBG pO2 < 49 H VBG HCO3 27.8 VBG O2 Sat (Julio César) 69.8 L VBG Base Excess 3.0 H Sodium 144 Potassium 4.0 Chloride 105 Carbon Dioxide 28 Anion Gap 11 BUN 25.8 H Creatinine 1.1 Est GFR (CKD-EPI)AfAm 59.74 Est GFR (CKD-EPI)NonAf 51.55 Random Glucose 164 H Calcium 9.0 Phosphorus Cancelled 3.8 Magnesium 2.1 Total Bilirubin 0.4 AST 22 ALT 32 Alkaline Phosphatase 73 Creatine Kinase 36 Troponin I < 0.02 B-Natriuretic Peptide 2150.2 H Total Protein 7.1 Albumin 3.3 L Urine Color Ur Specific [place] Urine Bacteria (Auto) Digoxin 06/17/19 08:22 WBC 9.3 RBC 4.26 Hgb 10.0 L Hct 32.6 MCV 76.4 L MCH 23.5 L MCHC 30.8 L RDW 17.5 H Plt Count 286 MPV 8.8 Absolute Neuts (auto) 7.2 Neutrophils % 76.9 D Lymphocytes % 14.2 D Monocytes % 6.5 Eosinophils % 1.4 Basophils % 1.0 Nucleated RBC % 0 PT with INR INR PTT (Actin FS) VBG pH POC VBG pO2 Urine RBC (Auto) Urine Casts (Auto) U Epithel Cells (Auto) Urine Bacteria (Auto) Digoxin Imaging CXR: without acute change EKG: +afib, rate 99bpm, incomplete RBBB, qtc 426ms. similar to previous Last ECHO 04/19/2019: LVSF grossly normal, EF 50-55%, RV mildly dilated, RVSF mildly reduced , LA moderately dilated, dilated IVC elevated R sided pressures, mild , moderate MR ASSESSMENT/PLAN: 68 y/o F with PMH afib (eliquis), HFpEF (last ECHO EF 55%), HTN, HLD, NIDDM, new RLE stent, who presents in ED for SOB over last two days. Per pt, during this time, she has needed to sleep on 4 pillows instead of two. #Acute on chronic HFpEF likely 2/2 dietary changes -with recent increase in pre-prepared meals, likely with salt -c/w lasix 40mg IVP BID, daily wts, i/o, na control 2g -cardio consult: Dr. Rosen. sees pt as outpt -recent ECHO 04/2019 as above, preserved EF #UTI -w/ +UA, will tx with zosyn -has hx ESBL from previous Ucx that was sens to zosyn -f/u ucx #afib -c/w digoxin, toprol -rate is controlled -per cardio, cardio recommended EP for ablation evaluation but pt declining #HTN -c/w accupril #HLD -c/w lipitor #PAD s/p recent LE stenting -c/w lipitor, eliquis #F/E/N no IVF as w/ CHF continue to follow lytes na controlled diet 2g #PPX DVT: on eliquis #Dispo admit to tele Visit type - Emergency Visit Emergency Visit: Yes ED Registration Date: 06/17/19 Care time: The patient presented to the Emergency Department on the above date and was hospitalized for further evaluation of their emergent condition. - New Patient This patient is new to me today: No - Critical Care Critical Care patient: No <ElroyLee - Last Filed: 06/18/19 20:19> Seen and examined; please see resident note for further historical information. I personally verified all ruggiero historical, PE, and diagnostic findings and discussed the case at length with the resident team and indicated consultants. Agree with the history and plan as documented aside from the places in which I have supplemented. Patient with hx afib (needs ablation but declined in past) presents with progressive NYHA II-II symptoms of CHF which is increased from her baseline. Has HFpEF on last echo with potential UTI with suggestive UA and +ESBL history. CV and ID have been consulted and we will monitor on the medicine team. On eliquis for DVT ppx. NAD AAO resting in bed NC AT EOMI PERRLA Trachea midline, no LN CN2-12 wnl, no fnd NT ND +BS Lungs with scattered crackles near bases, w/ sym exp Normal mood, appropriate behavior Echo reviewed EKG reviewed CXR reviewed UA and prior micro reviewed; has seen Dr. Palmer so will consult. A/P: Patient presents with HFpEF exacerbation, potential UTI with ESBL+ hx, Afib with recommenation for ablation. Check digoxin level, IV abx, consult her CV and ID. She is obese so eval for JULITA and monitor on telemetry. Appreciate expert management from subspecialty services. Problems include: -HFpEF exacerbation (dietary vs. RR cause) -Afib hx on eliquis -UTI with hx ESBL -Obesity (BMI 34) -HTN (Continue acupril) -HLD (Continue statin) Full Code ATTENDING PHYSICIAN STATEMENT I saw and evaluated the patient. I reviewed the resident's note and discussed the case with the resident. I agree with the resident's findings and plan as documented. SUBJECTIVE: OBJECTIVE: ASSESSMENT AND PLAN:
[2019-06-17] MEDS ORDERED: PIPERACILLIN/TAZOB 3.375 GM 3.375 GM/50 ML BAG IVPB ONE (12:08)
[2019-06-17] MEDS: PIPERACILLIN/TAZOB 3.375 GM 3.375 GM in DEXTROSE 5%-WATER - 50 ML IVPB SCH ×2 (12:09→18:27)
--- NOTE | 2019-06-17 13:34 | EKG ---
Test Reason : Blood Pressure : / mmHG Vent. Rate : 099 BPM Atrial Rate : 258 BPM P-R Int : 000 ms QRS Dur : 098 ms QT Int : 332 ms P-R-T Axes : 000 041 -29 degrees QTc Int : 426 ms ATRIAL FIBRILLATION LOW VOLTAGE QRS INCOMPLETE RIGHT BUNDLE BRANCH BLOCK SEPTAL INFARCT (CITED ON OR BEFORE 19-APR-2019) ABNORMAL ECG WHEN COMPARED WITH ECG OF 19-APR-2019 08:26, COMPARED TO EKG NO SIGNIFICANT CHANGE IS FOUND Confirmed by JULIO ZAYAS MD ([id number]) on 06/17/2019 1:34:26 PM Referred By: Confirmed By:JULIO ZAYAS MD
[2019-06-17] MEDS: FUROSEMIDE 40 MG/4 ML INJECTABLE VIAL IVPUSH SCH (14:01)
[2019-06-17] MEDS: INSULIN SLIDING SCALE (NOVOLOG) 1 VIAL SQ SCH (15:53)
--- NOTE | 2019-06-17 16:48 | CON.CARD ---
Cardiology Consult (text) - Consultation Consultation Note: Chief Complaint: sob History of Present Illness: 68 yo female hx pafib, htn, hld, dchf, pad s/p r rfa sent 02/2019 here with sob. Has been having symptomatic afib with rvr past few weeks despite multiple rate control meds. Has been having sob and palps. Was seen as outpt and rec'd to have appt with EP for ablation evaluation but she has been declining. Now back in er with same sxs. No cp, dizzy, loc, pnd. Also with some le edema now. Sees me for cardio. PMH: paroxysmal afib HTN HPL + cigs hx - Past Medical History Cardio/Vascular: Yes: AFIB, HTN, Hyperlipdemia Renal/: Yes: Renal Calculi, UTI, Endocrine: Yes: Diabetes Mellitus - Alcohol/Substance Use Hx Alcohol Use: No History of Substance Use: reports: None - Smoking History ex tob - Social History ADL: Independent History of Recent Travel: No Home Medications - Allergies Allergies/Adverse Reactions: Allergies Allergy/AdvReac Type Severity Reaction Status Date / Time No Known Drug Allergies Allergy Verified 06/17/19 07:58 - Home Medications Home Medications Medication Instructions Recorded Quinapril HCl [Accupril -] 10 mg PO DAILY 11/25/15 Simvastatin [Zocor -] 20 mg PO HS 11/25/15 Glimepiride [Amaryl] 4 mg PO BIDAC 12/17/16 metFORMIN HCL [Glucophage -] 1,000 mg PO BIDAC 12/17/16 Apixaban [Eliquis -] 5 mg PO BID #60 tablet 03/16/17 Dulaglutide [Trulicity] 1.5 mg SQ Q7D 01/07/19 Gabapentin [Neurontin] 100 mg PO HS 02/20/19 Digoxin [Lanoxin -] 0.125 mg PO DAILY #30 tablet 04/28/19 Diltiazem HCl [Diltiazem 24Hr ER] 360 mg PO DAILY #30 cap.sa.24h 04/28/19 Furosemide [Lasix] 60 mg PO BID #90 tablet 04/28/19 Metoprolol Succinate [Toprol XL -] 25 mg PO DAILY #30 tab.sr.24h 04/28/19 Family Disease History - Family Disease History Family Disease History: Diabetes: Sister Review of Systems - Review of Systems Eyes: denies: Eye Pain HENT: denies: Nasal Congestion Neck: denies: Stiffness Gastrointestinal: denies: Diarrhea, Rectal Bleeding Genitourinary: denies: Burning, Hematuria Musculoskeletal: denies: Muscle Pain Integumentary: denies: Rash Neurological: denies: Numbness, Seizure, Syncope Endocrine: denies: Excessive Sweating Hematology/Lymphatic: denies: Excessive Bleeding Vital Signs: Vital Signs Period Temp Pulse Resp BP Sys/Pitts Pulse Ox Last 24 Hr 98.0 F-98.6 F 77-115 19-20 112-134/57-66 96-99 Constitutional: Yes: Well Nourished, No Distress Eyes: No: Sclera Icterus HENT: No: Nasal Congestion Neck: No: Decreased ROM Respiratory: Yes: CTA Bilaterally. No: Accessory Muscle Use, Rales, Wheezes Gastrointestinal: Yes: Normal Bowel Sounds. No: Distention, Hepatomegaly, Palpable Mass, Tenderness Cardiovascular: Yes: irreg, tachy JVD: yes Carotid Bruit: No Heart Sounds: Yes: S1, S2. No: Gallop Murmur: No: Systolic Murmur, Diastolic Murmur Extremities: No: Cold, Cyanosis Edema: trace le edema bl Peripheral Pulses: 2+ Left Carotid, 2+ Right Carotid, 2+ Left Doralis Pedis, 2+ Right Dorsalis Pedis Integumentary: No: Jaundice diaphoresis Neurological: Yes: Alert, Oriented (x3) Psychiatric: No: Agitated Laboratory Last Values WBC 9.3 K/mm3 (4.0-10.0) 06/17/19 08:22 RBC 4.26 M/mm3 (3.60-5.2) 06/17/19 08:22 Hgb 10.0 GM/dL (10.7-15.3) L 06/17/19 08:22 Hct 32.6 % (32.4-45.2) 06/17/19 08:22 MCV 76.4 fl (80-96) L 06/17/19 08:22 MCH 23.5 pg (25.7-33.7) L 06/17/19 08:22 MCHC 30.8 g/dl (32.0-36.0) L 06/17/19 08:22 RDW 17.5 % (11.6-15.6) H 06/17/19 08:22 Plt Count 286 K/MM3 (134-434) 06/17/19 08:22 MPV 8.8 fl (7.5-11.1) 06/17/19 08:22 Absolute Neuts (auto) 7.2 K/mm3 (1.5-8.0) 06/17/19 08:22 Neutrophils % 76.9 % (42.8-82.8) D 06/17/19 08:22 Lymphocytes % 14.2 % (8-40) D 06/17/19 08:22 Monocytes % 6.5 % (3.8-10.2) 06/17/19 08:22 Eosinophils % 1.4 % (0-4.5) 06/17/19 08:22 Basophils % 1.0 % (0-2.0) 06/17/19 08:22 Nucleated RBC % 0 % (0-0) 06/17/19 08:22 PT with INR 20.00 SEC (9.7-13.0) H 06/17/19 08:22 INR 1.69 (0.83-1.09) H 06/17/19 08:22 PTT (Actin FS) 40.2 SECONDS (25.2-36.5) H 06/17/19 08:22 VBG pH 7.40 (7.31-7.41) 06/17/19 08:22 POC VBG pCO2 45.9 mmHg (38-52) 06/17/19 08:22 POC VBG pO2 < 49 mmHg (28-48) H 06/17/19 08:22 VBG HCO3 27.8 mmol/L (23-29) 06/17/19 08:22 VBG O2 Sat (Julio César) 69.8 % (70-80) L 06/17/19 08:22 VBG Base Excess 3.0 meq/l (-2-2) H 06/17/19 08:22 Sodium 144 mmol/L (136-145) 06/17/19 08:22 Potassium 4.0 mmol/L (3.5-5.1) 06/17/19 08:22 Chloride 105 mmol/L (98-107) 06/17/19 08:22 Carbon Dioxide 28 mmol/L (21-32) 06/17/19 08:22 Anion Gap 11 MMOL/L (8-16) 06/17/19 08:22 BUN 25.8 mg/dL (7-18) H 06/17/19 08:22 Creatinine 1.1 mg/dL (0.55-1.3) 06/17/19 08:22 Est GFR (CKD-EPI)AfAm 59.74 12 08:22 Est GFR (CKD-EPI)NonAf 51.55 06/17/19 08:22 POC Glucometer 272 UNITS (80-120) 06/17/19 15:52 Random Glucose 164 mg/dL (74-106) H 06/17/19 08:22 Calcium 9.0 mg/dL (8.5-10.1) 06/17/19 08:22 Phosphorus 3.8 mg/dL (2.5-4.9) 06/17/19 08:22 Magnesium 2.1 mg/dL (1.8-2.4) 06/17/19 08:22 Total Bilirubin 0.4 mg/dL (0.2-1) 06/17/19 08:22 AST 22 U/L (15-37) 06/17/19 08:22 ALT 32 U/L (13-61) 06/17/19 08:22 Alkaline Phosphatase 73 U/L (45-117) 06/17/19 08:22 Creatine Kinase 36 U/L (26-192) 06/17/19 08:22 Troponin I < 0.02 ng/ml (0.00-0.05) 06/17/19 08:22 B-Natriuretic Peptide 2150.2 pg/ml (5-125) H 06/17/19 08:22 Total Protein 7.1 g/dl (6.4-8.2) 06/17/19 08:22 Albumin 3.3 g/dl (3.4-5.0) L 06/17/19 08:22 Urine Color Yellow 06/17/19 06:22 Urine Appearance Cloudy 06/17/19 06:22 Urine pH 5.0 (5.0-8.0) 06/17/19 06:22 Ur Specific [place] 1.014 (1.010-1.035) 06/17/19 06:22 Urine Protein 1+ (NEGATIVE) H 06/17/19 06:22 Urine Glucose (UA) Negative (NEGATIVE) 06/17/19 06:22 Urine Ketones Negative (NEGATIVE) 06/17/19 06:22 Urine Blood Trace (NEGATIVE) 06/17/19 06:22 Urine Nitrite Positive (NEGATIVE) H 06/17/19 06:22 Urine Bilirubin Negative (NEGATIVE) 06/17/19 06:22 Urine Urobilinogen 0.2 mg/dL (0.2-1.0) 06/17/19 06:22 Ur Leukocyte Esterase 3+ (NEGATIVE) H 06/17/19 06:22 Urine WBC (Auto) 117 /hpf (0-5) 06/17/19 06:22 Urine RBC (Auto) 2 /hpf (0-4) 06/17/19 06:22 Urine Casts (Auto) 8 /lpf (0-8) 06/17/19 06:22 U Epithel Cells (Auto) 1.9 /HPF (0-5/HPF) 06/17/19 06:22 Urine Bacteria (Auto) 1982.6 /hpf (NEGATIVE) 06/17/19 06:22 Digoxin 1.64 ng/ml (0.8-2.0) 06/17/19 08:22 11/2015: mild dec lvef, global hk, nl rv, mild mr echo 11/2016: mild dec lvef, global hk, nl rv, mild- mod mr, mild lae. small effusion < 1cm echo 08/2018: mild lvh, nl lvef, nl rv, mild mr echo 04/2019: nl lv, rv mildly dilated and mild dec rv fcn, lae, mild-mod mr, mild tr ecg: afib, vr 99, rbbb cxr: clear lungs a/p: 68 yo female hx pafib, htn, hld, dchf, pad s/p r rfa sent 02/2019 here with sob. sob, AFib with rvr, acute on chronic diast chf: - despite cardizem, dig, toprol, HR has not been well controlled and is causing her dchf exacerbations. Pt has been declining EP eval for ablation as outpt for awhile but now is willing. Will improve vol status with iv lasix and when vol stable will d/w EP in regards to inpt transfer for management of resistant rvr. - cont eliquis -cont iv lasix, daily chem7, wts htn: -cont current meds hld: -cont home statin pad s/p recent le stenting: -cont statin, bp control, ac
[2019-06-17] MEDS ORDERED: PIPERACILLIN/TAZOBACTAM 3.375 GM VIAL IVPB ONE (18:20)
[2019-06-17] MEDS ORDERED: DEXTROSE 5%-WATER - 50 ML IVPB ONE (18:20)
[2019-06-17 18:42] VITALS: BMI 34.5
[2019-06-17] MEDS ORDERED: ATORVASTATIN CA 10 MG TABLET (FP) PO SCH (22:00)
[2019-06-17] MEDS ORDERED: GABAPENTIN 100 MG CAPSULE (FP) PO SCH (22:00)
[2019-06-17] MEDS ORDERED: APIXABAN 5 MG TABLET PO SCH (22:00)
[2019-06-18] MEDS ORDERED: PIPERACILLIN/TAZOBACTAM 3.375 GM VIAL IVPB ONE (00:15)
[2019-06-18] MEDS ORDERED: DEXTROSE 5%-WATER - 50 ML IVPB ONE ×2 (00:16→14:08)
[2019-06-18] MEDS: PIPERACILLIN/TAZOB 3.375 GM 3.375 GM in DEXTROSE 5%-WATER - 50 ML IVPB SCH (01:32)
[2019-06-18] MEDS: FUROSEMIDE 40 MG/4 ML INJECTABLE VIAL IVPUSH SCH ×2 (05:33→15:05)
[2019-06-18] MEDS: INSULIN SLIDING SCALE (NOVOLOG) 1 VIAL SQ SCH ×2 (07:17→17:02)
[2019-06-18 07:24] LABS: BASO % 0.5 % (0-2.0); EOS % 1.6 % (0-4.5); HEMATOCRIT 31.7 % (32.4-45.2); HEMOGLOBIN 9.9 GM/dL (10.7-15.3); LYMPH % 15.9 % (8-40); MCH 23.5 pg (25.7-33.7); MCHC 31.2 g/dl (32.0-36.0); MEAN CELL VOLUME 75.1 fl (80-96); MONO % 7.6 % (3.8-10.2); NEUT % 74.4 % (42.8-82.8); PLATELET COUNT 274 K/MM3 (134-434); RBC 4.22 M/mm3 (3.60-5.2); RDW 17.4 % (11.6-15.6); WHITE BLOOD COUNT 7.5 K/mm3 (4.0-10.0)
[2019-06-18 07:57] LABS: ALBUMIN 3.2 g/dl (3.4-5.0); BILIRUBIN,TOTAL 0.6 mg/dL (0.2-1); BLOOD UREA NITROGEN 17.4 mg/dL (7-18); CALCIUM 8.8 mg/dL (8.5-10.1); CREATININE 0.9 mg/dL (0.55-1.3); MAGNESIUM 1.7 mg/dL (1.8-2.4); POTASSIUM 3.6 mmol/L (3.5-5.1); TOT PROT 7.1 g/dl (6.4-8.2)
[2019-06-18] MEDS ORDERED: DIGOXIN 0.125 MG TABLET (FP) PO SCH (10:00)
[2019-06-18] MEDS ORDERED: QUINAPRIL HCL 10 MG TABLET (FP) PO SCH (10:00)
[2019-06-18] MEDS ORDERED: metoPROLOL SUCCINATE 25 MG TAB.SR.24H (FP) PO SCH (10:00)
[2019-06-18] MEDS ORDERED: PIPERACILLIN/TAZOB 3.375 GM 3.375 GM in DEXTROSE 5%-WATER - 50 ML IVPB SCH (10:00)
[2019-06-18] MEDS: APIXABAN 5 MG TABLET PO SCH ×2 (10:21→22:32)
[2019-06-18] MEDS: DIGOXIN 0.125 MG TABLET (FP) PO SCH (10:21)
[2019-06-18] MEDS: metoPROLOL SUCCINATE 25 MG TAB.SR.24H (FP) PO SCH (10:22)
[2019-06-18] MEDS: QUINAPRIL HCL 10 MG TABLET (FP) PO SCH (10:22)
--- NOTE | 2019-06-18 11:12 | PN ---
Progress Note, Physician Chief Complaint: still SOB History of Present Illness: NO CP Weight stable, no sig decrease - Current Medication List Current Medications: Active Medications Apixaban (Eliquis -) 5 mg PO BID [facility] Last Admin: 06/18/19 10:21 Dose: 5 mg Atorvastatin Calcium (Lipitor -) 10 mg PO HS [facility] Digoxin (Lanoxin -) 0.125 mg PO DAILY [facility] Last Admin: 06/18/19 10:21 Dose: 0.125 mg Diltiazem HCl (Cardizem Cd -) 360 mg PO DAILY [facility] Last Admin: 06/18/19 10:22 Dose: 360 mg Furosemide (Lasix Injection -) 40 mg IVPUSH BID@0600,1400 [facility] Gabapentin (Neurontin -) 100 mg PO HS [facility] Piperacillin Sod/Tazobactam (Sod 3.375 gm/ Dextrose) 50 mls @ 100 mls/hr IVPB Q8H-IV [facility]; Protocol Insulin Aspart (Novolog Vial Sliding Scale -) 1 vial SQ BIDAC [facility]; Protocol Metoprolol Succinate (Toprol Xl -) 25 mg PO DAILY [facility] Last Admin: 06/18/19 10:22 Dose: 25 mg Quinapril HCl (Accupril -) 10 mg PO DAILY [facility] Last Admin: 06/18/19 10:22 Dose: 10 mg - Objective Vital Signs: Vital Signs Temperature 97.8 F 06/18/19 06:00 Pulse Rate 90 06/18/19 10:21 Respiratory Rate 18 06/18/19 10:00 Blood Pressure 140/66 06/18/19 10:00 O2 Sat by Pulse Oximetry (%) 98 06/17/19 21:00 Constitutional: Yes: Calm Cardiovascular: Yes: Pulse Irregular Respiratory: Yes: Other (bibasilar rales) Gastrointestinal: Yes: Soft Edema: Yes Edema: LLE: 1+, RLE: 1+ Neurological: Yes: Alert, Oriented ...Motor Strength: WNL Labs: CBC, BMP 06/18/19 07:05 06/18/19 07:05 INR, PTT INR 1.69 (0.83-1.09) H 06/17/19 08:22 Laboratory Tests 06/17/19 06/18/19 06/18/19 08:22 07:05 07:05 WBC 7.5 Hgb 9.9 L Plt Count 274 Sodium 143 Potassium 3.6 Creatinine 0.9 Troponin I < 0.02 B-Natriuretic Peptide 2150.2 H Assessment/Plan 11/2015: mild dec lvef, global hk, nl rv, mild mr echo 11/2016: mild dec lvef, global hk, nl rv, mild- mod mr, mild lae. small effusion < 1cm echo 08/2018: mild lvh, nl lvef, nl rv, mild mr echo 04/2019: nl lv, rv mildly dilated and mild dec rv fcn, lae, mild-mod mr, mild tr ecg: afib, vr 99, rbbb cxr: clear lungs a/p: 68 yo female hx pafib, htn, hld, dchf, pad s/p r rfa sent 02/2019 here with sob. sob, AFib with rvr, acute on chronic diast chf: - despite cardizem, dig, toprol, HR has not been well controlled and is causing her dchf exacerbations. Pt has been declining EP eval for ablation as outpt for awhile but now is willing. Will improve vol status with iv lasix and when vol stable will d/w EP in regards to inpt transfer for management of resistant rvr. -Increase Lasix 60mg IV BID - cont eliquis -cont iv lasix, daily chem7, wts htn: -cont current meds hld: -cont home statin pad s/p recent le stenting: -cont statin, bp control, ac
--- NOTE | 2019-06-18 12:02 | PN ---
Progress Note (short form) - Note Progress Note: Hospitalist Medicine c/o cont'd LE edema, however has improved. Was to be placed on tele. D/w nursing , nursing manufacturing supervisor 2nd shift Vitals 06/18/19 06:00 Temperature 97.8 F Pulse Rate 95 H Respiratory 20 Rate Blood Pressure 132/69 Physical Exam General: resting comfortably, in NAD HEENT: NCAT neck: supple cardio: S1, S2, sinus. RRR, no r/m/g pulm: few crackles appreciated at bases, otherwise clear. no accessory m usage abdomen: obese, nontender, nondistended LE: 1+ pitting edema, pulses intact neuro: aperture mask etcher 2-12 grossly intact Laboratory Tests 06/18/19 06/18/19 07:05 07:05 WBC 7.5 Hgb 9.9 L Hct 31.7 L Plt Count 274 Sodium 143 Potassium 3.6 Chloride 102 Carbon Dioxide 33 H Anion Gap 8 BUN 17.4 Creatinine 0.9 Random Glucose 140 H Magnesium 1.7 L Albumin 3.2 L Microbiology 06/17/19 06:22 Urine - Urine Clean Catch Urine Culture - Preliminary Non Lactose Fermenting Gnb Imaging CXR: without acute change EKG: +afib, rate 99bpm, incomplete RBBB, qtc 426ms. similar to previous Last ECHO 04/19/2019: LVSF grossly normal, EF 50-55%, RV mildly dilated, RVSF mildly reduced , LA moderately dilated, dilated IVC elevated R sided pressures, mild , moderate MR ASSESSMENT/PLAN: 68 y/o F with PMH afib (eliquis), HFpEF (last ECHO EF 55%), HTN, HLD, NIDDM, new RLE stent, who presents in ED for SOB over last two days. Per pt, during this time, she has needed to sleep on 4 pillows instead of two. #Acute on chronic HFpEF likely 2/2 dietary changes -with recent increase in pre-prepared meals, likely with salt -lasix changed to 60mg IVP BID, daily wts, i/o, na control 2g -cardio consult: Dr. Rosen. sees pt as outpt -recent ECHO 04/2019 as above, preserved EF #UTI -w/ +UA, will tx with rocephin (Day1) -has hx ESBL from previous Ucx -ucx: nonlactose fermenting gnb > 100,000 -ID consulted: Dr. Palmer #afib -c/w digoxin, toprol -rate is controlled -per cardio, cardio recommended EP for ablation evaluation pt may need transfer #HTN -c/w accupril #HLD -c/w lipitor #PAD s/p recent LE stenting -c/w lipitor, eliquis #F/E/N no IVF as w/ CHF continue to follow lytes na controlled diet 2g #PPX DVT: on eliquis #Dispo on med-surg, but was admitted to tele discussed with nurse, nursing manufacturing supervisor 2nd shift, pt may require transfer for ablation once euvolemic <Shabana Noble - Last Filed: 06/18/19 17:45> - Note Progress Note: Seen and examined; please see resident note for further historical information. I personally verified all ruggiero historical, PE, and diagnostic findings and discussed the case at length with the resident team and indicated consultants. Agree with the history and plan as documented aside from the places in which I have supplemented. HR improved, dig level wnl. Seen by CV and ID. No red flags. May need placed ; FU with PT. Sx likely recurring due to chronic suboptimal control of rhythm due to declined ablations in the past. Will followup with cardiology and see if need for inpatient vs. outpatient XF. Noted that IV lasix increased to 60 BID. SOB persists but somewhat improved. 10 sys ROS done and negative aside from HPI NAD AAO resting in bed NC AT EOMI PERRLA Trachea midline, no LN HR 70-90, +s1/2 with mild sys murmur CN2-12 wnl, no fnd NT ND +BS Lungs with scattered crackles near bases slightly better than yesterday;'s exam , w/ sym exp Normal mood, appropriate behavior Echo reviewed EKG reviewed CXR reviewed UA and prior micro reviewed; has seen Dr. Palmer so will consult. A/P: Patient presents with HFpEF exacerbation, potential UTI with ESBL+ hx, Afib with recommenation for ablation. Check digoxin level, IV abx, consult her CV and ID. She is obese so eval for JULITA and monitor on telemetry. Appreciate expert management from subspecialty services. She is considering proceeding with ablation. Noted that cardiology is coordinating to see if this should be done inpatient vs. outpatient. Will FU with their recs and continue to monitor on tele. Continue with current rate control deferring further adjustements to subspecialty consult (note acceptable rate today) and continue on Eliquis as well given elevated CHADS2-VASC. Dr. Palmer to make final abx recs-will FU. Problems include: -HFpEF exacerbation (dietary vs. RR cause) -Afib hx on eliquis -UTI with hx ESBL -Obesity (BMI 34) -HTN (Continue acupril) -HLD (Continue statin) Dispo: FU regarding need for XF Full Code <Lee Abbasi - Last Filed: 06/18/19 20:24>
[2019-06-18] MEDS ORDERED: MAGNESIUM OXIDE 400 MG TABLET (FP) PO ONE (12:03)
--- NOTE | 2019-06-18 12:05 | CON.ID ---
Consult Consult Specialty:: infectious diseases Referred by:: dr rose Reason for Consultation:: uti - History of Present Illness Chief Complaint: breathing difficuilty History of Present Illness: 68y F lady, hx of pAfib on eliquis, CHF, htn, dm, hl, PAD sp RLE stent presents with acute onset of sob, was recent admited fo new onset afib and chf exacerbation a few weeks ago and started on lasix, dig. according to the patient she has been having sob and increased le edema .denies any fever,chills says she becomes lightheaded work up shows uti - History Source History Provided By: Patient Limitations to Obtaining History: No Limitations - Past Medical History FRONT END SPECIALIST: Yes: Alzheimer's Cardio/Vascular: Yes: AFIB, HTN, Hyperlipdemia Renal/: Yes: Renal Calculi, UTI, Other (POD#1: s/p Cysto/Litho) ...: No Endocrine: Yes: Diabetes Mellitus - Alcohol/Substance Use Hx Alcohol Use: No History of Substance Use: reports: None - Smoking History Smoking history: Former smoker Have you smoked in the past 12 months: No Aproximately how many cigarettes per day: 20 If you are a former smoker, when did you quit?: 2015 - Social History ADL: Independent 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 History of Recent Travel: No Home Medications - Allergies Allergies/Adverse Reactions: Allergies Allergy/AdvReac Type Severity Reaction Status Date / Time No Known Drug Allergies Allergy Verified 06/17/19 07:58 - Home Medications Home Medications: Ambulatory Orders Quinapril HCl [Accupril -] 10 mg PO DAILY 11/25/15 Simvastatin [Zocor -] 20 mg PO HS 11/25/15 Glimepiride [Amaryl] 4 mg PO BIDAC 12/17/16 metFORMIN HCL [Glucophage -] 1,000 mg PO BIDAC 12/17/16 Apixaban [Eliquis -] 5 mg PO BID #60 tablet 03/16/17 Dulaglutide [Trulicity] 1.5 mg SQ Q7D 01/07/19 Gabapentin [Neurontin] 100 mg PO HS 02/20/19 Digoxin [Lanoxin -] 0.125 mg PO DAILY #30 tablet 04/28/19 Diltiazem HCl [Diltiazem 24Hr ER] 360 mg PO DAILY #30 cap.sa.24h 04/28/19 Furosemide [Lasix] 60 mg PO BID #90 tablet 04/28/19 Metoprolol Succinate [Toprol XL -] 25 mg PO DAILY #30 tab.sr.24h 04/28/19 Review of Systems - Review of Systems Constitutional: reports: Weakness Eyes: reports: No Symptoms HENT: reports: No Symptoms Neck: reports: No Symptoms Cardiovascular: reports: No Symptoms Respiratory: reports: SOB, SOB on Exertion Gastrointestinal: reports: No Symptoms Genitourinary: reports: No Symptoms Musculoskeletal: reports: No Symptoms Integumentary: reports: No Symptoms Neurological: reports: No Symptoms Endocrine: reports: No Symptoms Hematology/Lymphatic: reports: No Symptoms Psychiatric: reports: No Symptoms Physical Exam Vital Signs: Vital Signs Temperature 97.8 F 06/18/19 06:00 Pulse Rate 90 06/18/19 10:21 Respiratory Rate 18 06/18/19 10:00 Blood Pressure 140/66 06/18/19 10:00 O2 Sat by Pulse Oximetry (%) 98 06/17/19 21:00 Constitutional: Yes: Calm, Mild Distress Eyes: Yes: Conjunctiva Clear HENT: Yes: Atraumatic, Normocephalic Cardiovascular: Yes: Pulse Irregular Respiratory: Yes: Regular, CTA Bilaterally Gastrointestinal: Yes: Normal Bowel Sounds, Soft Musculoskeletal: Yes: WNL Extremities: Yes: WNL Edema: LLE: 2+ Neurological: Yes: Alert, Oriented Psychiatric: Yes: Alert, Oriented Labs: CBC, BMP 06/18/19 07:05 06/18/19 07:05 Imaging - Results Chest X-ray: Report Reviewed, Image Reviewed Assessment/Plan afib uti htn hld plan will start patient on ceftriaxone await for cx reports rest as per the team
[2019-06-18] MEDS ORDERED: FUROSEMIDE 40 MG/4 ML INJECTABLE VIAL IVPUSH SCH (14:00)
[2019-06-18] MEDS ORDERED: cefTRIAXone SODIUM 1 GM VIAL ONE (14:08)
[2019-06-18] MEDS: CEFTRIAXONE 1 GM in DEXTROSE 5%-WATER - 50 ML IVPB SCH (15:04)
[2019-06-18] MEDS: ATORVASTATIN CA 10 MG TABLET (FP) PO SCH (22:32)
[2019-06-18] MEDS: GABAPENTIN 100 MG CAPSULE (FP) PO SCH (22:32)
[2019-06-19] MEDS: FUROSEMIDE 40 MG/4 ML INJECTABLE VIAL IVPUSH SCH ×2 (06:07→13:57)
[2019-06-19] MEDS: INSULIN SLIDING SCALE (NOVOLOG) 1 VIAL SQ SCH ×2 (06:51→17:44)
[2019-06-19 07:42] LABS: BASO % 0.6 % (0-2.0); EOS % 1.8 % (0-4.5); HEMATOCRIT 31.3 % (32.4-45.2); HEMOGLOBIN 9.8 GM/dL (10.7-15.3); LYMPH % 19.7 % (8-40); MCH 23.7 pg (25.7-33.7); MCHC 31.5 g/dl (32.0-36.0); MEAN CELL VOLUME 75.4 fl (80-96); MEAN PLT VOLUME 8.3 fl (7.5-11.1); NEUT % 68.9 % (42.8-82.8); PLATELET COUNT 261 K/MM3 (134-434); RBC 4.15 M/mm3 (3.60-5.2); RDW 17.5 % (11.6-15.6); WHITE BLOOD COUNT 7.5 K/mm3 (4.0-10.0)
[2019-06-19 08:31] LABS: BLOOD UREA NITROGEN 17.5 mg/dL (7-18); CREATININE 0.9 mg/dL (0.55-1.3); MAGNESIUM 1.7 mg/dL (1.8-2.4); PHOSPHOROUS 4.2 mg/dL (2.5-4.9); POTASSIUM 3.6 mmol/L (3.5-5.1)
[2019-06-19] MEDS ORDERED: MAGNESIUM OXIDE 400 MG TABLET (FP) PO ONE (08:47)
[2019-06-19] MEDS ORDERED: PT OWN MED DRAWER 7, Y5N ONE (09:30)
[2019-06-19] MEDS ORDERED: cefTRIAXone SODIUM 1 GM VIAL ONE (09:31)
[2019-06-19] MEDS ORDERED: DEXTROSE 5%-WATER - 50 ML IVPB ONE (09:31)
[2019-06-19] MEDS: CEFTRIAXONE 1 GM in DEXTROSE 5%-WATER - 50 ML IVPB SCH (09:42)
[2019-06-19] MEDS: metoPROLOL SUCCINATE 25 MG TAB.SR.24H (FP) PO SCH (09:43)
[2019-06-19] MEDS: APIXABAN 5 MG TABLET PO SCH ×2 (09:43→22:02)
[2019-06-19] MEDS: QUINAPRIL HCL 10 MG TABLET (FP) PO SCH (09:43)
[2019-06-19] MEDS: DIGOXIN 0.125 MG TABLET (FP) PO SCH (09:44)
--- NOTE | 2019-06-19 10:17 | PN ---
Progress Note (short form) - Note Progress Note: Hospitalist Medicine in good spirits, now has room in ICU tele. improved LE edema. Vitals 06/19/19 06:00 Temperature 98.2 F Pulse Rate 80 Respiratory 20 Rate Blood Pressure 148/69 Physical Exam General: resting comfortably, in NAD HEENT: NCAT neck: supple cardio: S1, S2, sinus. RRR, no r/m/g pulm: few crackles appreciated at bases, otherwise clear. 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 similar to previous Last ECHO 04/19/2019: LVSF grossly normal, EF 50-55%, RV mildly dilated, RVSF mildly reduced , LA moderately dilated, dilated IVC elevated R sided pressures, mild , moderate MR ASSESSMENT/PLAN: 68 y/o F with PMH afib (eliquis), HFpEF (last ECHO EF 55%), HTN, HLD, NIDDM, new RLE stent, who presents in ED for SOB over last two days. Per pt, during this time, she has needed to sleep on 4 pillows instead of two. #Acute on chronic HFpEF likely 2/2 dietary changes -lasix 60mg IVP BID, daily wts, i/o, na control 2g. has been net (-) -cardio consult: Dr. Rosen. sees pt as outpt -recent ECHO 04/2019 as above, preserved EF #UTI -w/ +UA, will tx with rocephin (Day2) -has hx ESBL from previous Ucx -ucx: nonlactose fermenting gnb > 100,000 -ID consulted: Dr. 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
[2019-06-19] MEDS ORDERED: INSULIN (NOVOLOG) ASPART 100 UNITS/ML 10ML VIAL SQ ONE (11:24)
--- NOTE | 2019-06-19 12:04 | PN ---
Progress Note, Physician Chief Complaint: sob History of Present Illness: sob much better, urinating a lot--still not at baseline as far as breathing no palp, cp, syncope - Current Medication List Current Medications: Active Medications Apixaban (Eliquis -) 5 mg PO BID [facility] Last Admin: 06/19/19 09:43 Dose: 5 mg Atorvastatin Calcium (Lipitor -) 10 mg PO HS [facility] Last Admin: 06/18/19 22:32 Dose: 10 mg Digoxin (Lanoxin -) 0.125 mg PO DAILY [facility] Last Admin: 06/19/19 09:44 Dose: 0.125 mg Diltiazem HCl (Cardizem Cd -) 360 mg PO DAILY [facility] Last Admin: 06/19/19 09:43 Dose: 360 mg Furosemide (Lasix Injection -) 60 mg IVPUSH BID@0600,1400 [facility] Last Admin: 06/19/19 06:07 Dose: 60 mg Gabapentin (Neurontin -) 100 mg PO [facility] Last Admin: 06/18/19 22:32 Dose: 100 mg Ceftriaxone Sodium 1 gm/ (Dextrose) 50 mls @ 200 mls/hr IVPB DAILY [facility]; Protocol Last Admin: 06/19/19 09:42 Dose: 200 mls/hr Insulin Aspart (Novolog Vial Sliding Scale -) 1 vial SQ BIDAC [facility]; Protocol Last Admin: 06/19/19 06:51 Dose: 4 units Metoprolol Succinate (Toprol Xl -) 25 mg PO DAILY [facility] Last Admin: 06/19/19 09:43 Dose: 25 mg Quinapril HCl (Accupril -) 10 mg PO DAILY [facility] Last Admin: 06/19/19 09:43 Dose: 10 mg - Objective Vital Signs: Vital Signs Temperature 98.3 F 06/19/19 10:00 Pulse Rate 86 06/19/19 10:00 Respiratory Rate 06/19/19 11:59 Blood Pressure 142/61 06/19/19 10:00 O2 Sat by Pulse Oximetry (%) 94 L 06/19/19 11:59 Constitutional: Yes: Well Nourished, No Distress, Calm Cardiovascular: Yes: Pulse Irregular, JVD (possible (mild)), S1, S2. No: Gallop , Murmur Respiratory: Yes: Regular, CTA Bilaterally, Diminished (bases). No: Accessory Muscle Use, Rales, Wheezes Extremities: No: Cold Edema: Yes (1+ ankles) Neurological: Yes: Alert, Oriented Psychiatric: No: Agitated Labs: CBC, BMP 06/19/19 06:25 06/19/19 06:25 INR, PTT INR 1.69 (0.83-1.09) H 06/17/19 08:22 Assessment/Plan echo 08/2018: mild lvh, nl lvef, nl rv, mild mr echo 04/2019: nl lv, rv mildly dilated and mild dec rv fcn, lae, mild-mod mr, mild tr ecg: afib, vr 99, rbbb cxr: clear lungs tele: AF rates controlled, artifact. a/p: 68 yo female hx pafib, htn, hld, dchf, pad s/p r rfa sent 02/2019 here with sob. sob, AFib with rvr, acute on chronic diast chf: - despite cardizem, dig, toprol, HR has not been well controlled and is causing her dchf exacerbations. Pt has been declining EP eval for ablation as outpt for awhile but now is willing. Will improve vol status with iv lasix and when vol stable will d/w EP in regards to inpt transfer for management of resistant rvr. - diuresing well, with improvement in sob sx's--cont lasix 60 iv bid - cont eliquis - HR currently controlled--continuing home meds here, including digoxin 0.125 qd --dig level mildly elevated 1.6 not in toxic range--same meds, repeat dig level htn: -bp controlled -cont current meds hld: -cont home statin pad s/p recent le stenting: -cont statin, bp control, ac
--- NOTE | 2019-06-19 13:37 | PN ---
Progress Note, Physician History of Present Illness: improving sugars still high - Current Medication List Current Medications: Active Medications Apixaban (Eliquis -) 5 mg PO BID [facility] Last Admin: 06/19/19 09:43 Dose: 5 mg Atorvastatin Calcium (Lipitor -) 10 mg PO HS [facility] Last Admin: 06/18/19 22:32 Dose: 10 mg Digoxin (Lanoxin -) 0.125 mg PO DAILY [facility] Last Admin: 06/19/19 09:44 Dose: 0.125 mg Diltiazem HCl (Cardizem Cd -) 360 mg PO DAILY [facility] Last Admin: 06/19/19 09:43 Dose: 360 mg Furosemide (Lasix Injection -) 60 mg IVPUSH BID@0600,1400 [facility] Last Admin: 06/19/19 06:07 Dose: 60 mg Gabapentin (Neurontin -) 100 mg PO HS [facility] Last Admin: 06/18/19 22:32 Dose: 100 mg Ceftriaxone Sodium 1 gm/ (Dextrose) 50 mls @ 200 mls/hr IVPB DAILY [facility]; Protocol Last Admin: 06/19/19 09:42 Dose: 200 mls/hr Insulin Aspart (Novolog Vial Sliding Scale -) 1 vial SQ BIDAC [facility]; Protocol Last Admin: 06/19/19 06:51 Dose: 4 units Metoprolol Succinate (Toprol Xl -) 25 mg PO DAILY [facility] Last Admin: 06/19/19 09:43 Dose: 25 mg Quinapril HCl (Accupril -) 10 mg PO DAILY [facility] Last Admin: 06/19/19 09:43 Dose: 10 mg - Objective Vital Signs: Vital Signs Temperature 98.3 F 06/19/19 10:00 Pulse Rate 86 06/19/19 10:00 Respiratory Rate 19 06/19/19 11:59 Blood Pressure 142/61 06/19/19 10:00 O2 Sat by Pulse Oximetry (%) 94 L 06/19/19 11:59 Constitutional: Yes: No Distress, Calm Cardiovascular: Yes: S1, S2 Respiratory: Yes: Regular, CTA Bilaterally Gastrointestinal: Yes: Normal Bowel Sounds, Soft Musculoskeletal: Yes: WNL Extremities: Yes: WNL Neurological: Yes: Alert, Oriented Psychiatric: Yes: Alert, Oriented Labs: CBC, BMP 06/19/19 06:25 06/19/19 06:25 INR, PTT INR 1.69 (0.83-1.09) H 06/17/19 08:22 Assessment/Plan afib uti htn hld plan continue abx monitor sugars rest as per the team
[2019-06-19] MEDS: GABAPENTIN 100 MG CAPSULE (FP) PO SCH (22:02)
[2019-06-19] MEDS: ATORVASTATIN CA 10 MG TABLET (FP) PO SCH (22:02)
[2019-06-20] MEDS: FUROSEMIDE 40 MG/4 ML INJECTABLE VIAL IVPUSH SCH ×2 (06:44→15:37)
[2019-06-20] MEDS: INSULIN SLIDING SCALE (NOVOLOG) 1 VIAL SQ SCH ×2 (06:53→16:52)
[2019-06-20 07:49] LABS: BASO % 0.6 % (0-2.0); EOS % 1.7 % (0-4.5); HEMATOCRIT 30.9 % (32.4-45.2); HEMOGLOBIN 9.8 GM/dL (10.7-15.3); LYMPH % 17.3 % (8-40); MCHC 31.7 g/dl (32.0-36.0); MEAN CELL VOLUME 75.8 fl (80-96); MEAN PLT VOLUME 8.2 fl (7.5-11.1); MONO % 8.6 % (3.8-10.2); NEUT % 71.8 % (42.8-82.8); PLATELET COUNT 241 K/MM3 (134-434); RBC 4.07 M/mm3 (3.60-5.2); RDW 17.2 % (11.6-15.6)
[2019-06-20 08:10] LABS: CALCIUM 8.6 mg/dL (8.5-10.1); CREATININE 0.8 mg/dL (0.55-1.3); MAGNESIUM 1.6 mg/dL (1.8-2.4); PHOSPHOROUS 3.7 mg/dL (2.5-4.9); POTASSIUM 3.6 mmol/L (3.5-5.1)
[2019-06-20] MEDS ORDERED: MAGNESIUM OXIDE 400 MG TABLET (FP) PO ONE (09:32)
--- NOTE | 2019-06-20 09:33 | PN ---
Progress Note (short form) - Note Progress Note: Hospitalist Medicine Very pleasant, happy and with decreased LE edema. Vitals 06/20/19 07:51 Pulse Rate 83 Respiratory 22 H Rate Blood Pressure 127/69 Physical Exam General: resting comfortably, in NAD HEENT: NCAT neck: supple cardio: S1, S2, sinus. RRR, no r/m/g pulm: few crackles appreciated at bases, otherwise clear. no accessory m usage abdomen: obese, nontender, nondistended LE: trace pitting edema, pulses intact neuro: telemetry rn 2-12 grossly intact Laboratory Tests 06/19/19 06/19/19 06:25 06:25 WBC 7.5 Hgb 9.8 L Hct 31.3 L Plt Count 261 Sodium 142 Potassium 3.6 Chloride 101 Anion Gap 7 L BUN 17.5 Random Glucose 218 H Magnesium 1.7 L Microbiology 06/17/19 06:22 Urine - Urine Clean Catch Urine Culture - Preliminary Non Lactose Fermenting Gnb Imaging CXR: without acute change EKG: +afib, rate 99bpm, incomplete RBBB, qtc 426ms. similar to previous Last ECHO 04/19/2019: LVSF grossly normal, EF 50-55%, RV mildly dilated, RVSF mildly reduced , LA moderately dilated, dilated IVC elevated R sided pressures, mild , moderate MR ASSESSMENT/PLAN: 68 y/o F with PMH afib (eliquis), HFpEF (last ECHO EF 55%), HTN, HLD, NIDDM, new RLE stent, who presents in ED for SOB over last two days. Per pt, during this time, she has needed to sleep on 4 pillows instead of two. #Acute on chronic HFpEF likely 2/2 dietary changes -lasix 60mg IVP BID, daily wts, i/o, na control 2g. has been net (-) -cardio consult: Dr. Rosen. sees pt as outpt -recent ECHO 04/2019 as above, preserved EF #UTI -w/ +UA, will tx with rocephin (Day3) -has hx ESBL from previous Ucx -ucx: nonlactose fermenting gnb > 100,000 -ID consulted: Dr. 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
[2019-06-20] MEDS ORDERED: PT OWN MED DRAWER 7, Y5N ONE (10:13)
[2019-06-20] MEDS ORDERED: DEXTROSE 5%-WATER - 50 ML IVPB ONE (10:14)
[2019-06-20] MEDS ORDERED: cefTRIAXone SODIUM 1 GM VIAL ONE (10:14)
[2019-06-20] MEDS: metoPROLOL SUCCINATE 25 MG TAB.SR.24H (FP) PO SCH (10:17)
[2019-06-20] MEDS: DIGOXIN 0.125 MG TABLET (FP) PO SCH (10:17)
[2019-06-20] MEDS: APIXABAN 5 MG TABLET PO SCH ×2 (10:17→21:39)
[2019-06-20] MEDS: QUINAPRIL HCL 10 MG TABLET (FP) PO SCH (10:17)
[2019-06-20] MEDS: CEFTRIAXONE 1 GM in DEXTROSE 5%-WATER - 50 ML IVPB SCH (10:18)
--- NOTE | 2019-06-20 11:28 | PN ---
Progress Note, Physician History of Present Illness: stable sugars still on the higher side - Current Medication List Current Medications: Active Medications Apixaban (Eliquis -) 5 mg PO BID [facility] Last Admin: 06/20/19 10:17 Dose: 5 mg Atorvastatin Calcium (Lipitor -) 10 mg PO HS [facility] Last Admin: 06/19/19 22:02 Dose: 10 mg Digoxin (Lanoxin -) 0.125 mg PO DAILY [facility] Last Admin: 06/20/19 10:17 Dose: 0.125 mg Diltiazem HCl (Cardizem Cd -) 360 mg PO DAILY [facility] Last Admin: 06/20/19 10:16 Dose: 360 mg Furosemide (Lasix Injection -) 60 mg IVPUSH BID@0600,1400 [facility] Last Admin: 06/20/19 06:44 Dose: 60 mg Gabapentin (Neurontin -) 100 mg PO HS [facility] Last Admin: 06/19/19 22:02 Dose: 100 mg Ceftriaxone Sodium 1 gm/ (Dextrose) 50 mls @ 200 mls/hr IVPB DAILY [facility]; Protocol Last Admin: 06/20/19 10:18 Dose: 200 mls/hr Insulin Aspart (Novolog Vial Sliding Scale -) 1 vial SQ BIDAC [facility]; Protocol Last Admin: 06/20/19 06:53 Dose: 4 units Metoprolol Succinate (Toprol Xl -) 25 mg PO DAILY [facility] Last Admin: 06/20/19 10:17 Dose: 25 mg Quinapril HCl (Accupril -) 10 mg PO DAILY [facility] Last Admin: 06/20/19 10:17 Dose: 10 mg - Objective Vital Signs: Vital Signs Temperature 98.2 F 06/20/19 02:00 Pulse Rate 81 06/20/19 10:17 Respiratory Rate 22 H 06/20/19 07:51 Blood Pressure 127/69 06/20/19 07:51 O2 Sat by Pulse Oximetry (%) 92 L 06/20/19 07:51 Constitutional: Yes: No Distress, Calm Cardiovascular: Yes: S1, S2 Respiratory: Yes: Regular, CTA Bilaterally Gastrointestinal: Yes: Normal Bowel Sounds, Soft Musculoskeletal: Yes: WNL Extremities: Yes: WNL Neurological: Yes: Alert, Oriented Psychiatric: Yes: Alert, Oriented Labs: CBC, BMP 06/20/19 06:25 06/20/19 06:25 INR, PTT INR 1.69 (0.83-1.09) H 06/17/19 08:22 Assessment/Plan afib uti htn hld plan continue abx monitor sugars rest as per the team
--- NOTE | 2019-06-20 12:05 | PN ---
Progress Note (short form) - Note Progress Note: s: no cp palps dizzy; sob improving - Current Medications Generic Name Dose Route Start Last Admin Trade Name J Luis PRN Reason Stop Dose Admin Apixaban 5 mg 06/18/19 10:00 06/20/19 10:17 Eliquis - PO 5 mg BID [facility] Administration Atorvastatin Calcium 10 mg 06/18/19 22:00 06/19/19 22:02 Lipitor - PO 10 mg HS [facility] Administration Digoxin 0.125 mg 06/18/19 10:00 06/20/19 10:17 Lanoxin - PO 0.125 mg DAILY [facility] Administration Diltiazem HCl 360 mg 06/18/19 10:00 06/20/19 10:16 Cardizem Cd - PO 360 mg DAILY [facility] Administration Furosemide 60 mg 06/18/19 14:00 06/20/19 06:44 Lasix Injection - IVPUSH 60 mg BID@0600,1400 [facility] Administration Gabapentin 100 mg 06/18/19 22:00 06/19/19 22:02 Neurontin - PO 100 mg HS [facility] Administration Ceftriaxone Sodium 1 gm/ 50 mls @ 200 mls/hr 06/18/19 12:15 06/20/19 10:18 Dextrose IVPB 200 mls/hr DAILY [facility] Administration Protocol Insulin Aspart 1 vial 06/18/19 16:30 06/20/19 06:53 Novolog Vial Sliding Scale - SQ 4 units BIDAC [facility] Administration Protocol Metoprolol Succinate 25 mg 06/18/19 10:00 06/20/19 10:17 Toprol Xl - PO 25 mg DAILY [facility] Administration Quinapril HCl 10 mg 06/18/19 10:00 06/20/19 10:17 Accupril - PO 10 mg DAILY [facility] Administration Vital Signs Period Temp Pulse Resp BP Sys/Pitts Pulse Ox Last 24 Hr 98.1 F-98.4 F 61-89 18-22 108-138/54-82 92-94 Constitutional: Yes: Well Nourished, No Distress, Calm Cardiovascular: Yes: Pulse Irregular, JVD (possible (mild)), S1, S2. No: Gallop , Murmur Respiratory: Yes: Regular, CTA Bilaterally, Diminished (bases). No: Accessory Muscle Use, Rales, Wheezes Extremities: No: Cold Edema: Yes (1+ ankles) Neurological: Yes: Alert, Oriented Psychiatric: No: Agitated Labs: CBC, BMP 06/20/19 06:25 06/20/19 06:25 Assessment/Plan echo 08/2018: mild lvh, nl lvef, nl rv, mild mr echo 04/2019: nl lv, rv mildly dilated and mild dec rv fcn, lae, mild-mod mr, mild tr ecg: afib, vr 99, rbbb cxr: clear lungs tele: AF rates controlled a/p: 68 yo female hx pafib, htn, hld, dchf, pad s/p r rfa sent 02/2019 here with sob. sob, AFib with rvr, acute on chronic diast chf: - despite cardizem, dig, toprol, HR has not been well controlled and is causing her dchf exacerbations. Pt has been declining EP eval for ablation as outpt for awhile but now is willing. CHF improving with iv lasix, will d/w EP in regards to inpt transfer for management of resistant rvr. - diuresing well, with improvement in sob sx's--cont lasix 60 iv bid - cont eliquis - HR currently controlled--continuing home meds here, including digoxin 0.125 qd --dig level mildly elevated 1.6 not in toxic range--same meds, repeat dig level htn: -bp controlled -cont current meds hld: -cont home statin pad s/p recent le stenting: -cont statin, bp control, ac
[2019-06-20 15:59] VITALS: TEMP 99.3
[2019-06-20 16:33] VITALS: BP 111/87; PULSE 62
[2019-06-20] MEDS: ATORVASTATIN CA 10 MG TABLET (FP) PO SCH (21:39)
[2019-06-20] MEDS: GABAPENTIN 100 MG CAPSULE (FP) PO SCH (21:39)
[2019-06-20] MEDS ORDERED: INSULIN SLIDING SCALE (NOVOLOG) 1 VIAL SQ SCH (22:00)
--- NOTE | 2019-06-21 07:26 | DS ---
Physical Exam: SUBJECTIVE: Patient seen and examined at bedside yesterday. In good spirits. Transferred to [facility] for ablation by cardio. OBJECTIVE: Vital Signs Period Temp Pulse Resp BP Sys/Pitts Pulse Ox Last 24 Hr 99.3 F 62-83 17-22 111-127/50-87 92-94 LABS Laboratory Results - last 24 hr 06/20/19 06/20/19 06/20/19 06:25 06:25 06:25 WBC 7.0 RBC 4.07 Hgb 9.8 L Hct 30.9 L MCV 75.8 L MCH 24.0 L MCHC 31.7 L RDW 17.2 H Plt Count 241 MPV 8.2 Absolute Neuts (auto) 5.1 Neutrophils % 71.8 Lymphocytes % 17.3 Monocytes % 8.6 Eosinophils % 1.7 Basophils % 0.6 Nucleated RBC % 0 Sodium 142 Potassium 3.6 Chloride 100 Carbon Dioxide 37 H Anion Gap 5 L BUN 17.0 Creatinine 0.8 Est GFR (CKD-EPI)AfAm 87.80 Est GFR (CKD-EPI)NonAf 75.75 POC Glucometer Random Glucose 281 H Calcium 8.6 Phosphorus 3.7 Magnesium 1.6 L Digoxin 1.00 06/20/19 06/20/19 16:48 21:40 WBC RBC Hgb Hct MCV MCH MCHC RDW Plt Count MPV Absolute Neuts (auto) Neutrophils % Lymphocytes % Monocytes % Eosinophils % Basophils % Nucleated RBC % Sodium Potassium Chloride Carbon Dioxide Anion Gap BUN Creatinine Est GFR (CKD-EPI)AfAm Est GFR (CKD-EPI)NonAf POC Glucometer 363 409 Random Glucose Calcium Phosphorus Magnesium Digoxin 06/17/19 06/18/19 06/19/19 08:22 07:05 06:25 WBC 9.3 7.5 7.5 Hgb 10.0 L 9.9 L 9.8 L Hct 32.6 31.7 L 31.3 L RDW 17.5 H 17.4 H 17.5 H Plt Count 286 274 261 Sodium Potassium Chloride Anion Gap BUN Creatinine Random Glucose Magnesium 06/20/19 06/20/19 06:25 06:25 WBC 7.0 Hgb 9.8 L Hct 30.9 L RDW 17.2 H Plt Count 241 Sodium 142 Potassium 3.6 Chloride 100 Anion Gap 5 L BUN 17.0 Creatinine 0.8 Random Glucose 281 H Magnesium 1.6 L 06/17/19 08:22 PT with INR 20.00 H INR 1.69 H PTT (Actin FS) 40.2 H 06/20/19 06:25 Carbon Dioxide 37 H Calcium 8.6 Phosphorus 3.7 06/17/19 06:22 Urine Protein 1+ H Urine Glucose (UA) Negative Urine Ketones Negative Urine Blood Trace Urine Nitrite Positive H Urine Bilirubin Negative Urine Urobilinogen 0.2 Ur Leukocyte Esterase 3+ H Urine WBC (Auto) 117 Urine Bacteria (Auto) 1982.6 06/17/19 06/19/19 06/20/19 08:22 06:25 06:25 Digoxin 1.64 0.94 1.00 Microbiology 06/17/19 06:22 Urine - Urine Clean Catch Urine Culture - Preliminary Non Lactose Fermenting Gnb Imaging CXR: without acute change EKG: +afib, rate 99bpm, incomplete RBBB, qtc 426ms. similar to previous Last ECHO 04/19/2019: LVSF grossly normal, EF 50-55%, RV mildly dilated, RVSF mildly reduced , LA moderately dilated, dilated IVC elevated R sided pressures, mild , moderate MR HOSPITAL COURSE: Date of Admission:06/17/19 Date of Discharge: 06/21/19 68 y/o F with PMH afib (eliquis), HFpEF (last ECHO EF 55%), HTN, HLD, NIDDM, new RLE stent, who presents in ED for SOB over last two days. Per pt, during this time, she has needed to sleep on 4 pillows instead of two. #Acute on chronic HFpEF likely 2/2 dietary changes -lasix 60mg IVP BID, daily wts, i/o, na control 2g. has been net (-) -cardio consult: Dr. Rosen. 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 This means you had more fluid on your body. You were diuresed with lasix, and improved. You are being sent to [facility] for transfer for a cardiac ablation to help your atrial fibrillation. Care Please refrain from eating salt . You should eat less than 2 grams a day to help prevent fluid overload and swelling. It is also important to weigh yourself daily. This can help your doctor determine if they need to change your lasix dose. If you notice large changes in your weight, please let your primary care provider or casing in line feeder know immediately. Follow-up Please follow with the following physicians on your discharge: -Your primary care provider, Dr. Lund - 3-5 days after your discharge to discuss your visit -your casing in line feeder, Dr. Rosen -1 week. You will discuss the possibility of an ablation for your heart at that time. Referrals: Rivas Lund MD [Primary Care Provider] - Dylan Rosen MD [Staff Physician] - 1 Week Disposition: TRANSFER ACUTE CARE/OTHER HOSP - Home Medications Comprehensive Discharge Medication List: Ambulatory Orders Quinapril HCl [Accupril -] 10 mg PO DAILY 11/25/15 Simvastatin [Zocor -] 20 mg PO HS 11/25/15 Glimepiride [Amaryl] 4 mg PO BIDAC 12/17/16 metFORMIN HCL [Glucophage -] 1,000 mg PO BIDAC 12/17/16 Apixaban [Eliquis -] 5 mg PO BID #60 tablet 03/16/17 Dulaglutide [Trulicity] 1.5 mg SQ Q7D 01/07/19 Gabapentin [Neurontin] 100 mg PO HS 02/20/19 Digoxin [Lanoxin -] 0.125 mg PO DAILY #30 tablet 04/28/19 Diltiazem HCl [Diltiazem 24Hr ER] 360 mg PO DAILY #30 cap.sa.24h 04/28/19 Furosemide [Lasix] 60 mg PO BID #90 tablet 04/28/19 Metoprolol Succinate [Toprol XL -] 25 mg PO DAILY #30 tab.sr.24h 04/28/19 This patient is new to me today: No Emergency Visit: No Critical Care patient: No - Discharge Referral Referred to [facility] Med P.C.: No
== END 2019-06-20 22:10 | disposition short-term general hospital (02) | DRG 292 ==
LOC: JER 07:52 → JERBED 10:11 → J7W 17:03 → J2W 06-18 17:46
PROVIDERS: ADMIT Internal Medicine; ATTEND Internal Medicine
DX: I11.0 Hypertensive heart disease with heart failure (principal); N39.0 Urinary tract infection, site not specified; I50.33 Acute on chronic diastolic (congestive) heart failure; E78.5 Hyperlipidemia, unspecified; E11.9 Type 2 diabetes mellitus without complications; I48.0 Paroxysmal atrial fibrillation
CPT/HCPCS: 36415; 71045-TC-FY; 71046-TC-FY; 80048; 80053; 80162; 81003; 82550; 82803; 82962; 83735; 83880; 84100; 84484; 85025; 85610; 85730; 87086; 87186; 93005; 93010; 97161-GP; 99285-25

== ENCOUNTER 2020-03-18 07:58 | Inpatient (IN) | payer BC, OTHER ==
--- NOTE | 2020-03-18 08:43 | PDOC ---
Documentation entered by Rob Iqbal SCRIBE, acting as scribe for Nicolette Bro MD. Nicolette Bro MD: This documentation has been prepared by the Farida kirk Xhesika, SCRIBE, under my direction and personally reviewed by me in its entirety. I confirm that the documentation accurately reflects all work, treatment, procedures, and medical decision making performed by me. History of Present Illness - General Chief Complaint: Respiratory Stated Complaint: Shortness of breath Time Seen by Provider: 03/18/20 08:06 History Source: Patient Exam Limitations: No Limitations - History of Present Illness Initial Comments: 03/18/20 08:07 The patient is a 69y/o F with a pmh of afib-(on eliquis), HFpEF, CHF, HTN, HLD, NIDDM, nephrolithiasis, and RLE stent who presents to the ED for shortness of breath since December, progressively worsening the past 2 weeks. Pt reports her SOB is worse when lying flat. Pt states she usually sleeps with 2 pillows but as of recently she has been sleeping with 3 pillows. Pt states her Hot Car Charger (Dr. Rosen) sent her over to [facility] 2 weeks ago for "some procedures" and the pt was then prescribed Amiodarone 200mg, with no improvement of symptoms. Pt reports BLE edema which is due to her not taking her Lasix this morning. Pt denies chest pain, nausea, vomiting, headache, blurry vision, neck pain, abdominal pain, back pain, numbness, tingling, chills, fevers, infections, dysuria, frequency, or urgency. Allergies: NKDA PCP: Dr. Lund Cards: Dr. Maldonado Past History - Medical History Allergies/Adverse Reactions: Allergies Allergy/AdvReac Type Severity Reaction Status Date / Time No Known Drug Allergies Allergy Verified 03/18/20 08:03 Home Medications: Ambulatory Orders Simvastatin [Zocor -] 20 mg PO HS 11/25/15 Glimepiride [Amaryl] 4 mg PO BIDAC 12/17/16 metFORMIN HCL [Glucophage -] 1,000 mg PO BIDAC 12/17/16 Apixaban [Eliquis -] 5 mg PO BID #60 tablet 03/16/17 Dulaglutide [Trulicity] 1.5 mg SQ Q7D 01/07/19 Gabapentin [Neurontin] 100 mg PO HS 02/20/19 Metoprolol Succinate [Toprol XL -] 25 mg PO DAILY #30 tab.sr.24h 04/28/19 Furosemide [Lasix] 80 mg PO DAILY 12/23/19 Amiodarone HCl 200 mg PO DAILY 03/18/20 Anemia: No Asthma: No Cancer: Yes (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) Cardiac Disorders: Yes (a fib) CVA: No COPD: No CHF: Yes (2016) Dementia: No Diabetes: Yes GI Disorders: No Disorders: Yes (uti, kidney stones) HTN: Yes Hypercholesterolemia: Yes Kidney Stones: Yes Liver Disease: Yes (fatty liver?) Seizures: No Thyroid Disease: No - Surgical History Abdominal Surgery: No Appendectomy: No Cardiac Surgery: No Cholecystectomy: Yes Lung Surgery: No Neurologic Surgery: No Orthopedic Surgery: No - Reproductive History Is Patient Now?: No - Immunization History Immunization Up to Date: Yes - Psycho-Social/Smoking History Smoking History: Former smoker Have you smoked in the past 12 months: No Number of Cigarettes Smoked Daily: 20 If you are a former smoker, when did you quit?: 2014 Information on smoking cessation initiated: No 'Breaking Loose' booklet given: 12/28/15 - Substance Abuse Hx (Audit-C & DAST Scrn) How often the patient has a drink containing alcohol: Never Score: In Men: 4 or > Positive; In Women: 3 or > Positive: 0 Screen Result (Pos requires Nsg. Audit-10AR): Negative In the last yr the pt used illegal drug/Rx for NonMed reason: No Score: Yes response is considered Positive: 0 Screen Result (Positive result requires Nsg. DAST-10): Negative Review of Systems - Review of Systems Able to Perform ROS?: Yes Comments:: 03/18/20 08:09 GENERAL/CONSTITUTIONAL: No fever or chills. No weakness. HEAD, EYES, EARS, NOSE AND THROAT: No change in vision. No ear pain or discharge. No sore throat. CARDIOVASCULAR: No chest pain. +shortness of breath. RESPIRATORY: No cough, wheezing, or hemoptysis. GASTROINTESTINAL: No nausea, vomiting, diarrhea or constipation. GENITOURINARY: No dysuria, frequency, or change in urination. MUSCULOSKELETAL: No neck or back pain. +BLE edema SKIN: No rash NEUROLOGIC: No headache, vertigo, loss of consciousness, or change in strength/sensation. ENDOCRINE: No increased thirst. No abnormal weight change. HEMATOLOGIC/LYMPHATIC: No anemia, easy bleeding, or history of blood clots. ALLERGIC/IMMUNOLOGIC: No hives or skin allergy. *Physical Exam - Vital Signs Last Vital Signs Temp Pulse Resp BP Pulse Ox 97 F L 115 H 16 135/82 93 L 03/18/20 08:03 03/18/20 08:03 03/18/20 08:03 03/18/20 08:03 03/18/20 08:03 - Physical Exam 03/18/20 08:29 GENERAL: non-toxic appearing HEENT: NCAT, conjunctiva not injected, EOMI NECK: Normal ROM, supple LUNGS: trace scattered crackles R>L. +tachypnea, speaking in full sentences with pauses on occasion 2/2 SOB, no accessory muscle use. No wheezes, No Rhonchi HEART: + s1 s2, irregularly irregular, slight tachycardia (rate 95-103) ABDOMEN: Soft, nontender, normoactive bowel sounds. No guarding, no rebound. No masses BACK: no midline or paraspinal tenderness EXTREMITIES: Warm and well perfused. 2+ LE edema. FROM. No cords, erythema, or tenderness NEUROLOGICAL: awake, alert, responds appropriately to questions, Speech fluent, face symmetric, tongue/uvula midline. Sensation grossly intact to light touch. Strength intact. No focal deficits. SKIN: Warm, dry, normal turgor, no rashes or lesions noted. Heart Score/ECG Review - ECG Impressions Comment:: 03/18/20 08:33 afib, rate 105, unchanged from prior ED Treatment Course - LABORATORY CBC & Chemistry Diagram: 03/18/20 08:15 03/18/20 08:15 Medical Decision Making - Medical Decision Making 03/18/20 08:39 69 yo F with progressively worsening SOB, no infectious complaints, no chest pain, suspect decompensated HF vs. symptomatic afib vs. lower suspicion for ACS as EKG unchanged and without ischemic changes vs. unlikely PE given duration of symptoms and more likely cardiac etiology. Also doubt PNA as patient without infectious complaints. Plan: -labs -urine -cxr -cardiology consult -supplemental O2 via [place] -lasix (pt. reports she didn't take her home dose of 80mg this AM but otherwise has been compliant with her lasix) -admit This clinical encounter is taking place during a federal and state health care emergency attributable to the novel [place] Virus pandemic. The Stitcher Feeder of the Department of Health and Human Services has declared, pursuant to the Public Health Service Act 319F-3 (42 U.S.C. 247d-6d), that a covered persons activities related to medical countermeasures against COVID-19 will be immune from liability under Federal and State law. 03/18/20 11:47 Labs and imaging reviewed. Patient with CAROLE (Cr 1.9). Cardiology consulted and will come to see patient. Will admit for CAROLE and SOB requiring supplemental o2 possibly 2/2 CHF. Discharge - Discharge Information Problems reviewed: Yes Clinical Impression/Diagnosis: Shortness of breath, CAROLE (acute kidney injury) Condition: Stable - Admission Yes - Follow up/Referral Referrals: Rivas Lund MD [Primary Care Provider] - - Patient Discharge Instructions - Post Discharge Activity
[2020-03-18 08:44] LABS: BASO % 0.3 % (0-2.0); EOS % 2.8 % (0-4.5); HEMOGLOBIN 10.7 GM/dL (10.7-15.3); INR 1.96 (0.83-1.09); LYMPH % 24.6 % (8-40); MCH 26.6 pg (25.7-33.7); MCHC 31.4 g/dl (32.0-36.0); MEAN CELL VOLUME 84.7 fl (80-96); MEAN PLT VOLUME 8.5 fl (7.5-11.1); MONO % 9.1 % (3.8-10.2); NEUT % 63.2 % (42.8-82.8); PLATELET COUNT 260 K/MM3 (134-434); PROTHROMBIN TIME (PATIENT) 23.3 SEC (9.7-13.0); RBC 4.02 M/mm3 (3.60-5.2); RDW 17.4 % (11.6-15.6); WHITE BLOOD COUNT 8.9 K/mm3 (4.0-10.0)
[2020-03-18 08:47] LABS: ACTIVATED PTT 39.6 SECONDS (25.2-36.5)
[2020-03-18 09:28] LABS: ALBUMIN 3.7 g/dl (3.4-5.0); ALK PHOS 76 U/L (45-117); ANION GAP 9 MMOL/L (8-16); BILIRUBIN,TOTAL 0.6 mg/dL (0.2-1); BLOOD UREA NITROGEN 62.2 mg/dL (7-18); CHLORIDE 106 mmol/L (98-107); CO2 26 mmol/L (21-32); CREATININE 1.9 mg/dL (0.55-1.3); GLUCOSE,RANDOM 159 mg/dL (74-106); N-TERMINAL BNP 2926.4 pg/ml (5-125); POTASSIUM 5.8 mmol/L (3.5-5.1); SGOT/AST 39 U/L (15-37); SGPT/ALT 42 U/L (13-61); SODIUM 140 mmol/L (136-145); TOT PROT 7.3 g/dl (6.4-8.2)
[2020-03-18] MEDS ORDERED: FUROSEMIDE 40 MG/4 ML INJECTABLE VIAL IVPUSH ONE (09:44)
[2020-03-18] MEDS ORDERED: FUROSEMIDE 40 MG/4 ML INJECTABLE VIAL ONE (10:06)
[2020-03-18] MEDS ORDERED: INSULIN REGULAR HUMAN 100 UNITS/ML *VIAL IVPUSH ONE (11:45)
--- NOTE | 2020-03-18 12:46 | HP ---
CHIEF COMPLAINT: SOB PCP: Dr. Lund Cardiology: Dr. Martinez/Dr. Maldonado HISTORY OF PRESENT ILLNESS: 68 y/o F with PMH afib (eliquis), HFpEF (last ECHO EF 55%), HTN, HLD, NIDDM, new RLE stent, who presents in ED for SOB. This has happend before and she responded to diuresis. Over the last 2 weeks she has been unable to lay flat. She reports PND and orthopnea. She did not take her home dose of lasix today. She is actively followed by [facility] cardiology. She denies allergies, asthma, fever, SOB, CP. ER course was notable for 80 mg lasix Recent Travel: denies PAST MEDICAL HISTORY: PAST SURGICAL HISTORY: RLE stent, laparoscopic cholecystectomy, 3 c-sections Family hx: denies Social History: Smoking: Former Alcohol: social Drugs: denies Works in [employer] system Allergies No Known Drug Allergies Allergy (Verified 03/18/20 08:03) HOME MEDICATIONS: Medication Instructions Recorded Simvastatin [Zocor -] 20 mg PO HS 11/25/15 Glimepiride [Amaryl] 4 mg PO BIDAC 12/17/16 metFORMIN HCL [Glucophage -] 1,000 mg PO BIDAC 12/17/16 Apixaban [Eliquis -] 5 mg PO BID #60 tablet 03/16/17 Dulaglutide [Trulicity] 1.5 mg SQ Q7D 01/07/19 Gabapentin [Neurontin] 100 mg PO HS 02/20/19 Metoprolol Succinate [Toprol XL -] 25 mg PO DAILY #30 tab.sr.24h 04/28/19 Furosemide [Lasix] 80 mg PO DAILY 12/23/19 Amiodarone HCl 200 mg PO DAILY 03/18/20 REVIEW OF SYSTEMS CONSTITUTIONAL: Absent: fever, chills, diaphoresis, generalized weakness, malaise, loss of appetite, weight change HEENT: Absent: rhinorrhea, nasal congestion, throat pain, throat swelling, difficulty swallowing, mouth swelling, ear pain, eye pain, visual changes CARDIOVASCULAR: Absent: chest pain, syncope, palpitations, irregular heart rate, lightheadedness, peripheral edema RESPIRATORY: Absent: cough, shortness of breath, dyspnea with exertion, orthopnea, wheezing, stridor, hemoptysis GASTROINTESTINAL: Absent: abdominal pain, abdominal distension, nausea, vomiting, diarrhea, constipation, melena, hematochezia GENITOURINARY: Absent: dysuria, frequency, urgency, hesitancy, hematuria, flank pain, genital pain MUSCULOSKELETAL: Absent: myalgia, arthralgia, joint swelling, back pain, neck pain SKIN: Absent: rash, itching, pallor HEMATOLOGIC/IMMUNOLOGIC: Absent: easy bleeding, easy bruising, lymphadenopathy, frequent infections ENDOCRINE: Absent: unexplained weight gain, unexplained weight loss, heat intolerance, cold intolerance NEUROLOGIC: Absent: headache, focal weakness or paresthesias, dizziness, unsteady gait, seizure, mental status changes, bladder or bowel incontinence PSYCHIATRIC: Absent: anxiety, depression, suicidal or homicidal ideation, hallucinations. PHYSICAL EXAMINATION Vital Signs - 24 hr 03/18/20 03/18/20 03/18/20 08:03 08:10 08:28 Temperature 97 F L Pulse Rate 115 H 100 H Pulse Rate [ Apical] Respiratory 16 Rate Blood Pressure 135/82 Blood Pressure [Left Arm] O2 Sat by Pulse 93 L 100 98 Oximetry (%) 03/18/20 03/18/20 09:00 11:00 Temperature 97.6 F Pulse Rate Pulse Rate [ 90 97 H Apical] Respiratory 20 Rate Blood Pressure Blood Pressure 132/65 113/67 [Left Arm] O2 Sat by Pulse 99 99 Oximetry (%) GENERAL: Awake, alert, and fully oriented, in no acute distress. HEAD: Normal with no signs of trauma. EYES: Pupils equal, round and reactive to light, extraocular movements intact, sclera anicteric, conjunctiva clear. No lid lag. EARS, NOSE, THROAT: Ears normal, nares patent, oropharynx clear without exudates. Moist mucous membranes. NECK: Normal range of motion, supple without lymphadenopathy, JVD, or masses. LUNGS: Breath sounds equal, clear to auscultation bilaterally. No wheezes. + crackles at bases. No accessory muscle use. HEART: Regular rate and rhythm, normal S1 and S2 without murmur, rub or gallop. ABDOMEN: Soft, nontender, not distended, normoactive bowel sounds, no guarding, no rebound, no masses. No hepatomegaly or splenomegaly. MUSCULOSKELETAL: Normal range of motion at all joints. No bony deformities or tenderness. No CVA tenderness. UPPER EXTREMITIES: 2+ pulses, warm, well-perfused. No cyanosis. No clubbing. No peripheral edema. LOWER EXTREMITIES: 2+ pulses, warm, well-perfused. No calf tenderness. 2+ peripheral edema. NEUROLOGICAL: Cranial nerves II-XII intact. Normal speech. Normal gait. PSYCHIATRIC: Cooperative. Good eye contact. Appropriate mood and affect. SKIN: Warm, dry, normal turgor, no rashes or lesions noted, normal capillary refill. Laboratory Results - last 24 hr 03/18/20 03/18/20 03/18/20 08:15 08:15 08:15 WBC 8.9 RBC 4.02 Hgb 10.7 Hct 34.0 MCV 84.7 MCH 26.6 D MCHC 31.4 L RDW 17.4 H Plt Count 260 MPV 8.5 Absolute Neuts (auto) 5.7 Neutrophils % 63.2 Lymphocytes % 24.6 D Monocytes % 9.1 Eosinophils % 2.8 Basophils % 0.3 Nucleated RBC % 0 PT with INR 23.30 H INR 1.96 H PTT (Actin FS) 39.6 H Sodium 140 Potassium 5.8 H Chloride 106 Carbon Dioxide 26 Anion Gap 9 BUN 62.2 H Creatinine 1.9 H Est GFR (CKD-EPI)AfAm 30.64 Est GFR (CKD-EPI)NonAf 26.43 POC Glucometer Random Glucose 159 H Calcium 9.0 Total Bilirubin 0.6 AST 39 H ALT 42 Alkaline Phosphatase 76 Troponin I < 0.02 B-Natriuretic Peptide 2926.4 H Total Protein 7.3 Albumin 3.7 Blood Type Antibody Screen 03/18/20 03/18/20 08:30 12:11 WBC RBC Hgb Hct MCV MCH MCHC RDW Plt Count MPV Absolute Neuts (auto) Neutrophils % Lymphocytes % Monocytes % Eosinophils % Basophils % Nucleated RBC % PT with INR INR PTT (Actin FS) Sodium Potassium Chloride Carbon Dioxide Anion Gap BUN Creatinine Est GFR (CKD-EPI)AfAm Est GFR (CKD-EPI)NonAf POC Glucometer 122 Random Glucose Calcium Total Bilirubin AST ALT Alkaline Phosphatase Troponin I B-Natriuretic Peptide Total Protein Albumin Blood Type B POSITIVE Antibody Screen Negative ASSESSMENT/PLAN: 68 y/o F with PMH afib (eliquis), HFpEF (last ECHO EF 55%), HTN, HLD, DM, RLE stent, who presents in ED for SOB. Presentation significant for CAROLE. #Acute on chronic HFpEF - Lasix 40mg IVP BID, daily wts, i/o, na control 2g - Consult cardiology - ECHO 04/19/2019: LVSF grossly normal, EF 50-55%, RV mildly dilated, RVSF mildly reduced , LA moderately dilated, dilated IVC elevated R sided pressures, mild , moderate MR # CAROLE - Consult nephrology - Diurese cautiously # afib -digoxin, toprol -rate is controlled #HTN - Toprol XL # HLD - lipitor # PAD s/p recent LE stenting - lipitor, eliquis - Consult vascular surgery # FEN - Hold IVF - Monitor and replete as appropriate - DM, low Na (na controlled diet 2g) # PPX - DVT: on eliquis # Disposition - admit to med/surg Family Medical History Family History: As Documented Visit type - Medication Review Med list reviewed for High Risk Meds patients 65 and older: Yes - Emergency Visit Emergency Visit: Yes ED Registration Date: 03/18/20 Care time: The patient presented to the Emergency Department on the above date and was hospitalized for further evaluation of their emergent condition. - New Patient This patient is new to me today: Yes Date on this admission: 03/18/20 - Critical Care Critical Care patient: No ATTENDING PHYSICIAN STATEMENT I saw and evaluated the patient. I reviewed the resident's note and discussed the case with the resident. I agree with the resident's findings and plan as documented. SUBJECTIVE: OBJECTIVE: ASSESSMENT AND PLAN:
--- NOTE | 2020-03-18 12:57 | EKG ---
Test Reason : Blood Pressure : / mmHG Vent. Rate : 105 BPM Atrial Rate : 093 BPM P-R Int : 000 ms QRS Dur : 104 ms QT Int : 384 ms P-R-T Axes : 000 087 -04 degrees QTc Int : 507 ms ATRIAL FIBRILLATION WITH RAPID VENTRICULAR RESPONSE LOW VOLTAGE QRS INCOMPLETE RIGHT BUNDLE BRANCH BLOCK SEPTAL INFARCT (CITED ON OR BEFORE 19-APR-2019) ABNORMAL ECG WHEN COMPARED WITH ECG OF 17-JUN-2019 08:35, NONSPECIFIC T WAVE ABNORMALITY HAS REPLACED INVERTED T WAVES IN ANTERIOR LEADS QT HAS LENGTHENED Confirmed by MD RYAN, BRENDA ([id number]) on 03/18/2020 12:56:54 PM Referred By: Confirmed By:BRENDA DAVIS MD
--- NOTE | 2020-03-18 13:19 | CON.CARD ---
Cardiology Consult (text) - Consultation Consultation Note: Consultation Note: Chief Complaint: sob History of Present Illness: 68 yo female hx pafib, htn, hld, dchf, pad s/p r rfa stent 02/2019 here with sob. sees Dr. Rosen for cardio, has been undergoing workup in the last month at [facility]. per patient report, her heart was shocked by EP and medications were changed and she also had a biopsy of her heart, is not sure of the results yet. endorses lower ext edema and worsening dyspnea. no chest pain, palps, syncope, dizziness. Has been taking aleve 4-8 pills/day for leg pain worse with exertion, has history of PAD, claudication. was supposed to have angiogram with Dr. Goodman which was deferred due to ongoing cardiac workup. PMH: paroxysmal afib HTN HPL + cigs hx - Past Medical History Cardio/Vascular: Yes: AFIB, HTN, Hyperlipdemia Renal/: Yes: Renal Calculi, UTI, Endocrine: Yes: Diabetes Mellitus - Alcohol/Substance Use Hx Alcohol Use: No History of Substance Use: reports: None - Smoking History ex tob - Social History ADL: Independent History of Recent Travel: No Home Medications - Allergies Allergies/Adverse Reactions: Allergies Allergy/AdvReac Type Severity Reaction Status Date / Time No Known Drug Allergies Allergy Verified 03/18/20 08:03 - Home Medications Home Medications Medication Instructions Recorded Simvastatin [Zocor -] 20 mg PO HS 11/25/15 Glimepiride [Amaryl] 4 mg PO BIDAC 12/17/16 metFORMIN HCL [Glucophage -] 1,000 mg PO BIDAC 12/17/16 Apixaban [Eliquis -] 5 mg PO BID #60 tablet 03/16/17 Dulaglutide [Trulicity] 1.5 mg SQ Q7D 01/07/19 Gabapentin [Neurontin] 100 mg PO HS 02/20/19 Metoprolol Succinate [Toprol XL -] 25 mg PO DAILY #30 tab.sr.24h 04/28/19 Furosemide [Lasix] 80 mg PO DAILY 12/23/19 Amiodarone HCl 200 mg PO DAILY 03/18/20 Family Disease History - Family Disease History Family Disease History: Diabetes: Sister Review of Systems - Review of Systems Eyes: denies: Eye Pain HENT: denies: Nasal Congestion Neck: denies: Stiffness Gastrointestinal: denies: Diarrhea, Rectal Bleeding Genitourinary: denies: Burning, Hematuria Musculoskeletal: denies: Muscle Pain Integumentary: denies: Rash Neurological: denies: Numbness, Seizure, Syncope Endocrine: denies: Excessive Sweating Hematology/Lymphatic: denies: Excessive Bleeding Vital Signs: Vital Signs Period Temp Pulse Resp BP Sys/Pitts Pulse Ox Last 24 Hr 97 F-97.6 F 90-115 16-20 113-135/65-82 93-100 Constitutional: Yes: Well Nourished, No Distress Eyes: No: Sclera Icterus HENT: No: Nasal Congestion Neck: No: Decreased ROM Respiratory: Yes: CTA Bilaterally. No: Accessory Muscle Use, Rales, Wheezes Gastrointestinal: Yes: Normal Bowel Sounds. No: Distention, Hepatomegaly, Palpable Mass, Tenderness Cardiovascular: Yes: irreg, tachy JVD: yes Carotid Bruit: No Heart Sounds: Yes: S1, S2. No: Gallop Murmur: No: Systolic Murmur, Diastolic Murmur Extremities: No: Cold, Cyanosis Edema: trace le edema bl Peripheral Pulses: 2+ Left Carotid, 2+ Right Carotid, 2+ Left Doralis Pedis, 2+ Right Dorsalis Pedis Integumentary: No: Jaundice diaphoresis Neurological: Yes: Alert, Oriented (x3) Psychiatric: No: Agitated Laboratory Last Values WBC 8.9 K/mm3 (4.0-10.0) 03/18/20 08:15 RBC 4.02 M/mm3 (3.60-5.2) 03/18/20 08:15 Hgb 10.7 GM/dL (10.7-15.3) 03/18/20 08:15 Hct 34.0 % (32.4-45.2) 03/18/20 08:15 MCV 84.7 fl (80-96) 03/18/20 08:15 MCH 26.6 pg (25.7-33.7) D 03/18/20 08:15 MCHC 31.4 g/dl (32.0-36.0) L 03/18/20 08:15 RDW 17.4 % (11.6-15.6) H 03/18/20 08:15 Plt Count 260 K/MM3 (134-434) 03/18/20 08:15 MPV 8.5 fl (7.5-11.1) 03/18/20 08:15 Absolute Neuts (auto) 5.7 K/mm3 (1.5-8.0) 03/18/20 08:15 Neutrophils % 63.2 % (42.8-82.8) 03/18/20 08:15 Lymphocytes % 24.6 % (8-40) D 03/18/20 08:15 Monocytes % 9.1 % (3.8-10.2) 03/18/20 08:15 Eosinophils % 2.8 % (0-4.5) 03/18/20 08:15 Basophils % 0.3 % (0-2.0) 03/18/20 08:15 Nucleated RBC % 0 % (0-0) 03/18/20 08:15 PT with INR 23.30 SEC (9.7-13.0) H 03/18/20 08:15 INR 1.96 (0.83-1.09) H 03/18/20 08:15 PTT (Actin FS) 39.6 SECONDS (25.2-36.5) H 03/18/20 08:15 Sodium 140 mmol/L (136-145) 03/18/20 08:15 Potassium 5.8 mmol/L (3.5-5.1) H 03/18/20 08:15 Chloride 106 mmol/L (98-107) 03/18/20 08:15 Carbon Dioxide 26 mmol/L (21-32) 03/18/20 08:15 Anion Gap 9 MMOL/L (8-16) 03/18/20 08:15 BUN 62.2 mg/dL (7-18) H 03/18/20 08:15 Creatinine 1.9 mg/dL (0.55-1.3) H 03/18/20 08:15 Est GFR (CKD-EPI)AfAm 30.64 03/18/20 08:15 Est GFR (CKD-EPI)NonAf 26.43 03/18/20 08:15 POC Glucometer 112 UNITS (80-120) 03/18/20 12:27 Random Glucose 159 mg/dL (74-106) H 03/18/20 08:15 Calcium 9.0 mg/dL (8.5-10.1) 03/18/20 08:15 Total Bilirubin 0.6 mg/dL (0.2-1) 03/18/20 08:15 AST 39 U/L (15-37) H 03/18/20 08:15 ALT 42 U/L (13-61) 03/18/20 08:15 Alkaline Phosphatase 76 U/L (45-117) 03/18/20 08:15 Troponin I < 0.02 ng/ml (0.00-0.05) 03/18/20 08:15 B-Natriuretic Peptide 2926.4 pg/ml (5-125) H 03/18/20 08:15 Total Protein 7.3 g/dl (6.4-8.2) 03/18/20 08:15 Albumin 3.7 g/dl (3.4-5.0) 03/18/20 08:15 Blood Type B POSITIVE 03/18/20 08:30 Antibody Screen Negative 03/18/20 08:30 11/2015: mild dec lvef, global hk, nl rv, mild mr echo 11/2016: mild dec lvef, global hk, nl rv, mild- mod mr, mild lae. small effusion < 1cm echo 08/2018: mild lvh, nl lvef, nl rv, mild mr echo 04/2019: nl lv, rv mildly dilated and mild dec rv fcn, lae, mild-mod mr, mild tr ecg: afib, vr 105 bpm, rbbb, prolonged QTc cxr: clear lungs tele: afib rate 90s-100s a/p: 69 yo female hx pafib, htn, hld, dchf, pad s/p r rfa stent 02/2019 here with sob. sob, acute on chronic diast chf: -cont iv lasix, daily chem7, wts - reportedly recent workup, biopsy in the last month at [facility], will review records afib - continue amiodarone, metoprolol - cont eliquis - per patient recent cardioversion in February, remains in afib htn: -cont current meds hld: -cont home statin pad s/p recent le stenting: -cont statin, bp control, ac - complains of claudication for which she has been taking high doses of aleve - had plans for lower ext angiogram pending cardiac workup above CAROLE - renal consulted
[2020-03-18 15:16] LABS: CREATININE, URINE RANDOM < 13.0 mg/dL (30-150)
[2020-03-18 15:53] LABS: URINE APPEARANCE CLEAR; URINE BILIRUBIN NEGATIVE (NEGATIVE); URINE COLOR YELLOW; URINE GLUCOSE (UA) NEGATIVE (NEGATIVE); URINE KETONE NEGATIVE (NEGATIVE); URINE LEUK ESTERASE NEGATIVE (NEGATIVE); URINE NITRITE NEGATIVE (NEGATIVE); URINE PROTEIN NEGATIVE (NEGATIVE); URINE UROBILINOGEN 0.2 mg/dL (0.2-1.0)
[2020-03-18] MEDS: INSULIN SLIDING SCALE (NOVOLOG) 1 VIAL SQ SCH ×2 (17:18→23:14)
[2020-03-18] MEDS ORDERED: HEPARIN NA (PORCINE) 5,000 UNITS/ML 1ML VIAL SQ SCH (18:00)
[2020-03-18] MEDS ORDERED: SODIUM ZIRCONIUM CYCLOSILICATE (LOKELMA) 5 GM PACKET PO ONE (18:08)
--- NOTE | 2020-03-18 18:08 | CONSULT ---
Consult Consult Specialty:: Nephrology Reason for Consultation:: CAROLE - History of Present Illness Chief Complaint: shortness of breath History of Present Illness: Pt is a 69 year old female with pmhx of a-fib, chf, htn, hld, PVD, former smoker, hld, dm, and htn who presents with shortneess of breath. She says that the shortness of breath has been gradual. She is unable to lay down flat. She denies chest pain. She was found to have CAROLE and I was called to evaluate her. She has been taking 800 mg of ibuprofen for leg pain. She denies history of ckd. She denies dysuria or hematuria. - History Source History Provided By: Patient, Medical Record - Past Medical History CREDENTIALS SPECIALIST: Yes: Alzheimer's Cardio/Vascular: Yes: AFIB, HTN, Hyperlipdemia Renal/: Yes: Renal Calculi, UTI, Other (POD#1: s/p Cysto/Litho) ...LMP: 03/18/20 ...: No Endocrine: Yes: Diabetes Mellitus - Alcohol/Substance Use Hx Alcohol Use: No History of Substance Use: reports: None - Smoking History Smoking history: Former smoker Have you smoked in the past 12 months: No Aproximately how many cigarettes per day: 20 If you are a former smoker, when did you quit?: 2014 - Social History ADL: Independent 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 History of Recent Travel: No Home Medications - Allergies Allergies/Adverse Reactions: Allergies Allergy/AdvReac Type Severity Reaction Status Date / Time No Known Drug Allergies Allergy Verified 03/18/20 08:03 - Home Medications Home Medications: Ambulatory Orders Simvastatin [Zocor -] 20 mg PO HS 11/25/15 Glimepiride [Amaryl] 4 mg PO BIDAC 12/17/16 metFORMIN HCL [Glucophage -] 1,000 mg PO BIDAC 12/17/16 Apixaban [Eliquis -] 5 mg PO BID #60 tablet 03/16/17 Dulaglutide [Trulicity] 1.5 mg SQ Q7D 01/07/19 Gabapentin [Neurontin] 100 mg PO HS 02/20/19 Metoprolol Succinate [Toprol XL -] 25 mg PO DAILY #30 tab.sr.24h 04/28/19 Furosemide [Lasix] 80 mg PO DAILY 12/23/19 Amiodarone HCl 200 mg PO DAILY 03/18/20 Family Medical History Family History: Denies Review of Systems - Review of Systems Constitutional: reports: Malaise Eyes: reports: No Symptoms HENT: reports: No Symptoms Neck: reports: No Symptoms Cardiovascular: reports: Edema, Shortness of Breath Respiratory: reports: SOB on Exertion Gastrointestinal: reports: No Symptoms Genitourinary: reports: No Symptoms Musculoskeletal: reports: No Symptoms Integumentary: reports: No Symptoms Neurological: reports: No Symptoms Endocrine: reports: No Symptoms Hematology/Lymphatic: reports: No Symptoms Psychiatric: reports: No Symptoms Physical Exam Vital Signs: Vital Signs Temperature 97.6 F 03/18/20 11:00 Pulse Rate 97 H 03/18/20 11:00 Respiratory Rate 20 03/18/20 09:00 Blood Pressure 113/67 03/18/20 11:00 O2 Sat by Pulse Oximetry (%) 99 03/18/20 11:00 Constitutional: Yes: Calm Eyes: Yes: Conjunctiva Clear HENT: Yes: Atraumatic Neck: Yes: Supple Cardiovascular: Yes: S1, S2 Respiratory: Yes: CTA Bilaterally Gastrointestinal: Yes: Normal Bowel Sounds, Soft Musculoskeletal: Yes: WNL Edema: LLE: Trace, RLE: Trace Neurological: Yes: Oriented Psychiatric: Yes: Oriented Labs: CBC, BMP 03/18/20 08:15 03/18/20 08:15 Laboratory Tests 03/18/20 03/18/20 03/18/20 08:15 08:30 14:50 Sodium 140 Potassium 5.8 H Creatinine 1.9 H Random Glucose 159 H B-Natriuretic Peptide 2926.4 H Ur Specific [place] 1.008 L Urine Protein Negative Urine Blood Negative COVID-19 ([facility]) Pending Imaging - Results Chest X-ray: Report Reviewed Ultrasound: Report Reviewed Problem List - Problems (1) Hyperkalemia Code(s): E87.5 - HYPERKALEMIA (2) CAROLE (acute kidney injury) Code(s): N17.9 - ACUTE KIDNEY FAILURE, UNSPECIFIED (3) Shortness of breath Code(s): R06.02 - SHORTNESS OF BREATH (4) Atrial fibrillation with rapid ventricular response Code(s): I48.91 - UNSPECIFIED ATRIAL FIBRILLATION (5) Hypertension Code(s): I10 - ESSENTIAL (PRIMARY) HYPERTENSION Assessment/Plan Current Medications Generic Name Dose Route Start Last Admin Trade Name J Luis PRN Reason Stop Dose Admin Amiodarone HCl 200 mg 03/19/20 10:00 Cordarone - PO DAILY [facility] Apixaban 5 mg 03/18/20 22:00 Eliquis - PO BID LEONEL Atorvastatin Calcium 10 mg 03/18/20 22:00 Lipitor - PO HS LEONEL Furosemide 80 mg 03/19/20 10:00 Lasix Injection - IVPUSH DAILY LEONEL Gabapentin 100 mg 03/18/20 22:00 Neurontin - PO HS LEONEL Insulin Aspart 0 vial 03/18/20 16:30 03/18/20 17:18 Novolog Vial Sliding Scale - SQ Not Given ACHS [facility] Protocol Metoprolol Succinate 25 mg 03/19/20 10:00 Toprol Xl - PO DAILY [facility] Impression 1. Carole 2. hyperkalemia 3. nsaid use 4. a-fib 5. dyspnea 6. hld 7. htn 8. renal angiomyolipomas 9. DM 10. PVD Plan - hold nsaids - cont lasix - repeat labs in am - lasix should help with potassium - will give a dose of lokelma - will monitor renal function with diuresis - cardio eval
[2020-03-18] MEDS ORDERED: INSULIN (NOVOLOG) ASPART 100 UNITS/ML 10ML VIAL ONE (21:15)
[2020-03-18] MEDS ORDERED: INSULIN (LEVEMIR) 100 UNITS/ML UNITS SQ ONE (21:15)
--- NOTE | 2020-03-18 21:53 | PN ---
Teaching Attending Note Name of Resident: Geovanny Haddad ATTENDING PHYSICIAN STATEMENT I saw and evaluated the patient. I reviewed the resident's note and discussed the case with the resident. I agree with the resident's findings and plan as documented. SUBJECTIVE: Patient seen and examined at bedside, admitted for CHFE, CAROLE 2/2 NSAID use, c/o RLE claudication symptoms. VSS. OBJECTIVE: GA mild distress, SOB during phonation HEENT NC/AT, no nasal flaring, neck supple, dry MM CHest bilateral diffuse crackles, no accessory M use CVS Irregularly irregular, rapid rate 99-105 Abd obese, Soft, NT, BS+ Ext 1+ pitting edema b/l, good pedal pulses, no skin discoloration Vital Signs - 24 hr 03/18/20 03/18/20 03/18/20 08:03 08:10 08:28 Temperature 97 F L Pulse Rate 115 H 100 H Pulse Rate [ Apical] Respiratory 16 Rate Blood Pressure 135/82 Blood Pressure [Left Arm] O2 Sat by Pulse 93 L 100 98 Oximetry (%) 03/18/20 03/18/20 03/18/20 09:00 11:00 18:00 Temperature 97.6 F 98.2 F Pulse Rate Pulse Rate [ 90 97 H 114 H Apical] Respiratory 20 24 H Rate Blood Pressure Blood Pressure 132/65 113/67 128/67 [Left Arm] O2 Sat by Pulse 99 99 95 Oximetry (%) Laboratory Results - last 24 hr 03/18/20 03/18/20 03/18/20 08:15 08:15 08:15 WBC 8.9 RBC 4.02 Hgb 10.7 Hct 34.0 MCV 84.7 MCH 26.6 D MCHC 31.4 L RDW 17.4 H Plt Count 260 MPV 8.5 Absolute Neuts (auto) 5.7 Neutrophils % 63.2 Lymphocytes % 24.6 D Monocytes % 9.1 Eosinophils % 2.8 Basophils % 0.3 Nucleated RBC % 0 PT with INR 23.30 H INR 1.96 H PTT (Actin FS) 39.6 H Sodium 140 Potassium 5.8 H Chloride 106 Carbon Dioxide 26 Anion Gap 9 BUN 62.2 H Creatinine 1.9 H Est GFR (CKD-EPI)AfAm 30.64 Est GFR (CKD-EPI)NonAf 26.43 POC Glucometer Random Glucose 159 H Calcium 9.0 Total Bilirubin 0.6 AST 39 H ALT 42 Alkaline Phosphatase 76 Troponin I < 0.02 B-Natriuretic Peptide 2926.4 H Total Protein 7.3 Albumin 3.7 Urine Color Urine Appearance Urine pH Ur Specific [place] Urine Protein Urine Glucose (UA) Urine Ketones Urine Blood Urine Nitrite Urine Bilirubin Urine Urobilinogen Ur Leukocyte Esterase Ur Random Creatinine Ur Random Sodium Ur Random Potassium Ur Random Chloride Blood Type Antibody Screen 03/18/20 03/18/20 03/18/20 08:30 12:11 12:27 WBC RBC Hgb Hct MCV MCH MCHC RDW Plt Count MPV Absolute Neuts (auto) Neutrophils % Lymphocytes % Monocytes % Eosinophils % Basophils % Nucleated RBC % PT with INR INR PTT (Actin FS) Sodium Potassium Chloride Carbon Dioxide Anion Gap BUN Creatinine Est GFR (CKD-EPI)AfAm Est GFR (CKD-EPI)NonAf POC Glucometer 122 112 Random Glucose Calcium Total Bilirubin AST ALT Alkaline Phosphatase Troponin I B-Natriuretic Peptide Total Protein Albumin Urine Color Urine Appearance Urine pH Ur Specific [place] Urine Protein Urine Glucose (UA) Urine Ketones Urine Blood Urine Nitrite Urine Bilirubin Urine Urobilinogen Ur Leukocyte Esterase Ur Random Creatinine Ur Random Sodium Ur Random Potassium Ur Random Chloride Blood Type B POSITIVE Antibody Screen Negative 03/18/20 03/18/20 03/18/20 14:50 14:50 17:03 WBC RBC Hgb Hct MCV MCH MCHC RDW Plt Count MPV Absolute Neuts (auto) Neutrophils % Lymphocytes % Monocytes % Eosinophils % Basophils % Nucleated RBC % PT with INR INR PTT (Actin FS) Sodium Potassium Chloride Carbon Dioxide Anion Gap BUN Creatinine Est GFR (CKD-EPI)AfAm Est GFR (CKD-EPI)NonAf POC Glucometer 123 Random Glucose Calcium Total Bilirubin AST ALT Alkaline Phosphatase Troponin I B-Natriuretic Peptide Total Protein Albumin Urine Color Yellow Urine Appearance Clear Urine pH 5.0 Ur Specific [place] 1.008 L Urine Protein Negative Urine Glucose (UA) Negative Urine Ketones Negative Urine Blood Negative Urine Nitrite Negative Urine Bilirubin Negative Urine Urobilinogen 0.2 Ur Leukocyte Esterase Negative Ur Random Creatinine < 13.0 L Ur Random Sodium 123 Ur Random Potassium 16.0 L Ur Random Chloride 138 Blood Type Antibody Screen Home Medications Medication Instructions Recorded Simvastatin [Zocor -] 20 mg PO HS 11/25/15 Glimepiride [Amaryl] 4 mg PO BIDAC 12/17/16 metFORMIN HCL [Glucophage -] 1,000 mg PO BIDAC 12/17/16 Apixaban [Eliquis -] 5 mg PO BID #60 tablet 03/16/17 Dulaglutide [Trulicity] 1.5 mg SQ Q7D 01/07/19 Gabapentin [Neurontin] 100 mg PO HS 02/20/19 Metoprolol Succinate [Toprol XL -] 25 mg PO DAILY #30 tab.sr.24h 04/28/19 Furosemide [Lasix] 80 mg PO DAILY 12/23/19 Amiodarone HCl 200 mg PO DAILY 03/18/20 Current Medications Generic Name Dose Route Start Last Admin Trade Name Freq PRN Reason Stop Dose Admin Amiodarone HCl 200 mg 03/19/20 10:00 Cordarone - PO DAILY [facility] Apixaban 5 mg 03/18/20 22:00 Eliquis - PO BID [facility] Atorvastatin Calcium 10 mg 03/18/20 22:00 Lipitor - PO HS [facility]ON[facility] Furosemide 80 mg 03/19/20 10:00 Lasix Injection - IVPUSH DAILY [facility] Gabapentin 100 mg 03/18/20 22:00 Neurontin - PO HS [facility] Insulin Aspart 0 vial 03/18/20 16:30 03/18/20 17:18 Novolog Vial Sliding Scale - SQ Not Given ACHS [facility] Protocol Metoprolol Succinate 25 mg 03/19/20 10:00 Toprol Xl - PO DAILY [facility] ASSESSMENT AND PLAN: 69 F HFpEF with acute CHFE CAROLE r/o cardiorenal syndrome HTN HLD Afib with RVR on Eliquis T2DM s/p cardiac biopsy at [facility] RLE PVD with claudication Plan: Resume HF meds including Lasix Obtain renal US, urine lytes/CRE, strict avoidance of nephrotoxins discussed with patient Obtain records from [facility] regarding heart biopsy Cont. Eliquis Vascular evaluation for RLE claudication Cardiology evaluation Renal evaluation for CAROLE DVT ppx: Eliquis
[2020-03-18] MEDS ORDERED: GABAPENTIN 100 MG CAPSULE PO SCH (22:00)
[2020-03-18] MEDS: ATORVASTATIN CA 10 MG TABLET (FP) PO SCH (23:01)
[2020-03-18] MEDS: APIXABAN 5 MG TABLET PO SCH (23:02)
[2020-03-19] VITALS: BMI 35.2
[2020-03-19] MEDS: INSULIN SLIDING SCALE (NOVOLOG) 1 VIAL SQ SCH ×4 (06:23→21:12)
[2020-03-19] MEDS ORDERED: INSULIN (NOVOLOG) ASPART 100 UNITS/ML 10ML VIAL ONE ×3 (06:48→21:05)
[2020-03-19] MEDS ORDERED: INSULIN (LEVEMIR) 100 UNITS/ML UNITS SQ ONE ×2 (06:48→21:05)
[2020-03-19 08:15] LABS: HEMATOCRIT 33.7 % (32.4-45.2); HEMOGLOBIN 10.6 GM/dL (10.7-15.3); MCH 26.7 pg (25.7-33.7); MCHC 31.6 g/dl (32.0-36.0); MEAN CELL VOLUME 84.5 fl (80-96); MEAN PLT VOLUME 8.6 fl (7.5-11.1); PLATELET COUNT 216 K/MM3 (134-434); RBC 3.99 M/mm3 (3.60-5.2); RDW 17.4 % (11.6-15.6); WHITE BLOOD COUNT 6.5 K/mm3 (4.0-10.0)
[2020-03-19 08:20] LABS: ALBUMIN 3.3 g/dl (3.4-5.0); BILIRUBIN,TOTAL 0.4 mg/dL (0.2-1); BLOOD UREA NITROGEN 56.4 mg/dL (7-18); CALCIUM 8.9 mg/dL (8.5-10.1); CREATININE 1.2 mg/dL (0.55-1.3); MAGNESIUM 2.5 mg/dL (1.8-2.4); PHOSPHOROUS 4.6 mg/dL (2.5-4.9); POTASSIUM 4.3 mmol/L (3.5-5.1); TOT PROT 6.9 g/dl (6.4-8.2)
[2020-03-19] MEDS: AMIODARONE HCL 200 MG TABLET PO SCH (09:56)
[2020-03-19] MEDS: FUROSEMIDE 40 MG/4 ML INJECTABLE VIAL IVPUSH SCH (09:56)
[2020-03-19] MEDS ORDERED: FUROSEMIDE 40 MG/4 ML INJECTABLE VIAL IVPUSH SCH (10:00)
[2020-03-19] MEDS ORDERED: metoPROLOL SUCCINATE 25 MG TAB.SR.24H (FP) PO SCH (10:00)
[2020-03-19] MEDS: APIXABAN 5 MG TABLET PO SCH ×2 (11:49→21:10)
--- NOTE | 2020-03-19 12:10 | PN ---
Progress Note (short form) - Note Progress Note: s: no cp palps dizzy; sob improving Current Medications Generic Name Dose Route Start Last Admin Trade Name J Luis PRN Reason Stop Dose Admin Amiodarone HCl 200 mg 03/19/20 10:00 03/19/20 09:56 Cordarone - PO 200 mg DAILY [facility] Administration Apixaban 5 mg 03/18/20 22:00 03/19/20 11:49 Eliquis - PO 5 mg BID [facility]EL Administration Atorvastatin Calcium 10 mg 03/18/20 22:00 03/18/20 23:01 Lipitor - PO 10 mg HS [facility]ONEL Administration Furosemide 80 mg 03/19/20 10:00 03/19/20 09:56 Lasix Injection - IVPUSH 80 mg DAILY [facility] Administration Gabapentin 100 mg 03/18/20 22:00 03/18/20 23:03 Neurontin - PO 100 mg HS [facility]ONEL Administration Insulin Aspart 0 vial 03/18/20 16:30 03/19/20 06:23 Novolog Vial Sliding Scale - SQ Not Given ACHS [facility] Protocol Metoprolol Succinate 25 mg 03/19/20 10:00 03/19/20 09:56 Toprol Xl - PO 25 mg DAILY [facility] Administration Laboratory Last Values WBC 6.5 K/mm3 (4.0-10.0) 03/19/20 06:50 RBC 3.99 M/mm3 (3.60-5.2) 03/19/20 06:50 Hgb 10.6 GM/dL (10.7-15.3) L 03/19/20 06:50 Hct 33.7 % (32.4-45.2) 03/19/20 06:50 MCV 84.5 fl (80-96) 03/19/20 06:50 MCH 26.7 pg (25.7-33.7) 03/19/20 06:50 MCHC 31.6 g/dl (32.0-36.0) L 03/19/20 06:50 RDW 17.4 % (11.6-15.6) H 03/19/20 06:50 Plt Count 216 K/MM3 (134-434) 03/19/20 06:50 MPV 8.6 fl (7.5-11.1) 03/19/20 06:50 Absolute Neuts (auto) 5.7 K/mm3 (1.5-8.0) 03/18/20 08:15 Neutrophils % 63.2 % (42.8-82.8) 03/18/20 08:15 Lymphocytes % 24.6 % (8-40) D 03/18/20 08:15 Monocytes % 9.1 % (3.8-10.2) 03/18/20 08:15 Eosinophils % 2.8 % (0-4.5) 03/18/20 08:15 Basophils % 0.3 % (0-2.0) 03/18/20 08:15 Nucleated RBC % 0 % (0-0) 03/18/20 08:15 PT with INR 23.30 SEC (9.7-13.0) H 03/18/20 08:15 INR 1.96 (0.83-1.09) H 03/18/20 08:15 PTT (Actin FS) 39.6 SECONDS (25.2-36.5) H 03/18/20 08:15 Sodium 146 mmol/L (136-145) H 03/19/20 06:50 Potassium 4.3 mmol/L (3.5-5.1) 03/19/20 06:50 Chloride 107 mmol/L (98-107) 03/19/20 06:50 Carbon Dioxide 32 mmol/L (21-32) 03/19/20 06:50 Anion Gap 6 MMOL/L (8-16) L 03/19/20 06:50 BUN 56.4 mg/dL (7-18) H 03/19/20 06:50 Creatinine 1.2 mg/dL (0.55-1.3) 03/19/20 06:50 Est GFR (CKD-EPI)AfAm 53.40 03/19/20 06:50 Est GFR (CKD-EPI)NonAf 46.07 03/19/20 06:50 POC Glucometer 94 UNITS (80-120) 03/19/20 06:16 Random Glucose 102 mg/dL (74-106) 03/19/20 06:50 Calcium 8.9 mg/dL (8.5-10.1) 03/19/20 06:50 Phosphorus 4.6 mg/dL (2.5-4.9) 03/19/20 06:50 Magnesium 2.5 mg/dL (1.8-2.4) H 03/19/20 06:50 Total Bilirubin 0.4 mg/dL (0.2-1) 03/19/20 06:50 AST 21 U/L (15-37) 03/19/20 06:50 ALT 33 U/L (13-61) 03/19/20 06:50 Alkaline Phosphatase 71 U/L (45-117) 03/19/20 06:50 Troponin I < 0.02 ng/ml (0.00-0.05) 03/18/20 08:15 B-Natriuretic Peptide 2926.4 pg/ml (5-125) H 03/18/20 08:15 Total Protein 6.9 g/dl (6.4-8.2) 03/19/20 06:50 Albumin 3.3 g/dl (3.4-5.0) L 03/19/20 06:50 Urine Color Yellow 03/18/20 14:50 Urine Appearance Clear 03/18/20 14:50 Urine pH 5.0 (5.0-8.0) 03/18/20 14:50 Ur Specific [place] 1.008 (1.010-1.035) L 03/18/20 14:50 Urine Protein Negative (NEGATIVE) 03/18/20 14:50 Urine Glucose (UA) Negative (NEGATIVE) 03/18/20 14:50 Urine Ketones Negative (NEGATIVE) 03/18/20 14:50 Urine Blood Negative (NEGATIVE) 03/18/20 14:50 Urine Nitrite Negative (NEGATIVE) 03/18/20 14:50 Urine Bilirubin Negative (NEGATIVE) 03/18/20 14:50 Urine Urobilinogen 0.2 mg/dL (0.2-1.0) 03/18/20 14:50 Ur Leukocyte Esterase Negative (NEGATIVE) 03/18/20 14:50 Ur Random Creatinine < 13.0 mg/dL (30-150) L 03/18/20 14:50 Ur Random Sodium 123 MMOL/L (40-220) 03/18/20 14:50 Ur Random Potassium 16.0 MMOL/L (25-125) L 03/18/20 14:50 Ur Random Chloride 138 MMOL/L (110-250) 03/18/20 14:50 COVID-19 (NINA) Not detected (Not Detected) 03/18/20 08:30 Blood Type B POSITIVE 03/18/20 08:30 Antibody Screen Negative 03/18/20 08:30 Vital Signs Period Temp Pulse Resp BP Sys/Pitts Pulse Ox Last 24 Hr 97.7 F-98.5 F 110-116 18-24 100-128/37-82 91-95 Constitutional: Yes: Well Nourished, No Distress Eyes: No: Sclera Icterus HENT: No: Nasal Congestion Neck: No: Decreased ROM Respiratory: Yes: CTA Bilaterally. No: Accessory Muscle Use, Rales, Wheezes Gastrointestinal: Yes: Normal Bowel Sounds. No: Distention, Hepatomegaly, Palpable Mass, Tenderness Cardiovascular: Yes: irreg, tachy JVD: yes Carotid Bruit: No Heart Sounds: Yes: S1, S2. No: Gallop Murmur: No: Systolic Murmur, Diastolic Murmur Extremities: No: Cold, Cyanosis Edema: trace le edema bl Peripheral Pulses: 2+ Left Carotid, 2+ Right Carotid, 2+ Left Doralis Pedis, 2+ Right Dorsalis Pedis Integumentary: No: Jaundice diaphoresis Neurological: Yes: Alert, Oriented (x3) Psychiatric: No: Agitated 11/2015: mild dec lvef, global hk, nl rv, mild mr echo 11/2016: mild dec lvef, global hk, nl rv, mild- mod mr, mild lae. small effusion < 1cm echo 08/2018: mild lvh, nl lvef, nl rv, mild mr echo 04/2019: nl lv, rv mildly dilated and mild dec rv fcn, lae, mild-mod mr, mild tr ecg: afib, vr 105 bpm, rbbb, prolonged QTc cxr: clear lungs a/p: 69 yo female hx pafib, htn, hld, dchf, pad s/p r rfa stent 02/2019 here with sob. sob, acute on chronic diast chf: -vol status and chf sxs improving, not yet at baseline, cont iv lasix, daily chem7, wts -was evaluated by CHF team with RHC and biopsy on 02/12/2020 for workup of HFpEF and findings concerning for amyloidosis --> biopsy negative. afib - seeing EP dr tsai [facility], started on amio with plans for f/u for possible ablation - continue amiodarone, metoprolol, rate ok presently - cont eliquis htn: -cont current meds hld: -cont home statin pad s/p le stenting: - cont statin, bp control, ac - complains of claudication for which she has been taking high doses of aleve - had plans for lower ext angiogram pending cardiac workup above. Currently her CHF and afib have been improved. Would continue iv lasix for now and reassess daily. Most likely can change to po lasix tomorrow or next day, at that time no cardiac contraindications to vascular procedure, eliquis can be held temporarily if needed. CAROLE - renal consulted
--- NOTE | 2020-03-19 12:36 | CONSULT ---
- Consultation REQUESTING PROVIDER: CONSULT REQUEST: We have been asked to surgically evaluate this patient for right leg claudication. Hospitalist:Fabian Phelan MD HISTORY OF PRESENT ILLNESS: The patient is a 69 yo female who presented to the ER for SOB and leg swelling. She has been followed by Dr. Goodman for her right leg pain in the wound clinic. She had seen him in early December for right calf pain in her leg with ambulation and a duplex of her graft in her right thigh revealed blockage. The patient was advised to see her dope and fabric worker for clearance for an angio with new stent. She was seen by them and referred to [facility] for further care. It has now been determined that the pt needs an ablation but this may be done after her angio. She is currently better rate controlled and has been fluid removed. Today she states that her SBO and leg swelling have improved. The claudication has remained the same since her visits to Dr. Goodman. No h/o ulcers to her feet. She stopped smoking 5 years ago. PMHx: a fib, PVD, HTN, High cholesterol PSHx: c section x 3, cholecystectomy, RLE angio/stent 02/2019 with SFA stent Home Medications Medication Instructions Recorded Simvastatin [Zocor -] 20 mg PO HS 11/25/15 Glimepiride [Amaryl] 4 mg PO BIDAC 12/17/16 metFORMIN HCL [Glucophage -] 1,000 mg PO BIDAC 12/17/16 Apixaban [Eliquis -] 5 mg PO BID #60 tablet 03/16/17 Dulaglutide [Trulicity] 1.5 mg SQ Q7D 01/07/19 Gabapentin [Neurontin] 100 mg PO HS 02/20/19 Metoprolol Succinate [Toprol XL -] 25 mg PO DAILY #30 tab.sr.24h 04/28/19 Furosemide [Lasix] 80 mg PO DAILY 12/23/19 Amiodarone HCl 200 mg PO DAILY 03/18/20 Allergies Allergy/AdvReac Type Severity Reaction Status Date / Time No Known Drug Allergies Allergy Verified 03/18/20 08:03 REVIEW OF SYSTEMS: CONSTITUTIONAL: Absent: fever, chills CARDIOVASCULAR: Absent: chest pain Present: iirregular heart rate, peripheral edema, SOB RESPIRATORY: Present: shortness of breath : no dysuria, hematuria PHYSICAL EXAM: GENERAL: Awake, alert, and fully oriented, in no acute distress.. LOWER EXTREMITIES: feet cool to touch b/l. No ulcers or ischemic changes to the feet. +2 dp /pt pulses b/l with doppler. b/l pitting edema to LE and feet NEUROLOGICAL: Normal speech, gait not observed. Vital Signs Temperature 98.5 F 03/19/20 08:50 Pulse Rate 111 H 03/19/20 08:50 Respiratory Rate 20 03/19/20 08:50 Blood Pressure 119/59 L 03/19/20 08:50 O2 Sat by Pulse Oximetry (%) 93 L 03/19/20 08:50 Lab Results WBC 6.5 K/mm3 (4.0-10.0) 03/19/20 06:50 RBC 3.99 M/mm3 (3.60-5.2) 03/19/20 06:50 Hgb 10.6 GM/dL (10.7-15.3) L 03/19/20 06:50 Hct 33.7 % (32.4-45.2) 03/19/20 06:50 MCV 84.5 fl (80-96) 03/19/20 06:50 MCHC 31.6 g/dl (32.0-36.0) L 03/19/20 06:50 RDW 17.4 % (11.6-15.6) H 03/19/20 06:50 Plt Count 216 K/MM3 (134-434) 03/19/20 06:50 INR 1.96 (0.83-1.09) H 03/18/20 08:15 Sodium 146 mmol/L (136-145) H 03/19/20 06:50 Potassium 4.3 mmol/L (3.5-5.1) 03/19/20 06:50 Chloride 107 mmol/L (98-107) 03/19/20 06:50 Carbon Dioxide 32 mmol/L (21-32) 03/19/20 06:50 Anion Gap 6 MMOL/L (8-16) L 03/19/20 06:50 BUN 56.4 mg/dL (7-18) H 03/19/20 06:50 Creatinine 1.2 mg/dL (0.55-1.3) 03/19/20 06:50 Random Glucose 102 mg/dL (74-106) 03/19/20 06:50 Calcium 8.9 mg/dL (8.5-10.1) 03/19/20 06:50 Blood Type B POSITIVE 03/18/20 08:30 Antibody Screen Negative 03/18/20 08:30 Problem List - Problems (1) Claudication of right lower extremity Assessment/Plan: Plan is to continue eliquis, no urgent need for vascular intervention. Follow up with Dr. Goodman in the office next week to schedule outpatient angio procedure/stent Continue neurotonin Problems reviewed: Yes Code(s): I73.9 - PERIPHERAL VASCULAR DISEASE, UNSPECIFIED (2) CAROLE (acute kidney injury) Assessment/Plan: BUN/Cret improving. Will need to monitor and continue work up with renal prior to angio procedure to maximize her renal function. Code(s): N17.9 - ACUTE KIDNEY FAILURE, UNSPECIFIED (3) Atrial fibrillation with rapid ventricular response Assessment/Plan: Spoke with Dr. Rosen and pt optimized for procedure pending heart rate control. Currently she is in the low 100's with her rate. Continue dieresis as per the medical team. D/w Dr. Goodman Code(s): I48.91 - UNSPECIFIED ATRIAL FIBRILLATION
--- NOTE | 2020-03-19 12:39 | PN ---
Progress Note, Physician History of Present Illness: Pt seen and examined at bedside. She is awake and alert. She feels that her breathing is improved. - Current Medication List Current Medications: Active Medications Amiodarone HCl (Cordarone -) 200 mg PO DAILY [facility] Last Admin: 03/19/20 09:56 Dose: 200 mg Documented by: Apixaban (Eliquis -) 5 mg PO BID [facility] Last Admin: 03/19/20 11:49 Dose: 5 mg Documented by: Atorvastatin Calcium (Lipitor -) 10 mg PO [facility] Last Admin: 03/18/20 23:01 Dose: 10 mg Documented by: Furosemide (Lasix Injection -) 80 mg IVPUSH DAILY [facility] Last Admin: 03/19/20 09:56 Dose: 80 mg Documented by: Gabapentin (Neurontin -) 100 mg PO [facility] Last Admin: 03/18/20 23:03 Dose: 100 mg Documented by: Insulin Aspart (Novolog Vial Sliding Scale -) 0 vial SQ [facility]; Protocol Last Admin: 03/19/20 12:08 Dose: 2 units Documented by: Metoprolol Succinate (Toprol Xl -) 25 mg PO DAILY [facility] Last Admin: 03/19/20 09:56 Dose: 25 mg Documented by: - Objective Vital Signs: Vital Signs Temperature 98.5 F 03/19/20 08:50 Pulse Rate 111 H 03/19/20 08:50 Respiratory Rate 20 03/19/20 08:50 Blood Pressure 119/59 L 03/19/20 08:50 O2 Sat by Pulse Oximetry (%) 93 L 03/19/20 08:50 Constitutional: Yes: Calm Eyes: Yes: Conjunctiva Clear HENT: Yes: Atraumatic Neck: Yes: Supple Cardiovascular: Yes: S1, S2 Respiratory: Yes: CTA Bilaterally Gastrointestinal: Yes: Soft Genitourinary: Yes: WNL Musculoskeletal: Yes: WNL Edema: Yes Edema: LLE: Trace, RLE: Trace Neurological: Yes: Oriented Psychiatric: Yes: Oriented Labs: CBC, BMP 03/19/20 06:50 03/19/20 06:50 INR, PTT INR 1.96 (0.83-1.09) H 03/18/20 08:15 Problem List - Problems (1) Hyperkalemia Code(s): E87.5 - HYPERKALEMIA (2) JUAN (acute kidney injury) Code(s): N17.9 - ACUTE KIDNEY FAILURE, UNSPECIFIED (3) Shortness of breath Code(s): R06.02 - SHORTNESS OF BREATH (4) Atrial fibrillation with rapid ventricular response Code(s): I48.91 - UNSPECIFIED ATRIAL FIBRILLATION (5) Hypertension Code(s): I10 - ESSENTIAL (PRIMARY) HYPERTENSION Assessment/Plan Current Medications Generic Name Dose Route Start Last Admin Trade Name J Luis PRN Reason Stop Dose Admin Amiodarone HCl 200 mg 03/19/20 10:00 03/19/20 09:56 Cordarone - PO 200 mg DAILY [facility] Administration Apixaban 5 mg 03/18/20 22:00 03/19/20 11:49 Eliquis - PO 5 mg BID [facility] Administration Atorvastatin Calcium 10 mg 03/18/20 22:00 03/18/20 23:01 Lipitor - PO 10 mg HS [facility] Administration Furosemide 80 mg 03/19/20 10:00 03/19/20 09:56 Lasix Injection - IVPUSH 80 mg DAILY [facility] Administration Gabapentin 100 mg 03/18/20 22:00 03/18/20 23:03 Neurontin - PO 100 mg HS [facility]EL Administration Insulin Aspart 0 vial 03/18/20 16:30 03/19/20 12:08 Novolog Vial Sliding Scale - SQ 2 units ACHS [facility] Administration Protocol Metoprolol Succinate 25 mg 03/19/20 10:00 03/19/20 09:56 Toprol Xl - PO 25 mg DAILY [facility] Administration Impression 1. Juan 2. hyperkalemia 3. nsaid use 4. a-fib 5. dyspnea 6. hld 7. htn 8. renal angiomyolipomas 9. DM 10. PVD Plan - potassium improved - renal function improved - pt eats mainly fast food such as [employer], pizza, and take out. She does take last at home however she is not on a sodium controlled diet. We discussed diet at length. - urology follow up for angiomyolipomas - repeat labs in am
--- NOTE | 2020-03-19 15:56 | PN ---
Physical Exam: SUBJECTIVE: Patient seen and examined. States significant improvement in SOB, LE edema. OBJECTIVE: Vital Signs Period Temp Pulse Resp BP Sys/Pitts Pulse Ox Last 24 Hr 97.6 F-98.5 F 110-116 18-24 100-128/37-82 91-95 GENERAL: The patient is awake, alert, and fully oriented, in no acute distress. HEAD: Normal with no signs of trauma. EYES: PERRL, extraocular movements intact, sclera anicteric, conjunctiva clear. No ptosis. ENT: Ears normal, nares patent, oropharynx clear without exudates, moist mucous membranes. NECK: Trachea midline, full range of motion, supple. LUNGS: Breath sounds equal, mild crackles at bases bilaterally, no wheezes, no accessory muscle use. HEART: Irregularly irregular rhythm, S1, S2 without murmur, rub or gallop. ABDOMEN: Soft, nontender, nondistended, normoactive bowel sounds, no guarding, no rebound, no hepatosplenomegaly, no masses. EXTREMITIES: 2+ pulses, warm, well-perfused, trace edema. NEUROLOGICAL: Cranial nerves II through XII grossly intact. Normal speech, gait not observed. PSYCH: Normal mood, normal affect. SKIN: Warm, dry, normal turgor, no rashes or lesions noted Laboratory Results - last 24 hr 03/18/20 03/18/20 03/18/20 08:30 14:50 17:03 WBC RBC Hgb Hct MCV MCH MCHC RDW Plt Count MPV Sodium Potassium Chloride Carbon Dioxide Anion Gap BUN Creatinine Est GFR (CKD-EPI)AfAm Est GFR (CKD-EPI)NonAf POC Glucometer 123 Random Glucose Calcium Phosphorus Magnesium Total Bilirubin AST ALT Alkaline Phosphatase Total Protein Albumin Urine Color Yellow Urine Appearance Clear Urine pH 5.0 Ur Specific Pearson 1.008 L Urine Protein Negative Urine Glucose (UA) Negative Urine Ketones Negative Urine Blood Negative Urine Nitrite Negative Urine Bilirubin Negative Urine Urobilinogen 0.2 Ur Leukocyte Esterase Negative COVID-19 (NINA) Not detected 03/18/20 03/19/20 03/19/20 23:13 06:16 06:50 WBC 6.5 RBC 3.99 Hgb 10.6 L Hct 33.7 MCV 84.5 MCH 26.7 MCHC 31.6 L RDW 17.4 H Plt Count 216 MPV 8.6 Sodium Potassium Chloride Carbon Dioxide Anion Gap BUN Creatinine Est GFR (CKD-EPI)AfAm Est GFR (CKD-EPI)NonAf POC Glucometer 171 94 Random Glucose Calcium Phosphorus Magnesium Total Bilirubin AST ALT Alkaline Phosphatase Total Protein Albumin Urine Color Urine Appearance Urine pH Ur Specific Pearson Urine Protein Urine Glucose (UA) Urine Ketones Urine Blood Urine Nitrite Urine Bilirubin Urine Urobilinogen Ur Leukocyte Esterase COVID-19 (NINA) 03/19/20 03/19/20 06:50 12:05 WBC RBC Hgb Hct MCV MCH MCHC RDW Plt Count MPV Sodium 146 H Potassium 4.3 Chloride 107 Carbon Dioxide 32 Anion Gap 6 L BUN 56.4 H Creatinine 1.2 Est GFR (CKD-EPI)AfAm 53.40 Est GFR (CKD-EPI)NonAf 46.07 POC Glucometer 221 Random Glucose 102 Calcium 8.9 Phosphorus 4.6 Magnesium 2.5 H Total Bilirubin 0.4 AST 21 ALT 33 Alkaline Phosphatase 71 Total Protein 6.9 Albumin 3.3 L Urine Color Urine Appearance Urine pH Ur Specific Pearson Urine Protein Urine Glucose (UA) Urine Ketones Urine Blood Urine Nitrite Urine Bilirubin Urine Urobilinogen Ur Leukocyte Esterase COVID-19 (NINA) Active Medications Generic Name Dose Route Start Last Admin Trade Name Freq PRN Reason Stop Dose Admin Amiodarone HCl 200 mg 03/19/20 10:00 03/19/20 09:56 Cordarone - PO 200 mg DAILY LEONEL Administration Apixaban 5 mg 03/18/20 22:00 03/19/20 11:49 Eliquis - PO 5 mg BID LEONEL Administration Atorvastatin Calcium 10 mg 03/18/20 22:00 03/18/20 23:01 Lipitor - PO 10 mg HS LEONEL Administration Furosemide 80 mg 03/19/20 10:00 03/19/20 09:56 Lasix Injection - IVPUSH 80 mg DAILY LEONEL Administration Gabapentin 100 mg 03/19/20 22:00 Neurontin - PO BID LEONEL Insulin Aspart 0 vial 03/18/20 16:30 03/19/20 12:08 Novolog Vial Sliding Scale - SQ 2 units ACHS LEONEL Administration Protocol Metoprolol Tartrate 25 mg 03/19/20 22:00 Lopressor - PO BID LEONEL ASSESSMENT/PLAN: Pt is a 69 yo female with PMHx of afib (eliquis), HFpEF (last ECHO EF 55%), HTN, HLD, DM, RLE stent, who presents in ED for SOB, admitted for Afib (known), HF exacerbation and CAROLE. #Acute on chronic HFpEF exacerbation -BNP on admission 2926 -On lasix 80mg IV daily -Significant improvement in leg edema and crackles on exam, SOB improved #CAROLE -1.9 --> 1.2; resolved -likely due to cardiorenal syndrome, as improved after Lasix received -consulted renal #Atrial fibrillation -continued A fib -cardio consulted; follows with Dr. Rosen outpatient, and goes to [facility] -cardioverted in past, will need repeat cardioversion -on Amiodarone 200mg daily, metoprolol tartrate 25 mg BID #Hx of HTN -Continue home lasix, metoprolol #PAD s/p right LE stenting -Per vascular, blocked stent -will have follow up for -pulses appreciated via ultrasound by Vascular team #Hyperkalemia -resolved -5.8 on admission, given 10 Lokelma and 4u insulin -4.3 on 03/19 FEN No IVF Monitor electrolytes DM/Sodium controlled diet PPx On eliquis for Afib Dispo Admitted to [facility]. On amio and metoprolol for afib. Will be following up [facility] for afib. Improved CHF. Continue IV lasix 80mg daily. Visit type - Emergency Visit Emergency Visit: Yes ED Registration Date: 03/18/20 Care time: The patient presented to the Emergency Department on the above date and was hospitalized for further evaluation of their emergent condition. - New Patient This patient is new to me today: No - Critical Care Critical Care patient: No - Discharge Referral Referred to [facility] Med P.C[facility] No - Medication Review Med list reviewed for High Risk Meds patients 65 and older: Yes ATTENDING PHYSICIAN STATEMENT I saw and evaluated the patient. I reviewed the resident's note and discussed the case with the resident. I agree with the resident's findings and plan as documented. SUBJECTIVE: OBJECTIVE: ASSESSMENT AND PLAN:
--- NOTE | 2020-03-19 17:22 | PN ---
Teaching Attending Note Name of Resident: Lizandro Jonas ATTENDING PHYSICIAN STATEMENT I saw and evaluated the patient. I reviewed the resident's note and discussed the case with the resident. I agree with the resident's findings and plan as documented. SUBJECTIVE: Breathing much improved, SOB resolving. No cough/sputum/fever/chills. OBJECTIVE: Afebrile, Hemodynamically stable. Last Vital Signs Temp Pulse Resp BP Pulse Ox 97.6 F 110 H 20 107/59 L 94 L 03/19/20 13:29 03/19/20 13:29 03/19/20 13:29 03/19/20 13:29 03/19/20 13:29 HEENT - Atraumatic, Normocephalic. Heart - S1, S2, irregular Lungs - bibasal crackles Abdomen - Soft, non-tender. Bowel Sounds normal. Extremities - mild edema, no calf tenderness, cool feet, pulses difficult to palpate. Neuro - AAO x 3. Tone/Power normal all extremities. Laboratory Results - last 24 hr 03/18/20 03/18/20 03/19/20 08:30 23:13 06:16 WBC RBC Hgb Hct MCV MCH MCHC RDW Plt Count MPV Sodium Potassium Chloride Carbon Dioxide Anion Gap BUN Creatinine Est GFR (CKD-EPI)AfAm Est GFR (CKD-EPI)NonAf POC Glucometer 171 94 Random Glucose Calcium Phosphorus Magnesium Total Bilirubin AST ALT Alkaline Phosphatase Total Protein Albumin COVID-19 (NINA) Not detected 03/19/20 03/19/20 03/19/20 06:50 06:50 12:05 WBC 6.5 RBC 3.99 Hgb 10.6 L Hct 33.7 MCV 84.5 MCH 26.7 MCHC 31.6 L RDW 17.4 H Plt Count 216 MPV 8.6 Sodium 146 H Potassium 4.3 Chloride 107 Carbon Dioxide 32 Anion Gap 6 L BUN 56.4 H Creatinine 1.2 Est GFR (CKD-EPI)AfAm 53.40 Est GFR (CKD-EPI)NonAf 46.07 POC Glucometer 221 Random Glucose 102 Calcium 8.9 Phosphorus 4.6 Magnesium 2.5 H Total Bilirubin 0.4 AST 21 ALT 33 Alkaline Phosphatase 71 Total Protein 6.9 Albumin 3.3 L COVID-19 (NINA) 03/19/20 16:29 WBC RBC Hgb Hct MCV MCH MCHC RDW Plt Count MPV Sodium Potassium Chloride Carbon Dioxide Anion Gap BUN Creatinine Est GFR (CKD-EPI)AfAm Est GFR (CKD-EPI)NonAf POC Glucometer 135 Random Glucose Calcium Phosphorus Magnesium Total Bilirubin AST ALT Alkaline Phosphatase Total Protein Albumin COVID-19 (NINA) Current Medications Generic Name Dose Route Start Last Admin Trade Name Freq PRN Reason Stop Dose Admin Amiodarone HCl 200 mg 03/19/20 10:00 03/19/20 09:56 Cordarone - PO 200 mg DAILY LEONEL Administration Apixaban 5 mg 03/18/20 22:00 03/19/20 11:49 Eliquis - PO 5 mg BID LEONEL Administration Atorvastatin Calcium 10 mg 03/18/20 22:00 03/18/20 23:01 Lipitor - PO 10 mg HS LEONEL Administration Furosemide 80 mg 03/19/20 10:00 03/19/20 09:56 Lasix Injection - IVPUSH 80 mg DAILY LEONEL Administration Gabapentin 100 mg 03/19/20 22:00 Neurontin - PO BID LEONEL Insulin Aspart 0 vial 03/18/20 16:30 03/19/20 16:31 Novolog Vial Sliding Scale - SQ Not Given ACHS [facility] Protocol Metoprolol Tartrate 25 mg 03/19/20 22:00 Lopressor - PO BID [facility] Home Medications Medication Instructions Recorded Glimepiride [Amaryl] 4 mg PO BIDAC 12/17/16 metFORMIN HCL [Glucophage -] 1,000 mg PO BID 12/17/16 Apixaban [Eliquis -] 5 mg PO BID #60 tablet 03/16/17 Dulaglutide [Trulicity] 1.5 mg SQ Q7D 01/07/19 Gabapentin [Neurontin] 100 mg PO BID 02/20/19 Furosemide [Lasix] 80 mg PO DAILY 12/23/19 Amiodarone HCl 200 mg PO DAILY 03/18/20 Atorvastatin Ca [Lipitor] 10 mg PO HS 03/19/20 Lisinopril [Prinivil -] 40 mg PO DAILY 03/19/20 Metoprolol Tartrate 25 mg PO BID 03/19/20 ASSESSMENT/PLAN: 68 year old female with history of Atrial Fibrillation (on Eliquis), HFpEF (last ECHO EF 55% s/p myocardial Bx at [facility], negative for amyloidosis), HTN, HLD, DM 2, PVD s/p RLE stent, presents wit increasing SOB and LE edema. 1. Acute on Chronic Diastolic CHF decompensation IV Lasix diuresis Echo 04/27 - normal EF, mild to moderate MR Cardiology following Daily Weight, I/Os 2. CAROLE - sec to Cardiorenal Sndrome, Creat improved with IV lasix diuresis Will monitor. GERRY-I held. Renal Us - Angiomyolipomatomous L kidney. Nephrology following - recommend Urology referral for angiomyolipomas. 3. PAD s/p RFA Stent 02/25 Reports worsening claudication Vascular Surgery eval - no urgent need for vascular intervention, for follow up with Dr. Goodman as out-patient next week. 4. Atrial Fibrillation - continue Metoprolol, Amiodarone, Eliquis. HR low 100s, acceptable as per Cardiology. 5. HTN - Continue Metoprolol. Lisinopril held due to CAROLE. 6. HLD - Continue Statin 7. DM 2 - Glimepiride, Metformin, Trulicity held. Maintain on Novolog sliding scale. DVT Px - on Eliquis
[2020-03-19] MEDS: METOPROLOL TARTRATE 25 MG TABLET (FP) PO SCH (21:11)
[2020-03-19] MEDS: ATORVASTATIN CA 10 MG TABLET (FP) PO SCH (21:11)
[2020-03-19] MEDS ORDERED: PT OWN MED DRAWER 7, Y5N ONE (22:25)
[2020-03-19] MEDS: GABAPENTIN 100 MG CAPSULE PO SCH (22:32)
--- NOTE | 2020-03-20 05:39 | PN ---
Progress Note, Physician Chief Complaint: walking around room comfortably Still with edema Weight is down No CP/palps/dizziness History of Present Illness: AF Acute diastolic CHF On IV Lasix DM SH: former smoker - Current Medication List Current Medications: Active Medications Amiodarone HCl (Cordarone -) 200 mg PO DAILY [facility] Last Admin: 03/19/20 09:56 Dose: 200 mg Documented by: Apixaban (Eliquis -) 5 mg PO BID [facility] Last Admin: 03/19/20 21:10 Dose: 5 mg Documented by: Atorvastatin Calcium (Lipitor -) 10 mg PO HS [facility] Last Admin: 03/19/20 21:11 Dose: 10 mg Documented by: Furosemide (Lasix Injection -) 80 mg IVPUSH DAILY [facility] Last Admin: 03/19/20 09:56 Dose: 80 mg Documented by: Gabapentin (Neurontin -) 100 mg PO BID [facility] Last Admin: 03/19/20 22:32 Dose: 100 mg Documented by: Insulin Aspart (Novolog Vial Sliding Scale -) 0 vial SQ [facility]; Protocol Last Admin: 03/19/20 21:12 Dose: Not Given Documented by: Metoprolol Tartrate (Lopressor -) 25 mg PO BID [facility] Last Admin: 03/19/20 21:11 Dose: 25 mg Documented by: - Objective Vital Signs: Vital Signs Temperature 98.3 F 03/19/20 22:00 Pulse Rate 106 H 03/19/20 22:00 Respiratory Rate 18 03/19/20 22:00 Blood Pressure 113/83 03/19/20 22:00 O2 Sat by Pulse Oximetry (%) 93 L 03/19/20 22:00 Constitutional: Yes: No Distress, Calm Eyes: Yes: Conjunctiva Clear, EOM Intact HENT: Yes: Atraumatic, Normocephalic Cardiovascular: Yes: Pulse Irregular Respiratory: Yes: Other (rales left base 1/3 up) Gastrointestinal: Yes: Soft, Abdomen, Obese Edema: Yes Edema: LUE: 1+ (foot), RUE: 1+ (foot) Peripheral Pulses WNL: Yes Neurological: Yes: Alert, Oriented ...Motor Strength: WNL Labs: CBC, BMP 03/19/20 06:50 03/19/20 06:50 INR, PTT INR 1.96 (0.83-1.09) H 03/18/20 08:15 Laboratory Tests 03/20/20 06:05 Sodium 144 Potassium 4.2 BUN 49.6 H Creatinine 1.1 Assessment/Plan DATA: 11/2015: mild dec lvef, global hk, nl rv, mild mr echo 11/2016: mild dec lvef, global hk, nl rv, mild- mod mr, mild lae. small effusion < 1cm echo 08/2018: mild lvh, nl lvef, nl rv, mild mr echo 04/2019: nl lv, rv mildly dilated and mild dec rv fcn, lae, mild-mod mr, mild tr ecg: afib, vr 105 bpm, rbbb, prolonged QTc cxr: clear lungs a/p: 69 yo female hx pafib, htn, hld, dchf, pad s/p r rfa stent 02/2019 here with sob. sob, acute on chronic diast chf: -vol status and chf sxs improving, not yet at baseline, cont iv lasix, daily chem7, wts. -was evaluated by CHF team with RHC and biopsy on 02/12/2020 for workup of HFpEF and findings concerning for amyloidosis --> biopsy negative. -Can likely be converted to PO Lasix on 03/21 afib: - seeing EP dr tsai at [facility], started on amio with plans for f/u for possible ablation - continue amiodarone, metoprolol, rate ok presently - cont eliquis htn: -cont current meds hld: -cont home statin pad s/p le stenting: - cont statin, bp control, ac - complains of claudication for which she has been taking high doses of aleve - had plans for lower ext angiogram pending cardiac workup above. Currently her CHF and afib have been improved. Would continue iv lasix for now and reassess daily. Most likely can change to po lasix tomorrow, at that time no cardiac contraindications to vascular procedure, eliquis can be held temporarily if needed. CAROLE: - renal consulted
[2020-03-20] MEDS: INSULIN SLIDING SCALE (NOVOLOG) 1 VIAL SQ SCH ×4 (06:09→23:09)
[2020-03-20 07:50] LABS: ALBUMIN 3.2 g/dl (3.4-5.0); BILIRUBIN,TOTAL 0.4 mg/dL (0.2-1); BLOOD UREA NITROGEN 49.6 mg/dL (7-18); CALCIUM 8.8 mg/dL (8.5-10.1); CREATININE 1.1 mg/dL (0.55-1.3); MAGNESIUM 2.4 mg/dL (1.8-2.4); PHOSPHOROUS 4.3 mg/dL (2.5-4.9); POTASSIUM 4.2 mmol/L (3.5-5.1); TOT PROT 6.8 g/dl (6.4-8.2)
[2020-03-20 07:58] LABS: HEMATOCRIT 33.1 % (32.4-45.2); HEMOGLOBIN 10.4 GM/dL (10.7-15.3); MCH 26.5 pg (25.7-33.7); MCHC 31.3 g/dl (32.0-36.0); MEAN CELL VOLUME 84.5 fl (80-96); MEAN PLT VOLUME 8.6 fl (7.5-11.1); PLATELET COUNT 219 K/MM3 (134-434); RBC 3.91 M/mm3 (3.60-5.2); RDW 17.3 % (11.6-15.6); WHITE BLOOD COUNT 5.4 K/mm3 (4.0-10.0)
[2020-03-20] MEDS: FUROSEMIDE 40 MG/4 ML INJECTABLE VIAL IVPUSH SCH (09:51)
[2020-03-20] MEDS: APIXABAN 5 MG TABLET PO SCH ×2 (09:52→22:48)
[2020-03-20] MEDS: METOPROLOL TARTRATE 25 MG TABLET (FP) PO SCH ×2 (09:52→22:49)
[2020-03-20] MEDS: LISINOPRIL 20 MG TABLET (FP) PO SCH (09:52)
[2020-03-20] MEDS: AMIODARONE HCL 200 MG TABLET PO SCH (09:52)
[2020-03-20] MEDS: GABAPENTIN 100 MG CAPSULE PO SCH ×2 (09:52→22:49)
[2020-03-20] MEDS ORDERED: PATIENT'S OWN MEDICATION (NON-FORMULARY) (Lisinopril [Prinivil -] 40 MG) PO SCH (10:00)
[2020-03-20] MEDS ORDERED: INSULIN (NOVOLOG) ASPART 100 UNITS/ML 10ML VIAL ONE (11:22)
--- NOTE | 2020-03-20 12:57 | PN ---
Physical Exam: SUBJECTIVE: Patient seen and examined. Complained of some SOB overnight, now resolved. Denies any chest pain/palpitations/fever/chills/nausea/vomiting. OBJECTIVE: Vital Signs Period Temp Pulse Resp BP Sys/Pitts Pulse Ox Last 24 Hr 97.6 F-98.5 F 96-110 18-20 107-113/55-83 92-94 GENERAL: The patient is awake, alert, and fully oriented, in no acute distress. HEAD: Normal with no signs of trauma. EYES: PERRL, extraocular movements intact, sclera anicteric, conjunctiva clear. No ptosis. ENT: Ears normal, nares patent, oropharynx clear without exudates, moist mucous membranes. NECK: Trachea midline, full range of motion, supple. LUNGS: Breath sounds equal, mild crackles at bases bilaterally, no wheezes, no accessory muscle use. HEART: Irregularly irregular rhythm, S1, S2 without murmur, rub or gallop. ABDOMEN: Soft, nontender, nondistended, normoactive bowel sounds, no guarding, no rebound, no hepatosplenomegaly, no masses. EXTREMITIES: 2+ pulses, warm, well-perfused, 2+ edema in feet. NEUROLOGICAL: Cranial nerves II through XII grossly intact. Normal speech, gait not observed. PSYCH: Normal mood, normal affect. SKIN: Warm, dry, normal turgor, no rashes or lesions noted Laboratory Results - last 24 hr 03/19/20 03/19/20 03/20/20 16:29 21:09 06:05 WBC 5.4 RBC 3.91 Hgb 10.4 L Hct 33.1 MCV 84.5 MCH 26.5 MCHC 31.3 L RDW 17.3 H Plt Count 219 MPV 8.6 Sodium Potassium Chloride Carbon Dioxide Anion Gap BUN Creatinine Est GFR (CKD-EPI)AfAm Est GFR (CKD-EPI)NonAf POC Glucometer 135 183 Random Glucose Calcium Phosphorus Magnesium Total Bilirubin AST ALT Alkaline Phosphatase Total Protein Albumin 03/20/20 03/20/20 03/20/20 06:05 06:07 11:18 WBC RBC Hgb Hct MCV MCH MCHC RDW Plt Count MPV Sodium 144 Potassium 4.2 Chloride 105 Carbon Dioxide 33 H Anion Gap 5 L BUN 49.6 H Creatinine 1.1 Est GFR (CKD-EPI)AfAm 59.32 Est GFR (CKD-EPI)NonAf 51.18 POC Glucometer 146 217 Random Glucose 142 H Calcium 8.8 Phosphorus 4.3 Magnesium 2.4 Total Bilirubin 0.4 AST 21 ALT 31 Alkaline Phosphatase 71 Total Protein 6.8 Albumin 3.2 L Active Medications Generic Name Dose Route Start Last Admin Trade Name J Luis PRN Reason Stop Dose Admin Amiodarone HCl 200 mg 03/19/20 10:00 03/20/20 09:52 Cordarone - PO 200 mg DAILY LEONEL Administration Apixaban 5 mg 03/18/20 22:00 03/20/20 09:52 Eliquis - PO 5 mg BID LEONEL Administration Atorvastatin Calcium 10 mg 03/18/20 22:00 03/19/20 21:11 Lipitor - PO 10 mg HS LEONEL Administration Furosemide 80 mg 03/19/20 10:00 03/20/20 09:51 Lasix Injection - IVPUSH 80 mg DAILY LEONEL Administration Gabapentin 100 mg 03/19/20 22:00 03/20/20 09:52 Neurontin - PO 100 mg BID LEONEL Administration Insulin Aspart 0 vial 03/18/20 16:30 03/20/20 11:23 Novolog Vial Sliding Scale - SQ 2 units ACHS LEONEL Administration Protocol Lisinopril 40 mg 03/20/20 10:00 03/20/20 09:52 Prinivil PO 40 mg DAILY LEONEL Administration Metoprolol Tartrate 25 mg 03/19/20 22:00 03/20/20 09:52 Lopressor - PO 25 mg BID LEONEL Administration ASSESSMENT/PLAN: Pt is a 69 yo female with PMHx of afib (eliquis), HFpEF (last ECHO EF 55%), HTN, HLD, DM, RLE stent, who presents in ED for SOB, admitted for Afib (known), HF exacerbation and CAROLE. #Acute on chronic HFpEF exacerbation -BNP on admission 2926 -On lasix 80mg IV daily -Per cardio, switch to PO lasix on 03/21 #CAROLE -Resolved; 1.9 --> 1/2 -->1.1 -likely due to cardiorenal syndrome, as improved after Lasix received -consulted renal #Atrial fibrillation -continued A fib; asymptomatic -cardio consulted; follows with Dr. Rosen outpatient, and goes to [facility] -cardioverted in past, will need repeat cardioversion at [facility] outpatient -on Amiodarone 200mg daily, metoprolol tartrate 25 mg BID; continue #UTI -urine culture with lactose fermenting gram - bacilli; on Rocephin empirically #Hx of HTN -Continue home lasix, metoprolol #PAD s/p right LE stenting -Per vascular, blocked stent -will have follow up for -pulses appreciated via ultrasound by Vascular team #Renal angiomyolipoma -seen on renal ultrasound -follow up outpatient with urology #Hyperkalemia -resolved FEN No IVF Monitor electrolytes DM/Sodium controlled diet PPx On eliquis for Afib Dispo Admitted to [facility]. On amio and metoprolol for afib. Will be following up [facility] for afib. Improved CHF. Continue IV lasix 80mg daily. Switch to PO on 03/21 Visit type - Emergency Visit Emergency Visit: Yes ED Registration Date: 03/18/20 Care time: The patient presented to the Emergency Department on the above date and was hospitalized for further evaluation of their emergent condition. - New Patient This patient is new to me today: No - Critical Care Critical Care patient: No - Medication Review Med list reviewed for High Risk Meds patients 65 and older: Yes ATTENDING PHYSICIAN STATEMENT I saw and evaluated the patient. I reviewed the resident's note and discussed the case with the resident. I agree with the resident's findings and plan as documented. SUBJECTIVE: OBJECTIVE: ASSESSMENT AND PLAN:
--- NOTE | 2020-03-20 13:38 | PN ---
Progress Note, Physician History of Present Illness: Pt seen and examined at bedside. She is awake and alert. She denies shortness of breath. - Current Medication List Current Medications: Active Medications Amiodarone HCl (Cordarone -) 200 mg PO DAILY [facility] Last Admin: 03/20/20 09:52 Dose: 200 mg Documented by: Apixaban (Eliquis -) 5 mg PO BID [facility] Last Admin: 03/20/20 09:52 Dose: 5 mg Documented by: Atorvastatin Calcium (Lipitor -) 10 mg PO HS [facility] Last Admin: 03/19/20 21:11 Dose: 10 mg Documented by: Furosemide (Lasix Injection -) 80 mg IVPUSH DAILY [facility] Last Admin: 03/20/20 09:51 Dose: 80 mg Documented by: Gabapentin (Neurontin -) 100 mg PO BID [facility] Last Admin: 03/20/20 09:52 Dose: 100 mg Documented by: Insulin Aspart (Novolog Vial Sliding Scale -) 0 vial SQ [facility]; Protocol Last Admin: 03/20/20 11:23 Dose: 2 units Documented by: Lisinopril (Prinivil) 40 mg PO DAILY [facility] Last Admin: 03/20/20 09:52 Dose: 40 mg Documented by: Metoprolol Tartrate (Lopressor -) 25 mg PO BID [facility] Last Admin: 03/20/20 09:52 Dose: 25 mg Documented by: - Objective Vital Signs: Vital Signs Temperature 98.3 F 03/20/20 10:00 Pulse Rate 100 H 03/20/20 10:00 Respiratory Rate 18 03/20/20 10:00 Blood Pressure 109/73 03/20/20 10:00 O2 Sat by Pulse Oximetry (%) 94 L 03/20/20 10:00 Constitutional: Yes: Calm Eyes: Yes: Conjunctiva Clear HENT: Yes: Atraumatic Cardiovascular: Yes: S1, S2 Respiratory: Yes: CTA Bilaterally Gastrointestinal: Yes: Soft Genitourinary: Yes: WNL Musculoskeletal: Yes: WNL Edema: No Neurological: Yes: Oriented Psychiatric: Yes: Oriented Labs: CBC, BMP 03/20/20 06:05 03/20/20 06:05 INR, PTT INR 1.96 (0.83-1.09) H 03/18/20 08:15 Problem List - Problems (1) Hyperkalemia Code(s): E87.5 - HYPERKALEMIA (2) JUAN (acute kidney injury) Code(s): N17.9 - ACUTE KIDNEY FAILURE, UNSPECIFIED (3) Shortness of breath Code(s): R06.02 - SHORTNESS OF BREATH (4) Atrial fibrillation with rapid ventricular response Code(s): I48.91 - UNSPECIFIED ATRIAL FIBRILLATION (5) Hypertension Code(s): I10 - ESSENTIAL (PRIMARY) HYPERTENSION Assessment/Plan Current Medications Generic Name Dose Route Start Last Admin Trade Name J Luis PRN Reason Stop Dose Admin Amiodarone HCl 200 mg 03/19/20 10:00 03/20/20 09:52 Cordarone - PO 200 mg DAILY LEONEL Administration Apixaban 5 mg 03/18/20 22:00 03/20/20 09:52 Eliquis - PO 5 mg BID LEONEL Administration Atorvastatin Calcium 10 mg 03/18/20 22:00 03/19/20 21:11 Lipitor - PO 10 mg HS LEONEL Administration Furosemide 80 mg 03/19/20 10:00 03/20/20 09:51 Lasix Injection - IVPUSH 80 mg DAILY [facility]ONEL Administration Gabapentin 100 mg 03/19/20 22:00 03/20/20 09:52 Neurontin - PO 100 mg BID LEONEL Administration Insulin Aspart 0 vial 03/18/20 16:30 03/20/20 11:23 Novolog Vial Sliding Scale - SQ 2 units ACHS LEONEL Administration Protocol Lisinopril 40 mg 03/20/20 10:00 03/20/20 09:52 Prinivil PO 40 mg DAILY [facility]ONEL Administration Metoprolol Tartrate 25 mg 03/19/20 22:00 03/20/20 09:52 Lopressor - PO 25 mg BID LEONEL Administration Impression 1. Juan 2. hyperkalemia 3. nsaid use 4. a-fib 5. dyspnea 6. hld 7. htn 8. renal angiomyolipomas 9. DM 10. PVD Plan - renal function stable - can switch to po lasix tomorrow - monitor renal function - low sodium heart healthy diet - urology follow up for angiomyolipomas - repeat labs in am
--- NOTE | 2020-03-20 14:59 | PN ---
Teaching Attending Note Name of Resident: Lizandro Jonas ATTENDING PHYSICIAN STATEMENT I saw and evaluated the patient. I reviewed the resident's note and discussed the case with the resident. I agree with the resident's findings and plan as documented. SUBJECTIVE: Breathing much improved, some SOB overnight. No cough/sputum/fever/chills. OBJECTIVE: Afebrile, Hemodynamically stable. Last Vital Signs Temp Pulse Resp BP Pulse Ox 98.1 F 100 H 20 102/53 L 93 L 03/20/20 13:38 03/20/20 13:38 03/20/20 13:38 03/20/20 13:38 03/20/20 13:38 Heart - S1, S2, irregular Lungs - few bibasal crackles Abdomen - High BMI. Soft, non-tender. Bowel Sounds normal. Extremities - mild pedal edema, no calf tenderness, cool feet, pulses difficult to palpate. Neuro - AAO x 3. Tone/Power normal all extremities. Laboratory Results - last 24 hr 03/19/20 03/19/20 03/20/20 16:29 21:09 06:05 WBC 5.4 RBC 3.91 Hgb 10.4 L Hct 33.1 MCV 84.5 MCH 26.5 MCHC 31.3 L RDW 17.3 H Plt Count 219 MPV 8.6 Sodium Potassium Chloride Carbon Dioxide Anion Gap BUN Creatinine Est GFR (CKD-EPI)AfAm Est GFR (CKD-EPI)NonAf POC Glucometer 135 183 Random Glucose Calcium Phosphorus Magnesium Total Bilirubin AST ALT Alkaline Phosphatase Total Protein Albumin 03/20/20 03/20/20 03/20/20 06:05 06:07 11:18 WBC RBC Hgb Hct MCV MCH MCHC RDW Plt Count MPV Sodium 144 Potassium 4.2 Chloride 105 Carbon Dioxide 33 H Anion Gap 5 L BUN 49.6 H Creatinine 1.1 Est GFR (CKD-EPI)AfAm 59.32 Est GFR (CKD-EPI)NonAf 51.18 POC Glucometer 146 217 Random Glucose 142 H Calcium 8.8 Phosphorus 4.3 Magnesium 2.4 Total Bilirubin 0.4 AST 21 ALT 31 Alkaline Phosphatase 71 Total Protein 6.8 Albumin 3.2 L Current Medications Generic Name Dose Route Start Last Admin Trade Name Freq PRN Reason Stop Dose Admin Amiodarone HCl 200 mg 03/19/20 10:00 03/20/20 09:52 Cordarone - PO 200 mg DAILY LEONEL Administration Apixaban 5 mg 03/18/20 22:00 03/20/20 09:52 Eliquis - PO 5 mg BID LEONEL Administration Atorvastatin Calcium 10 mg 03/18/20 22:00 03/19/20 21:11 Lipitor - PO 10 mg HS LEONEL Administration Furosemide 80 mg 03/19/20 10:00 03/20/20 09:51 Lasix Injection - IVPUSH 80 mg DAILY LEONEL Administration Gabapentin 100 mg 03/19/20 22:00 03/20/20 09:52 Neurontin - PO 100 mg BID LEONEL Administration Insulin Aspart 0 vial 03/18/20 16:30 03/20/20 11:23 Novolog Vial Sliding Scale - SQ 2 units ACHS LEONEL Administration Protocol Lisinopril 40 mg 03/20/20 10:00 03/20/20 09:52 Prinivil PO 40 mg DAILY LEONEL Administration Metoprolol Tartrate 25 mg 03/19/20 22:00 03/20/20 09:52 Lopressor - PO 25 mg BID LEONEL Administration Home Medications Medication Instructions Recorded Glimepiride [Amaryl] 4 mg PO BIDAC 12/17/16 metFORMIN HCL [Glucophage -] 1,000 mg PO BID 12/17/16 Apixaban [Eliquis -] 5 mg PO BID #60 tablet 03/16/17 Dulaglutide [Trulicity] 1.5 mg SQ Q7D 01/07/19 Gabapentin [Neurontin] 100 mg PO BID 02/20/19 Furosemide [Lasix] 80 mg PO DAILY 12/23/19 Amiodarone HCl 200 mg PO DAILY 03/18/20 Atorvastatin Ca [Lipitor] 10 mg PO HS 03/19/20 Lisinopril [Prinivil -] 40 mg PO DAILY 03/19/20 Metoprolol Tartrate 25 mg PO BID 03/19/20 ASSESSMENT/PLAN: 68 year old female with history of Atrial Fibrillation (on Eliquis), HFpEF (last ECHO EF 55% s/p myocardial Bx at [facility], negative for amyloidosis), HTN, HLD, DM 2, PVD s/p RLE stent, presents wit increasing SOB and LE edema. 1. Acute on Chronic Diastolic CHF decompensation IV Lasix diuresis ongoing Echo 04/27 - normal EF, mild to moderate MR Cardiology following Daily Weight, I/Os 2. CAROLE - sec to Cardiorenal Syndrome, Creat improved with IV lasix diuresis Will monitor. GERRY-I held. Renal US - Angiomyolipomatomous L kidney. Nephrology following - recommend Urology referral on discharge for angiomyolipomas. 3. PAD s/p RFA Stent 02/25 Reports worsening claudication Vascular Surgery evaluated - no urgent need for vascular intervention, for follow up with Dr. Goodman as out-patient next week. 4. UTI - Urine Cx positive for LFNB. Empiric Ceftriaxone pending Urine Cx result. 5. Atrial Fibrillation - continue Metoprolol, Amiodarone, Eliquis. HR low 100s, acceptable as per Cardiology. 6. HTN - Continue Metoprolol. Lisinopril held due to CAROLE. 7. HLD - Continue Statin 8. DM 2 - Glimepiride, Metformin, Trulicity held. Maintain on Novolog sliding scale. DVT Px - on Eliquis
[2020-03-20] MEDS ORDERED: cefTRIAXone SODIUM 1 GM VIAL ONE (16:22)
[2020-03-20] MEDS ORDERED: DEXTROSE 5%-WATER - 50 ML IVPB ONE (16:22)
[2020-03-20] MEDS: CEFTRIAXONE 1 GM in DEXTROSE 5%-WATER - 50 ML IVPB SCH (16:55)
[2020-03-20] MEDS ORDERED: SENNOSIDES 8.6MG TABLET (FP) PO PRN (17:36)
[2020-03-20] MEDS ORDERED: POLYETHYLENE GLYCOL 3350 119 GM BTL PO PRN (17:37)
[2020-03-20] MEDS: ATORVASTATIN CA 10 MG TABLET (FP) PO SCH (22:48)
[2020-03-20] MEDS: DOCUSATE SODIUM 100 MG CAPSULE (FP) PO SCH (23:09)
[2020-03-21 06:30] VITALS: PULSE 97
[2020-03-21] MEDS: INSULIN SLIDING SCALE (NOVOLOG) 1 VIAL SQ SCH ×3 (07:08→17:43)
[2020-03-21 08:07] LABS: HEMATOCRIT 34.9 % (32.4-45.2); HEMOGLOBIN 10.9 GM/dL (10.7-15.3); MCH 26.5 pg (25.7-33.7); MCHC 31.3 g/dl (32.0-36.0); MEAN CELL VOLUME 84.5 fl (80-96); MEAN PLT VOLUME 8.6 fl (7.5-11.1); PLATELET COUNT 233 K/MM3 (134-434); RBC 4.13 M/mm3 (3.60-5.2); RDW 17.1 % (11.6-15.6); WHITE BLOOD COUNT 5.8 K/mm3 (4.0-10.0)
--- NOTE | 2020-03-21 08:18 | PN ---
Progress Note, Physician Chief Complaint: sob History of Present Illness: sob better than at home b/c was sob at rest then. however she is sob walking in [place], not back to her baseline feet a bit swollen still no palp, cp - Current Medication List Current Medications: Active Medications Amiodarone HCl (Cordarone -) 200 mg PO DAILY [facility] Last Admin: 03/20/20 09:52 Dose: 200 mg Documented by: Apixaban (Eliquis -) 5 mg PO BID [facility] Last Admin: 03/20/20 22:48 Dose: 5 mg Documented by: Atorvastatin Calcium (Lipitor -) 10 mg PO HS [facility] Last Admin: 03/20/20 22:48 Dose: 10 mg Documented by: Docusate Sodium (Colace -) 100 mg PO BID [facility] Last Admin: 03/20/20 23:09 Dose: Not Given Documented by: Furosemide (Lasix Injection -) 80 mg IVPUSH DAILY [facility] Last Admin: 03/20/20 09:51 Dose: 80 mg Documented by: Gabapentin (Neurontin -) 100 mg PO BID [facility] Last Admin: 03/20/20 22:49 Dose: 100 mg Documented by: Ceftriaxone Sodium 1 gm/ (Dextrose) 50 mls @ 100 mls/hr IVPB DAILY [facility] Last Admin: 03/20/20 16:55 Dose: 100 mls/hr Documented by: Insulin Aspart (Novolog Vial Sliding Scale -) 0 vial SQ ACHS [facility]; Protocol Last Admin: 03/21/20 07:08 Dose: Not Given Documented by: Lisinopril (Prinivil) 40 mg PO DAILY [facility] Last Admin: 03/20/20 09:52 Dose: 40 mg Documented by: Metoprolol Tartrate (Lopressor -) 25 mg PO BID [facility] Last Admin: 03/20/20 22:49 Dose: 25 mg Documented by: Polyethylene Glycol (Miralax (For Daily Use) -) 17 gm PO DAILY PRN PRN Reason: CONSTIPATION Senna (Senna -) 2 tab PO HS PRN PRN Reason: CONSTIPATION - Objective Vital Signs: Vital Signs Temperature 98.5 F 03/21/20 06:00 Pulse Rate 97 H 03/21/20 06:00 Respiratory Rate 18 03/21/20 06:00 Blood Pressure 105/56 L 03/21/20 06:00 O2 Sat by Pulse Oximetry (%) 95 03/21/20 06:00 Constitutional: Yes: No Distress, Calm Eyes: No: Sclera Icterus HENT: No: Nasal Congestion Cardiovascular: Yes: Pulse Irregular, S1, S2, Other (PMI non diplaced). No: JVD, Gallop, Murmur Respiratory: Yes: CTA Bilaterally. No: Accessory Muscle Use, Rales, Wheezes Gastrointestinal: Yes: Normal Bowel Sounds, Soft. No: Tenderness Musculoskeletal: Yes: Other (No kyphosis) Extremities: No: Cyanosis Edema: No Integumentary: No: Jaundice Neurological: Yes: Alert, Oriented (x3) Psychiatric: No: Agitated Labs: CBC, BMP 03/21/20 07:20 INR, PTT INR 1.96 (0.83-1.09) H 03/18/20 08:15 Assessment/Plan echo 04/2019: nl lv, rv mildly dilated and mild dec rv fcn, lae, mild-mod mr, mild tr ecg: afib, vr 105 bpm, rbbb, prolonged QTc cxr: clear lungs a/p: 69 yo female hx pafib, htn, hld, dchf, pad s/p r rfa stent 02/2019 here with sob. sob, acute on chronic diast chf: -was evaluated by CHF team with RHC and biopsy on 02/12/2020 for workup of HFpEF and findings concerning for amyloidosis --> biopsy negative. -responded to lasix 80 IV qd here. unreliable wts. CAROLE on admit significantly improved with diuresis -appears euvolemic, however still NYHA III sob sx's, not her baseline. admits to hi sodium intake at home (fast food). was taking lasix 80 qd at home. rec convert to 80 po bid starting tomorrow (received 80 iv today). -ok for d/c from [facility]will f/u with dr patterson and mariana in office in next 7 days for reassessment and rpt BMP afib: - seeing EP dr tsai at [facility], started on amio with plans for f/u for possible ablation - continue amiodarone, metoprolol, rate ok presently - cont eliquis htn: -cont current meds hld: -cont home statin pad s/p le stenting: - cont statin, bp control, ac - complains of claudication for which she has been taking high doses of aleve - had plans for lower ext angiogram pending cardiac workup above. - currently optimizing HF/AF status prior to procedure - eliquis can be held temporarily if needed. CAROLE: - renal consulted
[2020-03-21 08:34] LABS: ALBUMIN 3.3 g/dl (3.4-5.0); BILIRUBIN,TOTAL 0.3 mg/dL (0.2-1); BLOOD UREA NITROGEN 40.8 mg/dL (7-18); CALCIUM 8.9 mg/dL (8.5-10.1); MAGNESIUM 2.1 mg/dL (1.8-2.4); PHOSPHOROUS 4.3 mg/dL (2.5-4.9); POTASSIUM 4.2 mmol/L (3.5-5.1)
[2020-03-21] MEDS ORDERED: DEXTROSE 5%-WATER - 50 ML IVPB ONE (08:54)
[2020-03-21] MEDS ORDERED: cefTRIAXone SODIUM 1 GM VIAL ONE (08:54)
[2020-03-21] MEDS ORDERED: PT OWN MED DRAWER 7, Y5N ONE (08:54)
[2020-03-21] MEDS: DOCUSATE SODIUM 100 MG CAPSULE (FP) PO SCH (11:02)
[2020-03-21] MEDS: APIXABAN 5 MG TABLET PO SCH (11:02)
[2020-03-21] MEDS: GABAPENTIN 100 MG CAPSULE PO SCH (11:02)
[2020-03-21] MEDS: FUROSEMIDE 40 MG/4 ML INJECTABLE VIAL IVPUSH SCH (11:02)
[2020-03-21] MEDS: CEFTRIAXONE 1 GM in DEXTROSE 5%-WATER - 50 ML IVPB SCH (11:03)
[2020-03-21] MEDS: LISINOPRIL 20 MG TABLET (FP) PO SCH (11:14)
[2020-03-21] MEDS: METOPROLOL TARTRATE 25 MG TABLET (FP) PO SCH (11:14)
[2020-03-21] MEDS: AMIODARONE HCL 200 MG TABLET PO SCH (11:15)
[2020-03-21] MEDS ORDERED: INSULIN (NOVOLOG) ASPART 100 UNITS/ML 10ML VIAL ONE (12:22)
--- NOTE | 2020-03-21 14:27 | DS ---
Physical Exam: SUBJECTIVE: Patient seen and examined. Denies SOB, CP, palpitations, fever/chills. OBJECTIVE: Vital Signs Period Temp Pulse Resp BP Sys/Pitts Pulse Ox Last 24 Hr 97.9 F-98.5 F 88-109 18-18 105-130/55-85 95-95 PHYSICAL EXAM GENERAL: The patient is awake, alert, and fully oriented, in no acute distress. HEAD: Normal with no signs of trauma. EYES: PERRL, extraocular movements intact, sclera anicteric, conjunctiva clear. ENT: Ears normal, nares patent, oropharynx clear without exudates, moist mucous membranes. NECK: Trachea midline, full range of motion, supple. LUNGS: Breath sounds equal, clear to auscultation bilaterally, no wheezes, no crackles, no accessory muscle use. HEART: Regular rate and rhythm, S1, S2 without murmur, rub or gallop. ABDOMEN: Soft, nontender, nondistended, normoactive bowel sounds, no guarding, no rebound, no hepatosplenomegaly, no masses. EXTREMITIES: 2+ pulses, warm, well-perfused, trace edema in feet. NEUROLOGICAL: Cranial nerves II through XII grossly intact. Normal speech, gait not observed. PSYCH: Normal mood, normal affect. SKIN: Warm, dry, normal turgor, no rashes or lesions noted. LABS Laboratory Results - last 24 hr 03/20/20 03/20/20 03/21/20 16:52 22:55 06:31 WBC RBC Hgb Hct MCV MCH MCHC RDW Plt Count MPV Sodium Potassium Chloride Carbon Dioxide Anion Gap BUN Creatinine Est GFR (CKD-EPI)AfAm Est GFR (CKD-EPI)NonAf POC Glucometer 174 185 156 Random Glucose Calcium Phosphorus Magnesium Total Bilirubin AST ALT Alkaline Phosphatase Total Protein Albumin 03/21/20 03/21/20 03/21/20 07:20 07:20 11:34 WBC 5.8 RBC 4.13 Hgb 10.9 Hct 34.9 MCV 84.5 MCH 26.5 MCHC 31.3 L RDW 17.1 H Plt Count 233 MPV 8.6 Sodium 146 H Potassium 4.2 Chloride 108 H Carbon Dioxide 31 Anion Gap 8 BUN 40.8 H Creatinine 1.0 Est GFR (CKD-EPI)AfAm 66.57 Est GFR (CKD-EPI)NonAf 57.44 POC Glucometer 294 Random Glucose 199 H Calcium 8.9 Phosphorus 4.3 Magnesium 2.1 Total Bilirubin 0.3 AST 23 ALT 30 Alkaline Phosphatase 72 Total Protein 7.0 Albumin 3.3 L HOSPITAL COURSE: Date of Admission:03/18/20 Pt is a 68 year old female with history of Atrial Fibrillation (on Eliquis), HFpEF (last ECHO EF 55% s/p myocardial Bx at [facility], negative for amyloidosis), HTN, HLD, DM 2, PVD s/p RLE stent, presents wit increasing SOB and LE edema admitted for acute on chronic diastolic CHF decompensation. Pt received IV lasix 80mg daily. Recently had an echo on 04/2019 with normal EF, and mild to moderate MR. Pt also had CAROLE, received fluids and hold nephrotoxic drugs (GERRY-i were held). Pt had renal ultrasound which showed angiomyolipoma L kidney, to follow up outpatient with urology. Pt also has worsening claudication in RFA stent placed 02/25, will follow up outpatient with Vascular Surg. Pt has Urine Cx positive for LFNB, treated with Rocephin and given Vantin outpatient. Pt in chronic a fib, receiving cardioversion outpatient at [facility]. Pt to follow up outpatient with cardiology, vascular, nephrology and urology. Date of Discharge: 03/21/20 Minutes to complete discharge: 36 Discharge Summary Problems reviewed: Yes Reason For Visit: ACUTE KIDNEY INJ,PAROXYSMAL ATRIAL FIB,CHF Current Active Problems CAROLE (acute kidney injury) (Acute) Claudication of right lower extremity (Acute) Hyperkalemia (Acute) Shortness of breath (Acute) - Instructions Diet, Activity, Other Instructions: You came into the hospital after you had shortness of breath, unable to lie flat and swelling in your legs. You have a cardiac arrhythmia- atrial fibrillation, and in acute heart failure with fluid in your lungs. you were treated with lasix. You were seen by the vascular surgeon, Dr. Goodman, as your stent has failed. this needs to be addressed. You were found to have a benign mass on your kidneys, and you will be able to follow up for this outpatient with the urologist, Dr. Denson. You were also found to have a urinary infection and were started on an antibiotic. Please continue to take your home medications as prescribed. Please ensure to take your Lasix 80mg once daily. Please START and complete your antibiotic for your urine infection, Vantin 200 mg twice a day for 3 days until completion. Please follow up with your primary care physician, Dr. Lund, within 1 week for your overall medical management. Please follow up with your egg processing supervisor, Dr. Rosen, within 2 weeks. Please follow up with your cutting machine tender decorative, Dr. Marie, within 2 weeks. Please follow up with your vascular surgeon, Dr. Goodman, within 1 week to schedule your stent procedure. Please follow up with your urologist, Dr. Denson, within 2 weeks to evaluate your angiomylipomas Please make sure you follow a low sodium diet. If you have any new, changing or worsening symptoms please return to the ED or call 911. Referrals: Rivas Lund MD [Primary Care Provider] - Dylan Rosen MD [Staff Physician] - (HF mgmt ) Saw Goodman DO [Staff Physician] - 1 Week (RLE stent failure, needs angio) Willi Marie MD [Staff Physician] - Pete Denson MD [Staff Physician] - (6mm L renal angiomyolipoma) Disposition: HOME - Home Medications Comprehensive Discharge Medication List: Ambulatory Orders Glimepiride [Amaryl] 4 mg PO BIDAC 12/17/16 metFORMIN HCL [Glucophage -] 1,000 mg PO BID 12/17/16 Apixaban [Eliquis -] 5 mg PO BID #60 tablet 03/16/17 Dulaglutide [Trulicity] 1.5 mg SQ Q7D 01/07/19 Gabapentin [Neurontin] 100 mg PO BID 02/20/19 Furosemide [Lasix] 80 mg PO DAILY 12/23/19 Amiodarone HCl 200 mg PO DAILY 03/18/20 Atorvastatin Ca [Lipitor] 10 mg PO HS 03/19/20 Lisinopril [Prinivil -] 40 mg PO DAILY 03/19/20 Metoprolol Tartrate 25 mg PO BID 03/19/20 Cefpodoxime Proxetil [Vantin -] 200 mg PO BID #6 tablet 03/21/20 This patient is new to me today: No Emergency Visit: Yes ED Registration Date: 03/18/20 Care time: The patient presented to the Emergency Department on the above date and was hospitalized for further evaluation of their emergent condition. Critical Care patient: No - Discharge Referral Referred to [facility] Med [facility] No ATTENDING PHYSICIAN STATEMENT I saw and evaluated the patient. I reviewed the resident's note and discussed the case with the resident. I agree with the resident's findings and plan as documented. SUBJECTIVE: OBJECTIVE: ASSESSMENT AND PLAN:
--- NOTE | 2020-03-21 14:27 | PN ---
Progress Note, Physician History of Present Illness: Pt seen and examined at bedside. She is awake and alert. She gets shortness of breath with ambulation. She does complain of lower ext edema. - Current Medication List Current Medications: Active Medications Amiodarone HCl (Cordarone -) 200 mg PO DAILY [facility] Last Admin: 03/21/20 11:15 Dose: 200 mg Documented by: Apixaban (Eliquis -) 5 mg PO BID [facility] Last Admin: 03/21/20 11:02 Dose: 5 mg Documented by: Atorvastatin Calcium (Lipitor -) 10 mg PO HS [facility] Last Admin: 03/20/20 22:48 Dose: 10 mg Documented by: Docusate Sodium (Colace -) 100 mg PO BID [facility] Last Admin: 03/21/20 11:02 Dose: 100 mg Documented by: Furosemide (Lasix -) 80 mg PO BID@0600,1400 [facility] Gabapentin (Neurontin -) 100 mg PO BID [facility] Last Admin: 03/21/20 11:02 Dose: 100 mg Documented by: Ceftriaxone Sodium 1 gm/ (Dextrose) 50 mls @ 100 mls/hr IVPB DAILY [facility] Last Admin: 03/21/20 11:03 Dose: 100 mls/hr Documented by: Insulin Aspart (Novolog Vial Sliding Scale -) 0 vial SQ ACHS [facility]; Protocol Last Admin: 03/21/20 12:25 Dose: 4 units Documented by: Lisinopril (Prinivil) 40 mg PO DAILY [facility] Last Admin: 03/21/20 11:14 Dose: 40 mg Documented by: Metoprolol Tartrate (Lopressor -) 25 mg PO BID [facility] Last Admin: 03/21/20 11:14 Dose: 25 mg Documented by: Polyethylene Glycol (Miralax (For Daily Use) -) 17 gm PO DAILY PRN PRN Reason: CONSTIPATION Senna (Senna -) 2 tab PO HS PRN PRN Reason: CONSTIPATION - Objective Vital Signs: Vital Signs Temperature 98.5 F 03/21/20 06:00 Pulse Rate 97 H 03/21/20 06:00 Respiratory Rate 18 03/21/20 06:00 Blood Pressure 105/56 L 03/21/20 06:00 O2 Sat by Pulse Oximetry (%) 95 03/21/20 06:00 Constitutional: Yes: Calm Eyes: Yes: Conjunctiva Clear HENT: Yes: Atraumatic Neck: Yes: Supple Cardiovascular: Yes: S1, S2 Respiratory: Yes: CTA Bilaterally Gastrointestinal: Yes: Soft Genitourinary: Yes: WNL Musculoskeletal: Yes: WNL Edema: Yes Edema: LLE: Trace, RLE: Trace Neurological: Yes: Oriented Psychiatric: Yes: Oriented Labs: CBC, BMP 03/21/20 07:20 03/21/20 07:20 INR, PTT INR 1.96 (0.83-1.09) H 03/18/20 08:15 Problem List - Problems (1) Hyperkalemia Code(s): E87.5 - HYPERKALEMIA (2) JUAN (acute kidney injury) Code(s): N17.9 - ACUTE KIDNEY FAILURE, UNSPECIFIED (3) Shortness of breath Code(s): R06.02 - SHORTNESS OF BREATH (4) Atrial fibrillation with rapid ventricular response Code(s): I48.91 - UNSPECIFIED ATRIAL FIBRILLATION (5) Hypertension Code(s): I10 - ESSENTIAL (PRIMARY) HYPERTENSION Assessment/Plan Current Medications Generic Name Dose Route Start Last Admin Trade Name J Luis PRN Reason Stop Dose Admin Amiodarone HCl 200 mg 03/19/20 10:00 03/21/20 11:15 Cordarone - PO 200 mg DAILY LEONEL Administration Apixaban 5 mg 03/18/20 22:00 03/21/20 11:02 Eliquis - PO 5 mg BID LEONEL Administration Atorvastatin Calcium 10 mg 03/18/20 22:00 03/20/20 22:48 Lipitor - PO 10 mg HS LEONEL Administration Docusate Sodium 100 mg 03/20/20 22:00 03/21/20 11:02 Colace - PO 100 mg BID LEONEL Administration Furosemide 80 mg 03/22/20 08:00 Lasix - PO BID@0600,1400 LEONEL Gabapentin 100 mg 03/19/20 22:00 03/21/20 11:02 Neurontin - PO 100 mg BID LEONEL Administration Ceftriaxone Sodium 1 gm/ 50 mls @ 100 mls/hr 03/20/20 14:59 03/21/20 11:03 Dextrose IVPB 100 mls/hr DAILY LEONEL Administration Insulin Aspart 0 vial 03/18/20 16:30 03/21/20 12:25 Novolog Vial Sliding Scale - SQ 4 units ACHS LEONEL Administration Protocol Lisinopril 40 mg 03/20/20 10:00 03/21/20 11:14 Prinivil PO 40 mg DAILY LEONEL Administration Metoprolol Tartrate 25 mg 03/19/20 22:00 03/21/20 11:14 Lopressor - PO 25 mg BID LEONEL Administration Polyethylene Glycol 17 gm 03/20/20 17:37 Miralax (For Daily Use) - PO DAILY PRN CONSTIPATION Senna 2 tab 03/20/20 17:36 Senna - PO HS PRN CONSTIPATION Impression 1. Juan 2. hyperkalemia 3. nsaid use 4. a-fib 5. dyspnea 6. hld 7. htn 8. renal angiomyolipomas 9. DM 10. PVD Plan - cont lasix - monitor volume status - 2 gram sodium diet - urology follow up for angiomyolipomas - repeat labs in am
[2020-03-21 14:46] VITALS: BP 113/46; TEMP 97.8
--- NOTE | 2020-03-21 14:49 | PN ---
Teaching Attending Note Name of Resident: Lizandro Jonas ATTENDING PHYSICIAN STATEMENT I saw and evaluated the patient. I reviewed the resident's note and discussed the case with the resident. I agree with the resident's findings and plan as documented. SUBJECTIVE: Breathing much improved. No cough/sputum/fever/chills. OBJECTIVE: Afebrile, Hemodynamically stable. Last Vital Signs Temp Pulse Resp BP Pulse Ox 98.5 F 97 H 18 105/56 L 95 03/21/20 06:00 03/21/20 06:00 03/21/20 06:00 03/21/20 06:00 03/21/20 06:00 Heart - S1, S2, irregular Lungs - bibasal crackles improved Abdomen - High BMI. Soft, non-tender. Bowel Sounds normal. Extremities - mild pedal edema, no calf tenderness, cool feet, pulses difficult to palpate. Neuro - AAO x 3. Tone/Power normal all extremities. Laboratory Results - last 24 hr 03/20/20 03/20/20 03/21/20 16:52 22:55 06:31 WBC RBC Hgb Hct MCV MCH MCHC RDW Plt Count MPV Sodium Potassium Chloride Carbon Dioxide Anion Gap BUN Creatinine Est GFR (CKD-EPI)AfAm Est GFR (CKD-EPI)NonAf POC Glucometer 174 185 156 Random Glucose Calcium Phosphorus Magnesium Total Bilirubin AST ALT Alkaline Phosphatase Total Protein Albumin 03/21/20 03/21/20 03/21/20 07:20 07:20 11:34 WBC 5.8 RBC 4.13 Hgb 10.9 Hct 34.9 MCV 84.5 MCH 26.5 MCHC 31.3 L RDW 17.1 H Plt Count 233 MPV 8.6 Sodium 146 H Potassium 4.2 Chloride 108 H Carbon Dioxide 31 Anion Gap 8 BUN 40.8 H Creatinine 1.0 Est GFR (CKD-EPI)AfAm 66.57 Est GFR (CKD-EPI)NonAf 57.44 POC Glucometer 294 Random Glucose 199 H Calcium 8.9 Phosphorus 4.3 Magnesium 2.1 Total Bilirubin 0.3 AST 23 ALT 30 Alkaline Phosphatase 72 Total Protein 7.0 Albumin 3.3 L Current Medications Generic Name Dose Route Start Last Admin Trade Name Freq PRN Reason Stop Dose Admin Amiodarone HCl 200 mg 03/19/20 10:00 03/21/20 11:15 Cordarone - PO 200 mg DAILY LEONEL Administration Apixaban 5 mg 03/18/20 22:00 03/21/20 11:02 Eliquis - PO 5 mg BID LEONEL Administration Atorvastatin Calcium 10 mg 03/18/20 22:00 03/20/20 22:48 Lipitor - PO 10 mg HS LEONEL Administration Docusate Sodium 100 mg 03/20/20 22:00 03/21/20 11:02 Colace - PO 100 mg BID LEONEL Administration Furosemide 80 mg 03/22/20 08:00 Lasix - PO BID@0600,1400 [facility]ON[facility] Gabapentin 100 mg 03/19/20 22:00 03/21/20 11:02 Neurontin - PO 100 mg BID LEONEL Administration Ceftriaxone Sodium 1 gm/ 50 mls @ 100 mls/hr 03/20/20 14:59 03/21/20 11:03 Dextrose IVPB 100 mls/hr DAILY LEONEL Administration Insulin Aspart 0 vial 03/18/20 16:30 03/21/20 12:25 Novolog Vial Sliding Scale - SQ 4 units ACHS LEONEL Administration Protocol Lisinopril 40 mg 03/20/20 10:00 03/21/20 11:14 Prinivil PO 40 mg DAILY LEONEL Administration Metoprolol Tartrate 25 mg 03/19/20 22:00 03/21/20 11:14 Lopressor - PO 25 mg BID LEONEL Administration Polyethylene Glycol 17 gm 03/20/20 17:37 Miralax (For Daily Use) - PO DAILY PRN CONSTIPATION Senna 2 tab 03/20/20 17:36 Senna - PO HS PRN CONSTIPATION Discharge Medications Medication Instructions Recorded Glimepiride [Amaryl] 4 mg PO BIDAC 12/17/16 metFORMIN HCL [Glucophage -] 1,000 mg PO BID 12/17/16 Apixaban [Eliquis -] 5 mg PO BID #60 tablet 03/16/17 Dulaglutide [Trulicity] 1.5 mg SQ Q7D 01/07/19 Gabapentin [Neurontin] 100 mg PO BID 02/20/19 Furosemide [Lasix] 80 mg PO DAILY 12/23/19 Amiodarone HCl 200 mg PO DAILY 03/18/20 Atorvastatin Ca [Lipitor] 10 mg PO HS 03/19/20 Lisinopril [Prinivil -] 40 mg PO DAILY 03/19/20 Metoprolol Tartrate 25 mg PO BID 03/19/20 Cefpodoxime Proxetil [Vantin -] 200 mg PO BID #6 tablet 03/21/20 ASSESSMENT/PLAN: 68 year old female with history of Atrial Fibrillation (on Eliquis), HFpEF (last ECHO EF 55% s/p myocardial Bx at [facility], negative for amyloidosis), HTN, HLD, DM 2, PVD s/p RLE stent, presents wit increasing SOB and LE edema. 1. Acute on Chronic Diastolic CHF decompensation - secondary to non-compliance with home Lasix for 1 week. Diuresed with IV Lasix - stable for discharge on oral Lasix 80mg Echo 04/27 - normal EF, mild to moderate MR Cardiology to follow as out-patient. 2. CAROLE - sec to Cardiorenal Syndrome, Creat resolved with IV lasix diuresis Renal US - Angiomyolipomatomous L kidney. Nephrology following - recommend Urology referral on discharge for angiomyolipomas. 3. PAD s/p RFA Stent 02/25 Reports worsening claudication Vascular Surgery evaluated - no urgent need for vascular intervention - for follow up with Dr. Goodman as out-patient next week. 4. UTI - Urine Cx positive for Ecoli. Received 2 days IV Ceftriaxone - for discharge on 3 additional days of Vantin. 5. Atrial Fibrillation - continue Metoprolol, Amiodarone, Eliquis. 6. HTN - Continue Metoprolol. Resume Lisinopril. 7. HLD - Continue Statin 8. DM 2 - Glimepiride, Metformin, Trulicity to resume on discharge. DVT Px - on Eliquis Medically Stable for discharge
[2020-03-22] MEDS ORDERED: FUROSEMIDE 40 MG TABLET (FP) PO SCH (08:00)
== END 2020-03-21 18:30 | disposition home or self-care (01) | DRG 682 ==
LOC: JER 07:58 → JERBED 11:49 → J7W 20:16
DX: N17.9 Acute kidney failure, unspecified (principal); I50.33 Acute on chronic diastolic (congestive) heart failure; N39.0 Urinary tract infection, site not specified; I11.0 Hypertensive heart disease with heart failure; I48.91 Unspecified atrial fibrillation; E78.5 Hyperlipidemia, unspecified; E87.5 Hyperkalemia; E11.51 Type 2 diabetes mellitus with diabetic peripheral angiopathy without gangrene; Z85.828 Personal history of other malignant neoplasm of skin; Z79.1 Long term (current) use of non-steroidal anti-inflammatories (NSAID); Z86.018 Personal history of other benign neoplasm; B96.20 Unspecified Escherichia coli [E. coli] as the cause of diseases classified elsewhere
CPT/HCPCS: 36415; 71046-TC-FY; 76775-TC; 80048; 80053; 81003; 82436; 82565; 82962; 83735; 83880; 84100; 84133; 84300; 84484; 85025; 85027; 85610; 85730; 86850; 86900; 86901; 87086; 87186; 93005; 93010; 99285-25; U0003

== ENCOUNTER 2020-10-29 04:39 | Day surgery (SDC) | payer BC ==
[2020-10-28 19:07] VITALS: BMI 34.2
[~2020-10-29 04:39] MED LIST changes: -ERTAPENEM SODIUM 1 GM in SODIUM CHLORIDE 50 ML IVPB ONE; +HEPARIN NA (PORCINE) 5,000 UNITS/ML 1ML VIAL SQ ONE; +LIDOCAINE HCL 1%, 10 MG/ML (20ML VIAL) INF ONE
[2020-10-29] MEDS ORDERED: MIDAZOLAM HCL 2 MG/2 ML SINGLE DOSE VIAL ONE ×2 (10:01→10:20)
[2020-10-29] MEDS ORDERED: IOHEXOL 180 MG/1 ML ML IJ ONE (10:05)
[2020-10-29] MEDS ORDERED: ceFAZolin SODIUM 1 GM VIAL ONE ×2 (10:07)
[2020-10-29] MEDS ORDERED: ceFAZolin 2 GRAM PREMIX BAG IVPB ONE (10:10)
[2020-10-29] MEDS ORDERED: LIDOCAINE HCL 1%, 10 MG/ML (20ML VIAL) INF ONE ×2 (10:14)
[2020-10-29] MEDS ORDERED: HEPARIN NA (PORCINE) 5,000 UNITS/ML 1ML VIAL SQ ONE (10:21)
[2020-10-29] MEDS ORDERED: HEPARIN NA (PORCINE) 5,000 UNITS/ML 1ML VIAL ONE (10:25)
[2020-10-29] MEDS ORDERED: PROPOFOL 20 ML ONE (10:40)
[2020-10-29] MEDS ORDERED: ONDANSETRON 4 MG/2 ML VIAL IVPUSH PRN (11:43)
[2020-10-29] MEDS ORDERED: LACTATED RINGERS SOLUTION 1,000 ML IV SCH (11:45)
[2020-10-29] MEDS ORDERED: ACETAMINOPHEN 325 MG TABLET (FP) ONE (14:46)
[2020-10-29 17:30] VITALS: BP 128/69; PULSE 86; TEMP 98
== END 2020-10-29 16:00 | disposition home or self-care (01) ==
LOC: JASU-SURG 04:39
PROVIDERS: ATTEND Surgery Vascular Surgery
PROC: 047K3DZ Dilation of Right Femoral Artery with Intraluminal Device, Percutaneous Approach (ICD-10-PCS; principal; 2020-10-29 10:30)
DX: E11.51 Type 2 diabetes mellitus with diabetic peripheral angiopathy without gangrene (principal); I70.211 Atherosclerosis of native arteries of extremities with intermittent claudication, right leg
CPT/HCPCS: 37227; C1877; 76000-TC-FY; 82962; 94760; J1644

== ENCOUNTER 2021-01-02 14:24 | Inpatient (IN) | payer BC ==
[2021-01-02 15:31] LABS: BASO % 0.8 % (0-2.0); EOS % 2.5 % (0-4.5); HEMATOCRIT 30.5 % (32.4-45.2); HEMOGLOBIN 9.7 GM/dL (10.7-15.3); LYMPH % 20.6 % (8-40); MCH 25.2 pg (25.7-33.7); MCHC 31.7 g/dl (32.0-36.0); MEAN CELL VOLUME 79.5 fl (80-96); MEAN PLT VOLUME 8.3 fl (7.5-11.1); MONO % 8.9 % (3.8-10.2); NEUT % 67.2 % (42.8-82.8); PLATELET COUNT 264 10^3/uL (134-434); RBC 3.83 M/mm3 (3.60-5.2); RDW 15.9 % (11.6-15.6); WHITE BLOOD COUNT 6.8 K/mm3 (4.0-10.0)
[2021-01-02 15:38] LABS: INR 1.47 (0.83-1.09); PROTHROMBIN TIME (PATIENT) 17.6 SEC (9.7-13.0)
[2021-01-02 15:40] LABS: ACTIVATED PTT 33.4 SECONDS (25.2-36.5)
[2021-01-02 15:50] LABS: CALCIUM 8.6 mg/dL (8.5-10.1)
[2021-01-02 15:51] LABS: ALBUMIN 3.2 g/dl (3.4-5.0); BLOOD UREA NITROGEN 30.8 mg/dL (7-18); MAGNESIUM 2.4 mg/dL (1.8-2.4)
[2021-01-02 15:54] LABS: CREATININE 1.1 mg/dL (0.55-1.3)
[2021-01-02 15:55] LABS: BILIRUBIN,TOTAL 0.2 mg/dL (0.2-1); TOT PROT 6.8 g/dl (6.4-8.2)
[2021-01-02 15:59] LABS: N-TERMINAL BNP 4751.9 pg/ml (5-125)
[2021-01-02] MEDS ORDERED: METOPROLOL TARTRATE 5 MG/5 ML VIAL IVPUSH ONE ×2 (15:59→17:54)
[2021-01-02] MEDS ORDERED: METOPROLOL TARTRATE 5 MG/5 ML VIAL ONE ×2 (16:05→18:20)
[2021-01-02] MEDS ORDERED: AZITHROMYCIN IVPB 500 MG in DEXTROSE 5%-WATER - 250 ML IVPB ONE (17:26)
[2021-01-02] MEDS ORDERED: CEFTRIAXONE 1 GM in DEXTROSE 5%-WATER - 100 ML IVPB ONE (17:26)
[2021-01-02] MEDS ORDERED: CEFTRIAXONE 1 GM/50 ML BAG ONE (17:48)
[2021-01-02] MEDS ORDERED: AZITHROMYCIN IVPB 500 MG/250 ML BAG IVPB ONE (17:48)
[2021-01-02] MEDS ORDERED: FUROSEMIDE 40 MG/4 ML INJECTABLE VIAL IVPUSH ONE (18:21)
[2021-01-02] MEDS ORDERED: FUROSEMIDE 40 MG/4 ML INJECTABLE VIAL ONE (18:45)
[2021-01-02] MEDS ORDERED: METOPROLOL TARTRATE 50 MG TABLET (FP) PO SCH (22:00)
[2021-01-02] MEDS ORDERED: APIXABAN 5 MG TABLET ONE (22:03)
[2021-01-02] MEDS ORDERED: LISINOPRIL 20 MG TABLET ONE (22:03)
[2021-01-02] MEDS ORDERED: ATORVASTATIN CA 10 MG TABLET (FP) ONE (22:04)
[2021-01-02] MEDS ORDERED: METOPROLOL TARTRATE 50 MG TABLET (FP) ONE (22:04)
[2021-01-02] MEDS ORDERED: GABAPENTIN 100 MG CAPSULE ONE (22:04)
[2021-01-02] MEDS: GABAPENTIN 100 MG CAPSULE PO SCH (22:12)
[2021-01-02] MEDS: APIXABAN 5 MG TABLET PO SCH (22:12)
[2021-01-02] MEDS: ATORVASTATIN CA 10 MG TABLET (FP) PO SCH (22:12)
[2021-01-02 23:59] VITALS: BMI 37.5
[2021-01-03] MEDS ORDERED: METOPROLOL TARTRATE 5 MG/5 ML VIAL IVPUSH ONE ×2 (00:31→06:19)
[2021-01-03] MEDS ORDERED: METOPROLOL TARTRATE 5 MG/5 ML VIAL ONE (06:31)
[2021-01-03] MEDS: INSULIN SLIDING SCALE (NOVOLOG) 1 VIAL SQ SCH ×4 (06:49→21:55)
[2021-01-03 07:21] LABS: BASO % 0.6 % (0-2.0); HEMATOCRIT 31.9 % (32.4-45.2); HEMOGLOBIN 9.9 GM/dL (10.7-15.3); LYMPH % 22.9 % (8-40); MCH 24.8 pg (25.7-33.7); MEAN CELL VOLUME 80.1 fl (80-96); MEAN PLT VOLUME 8.8 fl (7.5-11.1); MONO % 7.3 % (3.8-10.2); NEUT % 66.2 % (42.8-82.8); PLATELET COUNT 277 10^3/uL (134-434); RBC 3.98 M/mm3 (3.60-5.2); RDW 15.9 % (11.6-15.6); WHITE BLOOD COUNT 6.5 K/mm3 (4.0-10.0)
[2021-01-03 07:42] LABS: CALCIUM 8.6 mg/dL (8.5-10.1)
[2021-01-03 07:43] LABS: ALBUMIN 3.2 g/dl (3.4-5.0); BLOOD UREA NITROGEN 32.8 mg/dL (7-18); MAGNESIUM 2.2 mg/dL (1.8-2.4)
[2021-01-03 07:46] LABS: CREATININE 0.9 mg/dL (0.55-1.3); PHOSPHOROUS 3.9 mg/dL (2.5-4.9)
[2021-01-03 07:47] LABS: BILIRUBIN,TOTAL 0.3 mg/dL (0.2-1)
[2021-01-03] MEDS: APIXABAN 5 MG TABLET PO SCH ×2 (09:16→21:20)
[2021-01-03] MEDS: AMIODARONE HCL 200 MG TABLET PO SCH (09:16)
[2021-01-03] MEDS: METOPROLOL TARTRATE 50 MG TABLET (FP) PO SCH ×2 (09:16→21:56)
[2021-01-03] MEDS: LISINOPRIL 20 MG TABLET PO SCH (09:16)
[2021-01-03] MEDS: FUROSEMIDE 40 MG/4 ML INJECTABLE VIAL IVPUSH SCH (10:57)
[2021-01-03] MEDS: ATORVASTATIN CA 10 MG TABLET (FP) PO SCH (21:20)
[2021-01-03] MEDS: GABAPENTIN 100 MG CAPSULE PO SCH (21:41)
[2021-01-04] MEDS: INSULIN SLIDING SCALE (NOVOLOG) 1 VIAL SQ SCH ×4 (06:07→21:11)
[2021-01-04 06:44] LABS: HEMATOCRIT 31.8 % (32.4-45.2); HEMOGLOBIN 9.9 GM/dL (10.7-15.3); MCH 24.9 pg (25.7-33.7); MCHC 31.2 g/dl (32.0-36.0); MEAN CELL VOLUME 79.8 fl (80-96); MEAN PLT VOLUME 8.5 fl (7.5-11.1); PLATELET COUNT 246 10^3/uL (134-434); RBC 3.99 M/mm3 (3.60-5.2); RDW 16.2 % (11.6-15.6); WHITE BLOOD COUNT 7.2 K/mm3 (4.0-10.0)
[2021-01-04 07:03] LABS: CALCIUM 8.7 mg/dL (8.5-10.1)
[2021-01-04 07:04] LABS: MAGNESIUM 2.1 mg/dL (1.8-2.4)
[2021-01-04 07:07] LABS: CREATININE 0.9 mg/dL (0.55-1.3)
[2021-01-04 07:12] LABS: BLOOD UREA NITROGEN 35.3 mg/dL (7-18)
[2021-01-04] MEDS: LISINOPRIL 20 MG TABLET PO SCH (09:01)
[2021-01-04] MEDS: AMIODARONE HCL 200 MG TABLET PO SCH (09:01)
[2021-01-04] MEDS: METOPROLOL TARTRATE 50 MG TABLET (FP) PO SCH ×2 (09:01→21:10)
[2021-01-04] MEDS: FUROSEMIDE 40 MG/4 ML INJECTABLE VIAL IVPUSH SCH (09:02)
[2021-01-04] MEDS: APIXABAN 5 MG TABLET PO SCH ×2 (09:02→21:10)
[2021-01-04] MEDS: INSULIN (LEVEMIR) 100 UNITS/ML UNITS SQ SCH ×2 (09:09→21:11)
[2021-01-04 18:06] VITALS: TEMP 97.9
[2021-01-04] MEDS: ATORVASTATIN CA 10 MG TABLET (FP) PO SCH (21:10)
[2021-01-04] MEDS: GABAPENTIN 100 MG CAPSULE PO SCH (21:10)
[2021-01-04 22:57] VITALS: BP 140/76; PULSE 82
== END 2021-01-04 23:45 | disposition short-term general hospital (02) | DRG 293 ==
LOC: JER 14:24 → JERBED 17:31 → J4S 23:45
PROVIDERS: ADMIT Internal Medicine; ATTEND Internal Medicine
DX: I11.0 Hypertensive heart disease with heart failure (principal); I50.33 Acute on chronic diastolic (congestive) heart failure; E78.5 Hyperlipidemia, unspecified; E11.51 Type 2 diabetes mellitus with diabetic peripheral angiopathy without gangrene; I48.91 Unspecified atrial fibrillation; G30.9 Alzheimer's disease, unspecified; F02.80 Dementia in other diseases classified elsewhere, unspecified severity, without behavioral disturbance, psychotic disturbance, mood disturbance, and anxiety; E11.65 Type 2 diabetes mellitus with hyperglycemia; E11.40 Type 2 diabetes mellitus with diabetic neuropathy, unspecified; R91.8 Other nonspecific abnormal finding of lung field; R79.89 Other specified abnormal findings of blood chemistry; E66.9 Obesity, unspecified; Z68.37 Body mass index [BMI] 37.0-37.9, adult
CPT/HCPCS: 36415; 71045-TC-FY; 71250-TC; 80048; 80053; 82550; 82728; 82962; 83036; 83540; 83550; 83735; 83880; 84100; 84443; 84484; 85025; 85027; 85379; 85610; 85730; 93005; 93010; 97116-GP; 97161-GP; 99285-25; C9803; U0003; U0005

== ENCOUNTER 2021-08-17 23:51 | Inpatient (IN) | payer OTHER, BC ==
[2021-08-18] MEDS ORDERED: FUROSEMIDE 40 MG/4 ML INJECTABLE VIAL IVPUSH ONE (01:02)
[2021-08-18] MEDS ORDERED: FUROSEMIDE 40 MG/4 ML INJECTABLE VIAL ONE (01:14)
[2021-08-18 01:51] LABS: BASO % 0.3 % (0-2.0); EOS % 0.9 % (0-4.5); HEMATOCRIT 33.7 % (32.4-45.2); HEMOGLOBIN 10.1 GM/dL (10.7-15.3); MCH 22.2 pg (25.7-33.7); MCHC 30.1 g/dl (32.0-36.0); MEAN CELL VOLUME 73.9 fl (80-96); MEAN PLT VOLUME 8.3 fl (7.5-11.1); MONO % 5.6 % (3.8-10.2); NEUT % 82.2 % (42.8-82.8); PLATELET COUNT 361 10^3/uL (134-434); RBC 4.56 M/mm3 (3.60-5.2); RDW 17.6 % (11.6-15.6); WHITE BLOOD COUNT 12.2 K/mm3 (4.0-10.0)
[2021-08-18 02:11] LABS: ALBUMIN 3.4 g/dl (3.4-5.0); CALCIUM 8.9 mg/dL (8.5-10.1)
[2021-08-18 02:12] LABS: BLOOD UREA NITROGEN 44.1 mg/dL (7-18); MAGNESIUM 1.8 mg/dL (1.8-2.4)
[2021-08-18 02:14] LABS: CREATININE 1.3 mg/dL (0.55-1.3)
[2021-08-18 02:16] LABS: BILIRUBIN,TOTAL 0.3 mg/dL (0.2-1); TOT PROT 7.6 g/dl (6.4-8.2)
[2021-08-18 02:19] LABS: N-TERMINAL BNP 6931.1 pg/ml (5-125)
[2021-08-18 04:43] LABS: EPI CELLS 5 /uL (0-25.1); HYALINE CASTS 4 /uL (0-3.1); URINE APPEARANCE CLEAR; URINE BACTERIA 0 /uL (0-1359); URINE BILIRUBIN NEGATIVE (NEGATIVE); URINE COLOR YELLOW; URINE GLUCOSE (UA) NEGATIVE (NEGATIVE); URINE KETONE NEGATIVE (NEGATIVE); URINE LEUK ESTERASE NEGATIVE (NEGATIVE); URINE NITRITE NEGATIVE (NEGATIVE); URINE PROTEIN 1+ (NEGATIVE); URINE RBC 8 /uL (0-23.9); URINE UROBILINOGEN 0.2 mg/dL (0.2-1.0); URINE WBC 4 /uL (0-25.8)
[2021-08-18 05:57] LABS: ARTERIAL BLD GAS O2 SATURATION 96.5 % (95-98); ARTERIAL BLOOD GAS BASE EXCESS -3.2 mmol/L (-2-2); ARTERIAL BLOOD GAS PO2 94.2 mmHg (80-100)
[2021-08-18 06:16] LABS: ALLENS TEST POSITIVE; VENT MODE ST
[2021-08-18 06:17] LABS: VENT RATE 12
[2021-08-18 08:06] LABS: BASO % 0.6 % (0-2.0); EOS % 0.8 % (0-4.5); HEMOGLOBIN 9.4 GM/dL (10.7-15.3); LYMPH % 19.2 % (8-40); MCHC 29.5 g/dl (32.0-36.0); MEAN CELL VOLUME 74.6 fl (80-96); MEAN PLT VOLUME 8.7 fl (7.5-11.1); MONO % 7.8 % (3.8-10.2); NEUT % 71.6 % (42.8-82.8); PLATELET COUNT 315 10^3/uL (134-434); RBC 4.29 M/mm3 (3.60-5.2); RDW 17.6 % (11.6-15.6); WHITE BLOOD COUNT 8.2 K/mm3 (4.0-10.0)
[2021-08-18 08:08] LABS: BLOOD UREA NITROGEN 44.3 mg/dL (7-18); CALCIUM 8.8 mg/dL (8.5-10.1); MAGNESIUM 1.9 mg/dL (1.8-2.4)
[2021-08-18 08:12] LABS: CREATININE 1.2 mg/dL (0.55-1.3); PHOSPHOROUS 5.8 mg/dL (2.5-4.9)
[2021-08-18 08:13] LABS: BILIRUBIN,TOTAL 0.3 mg/dL (0.2-1); TOT PROT 6.7 g/dl (6.4-8.2)
[2021-08-18] MEDS ORDERED: GABAPENTIN 100 MG CAPSULE ONE ×2 (09:10→23:00)
[2021-08-18] MEDS: GABAPENTIN 100 MG CAPSULE PO SCH ×2 (10:26→23:08)
[2021-08-18 10:57] LABS: ANISOCYTOSIS 1+; MACROCYTOSIS 0; PLATELET ESTIMATE NORMAL
[2021-08-18] MEDS ORDERED: CALCIUM ACETATE 667 MG CAPSULE (FP) PO ONE (14:05)
[2021-08-18] MEDS: RIVAROXABAN 20 MG TABLET PO SCH (19:32)
[2021-08-18] MEDS ORDERED: DEXTROSE 50%-WATER - 25 GM/50 ML VIAL IVPUSH ONE (21:11)
[2021-08-18] MEDS ORDERED: ATORVASTATIN CA 10 MG TABLET (FP) ONE (23:00)
[2021-08-18] MEDS: ATORVASTATIN CA 10 MG TABLET (FP) PO SCH (23:08)
[2021-08-18] MEDS: INSULIN (LEVEMIR) 100 UNITS/ML UNITS SQ SCH (23:08)
[2021-08-18] MEDS: INSULIN SLIDING SCALE (NOVOLOG) 1 VIAL SQ SCH (23:10)
[2021-08-19 07:14] LABS: HEMATOCRIT 31.6 % (32.4-45.2); HEMOGLOBIN 9.8 GM/dL (10.7-15.3); MCH 23.1 pg (25.7-33.7); MCHC 31.1 g/dl (32.0-36.0); MEAN CELL VOLUME 74.2 fl (80-96); MEAN PLT VOLUME 8.2 fl (7.5-11.1); PLATELET COUNT 324 10^3/uL (134-434); RBC 4.26 M/mm3 (3.60-5.2); RDW 17.3 % (11.6-15.6); WHITE BLOOD COUNT 8.5 K/mm3 (4.0-10.0)
[2021-08-19 07:36] LABS: ALBUMIN 3.3 g/dl (3.4-5.0); BLOOD UREA NITROGEN 45.4 mg/dL (7-18); PHOSPHOROUS 4.6 mg/dL (2.5-4.9)
[2021-08-19 07:37] LABS: BILIRUBIN,TOTAL 0.4 mg/dL (0.2-1); CALCIUM 9.2 mg/dL (8.5-10.1); TOT PROT 7.2 g/dl (6.4-8.2)
[2021-08-19 07:39] LABS: CREATININE 1.1 mg/dL (0.55-1.3)
[2021-08-19] MEDS: INSULIN (LEVEMIR) 100 UNITS/ML UNITS SQ SCH ×2 (09:08→23:55)
[2021-08-19] MEDS: INSULIN SLIDING SCALE (NOVOLOG) 1 VIAL SQ SCH ×4 (09:08→23:56)
[2021-08-19] MEDS ORDERED: GABAPENTIN 100 MG CAPSULE ONE (09:15)
[2021-08-19] MEDS ORDERED: FUROSEMIDE 40 MG/4 ML INJECTABLE VIAL ONE ×2 (09:15→09:49)
[2021-08-19] MEDS: FUROSEMIDE 40 MG/4 ML INJECTABLE VIAL IVPUSH SCH (09:53)
[2021-08-19] MEDS: GABAPENTIN 100 MG CAPSULE PO SCH ×2 (10:00→23:55)
[2021-08-19] MEDS ORDERED: DOCUSATE SODIUM 100 MG CAPSULE (FP) PO ONE (13:39)
[2021-08-19] MEDS ORDERED: FERROUS SO4 325 MG TABLET (FP) ONE (13:39)
[2021-08-19] MEDS: DOCUSATE SODIUM 100 MG CAPSULE (FP) PO SCH (13:42)
[2021-08-19] MEDS: FERROUS SO4 325 MG TABLET (FP) PO SCH (16:58)
[2021-08-19] MEDS: RIVAROXABAN 20 MG TABLET PO SCH (18:55)
[2021-08-19] MEDS: ATORVASTATIN CA 10 MG TABLET (FP) PO SCH (23:55)
[2021-08-20 02:51] VITALS: BMI 35.2
[2021-08-20] MEDS: INSULIN SLIDING SCALE (NOVOLOG) 1 VIAL SQ SCH ×4 (06:59→21:21)
[2021-08-20] MEDS: INSULIN (LEVEMIR) 100 UNITS/ML UNITS SQ SCH ×2 (07:02→21:20)
[2021-08-20] MEDS: GABAPENTIN 100 MG CAPSULE PO SCH ×2 (09:19→21:19)
[2021-08-20] MEDS: DOCUSATE SODIUM 100 MG CAPSULE (FP) PO SCH (09:19)
[2021-08-20] MEDS: FERROUS SO4 325 MG TABLET (FP) PO SCH ×3 (09:20→17:16)
[2021-08-20] MEDS: FUROSEMIDE 40 MG/4 ML INJECTABLE VIAL IVPUSH SCH (09:22)
[2021-08-20 09:36] LABS: HEMOGLOBIN 9.1 GM/dL (10.7-15.3); MCHC 29.5 g/dl (32.0-36.0); MEAN CELL VOLUME 74.7 fl (80-96); MEAN PLT VOLUME 8.3 fl (7.5-11.1); PLATELET COUNT 292 10^3/uL (134-434); RBC 4.16 M/mm3 (3.60-5.2); RDW 17.2 % (11.6-15.6); WHITE BLOOD COUNT 6.3 K/mm3 (4.0-10.0)
[2021-08-20 09:57] LABS: CALCIUM 8.8 mg/dL (8.5-10.1)
[2021-08-20 09:58] LABS: BLOOD UREA NITROGEN 46.2 mg/dL (7-18); MAGNESIUM 2.1 mg/dL (1.8-2.4)
[2021-08-20 10:00] LABS: CREATININE 1.1 mg/dL (0.55-1.3); PHOSPHOROUS 4.4 mg/dL (2.5-4.9)
[2021-08-20 10:02] LABS: BILIRUBIN,TOTAL 0.4 mg/dL (0.2-1); TOT PROT 6.6 g/dl (6.4-8.2)
[2021-08-20] MEDS: FUROSEMIDE 100 MG/10 ML INJECTABLE VIAL IVPB SCH (14:00)
[2021-08-20] MEDS: RIVAROXABAN 20 MG TABLET PO SCH (17:16)
[2021-08-20] MEDS: FLECAINIDE ACETATE 50 MG TABLET PO SCH (21:19)
[2021-08-20] MEDS: ATORVASTATIN CA 10 MG TABLET (FP) PO SCH (21:19)
[2021-08-21] MEDS: FUROSEMIDE 100 MG/10 ML INJECTABLE VIAL IVPB SCH ×2 (06:11→14:42)
[2021-08-21] MEDS: INSULIN (LEVEMIR) 100 UNITS/ML UNITS SQ SCH ×2 (06:11→21:42)
[2021-08-21] MEDS: INSULIN SLIDING SCALE (NOVOLOG) 1 VIAL SQ SCH ×4 (06:12→21:43)
[2021-08-21 08:06] LABS: CALCIUM 8.9 mg/dL (8.5-10.1)
[2021-08-21 08:07] LABS: MAGNESIUM 1.6 mg/dL (1.8-2.4)
[2021-08-21 08:10] LABS: HEMATOCRIT 29.9 % (32.4-45.2); HEMOGLOBIN 8.9 GM/dL (10.7-15.3); MCH 22.2 pg (25.7-33.7); MCHC 29.7 g/dl (32.0-36.0); MEAN CELL VOLUME 74.7 fl (80-96); MEAN PLT VOLUME 8.5 fl (7.5-11.1); PLATELET COUNT 269 10^3/uL (134-434); RBC 4.01 M/mm3 (3.60-5.2); RDW 17.3 % (11.6-15.6); WHITE BLOOD COUNT 6.6 K/mm3 (4.0-10.0)
[2021-08-21] MEDS: GABAPENTIN 100 MG CAPSULE PO SCH ×2 (09:56→21:42)
[2021-08-21] MEDS: FERROUS SO4 325 MG TABLET (FP) PO SCH ×3 (09:56→16:38)
[2021-08-21] MEDS: DOCUSATE SODIUM 100 MG CAPSULE (FP) PO SCH (09:56)
[2021-08-21] MEDS: FLECAINIDE ACETATE 50 MG TABLET PO SCH ×2 (09:58→22:41)
[2021-08-21] MEDS: POLYETHYLENE GLYCOL (HEALTHYLAX) 3350 17 GM PACKET PO SCH (10:03)
[2021-08-21] MEDS ORDERED: POTASSIUM CHLORIDE TABS 20 MEQ TABLET.ER (FP) PO ONE (15:39)
[2021-08-21] MEDS ORDERED: MAGNESIUM OXIDE 400 MG TABLET (FP) PO ONE (15:39)
[2021-08-21] MEDS ORDERED: INSULIN (NOVOLOG) ASPART 100 UNITS/ML 10ML VIAL SQ ONE (16:20)
[2021-08-21] MEDS ORDERED: INSULIN REGULAR HUMAN 100 UNITS/ML *VIAL SQ ONE (16:20)
[2021-08-21] MEDS: RIVAROXABAN 20 MG TABLET PO SCH (17:17)
[2021-08-21] MEDS: ATORVASTATIN CA 10 MG TABLET (FP) PO SCH (21:42)
[2021-08-22] MEDS: INSULIN (LEVEMIR) 100 UNITS/ML UNITS SQ SCH ×2 (06:02→21:36)
[2021-08-22] MEDS: INSULIN SLIDING SCALE (NOVOLOG) 1 VIAL SQ SCH ×4 (06:02→21:36)
[2021-08-22] MEDS: FUROSEMIDE 100 MG/10 ML INJECTABLE VIAL IVPB SCH ×2 (06:06→14:44)
[2021-08-22] MEDS: FERROUS SO4 325 MG TABLET (FP) PO SCH ×3 (08:51→17:53)
[2021-08-22] MEDS: POLYETHYLENE GLYCOL (HEALTHYLAX) 3350 17 GM PACKET PO SCH (10:48)
[2021-08-22] MEDS: FLECAINIDE ACETATE 50 MG TABLET PO SCH ×2 (10:49→21:54)
[2021-08-22] MEDS: DOCUSATE SODIUM 100 MG CAPSULE (FP) PO SCH (10:51)
[2021-08-22] MEDS: GABAPENTIN 100 MG CAPSULE PO SCH ×2 (10:52→21:36)
[2021-08-22 12:10] LABS: HEMATOCRIT 31.8 % (32.4-45.2); HEMOGLOBIN 9.3 GM/dL (10.7-15.3); MCHC 29.2 g/dl (32.0-36.0); MEAN CELL VOLUME 75.4 fl (80-96); MEAN PLT VOLUME 8.5 fl (7.5-11.1); PLATELET COUNT 307 10^3/uL (134-434); RBC 4.22 M/mm3 (3.60-5.2); RDW 17.3 % (11.6-15.6); WHITE BLOOD COUNT 7.3 K/mm3 (4.0-10.0)
[2021-08-22 12:30] LABS: BLOOD UREA NITROGEN 37.3 mg/dL (7-18); CALCIUM 9.5 mg/dL (8.5-10.1); MAGNESIUM 1.8 mg/dL (1.8-2.4)
[2021-08-22 12:33] LABS: PHOSPHOROUS 4.2 mg/dL (2.5-4.9)
[2021-08-22] MEDS: RIVAROXABAN 20 MG TABLET PO SCH (17:53)
[2021-08-22] MEDS: ATORVASTATIN CA 10 MG TABLET (FP) PO SCH (21:36)
[2021-08-23] MEDS: INSULIN SLIDING SCALE (NOVOLOG) 1 VIAL SQ SCH ×4 (06:11→21:17)
[2021-08-23] MEDS: INSULIN (LEVEMIR) 100 UNITS/ML UNITS SQ SCH ×2 (06:11→21:18)
[2021-08-23] MEDS: FUROSEMIDE 100 MG/10 ML INJECTABLE VIAL IVPB SCH (06:11)
[2021-08-23 07:27] LABS: HEMOGLOBIN 9.6 GM/dL (10.7-15.3); MCH 22.4 pg (25.7-33.7); MCHC 29.9 g/dl (32.0-36.0); MEAN CELL VOLUME 74.7 fl (80-96); MEAN PLT VOLUME 8.2 fl (7.5-11.1); PLATELET COUNT 302 10^3/uL (134-434); RBC 4.28 M/mm3 (3.60-5.2); RDW 17.8 % (11.6-15.6); WHITE BLOOD COUNT 7.3 K/mm3 (4.0-10.0)
[2021-08-23 07:43] LABS: ALBUMIN 3.3 g/dl (3.4-5.0); BLOOD UREA NITROGEN 40.5 mg/dL (7-18); MAGNESIUM 1.9 mg/dL (1.8-2.4)
[2021-08-23 07:46] LABS: CREATININE 0.9 mg/dL (0.55-1.3); PHOSPHOROUS 4.1 mg/dL (2.5-4.9)
[2021-08-23 07:47] LABS: BILIRUBIN,TOTAL 0.4 mg/dL (0.2-1); TOT PROT 7.2 g/dl (6.4-8.2)
[2021-08-23] MEDS: FERROUS SO4 325 MG TABLET (FP) PO SCH ×3 (08:09→18:16)
[2021-08-23] MEDS: GABAPENTIN 100 MG CAPSULE PO SCH ×2 (09:50→21:17)
[2021-08-23] MEDS: FLECAINIDE ACETATE 50 MG TABLET PO SCH ×2 (09:51→21:17)
[2021-08-23] MEDS: POLYETHYLENE GLYCOL (HEALTHYLAX) 3350 17 GM PACKET PO SCH (09:56)
[2021-08-23] MEDS: DOCUSATE SODIUM 100 MG CAPSULE (FP) PO SCH (09:56)
[2021-08-23] MEDS ORDERED: INSULIN (NOVOLOG) ASPART 100 UNITS/ML 10ML VIAL ONE (11:45)
[2021-08-23] MEDS: FUROSEMIDE 40 MG/4 ML INJECTABLE VIAL IVPB SCH (15:16)
[2021-08-23] MEDS: RIVAROXABAN 20 MG TABLET PO SCH (18:16)
[2021-08-23] MEDS: ATORVASTATIN CA 10 MG TABLET (FP) PO SCH (21:17)
[2021-08-24] MEDS: FUROSEMIDE 40 MG/4 ML INJECTABLE VIAL IVPB SCH ×2 (06:11→14:24)
[2021-08-24] MEDS: INSULIN SLIDING SCALE (NOVOLOG) 1 VIAL SQ SCH ×4 (06:13→21:27)
[2021-08-24] MEDS: INSULIN (LEVEMIR) 100 UNITS/ML UNITS SQ SCH ×2 (06:20→21:27)
[2021-08-24 07:26] LABS: HEMATOCRIT 32.1 % (32.4-45.2); HEMOGLOBIN 9.4 GM/dL (10.7-15.3); MCH 22.2 pg (25.7-33.7); MCHC 29.4 g/dl (32.0-36.0); MEAN CELL VOLUME 75.5 fl (80-96); MEAN PLT VOLUME 8.5 fl (7.5-11.1); PLATELET COUNT 305 10^3/uL (134-434); RBC 4.26 M/mm3 (3.60-5.2); WHITE BLOOD COUNT 7.7 K/mm3 (4.0-10.0)
[2021-08-24 07:48] LABS: BLOOD UREA NITROGEN 43.8 mg/dL (7-18); CALCIUM 9.4 mg/dL (8.5-10.1)
[2021-08-24 07:50] LABS: ALBUMIN 3.2 g/dl (3.4-5.0)
[2021-08-24 07:53] LABS: BILIRUBIN,TOTAL 0.6 mg/dL (0.2-1); TOT PROT 7.1 g/dl (6.4-8.2)
[2021-08-24 07:57] LABS: N-TERMINAL BNP 3560.8 pg/ml (5-125)
[2021-08-24] MEDS: DOCUSATE SODIUM 100 MG CAPSULE (FP) PO SCH (09:42)
[2021-08-24] MEDS: FERROUS SO4 325 MG TABLET (FP) PO SCH ×4 (09:43→17:08)
[2021-08-24] MEDS: POLYETHYLENE GLYCOL (HEALTHYLAX) 3350 17 GM PACKET PO SCH (09:43)
[2021-08-24] MEDS: GABAPENTIN 100 MG CAPSULE PO SCH ×2 (09:43→21:24)
[2021-08-24] MEDS: FLECAINIDE ACETATE 50 MG TABLET PO SCH ×2 (09:44→21:24)
[2021-08-24] MEDS ORDERED: INSULIN (NOVOLOG) ASPART 100 UNITS/ML 10ML VIAL ONE (12:04)
[2021-08-24] MEDS: RIVAROXABAN 20 MG TABLET PO SCH (18:25)
[2021-08-24] MEDS: ATORVASTATIN CA 10 MG TABLET (FP) PO SCH (21:24)
[2021-08-24] MEDS: MELATONIN 5 MG TABLETS PO PRN (21:24)
[2021-08-25] MEDS: FUROSEMIDE 40 MG/4 ML INJECTABLE VIAL IVPB SCH ×2 (06:13→13:39)
[2021-08-25] MEDS: INSULIN SLIDING SCALE (NOVOLOG) 1 VIAL SQ SCH ×4 (06:13→22:14)
[2021-08-25] MEDS: INSULIN (LEVEMIR) 100 UNITS/ML UNITS SQ SCH ×2 (06:14→22:17)
[2021-08-25 07:27] LABS: HEMOGLOBIN 8.8 GM/dL (10.7-15.3); MCH 22.7 pg (25.7-33.7); MCHC 30.5 g/dl (32.0-36.0); MEAN CELL VOLUME 74.5 fl (80-96); MEAN PLT VOLUME 8.1 fl (7.5-11.1); PLATELET COUNT 225 10^3/uL (134-434); RBC 3.89 M/mm3 (3.60-5.2)
[2021-08-25 07:52] LABS: ALBUMIN 2.8 g/dl (3.4-5.0); BLOOD UREA NITROGEN 45.3 mg/dL (7-18)
[2021-08-25 07:53] LABS: CALCIUM 8.8 mg/dL (8.5-10.1); TOT PROT 6.3 g/dl (6.4-8.2)
[2021-08-25] MEDS ORDERED: GLIMEPIRIDE 4 MG TABLET PO SCH (07:53)
[2021-08-25 07:54] LABS: BILIRUBIN,TOTAL 0.4 mg/dL (0.2-1)
[2021-08-25] MEDS: DOCUSATE SODIUM 100 MG CAPSULE (FP) PO SCH (09:29)
[2021-08-25] MEDS: FERROUS SO4 325 MG TABLET (FP) PO SCH ×3 (09:29→17:19)
[2021-08-25] MEDS: GABAPENTIN 100 MG CAPSULE PO SCH ×2 (09:30→21:40)
[2021-08-25] MEDS: FLECAINIDE ACETATE 50 MG TABLET PO SCH ×2 (09:30→21:43)
[2021-08-25] MEDS: POLYETHYLENE GLYCOL (HEALTHYLAX) 3350 17 GM PACKET PO SCH (09:30)
[2021-08-25] MEDS: RIVAROXABAN 20 MG TABLET PO SCH (17:22)
[2021-08-25] MEDS: MELATONIN 5 MG TABLETS PO PRN (21:40)
[2021-08-25] MEDS: ATORVASTATIN CA 10 MG TABLET (FP) PO SCH (21:40)
[2021-08-26] MEDS: FUROSEMIDE 40 MG/4 ML INJECTABLE VIAL IVPB SCH ×2 (06:09→13:58)
[2021-08-26] MEDS: INSULIN SLIDING SCALE (NOVOLOG) 1 VIAL SQ SCH ×2 (06:25→12:33)
[2021-08-26] MEDS: INSULIN (LEVEMIR) 100 UNITS/ML UNITS SQ SCH (06:25)
[2021-08-26 08:05] LABS: HEMATOCRIT 29.8 % (32.4-45.2); MCH 22.5 pg (25.7-33.7); MCHC 30.2 g/dl (32.0-36.0); MEAN CELL VOLUME 74.4 fl (80-96); MEAN PLT VOLUME 8.5 fl (7.5-11.1); PLATELET COUNT 255 10^3/uL (134-434); RDW 17.7 % (11.6-15.6); WHITE BLOOD COUNT 6.1 K/mm3 (4.0-10.0)
[2021-08-26 08:31] LABS: CALCIUM 9.4 mg/dL (8.5-10.1)
[2021-08-26 08:32] LABS: BLOOD UREA NITROGEN 41.1 mg/dL (7-18)
[2021-08-26 08:35] LABS: CREATININE 0.9 mg/dL (0.55-1.3)
[2021-08-26 08:37] LABS: TOT PROT 6.7 g/dl (6.4-8.2)
[2021-08-26 08:38] LABS: BILIRUBIN,TOTAL 0.6 mg/dL (0.2-1)
[2021-08-26] MEDS: DOCUSATE SODIUM 100 MG CAPSULE (FP) PO SCH (09:43)
[2021-08-26] MEDS: FERROUS SO4 325 MG TABLET (FP) PO SCH ×2 (09:43→12:22)
[2021-08-26] MEDS: FLECAINIDE ACETATE 50 MG TABLET PO SCH (09:44)
[2021-08-26] MEDS: GABAPENTIN 100 MG CAPSULE PO SCH (09:44)
[2021-08-26] MEDS: POLYETHYLENE GLYCOL (HEALTHYLAX) 3350 17 GM PACKET PO SCH (09:46)
[2021-08-26 13:47] VITALS: BP 103/69; PULSE 81; TEMP 98.7
== END 2021-08-26 19:08 | disposition home or self-care (01) | DRG 291 ==
LOC: JER 23:51 → JERBED 08-18 02:31 → J4W 08-19 21:51
PROVIDERS: ADMIT Hospitalist; ATTEND Internal Medicine
DX: I11.0 Hypertensive heart disease with heart failure (principal); J96.01 Acute respiratory failure with hypoxia; I50.33 Acute on chronic diastolic (congestive) heart failure; N17.9 Acute kidney failure, unspecified; I48.92 Unspecified atrial flutter; I48.91 Unspecified atrial fibrillation; E78.5 Hyperlipidemia, unspecified; I45.10 Unspecified right bundle-branch block; K76.0 Fatty (change of) liver, not elsewhere classified; E11.51 Type 2 diabetes mellitus with diabetic peripheral angiopathy without gangrene; F17.210 Nicotine dependence, cigarettes, uncomplicated; D72.829 Elevated white blood cell count, unspecified; D50.9 Iron deficiency anemia, unspecified; D64.9 Anemia, unspecified; E11.65 Type 2 diabetes mellitus with hyperglycemia; Z91.14 Patient's other noncompliance with medication regimen
CPT/HCPCS: 36415; 36600; 71045-TC-FY; 80048; 80053; 81003; 82728; 82803; 82962; 83036; 83540; 83550; 83735; 83880; 84100; 84439; 84443; 84484; 85025; 85027; 87086; 93005; 93010; 93306-TC; 94660; 94761; 97116-GP; 97161-GP; 99285-25; C9803; U0003; U0005

== ENCOUNTER 2021-09-03 19:23 | Emergency (ER) | payer OTHER, BC ==
[2021-09-03 19:51] VITALS: TEMP 97.8; BMI 27.4
[2021-09-03 23:17] VITALS: BP 101/74; PULSE 91
== END 2021-09-03 23:19 | disposition home or self-care (01) ==
LOC: JER 19:23
DX: S01.81XA Laceration without foreign body of other part of head, initial encounter (principal); W19.XXXA Unspecified fall, initial encounter; Y92.9 Unspecified place or not applicable
CPT/HCPCS: 70450-TC; 71045-TC-FY; 72125-TC; 93005; 93010; 99285-25

== ENCOUNTER 2024-11-07 13:26 | Inpatient (IN) | payer OTHER, BC ==
[2024-11-07 14:50] LABS: VENOUS BASE EXCESS 0.5 mmol/L (-2-2); VENOUS O2 SATURATION 74.3 % (70-80); VENOUS PCO2 60.8 mmHg (38-52); VENOUS PH 7.28 (7.310-7.410)
[2024-11-07 14:59] LABS: ABSOLUTE IMMATURE GRANULOCYTES 0.03 x10^3/uL (0.0-0.031); BASOPHILS # 0.03 x10^3/uL (0.01-0.08); EOSINOPHIL % 1.4 % (0.7-5.8); EOSINOPHILS # 0.08 x10^3/uL (0.04-0.36); HEMATOCRIT 30.8 % (34.1-44.9); HEMOGLOBIN 8.4 g/dL (11.2-15.7); MCHC 27.3 g/dl (32.2-35.5); MEAN CELL VOLUME 82.4 fl (79.4-94.8); MEAN PLT VOLUME 10.2 fl (9.4-12.3); MONOCYTE # 0.39 x10^3/uL (0.24-0.86); PLATELET COUNT 294 x10^3/uL (182-369); RDW 18.2 % (12.4-16.6)
[2024-11-07] MEDS ORDERED: FUROSEMIDE 40 MG/4 ML INJECTABLE VIAL ONE (15:04)
[2024-11-07] MEDS: FUROSEMIDE 40 MG/4 ML INJECTABLE VIAL IVPUSH ONE ×2 (15:05→15:15)
[2024-11-07 15:06] LABS: INR 1.84 (0.83-1.09); PROTHROMBIN TIME (PATIENT) 20.1 SEC (9.7-13.0)
[2024-11-07 15:09] LABS: ACTIVATED PTT 44.6 SECONDS (25.2-36.5)
[2024-11-07 15:20] LABS: CHLORIDE 106 mmol/L (98-107); POTASSIUM 5.1 mmol/L (3.5-5.1); SODIUM 143 mmol/L (136-145)
[2024-11-07 15:22] LABS: ANION GAP 8 mmol/L (4-13); BLOOD UREA NITROGEN 57.5 mg/dL (7-18); CO2 29 mmol/L (21-32); MAGNESIUM 2.6 mg/dL (1.8-2.4)
[2024-11-07 15:25] LABS: CREATININE 1.5 mg/dL (0.55-1.3); SGOT/AST 26 U/L (15-37); SGPT/ALT 30 U/L (13-61)
[2024-11-07 15:27] LABS: BILIRUBIN,TOTAL 0.2 mg/dL (0.2-1); TOT PROT 6.8 g/dl (6.4-8.2)
[2024-11-07 15:28] LABS: ALK PHOS 104 U/L (45-117)
[2024-11-07 15:30] LABS: N-TERMINAL BNP 5228.3 pg/ml (5-125)
[2024-11-07 15:37] LABS: GLUCOSE,RANDOM 413 mg/dL (74-106)
[2024-11-07] MEDS ORDERED: INSULIN ASPART SLIDING SCALE (NOVOLOG) 1 VIAL SQ SCH (16:30)
[2024-11-07] MEDS: INSULIN ASPART SLIDING SCALE (NOVOLOG) 1 VIAL SQ SCH (16:50)
[2024-11-07] MEDS: INSULIN (NOVOLOG) ASPART 100 UNITS/ML 10ML VIAL SQ SCH (19:06)
[2024-11-07] MEDS ORDERED: INSULIN (LEVEMIR) 100 UNITS/ML UNITS SQ SCH (22:00)
[2024-11-07] MEDS: FLECAINIDE ACETATE 50 MG TABLET PO SCH (22:32)
[2024-11-07] MEDS: ATORVASTATIN CA 10 MG TABLET (FP) PO SCH (22:33)
[2024-11-07] MEDS: GABAPENTIN 100 MG CAPSULE PO SCH (22:33)
[2024-11-07] MEDS: INSULIN GLARGINE (LANTUS) 100 UNITS/ML UNITS SQ SCH (22:33)
[2024-11-07] MEDS: RIVAROXABAN 15 MG TABLET PO SCH (22:33)
[2024-11-07] MEDS ORDERED: INSULIN GLARGINE (LANTUS) 100 UNITS/ML UNITS SQ ONE (22:43)
[2024-11-08 06:32] LABS: ABSOLUTE IMMATURE GRANULOCYTES 0.02 x10^3/uL (0.0-0.031); BASOPHILS # 0.02 x10^3/uL (0.01-0.08); EOSINOPHIL % 2.9 % (0.7-5.8); EOSINOPHILS # 0.18 x10^3/uL (0.04-0.36); HEMATOCRIT 28.5 % (34.1-44.9); HEMOGLOBIN 7.7 g/dL (11.2-15.7); MEAN CELL VOLUME 82.4 fl (79.4-94.8); MEAN PLT VOLUME 10.1 fl (9.4-12.3); MONOCYTE # 0.65 x10^3/uL (0.24-0.86); MONOCYTE % 10.4 % (4.7-12.5); PLATELET COUNT 269 x10^3/uL (182-369); RDW 17.9 % (12.4-16.6)
[2024-11-08] MEDS ORDERED: INSULIN ASPART SLIDING SCALE (NOVOLOG) 1 VIAL SQ ONE (06:41)
[2024-11-08 06:56] LABS: POTASSIUM 4.9 mmol/L (3.5-5.1)
[2024-11-08 06:58] LABS: CALCIUM 9.1 mg/dL (8.5-10.1)
[2024-11-08 07:01] LABS: BLOOD UREA NITROGEN 61.5 mg/dL (7-18)
[2024-11-08 07:02] LABS: CREATININE 1.2 mg/dL (0.55-1.3)
[2024-11-08] MEDS: FUROSEMIDE 40 MG/4 ML INJECTABLE VIAL IVPUSH SCH (11:58)
[2024-11-09] MEDS ORDERED: INSULIN ASPART SLIDING SCALE (NOVOLOG) 1 VIAL SQ ONE (06:35)
[2024-11-09] MEDS ORDERED: INSULIN GLARGINE (LANTUS) 100 UNITS/ML UNITS SQ ONE (06:35)
[2024-11-09 07:14] LABS: HEMATOCRIT 28.7 % (34.1-44.9); HEMOGLOBIN 7.8 g/dL (11.2-15.7); MCHC 27.2 g/dl (32.2-35.5); MEAN CELL VOLUME 82.7 fl (79.4-94.8); MEAN PLT VOLUME 9.9 fl (9.4-12.3); PLATELET COUNT 274 x10^3/uL (182-369); RDW 17.9 % (12.4-16.6)
[2024-11-09 07:38] LABS: POTASSIUM 4.7 mmol/L (3.5-5.1)
[2024-11-09 07:41] LABS: BLOOD UREA NITROGEN 62.6 mg/dL (7-18)
[2024-11-09 07:44] LABS: CALCIUM 9.1 mg/dL (8.5-10.1)
[2024-11-09 07:45] LABS: CREATININE 1.3 mg/dL (0.55-1.3); MAGNESIUM 2.8 mg/dL (1.8-2.4); PHOSPHOROUS 5.1 mg/dL (2.5-4.9)
[2024-11-09] MEDS: FUROSEMIDE 40 MG/4 ML INJECTABLE VIAL IVPUSH ONE (12:03)
[2024-11-09] MEDS: FUROSEMIDE 40 MG/4 ML INJECTABLE VIAL IVPUSH SCH (13:14)
[2024-11-09] MEDS: METOLAZONE 2.5 MG TABLET (FP) PO ONE (15:59)
[2024-11-09] MEDS: POLYETHYLENE GLYCOL (HEALTHYLAX) 3350 17 GM PACKET PO ONE (21:27)
[2024-11-09] MEDS: SENNOSIDES 8.6MG TABLET (FP) PO ONE (21:27)
[2024-11-10] MEDS ORDERED: FUROSEMIDE 40 MG/4 ML INJECTABLE VIAL IVPUSH SCH (10:00)
[2024-11-10] MEDS: FUROSEMIDE INJECTION 100 MG in SODIUM CHLORIDE 40 ML IVPB SCH (12:32)
[2024-11-10] MEDS: METOLAZONE 5 MG TABLET PO ONE (13:58)
[2024-11-11 08:26] LABS: HEMATOCRIT 27.8 % (34.1-44.9); HEMOGLOBIN 7.5 g/dL (11.2-15.7); MEAN CELL VOLUME 82.7 fl (79.4-94.8); MEAN PLT VOLUME 10.2 fl (9.4-12.3); PLATELET COUNT 243 x10^3/uL (182-369); RDW 17.5 % (12.4-16.6)
[2024-11-11 09:24] LABS: POTASSIUM 5.1 mmol/L (3.5-5.1)
[2024-11-11 09:29] LABS: BLOOD UREA NITROGEN 67.4 mg/dL (7-18)
[2024-11-11 09:30] LABS: PHOSPHOROUS 4.9 mg/dL (2.5-4.9)
[2024-11-11 09:31] LABS: CREATININE 1.2 mg/dL (0.55-1.3)
[2024-11-11 10:03] LABS: CALCIUM 9.3 mg/dL (8.5-10.1); MAGNESIUM 2.8 mg/dL (1.8-2.4)
[2024-11-11] MEDS: BISACODYL 10 MG SUPP.RECT PR ONE ×2 (12:34)
[2024-11-11] MEDS ORDERED: BISACODYL 10 MG SUPP.RECT PR ONE (14:00)
[2024-11-11] MEDS: METOLAZONE 5 MG TABLET PO ONE (15:02)
[2024-11-12 08:14] LABS: ABSOLUTE IMMATURE GRANULOCYTES 0.02 x10^3/uL (0.0-0.031); BASOPHILS # 0.03 x10^3/uL (0.01-0.08); EOSINOPHIL % 3.1 % (0.7-5.8); EOSINOPHILS # 0.15 x10^3/uL (0.04-0.36); HEMATOCRIT 29.5 % (34.1-44.9); HEMOGLOBIN 7.9 g/dL (11.2-15.7); MCHC 26.8 g/dl (32.2-35.5); MEAN CELL VOLUME 81.9 fl (79.4-94.8); MEAN PLT VOLUME 10.6 fl (9.4-12.3); MONOCYTE # 0.51 x10^3/uL (0.24-0.86); MONOCYTE % 10.4 % (4.7-12.5); PLATELET COUNT 258 x10^3/uL (182-369); RDW 17.3 % (12.4-16.6)
[2024-11-12 08:20] LABS: ALBUMIN 2.9 g/dl (3.4-5.0); CALCIUM 9.4 mg/dL (8.5-10.1); POTASSIUM 4.2 mmol/L (3.5-5.1)
[2024-11-12 08:21] LABS: MAGNESIUM 2.4 mg/dL (1.8-2.4)
[2024-11-12 09:03] LABS: BILIRUBIN,TOTAL 0.3 mg/dL (0.2-1)
[2024-11-12 09:04] LABS: CREATININE 1.2 mg/dL (0.55-1.3); PHOSPHOROUS 4.9 mg/dL (2.5-4.9); TOT PROT 6.6 g/dl (6.4-8.2)
[2024-11-12 12:47] VITALS: BMI 33.7
[2024-11-13 07:50] LABS: HEMATOCRIT 28.5 % (34.1-44.9); HEMOGLOBIN 7.7 g/dL (11.2-15.7); MEAN CELL VOLUME 80.7 fl (79.4-94.8); MEAN PLT VOLUME 10.4 fl (9.4-12.3); PLATELET COUNT 242 x10^3/uL (182-369); RDW 17.1 % (12.4-16.6)
[2024-11-13 08:27] LABS: POTASSIUM 3.8 mmol/L (3.5-5.1)
[2024-11-13 08:30] LABS: ALBUMIN 2.7 g/dl (3.4-5.0); BLOOD UREA NITROGEN 84.2 mg/dL (7-18); CALCIUM 9.3 mg/dL (8.5-10.1); MAGNESIUM 2.3 mg/dL (1.8-2.4)
[2024-11-13 08:34] LABS: CREATININE 1.1 mg/dL (0.55-1.3)
[2024-11-13 08:35] LABS: BILIRUBIN,TOTAL 0.3 mg/dL (0.2-1); TOT PROT 6.2 g/dl (6.4-8.2)
[2024-11-13] MEDS: POLYETHYLENE GLYCOL (HEALTHYLAX) 3350 17 GM PACKET PO ONE (11:06)
[2024-11-13] MEDS: EMPAGLIFLOZIN (JARDIANCE) 10 MG TABLET PO SCH (11:09)
[2024-11-14] MEDS ORDERED: INSULIN ASPART SLIDING SCALE (NOVOLOG) 1 VIAL SQ ONE (06:40)
[2024-11-14] MEDS: EMPAGLIFLOZIN (JARDIANCE) 10 MG TABLET PO SCH (06:41)
[2024-11-14 07:43] LABS: HEMATOCRIT 28.9 % (34.1-44.9); MCHC 27.7 g/dl (32.2-35.5); MEAN CELL VOLUME 80.1 fl (79.4-94.8); MEAN PLT VOLUME 10.5 fl (9.4-12.3); PLATELET COUNT 245 x10^3/uL (182-369); RDW 16.8 % (12.4-16.6)
[2024-11-14 07:47] LABS: POTASSIUM 3.8 mmol/L (3.5-5.1)
[2024-11-14 07:52] LABS: BLOOD UREA NITROGEN 92.2 mg/dL (7-18); CALCIUM 9.6 mg/dL (8.5-10.1)
[2024-11-14 07:56] LABS: CREATININE 1.4 mg/dL (0.55-1.3)
[2024-11-14 07:58] LABS: MAGNESIUM 2.4 mg/dL (1.8-2.4)
[2024-11-14] MEDS: POTASSIUM CHLORIDE TABS 10 MEQ TABLET.ER (FP) PO ONE (15:02)
[2024-11-14] MEDS: acetaZOLAMIDE 250 MG TABLET PO SCH (15:02)
[2024-11-14] MEDS: INSULIN (NOVOLOG) ASPART 100 UNITS/ML 10ML VIAL SQ SCH (16:39)
[2024-11-14] MEDS: INSULIN GLARGINE (LANTUS) 100 UNITS/ML UNITS SQ SCH (22:15)
[2024-11-15] MEDS ORDERED: INSULIN ASPART SLIDING SCALE (NOVOLOG) 1 VIAL SQ ONE (06:39)
[2024-11-15 07:03] LABS: HEMATOCRIT 28.8 % (34.1-44.9); HEMOGLOBIN 7.7 g/dL (11.2-15.7); MCHC 26.7 g/dl (32.2-35.5); MEAN CELL VOLUME 82.1 fl (79.4-94.8); MEAN PLT VOLUME 10.4 fl (9.4-12.3); PLATELET COUNT 243 x10^3/uL (182-369); RDW 16.9 % (12.4-16.6)
[2024-11-15 07:30] LABS: POTASSIUM 3.5 mmol/L (3.5-5.1)
[2024-11-15 07:47] LABS: ALBUMIN 2.8 g/dl (3.4-5.0); BLOOD UREA NITROGEN 98.7 mg/dL (7-18); CALCIUM 9.3 mg/dL (8.5-10.1); MAGNESIUM 2.5 mg/dL (1.8-2.4)
[2024-11-15 07:51] LABS: CREATININE 1.6 mg/dL (0.55-1.3); PHOSPHOROUS 5.9 mg/dL (2.5-4.9)
[2024-11-15 07:52] LABS: BILIRUBIN,TOTAL 0.4 mg/dL (0.2-1); TOT PROT 6.6 g/dl (6.4-8.2)
[2024-11-15] MEDS: POTASSIUM CHLORIDE ORAL LIQUID 20 MEQ/15 ML PO ONE (09:28)
[2024-11-15 14:34] LABS: ARTERIAL BLD GAS O2 SATURATION 95.6 % (95-98); ARTERIAL BLOOD GAS BASE EXCESS 13.3 mmol/L (-2-2); ARTERIAL BLOOD GAS PO2 78.9 mmHg (80-100)
[2024-11-15 14:36] LABS: ALLENS TEST POSITIVE
[2024-11-15] MEDS: acetaZOLAMIDE 250 MG TABLET PO SCH (18:02)
[2024-11-16 06:39] LABS: HEMATOCRIT 27.4 % (34.1-44.9); HEMOGLOBIN 7.3 g/dL (11.2-15.7); MCHC 26.6 g/dl (32.2-35.5); MEAN CELL VOLUME 82.3 fl (79.4-94.8); MEAN PLT VOLUME 10.7 fl (9.4-12.3); PLATELET COUNT 228 x10^3/uL (182-369); RDW 16.7 % (12.4-16.6)
[2024-11-16 07:28] LABS: BLOOD UREA NITROGEN 95.7 mg/dL (7-18); CALCIUM 9.4 mg/dL (8.5-10.1); CREATININE 1.6 mg/dL (0.55-1.3); MAGNESIUM 2.8 mg/dL (1.8-2.4); POTASSIUM 3.5 mmol/L (3.5-5.1)
[2024-11-17 08:19] LABS: POTASSIUM 3.6 mmol/L (3.5-5.1)
[2024-11-17 08:20] LABS: ABSOLUTE IMMATURE GRANULOCYTES 0.05 x10^3/uL (0.0-0.031); BASOPHILS # 0.03 x10^3/uL (0.01-0.08); EOSINOPHIL % 1.8 % (0.7-5.8); EOSINOPHILS # 0.13 x10^3/uL (0.04-0.36); HEMATOCRIT 30.5 % (34.1-44.9); HEMOGLOBIN 8.1 g/dL (11.2-15.7); MCHC 26.6 g/dl (32.2-35.5); MEAN CELL VOLUME 82.9 fl (79.4-94.8); MEAN PLT VOLUME 11.4 fl (9.4-12.3); MONOCYTE # 0.76 x10^3/uL (0.24-0.86); MONOCYTE % 10.6 % (4.7-12.5); PLATELET COUNT 284 x10^3/uL (182-369); RDW 16.7 % (12.4-16.6)
[2024-11-17 08:21] LABS: ALBUMIN 2.9 g/dl (3.4-5.0); BLOOD UREA NITROGEN 99.8 mg/dL (7-18); CALCIUM 9.1 mg/dL (8.5-10.1)
[2024-11-17 08:24] LABS: CREATININE 1.9 mg/dL (0.55-1.3); MAGNESIUM 3.2 mg/dL (1.8-2.4)
[2024-11-17 08:25] LABS: BILIRUBIN,TOTAL 0.3 mg/dL (0.2-1)
[2024-11-17 08:26] LABS: PHOSPHOROUS 5.5 mg/dL (2.5-4.9); TOT PROT 7.4 g/dl (6.4-8.2)
[2024-11-17] MEDS: PANTOPRAZOLE 40 MG TABLET PO SCH (14:57)
[2024-11-17] MEDS: IRON SUCROSE INJECTION 200 MG in SODIUM CHLORIDE 100 ML IVPB ONE (14:57)
[2024-11-17] MEDS: POLYETHYLENE GLYCOL (HEALTHYLAX) 3350 17 GM PACKET PO PRN (14:57)
[2024-11-18 07:53] LABS: HEMATOCRIT 28.4 % (34.1-44.9); HEMOGLOBIN 7.7 g/dL (11.2-15.7); MCHC 27.1 g/dl (32.2-35.5); MEAN CELL VOLUME 82.1 fl (79.4-94.8); PLATELET COUNT 281 x10^3/uL (182-369); RDW 16.6 % (12.4-16.6)
[2024-11-18 08:13] LABS: POTASSIUM 3.8 mmol/L (3.5-5.1)
[2024-11-18 08:14] LABS: CALCIUM 9.1 mg/dL (8.5-10.1)
[2024-11-18 08:15] LABS: BLOOD UREA NITROGEN 100.3 mg/dL (7-18)
[2024-11-18 08:18] LABS: CREATININE 1.8 mg/dL (0.55-1.3)
[2024-11-18] MEDS: INSULIN (NOVOLOG) ASPART 100 UNITS/ML 10ML VIAL SQ SCH (12:08)
[2024-11-18] MEDS: IRON SUCROSE INJECTION 200 MG in SODIUM CHLORIDE 100 ML IVPB ONE (16:59)
[2024-11-19 06:40] VITALS: RESP 20
[2024-11-19 06:43] LABS: ABSOLUTE IMMATURE GRANULOCYTES 0.08 x10^3/uL (0.0-0.031); BASOPHILS # 0.03 x10^3/uL (0.01-0.08); EOSINOPHIL % 1.1 % (0.7-5.8); EOSINOPHILS # 0.11 x10^3/uL (0.04-0.36); HEMATOCRIT 27.9 % (34.1-44.9); HEMOGLOBIN 7.4 g/dL (11.2-15.7); MCHC 26.5 g/dl (32.2-35.5); MEAN CELL VOLUME 81.8 fl (79.4-94.8); MEAN PLT VOLUME 10.9 fl (9.4-12.3); MONOCYTE # 1.06 x10^3/uL (0.24-0.86); MONOCYTE % 10.6 % (4.7-12.5); PLATELET COUNT 294 x10^3/uL (182-369); RDW 17.1 % (12.4-16.6)
[2024-11-19 09:15] LABS: CHLORIDE 92 mmol/L (98-107); POTASSIUM 3.5 mmol/L (3.5-5.1); SODIUM 140 mmol/L (136-145)
[2024-11-19 09:55] LABS: ALBUMIN 2.7 g/dl (3.4-5.0)
[2024-11-19 09:56] LABS: ANION GAP 12 mmol/L (4-13); CO2 35 mmol/L (21-32)
[2024-11-19 10:00] LABS: CALCIUM 9.1 mg/dL (8.5-10.1); MAGNESIUM 3.1 mg/dL (1.8-2.4)
[2024-11-19 10:02] LABS: CREATININE 1.8 mg/dL (0.55-1.3); GLUCOSE,RANDOM 312 mg/dL (74-106); PHOSPHOROUS 5.4 mg/dL (2.5-4.9); SGPT/ALT 19 U/L (13-61)
[2024-11-19 10:03] LABS: BILIRUBIN,TOTAL 0.2 mg/dL (0.2-1); SGOT/AST 14 U/L (15-37)
[2024-11-19 10:04] LABS: ALK PHOS 96 U/L (45-117); TOT PROT 6.5 g/dl (6.4-8.2)
[2024-11-19] MEDS: POTASSIUM CHLORIDE TABS 20 MEQ TABLET.ER (FP) PO ONE (13:19)
[2024-11-19] MEDS: INSULIN GLARGINE (LANTUS) 100 UNITS/ML UNITS SQ SCH (21:47)
[2024-11-20 08:19] LABS: HEMATOCRIT 30.1 % (34.1-44.9); HEMOGLOBIN 7.8 g/dL (11.2-15.7); MCHC 25.9 g/dl (32.2-35.5); MEAN CELL VOLUME 84.6 fl (79.4-94.8); PLATELET COUNT 335 x10^3/uL (182-369); RDW 17.1 % (12.4-16.6)
[2024-11-20 08:25] LABS: CHLORIDE 96 mmol/L (98-107); POTASSIUM 4.1 mmol/L (3.5-5.1); SODIUM 142 mmol/L (136-145)
[2024-11-20 08:33] LABS: ANION GAP 8 mmol/L (4-13); CALCIUM 9.4 mg/dL (8.5-10.1); CO2 38 mmol/L (21-32); GLUCOSE,RANDOM 330 mg/dL (74-106); MAGNESIUM 3.2 mg/dL (1.8-2.4)
[2024-11-20 08:34] LABS: BLOOD UREA NITROGEN 112.3 mg/dL (7-18)
[2024-11-20 08:36] LABS: CREATININE 1.7 mg/dL (0.55-1.3)
[2024-11-20 08:37] LABS: PHOSPHOROUS 5.7 mg/dL (2.5-4.9)
[2024-11-20 09:24] LABS: TOTAL IRON BINDING CAPACITY 348 ug/dL (250-450)
[2024-11-20 09:25] LABS: IRON SERUM 33 ug/dL (50-175)
[2024-11-20] MEDS: IRON SUCROSE INJECTION 200 MG in SODIUM CHLORIDE 100 ML IVPB ONE (09:34)
[2024-11-20] MEDS: FUROSEMIDE INJECTION 100 MG in SODIUM CHLORIDE 40 ML IVPB SCH (09:46)
[2024-11-20] MEDS: LIDOCAINE 4% PATCH TP SCH (11:19)
[2024-11-20 15:35] VITALS: BP 104/50; PULSE 103; TEMP 98.6
[2024-11-20] MEDS ORDERED: LIDOCAINE PATCH REMOVAL MC SCH (22:00)
== END 2024-11-20 15:37 | DRG 291 ==
LOC: JER 13:26 → JERBED 15:57 → J4W 19:59
PROVIDERS: ADMIT Internal Medicine; ATTEND Internal Medicine
DX: I13.0 Hypertensive heart and chronic kidney disease with heart failure and stage 1 through stage 4 chronic kidney disease, or unspecified chronic kidney disease (principal); I50.33 Acute on chronic diastolic (congestive) heart failure; J96.21 Acute and chronic respiratory failure with hypoxia; J96.22 Acute and chronic respiratory failure with hypercapnia; I48.21 Permanent atrial fibrillation; N17.9 Acute kidney failure, unspecified; E78.5 Hyperlipidemia, unspecified; E11.51 Type 2 diabetes mellitus with diabetic peripheral angiopathy without gangrene; D50.9 Iron deficiency anemia, unspecified; G30.9 Alzheimer's disease, unspecified; F02.80 Dementia in other diseases classified elsewhere, unspecified severity, without behavioral disturbance, psychotic disturbance, mood disturbance, and anxiety; K76.0 Fatty (change of) liver, not elsewhere classified; E66.9 Obesity, unspecified; Z68.32 Body mass index [BMI] 32.0-32.9, adult; E11.22 Type 2 diabetes mellitus with diabetic chronic kidney disease; N18.9 Chronic kidney disease, unspecified; Z99.81 Dependence on supplemental oxygen; Z91.148 Patient's other noncompliance with medication regimen for other reason
CPT/HCPCS: 0241U-QW; 36415; 36600; 71045-TC-FY; 80048; 80053; 82272; 82607; 82728; 82746; 82803; 82962; 83036; 83540; 83550; 83735; 83880; 83935; 84100; 84484; 85025; 85027; 85610; 85730; 87635; 93005; 93010; 93306-TC; 94660; 97116-GP; 97162-GP; 99285-25; J1756